=== PATIENT | female | born 1965 | race Caucasian/White ===

== ENCOUNTER 2016-08-31 20:26 | Emergency (ER) | payer OTHER ==
[2016-08-31] MEDS ORDERED: AMOXIL PO ONE (20:53)
[2016-08-31] MEDS ORDERED: ULTRAM PO ONE (20:54)
--- NOTE | 2016-08-31 20:59 | PROVIDER DOCUMENTATION ---
HPI-General Adult - General Stated Complaint: TOOTHACHE Time Seen by Provider: 08/31/16 20:38 Source: patient Allergies/Adverse Reactions: Patient Allergies Allergy/AdvReac Type Severity Reaction Status Date / Time azithromycin [From Zithromax] Allergy ANAPHYLAXIS Verified 09/21/15 19:49 acetaminophen [From Percocet] AdvReac Unknown Verified 09/21/15 19:49 nitrofurantoin AdvReac HEADACHE Verified 09/21/15 19:49 [From Macrobid] nitrofurantoin AdvReac HEADACHE Verified 09/21/15 19:49 macrocrystalline * [From Macrobid] oxycodone HCl * AdvReac Unknown Verified 09/21/15 19:49 [From Percocet] sumatriptan [From Imitrex] AdvReac Unknown Verified 09/21/15 19:49 sumatriptan succinate * AdvReac Unknown Verified 09/21/15 19:49 [From Imitrex] Home Medications: Home Medication List Medication Instructions Recorded Confirmed Last Taken Type Amitriptyline [Elavil] 1 tab PO QHS 09/21/15 09/21/15 Unknown History Cranberry Conc/Ascorbic Acid 1 tab PO DAILY 09/21/15 09/21/15 Unknown History [Cranberry Plus Vitamin C Sftgl] Cyclobenzaprine [Flexeril] 1 tab PO BID 09/21/15 09/21/15 Unknown History Ferrous Sulfate 1 tab PO DAILY 09/21/15 09/21/15 Unknown History Furosemide [Lasix] 1 tab PO DAILY PRN 09/21/15 09/21/15 Unknown History Insulin Glargine [Lantus] 35 units SQ BID 09/21/15 09/21/15 Unknown History Insulin Regular, Human [Novolin R] 5 units SQ AC 09/21/15 09/21/15 Unknown History Linagliptin [Tradjenta] 1 tab PO DAILY 09/21/15 09/21/15 Unknown History Metoprolol Succinate E.r. [Toprol 1 tab PO QHS 09/21/15 09/21/15 Unknown History Xl] Potassium Chloride E.r. [Klor-Con] 1 tab PO DAILY 09/21/15 09/21/15 Unknown History Pregabalin [Lyrica] 1 tab PO TID 09/21/15 09/21/15 Unknown History Sulfamethoxazole/Trimethoprim 1 each PO BID #10 tablet 09/21/15 Unknown Rx [Bactrim Ds Tablet] Topiramate [Topamax] 1 tab PO BID 09/21/15 09/21/15 Unknown History Amoxicillin 500 mg PO BID #14 tablet 08/31/16 Unknown Rx Tramadol [Ultram] 50 mg PO Q8HR #12 tablet 08/31/16 Unknown Rx - History of Present Illness -Gen Adult Nature of Presenting Problems: Pt. is 50 yof that presents with c/o toothache on her upper and lower incisors. Pt. reports symptoms for two weeks and states she is calling on Friday to get a dentist appointment. Pt. denies any other symptoms at time of exam. Location of Pain/Injury: reports: mouth. denies: head, face, neck, chest, upper extremity, hand(s), abdomen, back, pelvis, genitalia, lower extremity, feet, upper body, lower body, generalized Pain Radiation: reports: no radiation Quality of Pain: reports: aching. denies: burning, cramping, dull, fullness, indigestion, pressure, sharp, stabbing, tearing, throbbing, tightness Severity: reports: moderate. denies: mild, severe Onset/Duration: reports: gradual, other (Two weeks) Timing: reports: still present. denies: improving, gone now, resolved prior to arrival, intermittent, constant, changing over time, getting worse Context/Activities at Onset: reports: none. denies: recent emotional stress, recent physical stress, recent trauma history, possible bad food, cold exposure , out of country travel Modifying Factors: improves with: nothing Associated Symptoms: reports: EENT symptoms. denies: anxiety, arm pain, back/ neck pain, chest pain, constipation, cough, diaphoresis, diarrhea, dizziness, fatigue, fever/chills, genitourinary problems, headaches, heartburn, joint pain , loss of appetite, malaise, muscle aches, sinus congestion/drainage, nausea, rash, seizure, shortness of breath, sensory/motor loss, pain with inspiration, swelling/mass in abdomen, syncope, vomiting, weakness, trouble walking Similar Symptoms Previously?: Yes Recently seen or treated by another doctor?: No Review of Systems - Adult - REVIEW OF SYSTEMS - ADULT Constitutional: reports: see HPI. denies: chills, fever, fatique Eyes: reports: see HPI. denies: discharge, blurred vision, double vision Ears, Nose, Mouth & Throat: reports: see HPI, mouth/dental pain. denies: ear pain, hearing loss, sinus problem, nose pain, loose teeth, throat swelling Cardiovascular: reports: see HPI. denies: chest pain, irregular heart rate, orthopnea, palpitations, syncope Respiratory: reports: see HPI. denies: chronic cough, cough, dyspnea on exertion, pleurisy, shortness of breath, wheezing Gastrointestinal: reports: see HPI. denies: abdominal pain, hematemesis, difficulty swallowing, frequent heartburn, nausea, vomiting Genitourinary: reports: see HPI. denies: dysuria, discharge, flank pain, hematuria, hesitency, incontinence, urgency Musculoskeletal: reports: see HPI. denies: bone pain, back pain, joint pain, muscle aches, neck pain Integumentary: reports: see HPI. denies: hives, hair loss, itching, rash, skin thickening Neurological: reports: see HPI. denies: ataxia, dizziness/vertigo, headache/ migraines, numbness, paresthesia, seizure, tremors Psychiatric: reports: see HPI. denies: anxiety, depression, emotional problems , insomnia, panic attacks, suicidal thoughts Past History - Adult - PAST MEDICAL HISTORY-ADULT Review of Records: reports: Old Records Reviewed, Nursing Assessment Review, Medications Reviewed, Social history reviewed & non-contributory. Major Childhood Illnesses: reports: denies history Cardiovascular: reports: HTN, hyperlipidemia Musculoskeletal: reports: chronic pain Endocrine/Immune: reports: Diabetes - PRIOR SURGERIES/PROCEDURES Surgical/Procedure History: reports: BTL, orthopedic (extremity), back/neck - IMMUNIZATION STATUS Childhood Immunizations: See Nurse Assessment Flu Vaccine: See Nurse Assessment - FAMILY HISTORY Family History: reviewed, not pertinent - SOCIAL HISTORY Smoking: cigarettes, greater than 1 pack/day Provider spent 3-5 mins advising pt. on dangers of tobacco.: Discussed the need to stop smoking. Physical Exam-General - PHYSICAL EXAM-ADULT Initial Vital Signs Reviewed: Yes - CONSTITUTIONAL General Appearance: alert, mild distress, obese. negative: thin, anxious, lethargic, slow to respond, obtunded, combative - EYES Eyes: PERRL/EOMI, pink conjunctivae. negative: conjuctival exudate, scleral icterus, subconjunctival hemorrhage - HEAD, EARS, NOSE, MOUTH & THROAT HENMT: normocephalic/atraumatic, moist mucous membranes. negative: angioedema, frontal tenderness, maxillary tenderness - NECK Neck: non-tender, full range of motion, supple, normal inspection. negative: lymphadenopathy, trachial deviation, thyromegaly - RESPIRATORY Respiratory: lungs clear, normal breath sounds. negative: crackles, rales, rhonchi, stridor, wheezing - CARDIOVASCULAR Cardiovascular: normal peripheral pulses, regular rate, rhythm, no edema, no JVD , no murmur. negative: extra beats, friction rub, irregularly irregular - CHEST (BREASTS) Chest/Breast: deferred - GASTROINTESTINAL (ABDOMEN) Abdominal Exam: normal bowel sounds, non tender, soft. negative: distended, guarding, rigid, rebound, tenderness, hernia, mass - GENITOURINARY Female Genitalia/Pelvic Exam: deferred Rectal Exam: deferred Hemoccult Exam: deferred - LYMPHATIC Lymphatic: no adenopathy. negative: axilla node tender, cervical node tenderness - MUSCULOSKELETAL Back Exam: normal inspection, no CVA tenderness, no vertebral tenderness. negative: ecchymosis, swelling, vertebral tenderness Extremity: normal range of motion, non-tender, normal gait, normal inspection. negative: deformity, erythema, inflammation, swelling, tenderness Peripheral Pulses: radial (R): 2+, radial (L): 2+ - SKIN Integumentary: normal color, normal turgor, warm/dry. negative: cyanosis, diaphoresis, ecchymosis, erythema, jaundice, mottled, pallor, petechiae, purpura , rash, swelling, tenderness - NEUROLOGIC Neurologic: grossly normal, no motor/sensory deficits. negative: aphasia, facial droop, focal weakness, motor weakness, sensory deficit - PSYCHIATRIC Psych/Mental Status: normal mood/affect, normal thought content, normal thought process, oriented x 3. negative: anxious, paranoid, tearful Progress - PLAN OF CARE/RESULTS Progress/Plan/Lab Results: Discussed results and plan of care with patient. Patient agrees with plan and verbalizes understanding. Vital Signs Temp Pulse Resp BP Pulse Ox 08/31/16 20:53 98 F 105 H 18 177/99 99 azithromycin [From Zithromax] Allergy (Verified 09/21/15 19:49) ANAPHYLAXIS acetaminophen [From Percocet] Adverse Reaction (Verified 09/21/15 19:49) Unknown nitrofurantoin [From Macrobid] Adverse Reaction (Verified 09/21/15 19:49) HEADACHE nitrofurantoin macrocrystalline * [From Macrobid] Adverse Reaction (Verified 19:49) HEADACHE oxycodone HCl * [From Percocet] Adverse Reaction (Verified 09/21/15 19:49) Unknown sumatriptan [From Imitrex] Adverse Reaction (Verified 09/21/15 19:49) Unknown sumatriptan succinate * [From Imitrex] Adverse Reaction (Verified 09/21/15 19:49 ) Unknown Amitriptyline [Elavil] 1 tab PO QHS 09/21/15 Cranberry Conc/Ascorbic Acid [Cranberry Plus Vitamin C Sftgl] 1 tab PO DAILY Cyclobenzaprine [Flexeril] 1 tab PO BID 09/21/15 Ferrous Sulfate 1 tab PO DAILY 09/21/15 Furosemide [Lasix] 1 tab PO DAILY PRN 09/21/15 Insulin Glargine [Lantus] 35 units SQ BID 09/21/15 Insulin Regular, Human [Novolin R] 5 units SQ AC 09/21/15 Linagliptin [Tradjenta] 1 tab PO DAILY 09/21/15 Metoprolol Succinate E.r. [Toprol Xl] 1 tab PO QHS 09/21/15 Potassium Chloride E.r. [Klor-Con] 1 tab PO DAILY 09/21/15 Pregabalin [Lyrica] 1 tab PO TID 09/21/15 Sulfamethoxazole/Trimethoprim [Bactrim Ds Tablet] 1 each PO BID #10 tablet 09/20 Topiramate [Topamax] 1 tab PO BID 09/21/15 Orders Category Date Time Status Amoxicillin [Amoxil] Med 08/31/16 20:53 Discontinued 500 mg PO NOW ONE Tramadol [Ultram] Med 08/31/16 20:54 Discontinued 50 mg PO NOW ONE Departure - Departure Time of Disposition Order: 20:59 DIAGNOSIS: Dental caries Disposition: HOME 01 Certified Medical Emergency: Emergent Condition: Stable Additional Instructions: Follow up with primary care physician Take medications as directed Follow up with dentist Return to ED for any concerns or worsening of symptoms ED Follow Up Instructions: You have been treated by a care provider in the Emergency Department. These instructions are being provided to you so you can have an understanding of how to care for yourself upon discharge. Upon discharge from the Emergency Department, you are responsible for making arrangements for follow-up care by a physician of your choice. Take all prescribed medications as directed. Return to the Emergency Department immediately for any new or worsening symptoms. You may call the Physician Referral phone number at [phone] to obtain a list of Physicians who are taking new patients. Prescriptions: Amoxicillin 500 mg PO BID #14 tablet Tramadol [Ultram] 50 mg PO Q8HR #12 tablet Attestation - Physician/ TERRY Attestation Patient care was provided by Advanced Practice Provider:: Yes Advanced Practice Provider:: Kayleigh Lake Advanced Practice Provider documentation review:: The Mid-level provider documentation, treatment plan and medical decision making was reviewed by the physician who agrees with all treatment and medical decision making by the MLP.
[2016-08-31 21:02] VITALS: BP 177/99
== END 2016-08-31 21:08 | disposition home or self-care (01) ==
LOC: P.ED 20:26
DX: K02.9 Dental caries, unspecified (principal); K08.89 Other specified disorders of teeth and supporting structures; I10 Essential (primary) hypertension; E78.5 Hyperlipidemia, unspecified; E11.9 Type 2 diabetes mellitus without complications; G89.29 Other chronic pain; E66.9 Obesity, unspecified; F17.210 Nicotine dependence, cigarettes, uncomplicated; Z79.899 Other long term (current) drug therapy; Z71.6 Tobacco abuse counseling; Z79.4 Long term (current) use of insulin
CPT/HCPCS: 99282

== ENCOUNTER 2016-09-12 17:42 | Emergency (ER) | payer OTHER ==
--- NOTE | 2016-09-12 19:52 | PROVIDER DOCUMENTATION ---
HPI-Headache - General Chief Complaint: Headache Stated Complaint: HEADACHE Time Seen by Provider: 09/12/16 19:45 Source: patient Allergies/Adverse Reactions: Patient Allergies Allergy/AdvReac Type Severity Reaction Status Date / Time azithromycin [From Zithromax] Allergy ANAPHYLAXIS Verified 09/21/15 19:49 acetaminophen [From Percocet] AdvReac Unknown Verified 09/21/15 19:49 nitrofurantoin AdvReac HEADACHE Verified 09/21/15 19:49 [From Macrobid] nitrofurantoin AdvReac HEADACHE Verified 09/21/15 19:49 macrocrystalline * [From Macrobid] oxycodone HCl * AdvReac Unknown Verified 09/21/15 19:49 [From Percocet] sumatriptan [From Imitrex] AdvReac Unknown Verified 09/21/15 19:49 sumatriptan succinate * AdvReac Unknown Verified 09/21/15 19:49 [From Imitrex] Home Medications: Home Medication List Medication Instructions Recorded Confirmed Last Taken Type Amitriptyline [Elavil] 1 tab PO QHS 09/21/15 09/21/15 Unknown History Cranberry Conc/Ascorbic Acid 1 tab PO DAILY 09/21/15 09/21/15 Unknown History [Cranberry Plus Vitamin C Sftgl] Cyclobenzaprine [Flexeril] 1 tab PO BID 09/21/15 09/21/15 Unknown History Ferrous Sulfate 1 tab PO DAILY 09/21/15 09/21/15 Unknown History Furosemide [Lasix] 1 tab PO DAILY PRN 09/21/15 09/21/15 Unknown History Insulin Glargine [Lantus] 35 units SQ BID 09/21/15 09/21/15 Unknown History Insulin Regular, Human [Novolin R] 5 units SQ AC 09/21/15 09/21/15 Unknown History Linagliptin [Tradjenta] 1 tab PO DAILY 09/21/15 09/21/15 Unknown History Metoprolol Succinate E.r. [Toprol 1 tab PO QHS 09/21/15 09/21/15 Unknown History Xl] Potassium Chloride E.r. [Klor-Con] 1 tab PO DAILY 09/21/15 09/21/15 Unknown History Pregabalin [Lyrica] 1 tab PO TID 09/21/15 09/21/15 Unknown History Sulfamethoxazole/Trimethoprim 1 each PO BID #10 tablet 09/21/15 Unknown Rx [Bactrim Ds Tablet] Topiramate [Topamax] 1 tab PO BID 09/21/15 09/21/15 Unknown History Amoxicillin 500 mg PO BID #14 tablet 08/31/16 Unknown Rx Tramadol [Ultram] 50 mg PO Q8HR #12 tablet 08/31/16 Unknown Rx - History of Present Illness-Headache Nature of Presenting Problem: 50 y/o F with history of CKD (stage 3), chronic pancreatitis, DDD, sciatica, DM , neuropathy, HTN, HLD presents with migraine x 4 hours. Pain is located on the left side described as throbbing with associated light sensitivity, nausea, which are all typical of her usual migraines. She has not taken anything for this at home and states usually they go away with rest, but she typically comes to the hosptial for her migraines. Patient has a history of migraines since she was in her 20's. Prior workup includes CT and MRI which were normal. PCP is Dr. Wilson. Review of Systems - Adult - REVIEW OF SYSTEMS - ADULT Constitutional: reports: no symptoms reported. denies: chills, fever Eyes: reports: no symptoms reported. denies: decreased vision, blurred vision Ears, Nose, Mouth & Throat: reports: no symptoms reported. denies: ear discharge, ear pain Cardiovascular: reports: no symptoms reported. denies: chest pain Respiratory: reports: no symptoms reported. denies: cough, shortness of breath , wheezing Gastrointestinal: reports: nausea. denies: abdominal pain, vomiting Genitourinary: reports: no symptoms reported. denies: dysuria, hematuria Musculoskeletal: reports: back pain (chronc, unchanged) Integumentary: reports: no symptoms reported. denies: itching, rash Neurological: reports: headache/migraines. denies: dizziness/vertigo, numbness , paresthesia, seizure, slurred speech, syncope, tremors Psychiatric: reports: no symptoms reported Endocrine: reports: no symptoms reported Hematologic/Lymphatic: reports: no symptoms reported Allergic/Immunologic: reports: no symptoms reported All Other Systems: Reviewed and Negative Past History - Adult - PAST MEDICAL HISTORY-ADULT Review of Records: reports: Old Records Reviewed, Nursing Assessment Review, Medications Reviewed Major Childhood Illnesses: reports: denies history Cardiovascular: reports: HTN, hyperlipidemia Musculoskeletal: reports: chronic pain Endocrine/Immune: reports: Diabetes - PRIOR SURGERIES/PROCEDURES Surgical/Procedure History: reports: BTL, orthopedic (extremity), back/neck - IMMUNIZATION STATUS Childhood Immunizations: See Nurse Assessment Flu Vaccine: See Nurse Assessment - FAMILY HISTORY Family History: reviewed, not pertinent Physical Exam- Neurological - Physical Exam-Neuro Initial Vital Signs Reviewed: Yes General Appearance: alert, no apparent distress, other (patient wearing sunglasses and hooded sweatshirt over her head) Eye Exam: right eye: normal inspection, PERRL, EOMI HENMT: normocephalic/atraumatic, moist mucous membranes Head Injury: no evidence of injury Neck: non-tender, full range of motion, supple, normal inspection. negative: limited range of motion, lymphadenopathy, meningismus Respiratory: chest non-tender, lungs clear, normal breath sounds, no pleuratic chest pain, no respiratory distress, no accessory muscle use Cardiovascular: normal peripheral pulses, regular rate, rhythm, no edema, no gallop, no JVD, no murmur Lymphatic: no adenopathy Peripheral Pulses: radial (R): 2+, radial (L): 2+ Extremity: normal range of motion, non-tender, normal gait, normal inspection, no pedal edema pyrometallurgical engineer Exam: normal hearing, normal speech, PERRL. negative: abnormal speech, facial asymmetry, facial droop, facial paresthesias, facial weakness, gaze palsy , hearing deficit (R), hearing deficit (L), tongue deviation to R, tongue deviation to L Coordination/Gait: normal finger to nose, normal gait, negative Romberg's sign Motor/Sensory: no motor deficit, no sensory deficit Neurologic: pyrometallurgical engineer II-XII nml as tested, no motor/sensory deficits. negative: facial droop, focal weakness, motor weakness, sensory deficit Integumentary: normal color, normal turgor, warm/dry Psych/Mental Status: normal mood/affect, normal thought content, normal thought process, oriented x 3 - Glascow Coma Scale Best Eye Response: (4) open spontaneously Best Verbal Response: (5) oriented Best Motor Response: (6) obeys commands Total Glascow Score: 15 Progress - PLAN OF CARE/RESULTS Progress/Plan/Lab Results: 20:03- medical screening exam complete. Patient with temp of 100F and HR of 116 at time of arrival. No meningismus or neuro deficits. Will check CBC and BMP and recheck vitals once RN is available. Patient sent back to with her and instructed to notify recptionist if any change in condition. - REASSESSMENT Reassessment #1 Time Reassessed: 22:17 (Patient's VILLALBA improved. She is playing on her phone in no distress and is nontoxic appearing. Discussed findings of elevated WBC, low sodium with patient. She refuses any further workup at this time. She states her VILLALBA is better and requests to go home. Her temp and HR did improve on recheck of vitals. discussed with Dr. Aguilar. Patient wishes to sign out AMA.) Status: improving Departure - Departure Time of Disposition Order: 22:41 DIAGNOSIS: Migraine, Elevated WBC count, Hyponatremia Disposition: AGAINST MEDICAL ADVICE Certified Medical Emergency: Emergent Condition: Good Additional Instructions: ED Follow Up Instructions: You have been treated by a care provider in the Emergency Department. These instructions are being provided to you so you can have an understanding of how to care for yourself upon discharge. Upon discharge from the Emergency Department, you are responsible for making arrangements for follow-up care by a physician of your choice. Take all prescribed medications as directed. Return to the Emergency Department immediately for any new or worsening symptoms. You may call the Physician Referral phone number at [phone] to obtain a list of Physicians who are taking new patients. Attestation - Physician/ TERRY Attestation Patient care was provided by Advanced Practice Provider:: Yes Advanced Practice Provider:: Goldie Ceballos Advanced Practice Provider documentation review:: The Mid-level provider documentation, treatment plan and medical decision making was reviewed by the physician who agrees with all treatment and medical decision making by the MLP.
[2016-09-12] MEDS ORDERED: NUBAIN IM ONE (19:56)
[2016-09-12] MEDS ORDERED: PHENERGAN IM ONE (19:56)
[2016-09-12 21:17] LABS: MANUAL DIFF NEEDED? NO
[2016-09-12 21:19] LABS: BASO% 0.3 % (0.0-0.8); EOS# 0.06 X1000 (0.0-0.7); EOS% 0.4 % (0.0-10.0); HEMATOCRIT 34.3 % (37.0-47.0); HEMOGLOBIN 11.9 g/dL (12.0-16.0); IMM GRAN# 0.06 X1000 (0.0-0.04); IMM GRAN% 0.4 % (0.0-0.5); LYMPH# 1.44 X1000 (1.2-3.4); MCH 32.4 PG (27-31); MCHC 34.7 g/dL (33-37); MCV 93.5 FL (81-99); MONO# 0.94 X1000 (0.11-0.59); MONO% 6.5 % (1.7-9.3); MPV 11.1 FL (7.4-10.4); NEUT% 82.4 % (42.2-75.2); PLT 204 X1000 (130-400); RBC 3.67 XMIL (4.2-5.4)
[2016-09-12 21:36] LABS: CALCIUM 9.2 mg/dL (8.8-10.2); POTASSIUM 4.2 mmol/L (3.5-5.1)
[2016-09-12 22:24] VITALS: BP 146/84
--- NOTE | 2016-09-13 08:27 | Diag Imaging Result Document ---
PROCEDURE NAME: CHEST-2 VIEWS - 09/12/2016 TWO VIEWS OF THE CHEST: FINDINGS: There is no evidence of acute cardiac or pulmonary disease. No previous studies are available for comparison. IMPRESSION: No acute disease.
== END 2016-09-12 23:03 | disposition left against medical advice (07) ==
LOC: P.ED 17:42
DX: G43.909 Migraine, unspecified, not intractable, without status migrainosus (principal); D72.829 Elevated white blood cell count, unspecified; E87.1 Hypo-osmolality and hyponatremia; R51 Headache; R11.0 Nausea; E11.9 Type 2 diabetes mellitus without complications; I12.9 Hypertensive chronic kidney disease with stage 1 through stage 4 chronic kidney disease, or unspecified chronic kidney disease; N18.3 Chronic kidney disease, stage 3 (moderate); Z79.899 Other long term (current) drug therapy; G89.29 Other chronic pain; M54.9 Dorsalgia, unspecified; E78.5 Hyperlipidemia, unspecified; Z79.4 Long term (current) use of insulin
CPT/HCPCS: 71020; 80048; 85025; 87804; 96372; J2300; J2550

== ENCOUNTER 2017-02-14 00:48 | Inpatient (IN) ==
[2017-02-14] MEDS ORDERED: ZOFRAN IV ONE (00:58)
[2017-02-14] MEDS ORDERED: DILAUDID IV ONE (00:58)
--- NOTE | 2017-02-14 01:02 | PROVIDER DOCUMENTATION ---
This chart was entered by Yana Huang Scribe, acting as scribe for Kadeem Castaneda MD. HPI-Abdominal Pain/GI Problem - General Chief Complaint: UTI Symptoms Stated Complaint: LEFT LOWER BACK PAIN, THINKS SHE HAS A UTI Time Seen by Provider: 02/14/17 00:57 Source: patient Allergies/Adverse Reactions: Patient Allergies Allergy/AdvReac Type Severity Reaction Status Date / Time azithromycin [From Zithromax] Allergy ANAPHYLAXIS Verified 02/14/17 00:51 fenoprofen [From Nalfon] Allergy ANAPHYLAXIS Verified 02/14/17 00:51 rofecoxib [From Vioxx] Allergy Unknown Verified 02/14/17 00:51 acetaminophen [From Percocet] AdvReac Unknown Verified 02/14/17 00:51 nitrofurantoin AdvReac HEADACHE Verified 02/14/17 00:51 [From Macrobid] nitrofurantoin AdvReac HEADACHE Verified 02/14/17 00:51 macrocrystalline * [From Macrobid] oxycodone HCl * AdvReac Unknown Verified 02/14/17 00:51 [From Percocet] sumatriptan [From Imitrex] AdvReac Unknown Verified 02/14/17 00:51 sumatriptan succinate * AdvReac Unknown Verified 02/14/17 00:51 [From Imitrex] Home Medications: Home Medication List Medication Instructions Recorded Confirmed Last Taken Type Furosemide [Lasix] 20 mg PO BID 09/21/15 02/07/17 1 Day Ago History Insulin Glargine [Lantus] 35 units SQ BID 09/21/15 02/07/17 1 Day Ago History Insulin Regular, Human [Novolin R] 5 units SQ DIRECTED 09/21/15 02/07/17 1 Day Ago History Amitriptyline [Elavil] 20 mg PO HS 10/22/16 02/07/17 1 Day Ago History Citalopram Hydrobromide [Celexa] 10 mg PO DAILY 10/22/16 02/07/17 1 Day Ago History Cyclobenzaprine [Flexeril] 10 mg PO TID PRN PRN 10/22/16 02/07/17 1 Day Ago History Metoprolol [Lopressor] 50 mg PO DAILY 10/22/16 02/07/17 1 Day Ago History Clonazepam [Clonazepam] 0.5 mg PO BID PRN 01/15/17 02/07/17 1 Day Ago History Insulin Glargine [Lantus] 35 unit SQ BID 02/14/17 02/14/17 1 Day Ago History Pregabalin [Lyrica] 1 cap PO BID 02/14/17 02/14/17 1 Day Ago History - History of Present Illness-ABD Nature of Presenting Problems: 51 year old F presents to the ED via EMS with a cc of left flank pain radiating into LLQ with an onset of 2030. PT states that she also has some nausea. PT states that the pain is sharp and it came on suddenly. Abdominal Pain Onset Location: reports: flank (left) Pain Radiation: reports: LLQ Quality of Pain: reports: sharp Severity in ED: reports: mild Timing: reports: still present Modifying Factors: improves with: nothing Associated Symptoms: reports: nausea Bruising or Bleeding Gums?: No Similar Symptoms Previously?: No Recently seen or treated by another doctor?: No Review of Systems - Adult - REVIEW OF SYSTEMS - ADULT Constitutional: reports: chills. denies: fever Eyes: reports: no symptoms reported Ears, Nose, Mouth & Throat: reports: no symptoms reported Cardiovascular: denies: chest pain, palpitations Respiratory: denies: cough, shortness of breath Gastrointestinal: reports: abdominal pain, nausea. denies: vomiting Genitourinary: reports: flank pain. denies: dysuria, hematuria Musculoskeletal: denies: back pain, muscle aches, muscle weakness Integumentary: denies: skin sores/ulcer, skin thickening Neurological: reports: no symptoms reported Psychiatric: reports: no symptoms reported Endocrine: reports: no symptoms reported Hematologic/Lymphatic: reports: no symptoms reported Allergic/Immunologic: reports: no symptoms reported All Other Systems: Reviewed and Negative Past History - Adult - PAST MEDICAL HISTORY-ADULT Review of Records: reports: Nursing Assessment Review, Medications Reviewed Major Childhood Illnesses: reports: denies history Cardiovascular: reports: HTN, hyperlipidemia Genitourinary: reports: kidney disease (stage 3) Musculoskeletal: reports: chronic pain Endocrine/Immune: reports: Diabetes - PRIOR SURGERIES/PROCEDURES Surgical/Procedure History: reports: BTL, orthopedic (extremity), back/neck - IMMUNIZATION STATUS Childhood Immunizations: See Nurse Assessment Flu Vaccine: See Nurse Assessment - FAMILY HISTORY Family History: reviewed, not pertinent - SOCIAL HISTORY Smoking: cigarettes Provider spent 3-5 mins advising pt. on dangers of tobacco.: Discussed manners to quit use, and f/u contacts for add'l counseling. Substance Use: none/never Alcohol Use Frequency: never Physical Exam-General - PHYSICAL EXAM-ADULT Initial Vital Signs Reviewed: Yes - CONSTITUTIONAL General Appearance: alert, no apparent distress - RESPIRATORY Respiratory: chest non-tender, lungs clear, normal breath sounds - CARDIOVASCULAR Cardiovascular: normal peripheral pulses, regular rate, rhythm, no edema - GASTROINTESTINAL (ABDOMEN) Abdominal Exam: normal bowel sounds, soft, tenderness (left flank, LLQ) - MUSCULOSKELETAL Back Exam: CVA tenderness (left) - SKIN Integumentary: normal color, normal turgor, warm/dry - PSYCHIATRIC Psych/Mental Status: normal mood/affect, normal thought content, normal thought process, oriented x 3 Progress - PLAN OF CARE/RESULTS Progress/Plan/Lab Results: Vital Signs - 8 hr 02/14/17 00:49 Temperature 97.3 F L Pulse Rate 97 H Respiratory Rate 18 Blood Pressure 106/68 O2 Sat by Pulse Oximetry 95 Orders Category Date Time Status URINALYSIS PL W/POSS RFLX CULT [URINALYSIS] Stat Lab 02/14/17 00:50 Uncollected Result Diagrams: 02/14/17 01:05 02/14/17 01:05 Departure - Departure Date of Disposition Decision: 02/14/17 Time of Disposition Decision: 02:56 DIAGNOSIS: Acute pyelonephritis, Sepsis secondary to UTI Uncontrolled diabetes mellitus Qualifiers: Diabetes mellitus type: type 2 Diabetes mellitus complication status: with kidney complications Diabetes mellitus complication detail: with other kidney complication Diabetes mellitus retirement insulin use: unspecified 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 Qualified Code(s): E11.29 - Type 2 diabetes mellitus with other diabetic kidney complication; E11.65 - Type 2 diabetes mellitus with hyperglycemia Kidney failure Qualifiers: Renal failure chronicity: acute Acute renal failure type: unspecified Qualified Code(s): N17.9 - Acute kidney failure, unspecified Disposition: ADMITTED INPATIENT 09 Certified Medical Emergency: Emergent Condition: Stable Referrals and Follow-Ups: Boom Wilson [Primary Care Provider] - - Critical Care Note This patient required my direct & personal management of CC.: Yes Total Time (mins): 120 Critical Care Statement: This patient required my direct personal management to treat or rule out processes, the absence of which, could potentiallly result in sudden, clinically significant life or limb threatening deterioration. Attestation - Physician/ TERRY Attestation Patient care was provided by Advanced Practice Provider:: No The physician spent face to face time with patient:: Yes Advanced Practice Provider documentation review:: Supervising physician onsite and consulted in the evaluation and care of this patient. The physician did have a face to face encounter with the patient. This chart was documented by the indicated scribe, (Yana Huang Scribe) and accurately reflects the services I performed and decisions made by me, Kadeem Castaneda MD, as attested by the provider's signature.
[2017-02-14] MEDS ORDERED: DILAUDID IM ONE (01:37)
[2017-02-14] MEDS ORDERED: ZOFRAN IM ONE (01:37)
[2017-02-14 01:40] LABS: BASO% 0.2 % (0.0-0.8); EOS# 0.15 X1000 (0.0-0.7); EOS% 0.5 % (0.0-10.0); HEMATOCRIT 31.5 % (37.0-47.0); HEMOGLOBIN 10.9 g/dL (12.0-16.0); IMM GRAN# 0.17 X1000 (0.0-0.04); IMM GRAN% 0.6 % (0.0-0.5); LYMPH% 2.8 % (20.5-51.1); MANUAL DIFF NEEDED? NO; MCH 31.1 PG (27-31); MCHC 34.6 g/dL (33-37); MONO# 0.86 X1000 (0.11-0.59); MPV 10.1 FL (7.4-10.4); NEUT% 92.9 % (42.2-75.2); PLT 302 X1000 (130-400)
[2017-02-14 01:59] LABS: BILIRUBIN URINE NEGATIVE (NEGATIVE); BLOOD URINE 2+ (NEGATIVE); CLARITY SL. CLOUDY (CLEAR); COLOR YELLOW; LEUKOCYTES URINE 2+ (NEGATIVE); NITRITE URINE POSITIVE (NEGATIVE); PROTEIN URINE TRACE mg/dL (NEGATIVE); UROBILINOGEN URINE NORMAL
[2017-02-14 02:01] LABS: URINE CULTURE PL NEEDED? YES; URINE EPITHELIAL CELLS <10 /HPF (<10); URINE RBC <10 /HPF (<10)
[2017-02-14 02:02] LABS: URINE SOURCE CLEAN CATCH
[2017-02-14] MEDS ORDERED: ZOSYN 4.5 GM/NS 4.5 GM/100 ML IVPB IV ONE (02:08)
[2017-02-14] MEDS ORDERED: NS 1,000 ML IV ONE ×3 (02:08→17:03)
[2017-02-14] MEDS ORDERED: ZOFRAN IV PRN ×3 (02:40→16:36)
[2017-02-14] MEDS ORDERED: DILAUDID IV PRN ×3 (02:40→16:35)
[2017-02-14 02:42] LABS: ALBUMIN 3.6 g/dL (3.5-5.0); CALCIUM 9.2 mg/dL (8.8-10.2); POTASSIUM 5.1 mmol/L (3.5-5.1); TOTAL BILIRUBIN 0.3 mg/dL (0.20-1.00); TOTAL PROTEIN 7.3 g/dL (6.3-8.3)
[2017-02-14] MEDS ORDERED: HUMULIN R (PARKWAY) IV ONE (02:47)
[2017-02-14] MEDS ORDERED: NS 500 ML IV ONE (04:12)
[2017-02-14] MEDS ORDERED: PITRESSIN 40 UNIT in NS 100 ML IV SCH (04:12)
[2017-02-14 07:42] LABS: BILIRUBIN URINE NEGATIVE (NEGATIVE); BLOOD URINE 1+ (NEGATIVE); CLARITY CLEAR (CLEAR); COLOR YELLOW; LEUKOCYTES URINE 1+ (NEGATIVE); NITRITE URINE NEGATIVE (NEGATIVE); PROTEIN URINE TRACE mg/dL (NEGATIVE); SP GRAVITY URINE 1.015; UROBILINOGEN URINE NORMAL
[2017-02-14 07:46] LABS: URINE CAST NONE SEEN /LPF; URINE CRYSTAL NONE SEEN /HPF; URINE CULTURE PL NEEDED? YES; URINE EPITHELIAL CELLS <10 /HPF (<10); URINE RBC <10 /HPF (<10); URINE SOURCE CATH; URINE WBC <10 /HPF (<10)
--- NOTE | 2017-02-14 08:38 | Diag Imaging Result Doc PS360 ---
EXAM: ABDOMEN/PELVIS W/O CONTRAST HISTORY: left flank pain TECHNIQUE: Routine noncontrasted CT scan the abdomen and pelvis. COMPARISON: None. FINDINGS: Preliminary interpretation was given by [facility]. Evaluation of the solid visceral organs is limited by lack of IV contrast. No calcified gallstones are appreciated. There is a 2 cm left adrenal nodule which is low density and likely represents a benign adenoma. Confirmation could be obtained with MRI if desired clinically. There is moderate left hydroureteronephrosis. No radiopaque calculus is appreciated. There is gas within the urinary bladder, left ureter, and collecting system. This could be secondary to infection with gas-forming organisms or recent instrumentation. Correlate clinically. There is mild right perinephric stranding of uncertain etiology. There is a there is an 8 mm nonobstructing right calyceal stone. The appendix appears normal. There is moderate constipation. No evidence for free air or bowel distention. There is mild para-aortic lymphadenopathy. There are postsurgical changes lumbar spine with transpedicular screws. IMPRESSION: 1.Moderate left hydronephrosis with perinephric stranding. No obstructing calculus is identified. 2.Gas within the left collecting system, ureter, and bladder which may be secondary to instrumentation or infection with gas-forming organisms. Correlate clinically. 3.Right calyceal stone and mild right perinephric stranding of uncertain etiology. 4.2 cm low density left adrenal nodule which likely represents a benign adenoma. This can be confirmed with MRI as desired clinically. 5.Mild retroperitoneal lymphadenopathy. 6.Constipation. Electronically signed by Ileana Perla 02/14/2017 8:36 AM
[2017-02-14] MEDS ORDERED: FLEXERIL PO PRN (08:50)
[2017-02-14] MEDS ORDERED: KLONOPIN PO PRN ×2 (08:50→16:36)
[2017-02-14] MEDS ORDERED: TYLENOL PO PRN ×2 (08:51→16:35)
[2017-02-14] MEDS ORDERED: CELEXA PO SCH (09:00)
[2017-02-14] MEDS ORDERED: LYRICA PO SCH ×2 (09:00→21:00)
[2017-02-14] MEDS ORDERED: LANTUS INSULIN (PARKWAY) SUBQ SCH (09:00)
[2017-02-14] MEDS ORDERED: PITRESSIN 40 UNIT in NS 100 ML IV PRN ×2 (09:05→16:36)
[2017-02-14] MEDS: ZOSYN 3.375 GM/NS 3.375 GM/50 ML IVPB IV SCH ×2 (09:20→14:44)
[2017-02-14] MEDS ORDERED: LEVOPHED 8 MG in D5 1/2 NS 250 ML IV SCH ×2 (09:30→17:00)
[2017-02-14] MEDS ORDERED: HUMALOG DOSE (PARKWAY) SUBQ SCH (11:00)
[2017-02-14] MEDS ORDERED: NS 1,000 ML IV SCH (14:20)
[2017-02-14 14:54] LABS: HEMATOCRIT 29.9 % (37.0-47.0); HEMOGLOBIN 10.2 g/dL (12.0-16.0); MCH 31.3 PG (27-31); MCHC 34.1 g/dL (33-37); MCV 91.7 FL (81-99); RBC 3.26 XMIL (4.2-5.4)
[2017-02-14 15:19] LABS: CALCIUM 8.2 mg/dL (8.8-10.2); POTASSIUM 4.9 mmol/L (3.5-5.1)
--- NOTE | 2017-02-14 15:31 | HISTORY AND PHYSICAL ---
CHIEF COMPLAINT: Low back pain. HISTORY OF PRESENT ILLNESS: This is a 51-year-old female with a history of chronic kidney disease, diabetes mellitus, chronic back pain, who presents to the emergency room via EMS stating that she thinks she has another urinary tract infection. In the past, she did have left flank pain, left lower quadrant pain, and generalized aches and nausea with urinary tract infections. Although this time she stated that she had a sudden onset of sharp pain to her left lower quadrant that went straight through to her left lower back, she had no exacerbating or alleviating factors. She denied any vomiting, dysuria, frequency, urgency, hematuria. She does report a prior history of urinary tract infections. CT scan in the emergency room revealed left hydroureteronephrosis, with perinephric stranding, gas in the left collecting system, urinary bladder, and a right calyceal stone. Her urine was sent for culture. She was given IV hydration, as well as antibiotics in the emergency room, and admitted for further evaluation and treatment. PAST MEDICAL HISTORY: Frequent urinary tract infections, diabetes mellitus, hyperlipidemia, hypertension, chronic kidney disease stage 3, chronic pancreatitis, chronic back pain. PAST SURGICAL HISTORY: Tubal ligation, back surgery, carpal tunnel, D C. SOCIAL HISTORY: She smokes about a half a pack cigarettes daily. Denies alcohol or illicit drug use. ALLERGIES: Azithromycin, which causes anaphylaxis. Malathion, which causes anaphylaxis. Vioxx, Percocet, Macrobid, Imitrex. HOME MEDICATIONS: Flexeril 20 t.i.d., Klonopin 0.5 b.i.d., Celexa 10 daily, Elavil 20 at bedtime, Lyrica b.i.d., Lopressor 50 daily, Lantus 35 units b.i.d., Lasix 20 mg b.i.d., NovoLog insulin as directed. REVIEW OF SYSTEMS: A 14-point review of systems is discussed with the patient, with pertinent positives being left flank, left back pain, left lower quadrant pain, nausea. She denied chest pain, palpitations, dizziness, syncope, vomiting, diarrhea, constipation, black or bloody vomitus, black or bloody stools, hematuria, dysuria, frequency, urgency. PHYSICAL EXAMINATION: GENERAL: This is a 51-year-old female, who is lying in the bed, in no distress. VITAL SIGNS: Blood pressure 119/58, with a heart rate of 100, temperature is 101 degrees, with O2 saturations of 99-100% on 2 L nasal cannula. HEENT: Head is normocephalic, atraumatic. Pupils equal, round, react to light. EOMs are intact. Sclerae anicteric. Mucous membranes are dry. NECK: Supple. Trachea midline. CARDIOVASCULAR: Regular rate and rhythm. S1 and S2 appreciated. PULMONARY: Breath sounds are clear, with no increased work of breathing noted. GASTROINTESTINAL: Abdomen is soft, with tenderness to the left lower quad quadrant, with bowel sounds in all 4 quadrants. BACK: Positive left CVA tenderness. MUSCULOSKELETAL: Good range of motion of joints. SKIN: Warm and dry. EXTREMITIES: No clubbing, cyanosis, or edema. NEUROLOGIC: She is alert and oriented x3, with cranial nerves 2-12 grossly intact. DIAGNOSTICS: WBC 28.25, with hemoglobin of 10.9, hematocrit 31.5, and platelets of 302,000. Sodium is 124, potassium 5.1. BUN is 37, creatinine 26, with a glucose of 600. Lipase is 62. Urinalysis is positive for blood, nitrite positive, with less than 10 microscopic red blood cells, 10-20 microscopic white blood cells, and 4+ bacteria. Urine culture and blood cultures are pending. ASSESSMENT: 1. Sepsis, secondary to presumed urinary tract infection/pyelonephritis. 2. Acute pyelonephritis. 3. Diabetes type 2, with hyperglycemia. 4. Acute kidney injury in the setting of chronic kidney disease. 5. Hyponatremia. 6. Leukocytosis, secondary to #2. 7. Hypertension. 8. Others. PLAN: She has been admitted to ICU. We will continue with IV hydration and antibiotic coverage. We will repeat labs. We will renal dose medications. Pressures did drop to the 70s and 80s earlier in the morning. She is running in the 100s to 110s at present. If pressures do drop again, we will reinstitute Levophed. We will be transferring the patient to [facility] ICU, so that she can have Urology following. Further treatments pending hospital course. Dictated by CLEMENT Partida for Alex Dumont MD cc: CLEMENT Partida MD
[2017-02-14 17:19] LABS: ALLEN TEST YES; BE -6.4 mmoll (-3.0-3.0); BLOOD TYPE ARTERIAL; DRAW SITE R RADIAL; METHB 0.7 % (0.0-1.5); O2(CT) 13.6 mL/dL (15.0-23.0); PCO2(98.6) 37 mmHg (35-45); PO2(98.6) 203 mmHg (60-100); SAMPLE BLOOD; SAO2 98.7 % (95.0-100.0); THB 9.7 g/dL (11.5-17.4); pH(98.6) 7.32 (7.35-7.45)
[2017-02-14 17:20] LABS: MODALITY PRB
--- NOTE | 2017-02-14 17:43 | Diag Imaging Result Doc PS360 ---
EXAM: CHEST-PORTABLE HISTORY: hypoxia TECHNIQUE: AP portable at 1710 upright COMMENT: The inspiration is suboptimal. Compared to 11/22/2016 there is been no significant change in the appearance of the chest. IMPRESSION: Stable chest. Electronically signed by Fausto Chávez 02/14/2017 5:41 PM
[2017-02-14] MEDS ORDERED: NS NEB INH SCH (17:45)
[2017-02-14] MEDS: NS 1,000 ML IV SCH ×3 (17:54→23:20)
[2017-02-14] MEDS: LEVOPHED 8 MG in D5 1/2 NS 250 ML IV SCH (17:54)
[2017-02-14 18:35] LABS: BASO% 0.1 % (0.0-0.8); EOS# 0.02 X1000 (0.0-0.7); EOS% 0.1 % (0.0-10.0); HEMATOCRIT 26.8 % (37.0-47.0); LYMPH# 0.65 X1000 (1.2-3.4); LYMPH% 2.6 % (20.5-51.1); MANUAL DIFF NEEDED? YES; MCH 32.1 PG (27-31); MCHC 33.6 g/dL (33-37); MCV 95.7 FL (81-99); MONO# 0.18 X1000 (0.11-0.59); MONO% 0.7 % (1.7-9.3); MPV 10.5 FL (7.4-10.4); NEUT% 96.5 % (42.2-75.2); PLT 209 X1000 (130-400)
[2017-02-14] MEDS: MERREM 500 MG in NS 50 ML IV SCH (18:36)
[2017-02-14 18:46] LABS: ALBUMIN 2.7 g/dL (3.5-5.0); CALCIUM 7.5 mg/dL (8.8-10.2); POTASSIUM 4.9 mmol/L (3.5-5.1); TOTAL BILIRUBIN 0.28 mg/dL (0.20-1.00); TOTAL PROTEIN 5.5 g/dL (6.3-8.3)
[2017-02-14 18:54] LABS: EOS 1 % (1-10); LYMPHS 6 % (21-51); MONO 10 % (1-9)
[2017-02-14] MEDS: XOPENEX NEB INH SCH ×2 (19:11→23:14)
[2017-02-14 19:22] LABS: UR CREAT RANDOM 102.6 mg/dL (11-20); UR PROT RANDOM 60.8 mg/dL
--- NOTE | 2017-02-14 19:47 | CONSULTATION ---
DATE OF CONSULTATION: 02/14/2017 CONSULTING PHYSICIAN: Irma Horner MD, with Hospitalist Service. REASON FOR CONSULTATION: Left pyelonephritis, leukocytosis. HISTORY OF PRESENT ILLNESS: A 51-year-old female who presented to [facility] with low back pain. She has a history of uncontrolled diabetes mellitus. She also reportedly has a history of recurrent UTIs. She underwent imaging with CT abdomen and pelvis without contrast which revealed moderate left hydronephrosis with perinephric stranding and gas within the left collecting system, ureter and bladder. She reports left flank pain. She denies history of hospitalization in the past although I am not sure how reliable she is in her history. PAST MEDICAL HISTORY: Recurrent UTIs, diabetes mellitus, hypertension, hyperlipidemia, pancreatitis, back pain. PAST SURGICAL HISTORY: Carpal tunnel release, back surgery, tubal ligation. ALLERGIES: Azithromycin, Vioxx, Macrobid, Imitrex. HOME MEDICATIONS: NovoLog, Lantus, Lasix, Lopressor, Lyrica, Elavil, Celexa, Klonopin, Flexeril. SOCIAL HISTORY: She is a smoker for a number of years, denies alcohol or drug use. REVIEW OF SYSTEMS: Review of 12 systems was negative except as noted in HPI. PHYSICAL EXAMINATION: Vital Sign: T 115, respirations 28, BP 91/46. General: No acute distress although she appears ill overall. HEENT: Normocephalic, atraumatic. Cardiovascular: Regular rhythm. Pulmonary: Bilateral breath sounds. Abdomen: Nontender to palpation. Back: She has mild left CVA tenderness. Lymphatic: No groin lymphadenopathy. Genitourinary: Her bladder is nontender to palpation. Dermatologic: No obvious skin rashes. Neurologic: Alert and oriented x3. Psychiatric: Appropriate mood and affect. PERTINENT LABORATORY DATA: White cell count of 25,000, creatinine of 3.9. Urinalysis positive for bacteria, red blood cells, white blood cells. Of note, her sugar was 182 with last check at 18:00. PERTINENT IMAGING: CT of abdomen and pelvis for renal stone search obtained on 02/14/2017 which revealed findings per HPI. 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 I have explained to the patient the seriousness of that and the possibility of her becoming septic and needing a left nephrectomy. We also discussed that we would start off with cystoscopy and left ureteral stent placement. She is in agreement. We discussed the risks of the procedure, including but not limited to, bleeding, infection, injury to the bladder, injury to adjacent structures, and need for additional interventions such as left nephrectomy. She voiced understanding. PLAN: She will be taken to the Operating Room now for cystoscopy and left ureteral stent placement. I have discussed again with the patient and the Nursing staff regarding her condition, and my concern that she may have to have a larger surgery. Again she voiced understanding. cc: Freedom Barakat MD
[2017-02-14] MEDS ORDERED: QUELICIN (DOSE) ONE (20:39)
[2017-02-14] MEDS ORDERED: NEO-SYNEPHRINE ONE (20:40)
[2017-02-14] MEDS ORDERED: AMIDATE ONE (20:40)
--- NOTE | 2017-02-14 20:52 | OPERATIVE NOTE ---
PROCEDURE DATE: 02/14/2017 PREOPERATIVE DIAGNOSES: 1. Left emphysematous pyelonephritis. 2. Urosepsis. 3. Hypotension. PRIMARY PROCEDURES: Cystoscopy with placement of left ureteral stent. INDICATIONS: 51-year-old female with poorly controlled diabetes mellitus who presented with back pain. She was found have leukocytosis and urinary tract infection. She underwent imaging with CT scan which revealed air in the collecting system as well as the left ureter and the bladder. She upon my examination was found to be hypotensive and tachycardic. I have discussed the seriousness of the situation with the patient as well as her daughter over the phone. She was consented to cystoscopy with left ureteral stent placement. She was counselled on risks of the procedure including but not limited to bleeding, infection, injury to the bladder, injury to the kidney, inability to improve her clinical condition and need for additional intervention. I have explained to the patient that if she not improve post stent placement she may require emergent open left nephrectomy. The patient voiced understanding. FINDINGS: Copious amount of purulent fluid expressed via the stent after its placement. PROCEDURE IN DETAIL: After obtaining informed consent patient brought to the operating room. Perioperative antibiotics and monitored anesthesia care were administered. She was placed lithotomy position prepped, draped in sterile fashion. A 21-Finnish rigid cystoscope was used to gain access to the bladder which was then briefly examined systematic fashion. She had no evidence of mucosal lesions, excessive trabeculations, diverticula noted. Then turned attention left ureteral orifice which appeared to be peristalsing expressing a copious amount of purulent fluid already. PTFE wire was advanced to level of the left renal pelvis. In a standard fashion over the wire a 6-Finnish, 22 cm ureteral stent was placed with proximal coil position confirmed fluoroscopically and distal coil directly visualized. The string was detached from the stent. Once the stent was placed again copious amount of purulent material exited the ureteral orifice and the stent fenestrations. She was transferred to ICU care for hemodynamic monitoring after 16- Finnish Monge catheter was placed to gravity drainage. ESTIMATED BLOOD LOSS: None. COMPLICATIONS: None on my part. DISPOSITION: Back to ICU for close hemodynamic observation. Again I expressed to the patient that if she does not improve we may have to consider left nephrectomy. cc: Freedom Barakat MD
[2017-02-14] MEDS ORDERED: ZOSYN 3.375 GM/NS 3.375 GM/50 ML IVPB IV SCH (21:00)
[2017-02-14] MEDS ORDERED: ZOSYN 2.25 GM/NS 2.25 GM/50 ML IVPB IV SCH (21:00)
[2017-02-14] MEDS ORDERED: HUMALOG SUBQ SCH (21:00)
[2017-02-14] MEDS ORDERED: ELAVIL PO SCH ×2 (21:00)
[2017-02-14] MEDS ORDERED: LANTUS SUBQ SCH (21:00)
[2017-02-14] MEDS: ZOSYN 2.25 GM/NS 2.25 GM/50 ML IVPB IV SCH (21:06)
[2017-02-14] MEDS: HUMULIN R SUBQ SCH (21:09)
[2017-02-14] MEDS: MORPHINE IV PRN (23:18)
[2017-02-15] MEDS: LEVOPHED 8 MG in D5 1/2 NS 250 ML IV SCH ×3 (00:03→22:21)
[2017-02-15] MEDS: MORPHINE IV PRN ×2 (01:32→04:50)
[2017-02-15] MEDS: XOPENEX NEB INH SCH ×6 (03:31→23:14)
[2017-02-15 04:39] LABS: ALLEN TEST YES; BE -12.6 mmoll (-3.0-3.0); BLOOD TYPE ARTERIAL; DRAW SITE R RADIAL; O2(CT) 12.3 mL/dL (15.0-23.0); PCO2(98.6) 37 mmHg (35-45); PO2(98.6) 66 mmHg (60-100); SAMPLE BLOOD; SAO2 95.8 % (95.0-100.0); THB 9.4 g/dL (11.5-17.4)
[2017-02-15 04:40] LABS: MODALITY CANNULA
[2017-02-15] MEDS: MERREM 500 MG in NS 50 ML IV SCH ×2 (04:59→17:17)
[2017-02-15] MEDS: ZOSYN 2.25 GM/NS 2.25 GM/50 ML IVPB IV SCH ×3 (05:00→21:03)
[2017-02-15] MEDS: PROTONIX IV SCH ×2 (05:00→06:21)
[2017-02-15 05:55] LABS: BASO% 0.1 % (0.0-0.8); EOS# 0.02 X1000 (0.0-0.7); HEMATOCRIT 26.6 % (37.0-47.0); HEMOGLOBIN 8.9 g/dL (12.0-16.0); IMM GRAN# 0.85 X1000 (0.0-0.04); IMM GRAN% 1.7 % (0.0-0.5); LYMPH# 1.13 X1000 (1.2-3.4); LYMPH% 2.2 % (20.5-51.1); MANUAL DIFF NEEDED? YES; MCH 31.7 PG (27-31); MCHC 33.5 g/dL (33-37); MCV 94.7 FL (81-99); MONO# 1.62 X1000 (0.11-0.59); MONO% 3.2 % (1.7-9.3); MPV 11.5 FL (7.4-10.4); NEUT% 92.8 % (42.2-75.2); PLT 199 X1000 (130-400); RBC 2.81 XMIL (4.2-5.4)
[2017-02-15] MEDS ORDERED: VANCOMYCIN IV PER PHARMACY MISC SCH (06:00)
[2017-02-15 06:15] LABS: BANDS 28 % (0-1); LYMPHS 2 % (21-51); MONO 4 % (1-9)
[2017-02-15] MEDS: NS 1,000 ML IV SCH (06:20)
[2017-02-15] MEDS: HUMULIN R SUBQ SCH ×3 (06:26→12:15)
[2017-02-15 06:47] LABS: ALBUMIN 2.8 g/dL (3.5-5.0); CALCIUM 7.3 mg/dL (8.8-10.2)
[2017-02-15 06:48] LABS: POTASSIUM 5.7 mmol/L (3.5-5.1)
[2017-02-15] MEDS ORDERED: ALBUTEROL 0.5% INH CONC FOR HYPERKALEMIA INH ONE ×2 (06:52→14:46)
[2017-02-15] MEDS ORDERED: SODIUM BICARBONATE 8.4% IV PUSH ONE (06:52)
[2017-02-15] MEDS ORDERED: HUMULIN R IV ONE ×2 (06:53→22:32)
[2017-02-15] MEDS ORDERED: SODIUM BICARBONATE 8.4% 100 MEQ in D5W 1,000 ML IV SCH (07:00)
--- NOTE | 2017-02-15 07:09 | Diag Imaging Result Doc PS360 ---
EXAM: CHEST-PORTABLE HISTORY: dyspnea TECHNIQUE: AP portable 0500 COMMENT: There is increasing opacification throughout the left lung compared to 02/14/2017. The right lung is stable in appearance. IMPRESSION: Left-sided pneumonia. Electronically signed by Fausto Chávez 02/15/2017 7:06 AM
[2017-02-15] MEDS: DILAUDID IV PRN ×3 (07:32→23:56)
[2017-02-15] MEDS ORDERED: VANCOMYCIN 1,850 MG in NS 500 ML IV ONE (08:00)
[2017-02-15] MEDS: HEPARIN SUBQ SCH ×3 (08:55→20:31)
[2017-02-15] MEDS ORDERED: CELEXA PO SCH (09:00)
[2017-02-15] MEDS ORDERED: NEO-SYNEPHRINE 50 MG in NS 250 ML IV SCH (09:00)
[2017-02-15] MEDS ORDERED: AMIDATE ONE (09:15)
[2017-02-15] MEDS ORDERED: XYLOCAINE-MPF 2% ONE (09:15)
[2017-02-15] MEDS ORDERED: QUELICIN (DOSE) ONE (09:15)
[2017-02-15] MEDS ORDERED: VERSED ONE (09:52)
[2017-02-15] MEDS ORDERED: NORCURON ONE (09:54)
[2017-02-15] MEDS ORDERED: FENTANYL ONE (10:35)
[2017-02-15] MEDS ORDERED: SODIUM CHLORIDE 0.9% 10 ML ONE (11:43)
--- NOTE | 2017-02-15 12:17 | Diag Imaging Result Doc PS360 ---
EXAM: CHEST-PORTABLE HISTORY: ET tube and central line placement TECHNIQUE: AP portable at 1200 COMMENT: There is a right subclavian central venous catheter with its tip in the area of the superior vena cava. There is an endotracheal tube with its tip at thoracic inlet. The inspiration is suboptimal. There is perihilar opacity in the left lower lobe and lingula as there was on the previous study at 0500. IMPRESSION: Bronchopneumonia on the left. Electronically signed by Fausto Chávez 02/15/2017 12:15 PM
[2017-02-15] MEDS ORDERED: ATIVAN IV ONE (12:24)
[2017-02-15] MEDS ORDERED: MORPHINE PCA IV PRN (12:26)
[2017-02-15] MEDS ORDERED: LR 1,000 ML IV SCH (12:26)
[2017-02-15] MEDS ORDERED: NARCAN IV PRN (12:26)
--- NOTE | 2017-02-15 12:46 | PROGRESS NOTE ---
DATE: 02/15/2017 Ms. Calhoun has not improved overnight. She did undergo cystoscopy with left ureteral stent placement yesterday in order to decompress her kidney secondary to emphysematous pyelonephritis. Overnight her Levophed settings had to be increased. She remains uncomfortable, tachycardic and hypotensive. She reports mainly left-sided flank and abdominal pain. OBJECTIVE: Vital Signs: T 97.1 degrees, P 111, BP 95/58. General: Mild distress noted. HEENT: Normocephalic, atraumatic. Cardiovascular: Tachycardic, regular rhythm. Abdomen: Tender to palpation left side. No perineal signs noted. : Monge catheter in place. PERTINENT LABORATORY DATA: White cell count is 51,000 up from 25,000, her hematocrit was 26.6 which is stable, her platelet count is 199,000, her lactic acid is 3, potassium is 5.7 and creatinine is 4.1, which is up from 3.9. ASSESSMENT AND PLAN: 51-year-old female with emphysematous pyelonephritis and urosepsis who has worsened despite cystoscopy neural stent placement. I have discussed in detail with the patient and the family which included her son, daughter and son-in-law the seriousness of the situation and had that our 2 options would be to observe her with aggressive medical resuscitation versus proceed with emergent open left radical nephrectomy given that she is trending in the wrong direction. We have discussed the risks and benefits of each. I do believe that she is quite in dire situation and we discussed a significant chance of her mortality from either the surgery or observation. Family and the patient feel strongly about proceeding with surgery. We discussed risks in detail including , cardiovascular event, bleeding requiring transfusions, worsening infection, wound infection, injury to adjacent organs such as spleen, colon or major blood vessels, inability to complete surgery, delayed complications and need for additional interventions. Again I have reinforced to the family that she has a high chance of mortality. The family and the patient feel strongly about proceeding. PLAN: To OR now for open left radical nephrectomy. cc: Freedom Barakat MD
[2017-02-15] MEDS ORDERED: NS 1,000 ML IV SCH (13:00)
[2017-02-15 13:22] LABS: ALLEN TEST YES; BE -13.4 mmoll (-3.0-3.0); BLOOD TYPE ARTERIAL; DRAW SITE R RADIAL; METHB 1.1 % (0.0-1.5); O2(CT) 12.3 mL/dL (15.0-23.0); PCO2(98.6) 39 mmHg (35-45); PO2(98.6) 103 mmHg (60-100); SAMPLE BLOOD; SAO2 98.7 % (95.0-100.0); SRATE 12 BPM; TVOL 500 mL
[2017-02-15] MEDS: LEVOPHED 16 MG in D5 1/2 NS 250 ML IV SCH (13:23)
[2017-02-15 13:25] LABS: MODALITY VENTILATOR; pH(98.6) 7.17 (7.35-7.45)
--- NOTE | 2017-02-15 14:12 | CONSULTATION ---
DATE OF CONSULTATION: 02/15/2017 REASON FOR CONSULTATION: Assistance with management and acute kidney injury. HISTORY OF PRESENT ILLNESS: Ms. Calhoun is a 51-year-old white female with diabetes, hyperlipidemia, known chronic kidney disease. History is obtained entirely from the chart and the nursing staff. She had a recent urinary tract infection and was treated for that but she came into the emergency room because of sudden onset of left lower quadrant pain. CT scan demonstrated hydronephrosis and hydroureter on the left. She had clinical evidence of sepsis. She was admitted to the ICU and treated with volume resuscitation, as well as empiric broad-spectrum antibiotics. She was evaluated by Dr. Barakat and taken to the operating room where a left ureteral stent was placed. She had a copious amounts of purulent drainage from the ureter and then from the stent once it was placed. Despite this, overnight blood pressure remained somewhat low and her white count continued to rise from 25,000 yesterday to 51,000 today. On this basis, she was taken back to the operating room today for an emergency left nephrectomy. She remains intubated and sedated following that procedure. PAST MEDICAL HISTORY: As above. HOME MEDICATIONS: Include Flexeril, Klonopin, Celexa, Elavil, Lyrica, Lantus, Lopressor, Lasix, insulin. ALLERGIES: Multiple as listed. SOCIAL HISTORY: Ongoing smoker. FAMILY HISTORY/REVIEW OF SYSTEMS: Otherwise not obtainable. PHYSICAL EXAM: Blood pressure 125/65, heart rate 109, respirations 19, afebrile. She is on vasopressor support. Generally: She is an obese, white female in no acute distress, sedated. Skin: Warm and dry. HEENT: Conjunctivae are pink. Pupils are equal. Oropharynx is moist. Neck: Neck veins are not appreciated. Heart: Regular. No gallops or murmurs. Lungs: Have equal breath sounds. No crackles. Abdomen: Soft and quiet, nontender. Extremities: Have no edema, clubbing, or cyanosis. IMPRESSION: Acute kidney injury in the context of sepsis with pyelonephritis and a nephrectomy. Her urine output was 500 mL yesterday and 150 mL thus far today. She does not had any acute indications for dialysis though she does have a moderate metabolic acidosis and moderate hyperkalemia. We will continue fluid resuscitation with bicarbonate containing fluids. Recheck her labs later today. Though she does not require dialysis currently she may certainly develop an indication for that within the next 12-36 hours. cc: James Sue MD
[2017-02-15 14:16] LABS: BASO% 0.1 % (0.0-0.8); EOS# 0.03 X1000 (0.0-0.7); EOS% 0.1 % (0.0-10.0); HEMATOCRIT 25.4 % (37.0-47.0); HEMOGLOBIN 8.6 g/dL (12.0-16.0); IMM GRAN# 0.54 X1000 (0.0-0.04); IMM GRAN% 1.3 % (0.0-0.5); LYMPH# 0.96 X1000 (1.2-3.4); LYMPH% 2.4 % (20.5-51.1); MANUAL DIFF NEEDED? YES; MCH 31.9 PG (27-31); MCHC 33.9 g/dL (33-37); MCV 94.1 FL (81-99); MONO# 0.99 X1000 (0.11-0.59); MONO% 2.4 % (1.7-9.3); MPV 11.2 FL (7.4-10.4); NEUT% 93.7 % (42.2-75.2); PLT 166 X1000 (130-400)
[2017-02-15] MEDS: HUMULIN R 100 UNIT in NS 100 ML IV SCH ×2 (14:27→23:57)
[2017-02-15 14:34] LABS: BANDS 24 % (0-1); LYMPHS 2 % (21-51); MONO 6 % (1-9)
[2017-02-15 14:37] LABS: ALBUMIN 2.3 g/dL (3.5-5.0)
[2017-02-15 14:39] LABS: CALCIUM 6.1 mg/dL (8.8-10.2); POTASSIUM 6.6 mmol/L (3.5-5.1)
[2017-02-15] MEDS ORDERED: CALCIUM GLUCONATE 1 GM in NS 50 ML IV ONE ×2 (15:00→20:03)
[2017-02-15] MEDS: SODIUM ACETATE 150 MEQ in D5W 1,000 ML IV SCH (17:18)
--- NOTE | 2017-02-15 17:45 | PROGRESS NOTE ---
DATE: 02/15/2017 SUBJECTIVE: The patient was examined this morning and noted to have deteriorated in comparison to yesterday's evaluation. The patient was more acidotic and hypotensive and was subsequently taken to the OR for a radical left nephrectomy. The patient is now sedated on the ventilator and on a Levophed drip. OBJECTIVE: Vital Signs: Temperature 98 degrees, blood pressure 112/56, heart rate 105,respirations 20, O2 saturation is 100% on the mechanical ventilator. Intake 5.1 L, output 540 mL. General: This is a morbidly obese female, sedated on the ventilator. Head : Normocephalic, atraumatic. Heart: S1, S2. Normal. Regular rate and rhythm. Lungs: Coarse breath sounds bilaterally. No crackles. No rales. Abdomen: Positive bowel sounds. Soft, nontender, nondistended. Extremities: No edema. No cyanosis. No calf tenderness. Neurologic: The patient is currently sedated on the ventilator. LABS: White blood cell count 40.6, hemoglobin 8.6, hematocrit 25, platelets 166 ,000. ABG pH of 7.1, pCO2 of 39, PO2 103, bicarb 14. O2 saturations 98% on the ventilator. Her sodium 129, potassium 6.6, chloride 100, CO2 14. BUN 51, creatinine 4.1, glucose 393. Calcium 6.1, phosphorus 5.7, albumin 2.3. Lactate 2.8. Troponin less than 0.01. Chest x-ray, bronchopneumonia in the left lung. ASSESSMENT AND PLAN: 1. Acute respiratory failure. The farmer vegetable has been consulted for assistance with ventilator management. The patient also has pneumonia. Will continue on broad- spectrum antibiotic coverage plus bronchodilator therapy. 2. Septic shock. This is likely secondary to emphysematous pyelonephritis. The patient is now status post a radical left nephrectomy. We will continue with pressor support, IV fluid hydration and broad spectrum antibiotics. ID has also been consulted for further assistance. 3. Left lobe pneumonia. Continue on broad-spectrum antibiotic therapy. We will also order a sputum Gram stain and culture. 4. Acute kidney injury. The auto garage attendant has been consulted and is following. We will monitor the patient's urine output and electrolytes closely. Continue on IV fluid. 5. 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 The urine culture is growing gram negative rods. Will follow up on the final culture results. The urologist is following. 6. Metabolic acidosis. Continue on the bicarbonate drip. 7. Hyperkalemia. The patient is currently on a bicarbonate drip and an insulin drip. Will monitor the potassium closely. The auto garage attendant is following. 8. Uncontrolled diabetes mellitus type 2. Due to the patient's high blood sugars we have started an insulin drip. Will be checking the patient's blood sugars every hour and adjust the insulin drip accordingly. 9. Bacteremia. One bottle of the blood cultures are growing positive cocci. The patient is on vancomycin. We will follow up the results of the blood culture. 10. Leukocytosis. Continue on broad-spectrum antibiotic coverage. 11. Hypocalcemia. Will replace the patient's calcium. 12. Gastrointestinal prophylaxis. The patient is on IV Protonix. 13. Deep vein thrombosis prophylaxis. The patient is on heparin. 14. The patient is critically ill with a high risk of mortality. cc: Irma Horner MD MTDD
[2017-02-15 20:01] LABS: CALCIUM 5.9 mg/dL (8.8-10.2); POTASSIUM 4.8 mmol/L (3.5-5.1)
[2017-02-15] MEDS: ATIVAN IV PRN ×2 (20:32→23:55)
[2017-02-15] MEDS ORDERED: D50W SYRINGE IV PRN (22:32)
[2017-02-15] MEDS ORDERED: HUMULIN R 100 UNIT in NS 99 ML IV SCH (22:32)
[2017-02-15] MEDS: TYLENOL PR PRN (23:38)
[2017-02-16 00:19] LABS: ALLEN TEST YES; BE -7.7 mmoll (-3.0-3.0); BLOOD TYPE ARTERIAL; DRAW SITE R RADIAL; METHB 1.1 % (0.0-1.5); MODALITY VENTILATOR; O2(CT) 10.8 mL/dL (15.0-23.0); PCO2(98.6) 42 mmHg (35-45); PO2(98.6) 98 mmHg (60-100); SAMPLE BLOOD; SAO2 98.3 % (95.0-100.0); SRATE 12 BPM; THB 7.9 g/dL (11.5-17.4); TVOL 500 mL; pH(98.6) 7.26 (7.35-7.45)
[2017-02-16] MEDS: LEVOPHED 16 MG in D5 1/2 NS 250 ML IV SCH ×2 (00:35→14:03)
[2017-02-16 01:31] LABS: MAGNESIUM 1.2 mg/dL (1.5-2.7); POTASSIUM 4.3 mmol/L (3.5-5.1)
[2017-02-16 01:54] LABS: CALCIUM 6.4 mg/dL (8.8-10.2)
[2017-02-16] MEDS: DILAUDID IV PRN ×5 (03:01→23:21)
[2017-02-16] MEDS: ATIVAN IV PRN ×7 (03:02→23:20)
[2017-02-16] MEDS: XOPENEX NEB INH SCH ×6 (03:15→23:10)
[2017-02-16] MEDS ORDERED: CALCIUM GLUCONATE 1 GM in NS 50 ML IV ONE ×3 (03:33→17:37)
[2017-02-16] MEDS: SODIUM ACETATE 150 MEQ in D5W 1,000 ML IV SCH ×2 (03:51→14:42)
[2017-02-16 04:39] LABS: BASO% 0.2 % (0.0-0.8); EOS# 0.19 X1000 (0.0-0.7); EOS% 0.7 % (0.0-10.0); HEMATOCRIT 22.7 % (37.0-47.0); HEMOGLOBIN 7.6 g/dL (12.0-16.0); IMM GRAN# 0.19 X1000 (0.0-0.04); IMM GRAN% 0.7 % (0.0-0.5); LYMPH# 1.35 X1000 (1.2-3.4); LYMPH% 5.1 % (20.5-51.1); MANUAL DIFF NEEDED? YES; MCH 31.3 PG (27-31); MCHC 33.5 g/dL (33-37); MCV 93.4 FL (81-99); MONO# 0.81 X1000 (0.11-0.59); MONO% 3.1 % (1.7-9.3); MPV 10.5 FL (7.4-10.4); NEUT% 90.2 % (42.2-75.2); PLT 133 X1000 (130-400); RBC 2.43 XMIL (4.2-5.4)
[2017-02-16 04:49] LABS: ALLEN TEST YES; BE -5.9 mmoll (-3.0-3.0); BLOOD TYPE ARTERIAL; DRAW SITE R RADIAL; METHB 1.2 % (0.0-1.5); MODALITY VENTILATOR; O2(CT) 10.8 mL/dL (15.0-23.0); PCO2(98.6) 37 mmHg (35-45); PO2(98.6) 166 mmHg (60-100); SAMPLE BLOOD; SAO2 98.1 % (95.0-100.0); SRATE 12 BPM; THB 7.7 g/dL (11.5-17.4); TVOL 50 mL; pH(98.6) 7.33 (7.35-7.45)
[2017-02-16 04:53] LABS: ALBUMIN 2.1 g/dL (3.5-5.0); ALKALINE PHOSPHATASE 88 U/L (32-104); GOT 12 U/L (10-30); GPT 8 U/L (10-36); TOTAL BILIRUBIN 0.34 mg/dL (0.20-1.00); TOTAL PROTEIN 4.8 g/dL (6.3-8.3)
[2017-02-16 04:59] LABS: MAGNESIUM 1.1 mg/dL (1.5-2.7)
[2017-02-16 05:12] LABS: ACETONE SERUM NEGATIVE (NEGATIVE); CALCIUM 6.8 mg/dL (8.8-10.2)
[2017-02-16 05:14] LABS: BANDS 4 % (0-1); LYMPHS 6 % (21-51); MONO 2 % (1-9)
[2017-02-16] MEDS: HEPARIN SUBQ SCH ×2 (05:25→21:18)
[2017-02-16] MEDS: ZOSYN 2.25 GM/NS 2.25 GM/50 ML IVPB IV SCH ×2 (06:04→14:10)
[2017-02-16] MEDS: MERREM 500 MG in NS 50 ML IV SCH (06:04)
[2017-02-16] MEDS: PROTONIX IV SCH (06:04)
[2017-02-16] MEDS: SODIUM CHLORIDE 0.9% INJ SCH (06:05)
[2017-02-16] MEDS ORDERED: MAGNESIUM SULFATE 2 GM/S.W.I. 2 GM/50 ML IVPB IV ONE ×2 (07:01→14:47)
--- NOTE | 2017-02-16 07:13 | Diag Imaging Result Doc PS360 ---
EXAM: CHEST-1 VIEW HISTORY: SOB TECHNIQUE: AP portable at 0500 COMMENT: The endotracheal tube tip remains at the thoracic inlet. There are patchy alveolar opacities present bilaterally. This has worsened since the previous study of 02/15/2017, particularly with regard to the left apex. IMPRESSION: Worsened pulmonary edema. Electronically signed by Fausto Chávez 02/16/2017 7:11 AM
[2017-02-16] MEDS: HUMULIN R 100 UNIT in NS 100 ML IV SCH (07:18)
[2017-02-16] MEDS ORDERED: NS 250 ML ONE (07:49)
[2017-02-16 08:06] LABS: BE -3.7 mmoll (-3.0-3.0); BLOOD TYPE ARTERIAL; O2(CT) 11.2 mL/dL (15.0-23.0); PCO2(98.6) 43 mmHg (35-45); PO2(98.6) 75 mmHg (60-100); SAMPLE BLOOD; SAO2 97.6 % (95.0-100.0); THB 8.3 g/dL (11.5-17.4); pH(98.6) 7.32 (7.35-7.45)
[2017-02-16] MEDS: INVANZ 0.5 GM in NS 50 ML IV SCH (08:12)
[2017-02-16 08:44] LABS: MAGNESIUM 1.2 mg/dL (1.5-2.7); POTASSIUM 4.3 mmol/L (3.5-5.1)
[2017-02-16 09:00] LABS: CALCIUM 6.7 mg/dL (8.8-10.2)
[2017-02-16 09:49] LABS: MODALITY VENTILATOR
[2017-02-16 09:50] LABS: ALLEN TEST YES; DRAW SITE R RADIAL; SRATE 12 BPM; TVOL 500 mL
[2017-02-16] MEDS: TYLENOL PR PRN ×2 (10:02→18:15)
--- NOTE | 2017-02-16 11:15 | CONSULTATION ---
DATE OF CONSULTATION: 02/16/2017 FAMILY PHYSICIAN: Boom Wilson MD. CHIEF COMPLAINT: Low-back pain. HISTORY OF PRESENT ILLNESS: This is a 51-year-old female who has a history of chronic kidney disease, uncontrolled diabetes mellitus, hyperlipidemia, hypertension, chronic pancreatitis. ALLERGIES: Zithromax, fenoprofen, Vioxx, Percocet, Macrobid, Imitrex. HOME MEDICATION: Insulin NovoLog before meals and at bedtime, Flexeril 20 mg t.i.d. p.r.n., clonazepam 0.5 mg b.i.d. and p.r.n., Celexa 10 mg p.o. daily, Elavil 20 mg p.o. at bedtime, Lyrica 1 capsule p.o. b.i.d., Lopressor 50 mg p.o. daily, Lantus 35 units subcutaneously b.i.d., Lasix 20 mg p.o. b.i.d. REVIEW OF SYSTEMS: Unable to obtain due to patient's condition. PAST MEDICAL HISTORY: As detailed in the HPI. SOCIAL HISTORY: Non-obtainable due to patient's condition. Family History: reviewed from EMR. LABORATORY DATA: White blood cells 26.44, red blood cells 2.43, hemoglobin 7.6 , hematocrit 22.7, segmented neutrophils 88, bands 4, lymphocytes 6, monocytes 10. ABG revealed pH 7.32, pCO2 of 43, pO2 75, HCO3 22.0, base excess -3.7, oxyhemoglobin 95.0. Ventilator settings: Spontaneous rate 12, FiO2 percent 40.0, tidal volume 500, PEEP 5.0. Calcium 6.7. Glucose 284. ProBNP 14,557. Total protein 4.8, albumin 2.0. DIAGNOSTIC IMAGING: Chest x-ray dated 02/16/2017- IMPRESSION: Worsening pulmonary edema. PHYSICAL EXAMINATION: Vital Signs: Temperature 99 degrees, pulse rate 117, respiratory rate 26, blood pressure 108/59. O2 saturating 98% per mechanical ventilation. General : A 51-year-old female currently on mechanical ventilation.. HEENT: Head is normocephalic, atraumatic. Pupils are round and reactive to light. Neck: Trachea midline. Neck supple. Cardiovascular: Regular rate and rhythm. S1 and S2 auscultated. Respiratory: Breath sounds clear. Abdomen: Soft. Tender. Bowel sounds present. Skin: Warm, dry, and intact. Extremities: No clubbing, cyanosis, or edema. ASSESSMENT AND PLAN: 1. Alveolar opacities and worsening pulmonary edema. Continue Xopenex neb treatments and antibiotics as prescribed 2. Urinary tract infection. I agree with current treatment with antibiotics. Emphysematous pyelonephritis post nephrectomy. 3. Diabetes mellitus. I agree with the current treatment plan. 4. Low back pain. I agree with the current treatment plan. 5. Continue deep vein thrombosis prophylaxis and gastrointestinal prophylaxis. Thank you for the courtesy of this consult. Dictated by CLEMENT Wilkins for Carlos Chowdhury MD cc: CLEMENT Wilkins MD [facility]
[2017-02-16 12:16] LABS: ALLEN TEST YES; BE -3.2 mmoll (-3.0-3.0); BLOOD TYPE ARTERIAL; DRAW SITE R RADIAL; PCO2(98.6) 43 mmHg (35-45); PO2(98.6) 73 mmHg (60-100); SAMPLE BLOOD; SRATE 12 BPM; TVOL 500 mL; pH(98.6) 7.33 (7.35-7.45)
[2017-02-16 12:17] LABS: MODALITY VENTILATOR
[2017-02-16 13:27] LABS: MAGNESIUM 1.4 mg/dL (1.5-2.7); POTASSIUM 4.9 mmol/L (3.5-5.1)
[2017-02-16 14:26] LABS: CALCIUM 8.9 mg/dL (8.8-10.2)
[2017-02-16 15:52] LABS: ALLEN TEST YES; BLOOD TYPE ARTERIAL; DRAW SITE R RADIAL; METHB 1.9 % (0.0-1.5); O2(CT) 11.2 mL/dL (15.0-23.0); PCO2(98.6) 46 mmHg (35-45); PO2(98.6) 66 mmHg (60-100); SAMPLE BLOOD; SRATE 12 BPM; THB 8.6 g/dL (11.5-17.4); TVOL 500 mL; pH(98.6) 7.31 (7.35-7.45)
[2017-02-16 15:53] LABS: MODALITY VENTILATOR
--- NOTE | 2017-02-16 16:22 | PROGRESS NOTE ---
DATE: 02/16/2017 SUBJECTIVE: The patient has been febrile all night. She remains sedated on the ventilator. The patient is currently on Levophed and Juve-Synephrine. OBJECTIVE: Vital Signs: T-max 101.5, blood pressure 100/56, heart rate 115, respirations 19, O2 saturations 97% on the mechanical ventilator. I: 3.5, O:1.9 liters General:This is a morbidly obese female lying in bed, sedated on the ventilator. Head: Normocephalic, atraumatic. Heart: S1, S2. Normal. Tachycardic. Lungs: Coarse breath sounds bilaterally. No wheezing. No rales. No crackles. Abdomen: Positive bowel sounds. Soft, nontender, nondistended. Extremities: The patient does have edema involving the upper extremities. Trace edema involving the lower extremities. Neurologic: The patient is currently sedated on the ventilator. LABS: CBC: White blood cell count 26.4, hemoglobin 7.6, hematocrit 22.7, platelets 133,000. ABG: PH 7.33, pCO2 43, PO2 73, bicarb 22, O2 saturation 97%. Chem: Sodium 137, potassium 4.9, chloride 101, CO2 21, BUN 50, creatinine 4.3, glucose 153, magnesium 1.4, AST 12 , ALT 8, alkaline phosphatase 88, proBNP 14,557. Albumin is 2. IMAGING STUDIES: Chest x-ray: Reveals worsening pulmonary edema. ASSESSMENT AND PLAN: 1. Acute hypoxemic respiratory failure. Multifactorial. The patient continued to require ventilatory support. We will continue with broad-spectrum antibiotic coverage and bronchodilator therapy. The skilled nursing case manager is following. 2. Septic shock. The patient is still requiring pressor support and the patient remains febrile. The urine culture grew out ESBL positive E. coli and 1 bottle of the original blood cultures are growing coagulase-negative staph. Repeat blood cultures were obtained this morning. We will continue with broad-spectrum antibiotic coverage and await further recommendations from ID. 3. Pneumonia. Continue on IV antibiotic therapy plus bronchodilator therapy. 4. Pulmonary edema. Will continue to monitor closely. Will defer to the account manager trainee regarding management. 5. 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 The urine culture grew out ESBL positive E. coli. The patient has been switched to Invanz. Further recommendations to follow from ID. The urologist is also following. 6. Acute kidney injury. The patient's urine output remains adequate and the creatinine remains elevated. Further recommendations as per the account manager trainee. 7. Metabolic acidosis. Improved. The patient remains on a bicarbonate drip. 8. Uncontrolled insulin-dependent diabetes mellitus type 2. The patient is currently on an insulin drip. We will continue to monitor the Accu-Cheks every hour and adjust the insulin drip accordingly. 9. Anemia. The patient will receive 1 unit of packed red blood cells today. 10. Leukocytosis. Slowly improving. Continue on broad-spectrum antibiotic coverage. 11. Morbid obesity. Aware. 12. Severe protein calorie malnutrition. Will place an NGT and start tube feedings. 13. Hypomagnesemia. Will replace the magnesium 14. Gastrointestinal prophylaxis. Continue on IV Protonix. 15. Deep vein thrombosis prophylaxis. Heparin on hold as per the urologist. Continue with SCDs. The patient remains critically ill with a high risk of mortality. The plan of care was discussed with the patient's family at the bedside. cc: Irma Horner MD MTDD
--- NOTE | 2017-02-16 16:33 | PROGRESS NOTE ---
DATE: 02/16/2017 SUBJECTIVE: Ms Calhoun remains in a guarded condition, but has been stable overnight per Nursing staff. She is currently on Levophed at 20 mcg/minute. She is not responsive and remained intubated. OBJECTIVE: Vital Signs: T 99 degrees, P 117, BP 108/59. General: She does not appear to be in distress, although, again, she is intubated. Cardiovascular: Tachycardic, regular rhythm. Pulmonary: Decreased bilateral breath sounds. Abdomen: Nondistended. Dressing in place. Output: CHON drain has serosanguineous fluid. Her urinary output was recorded in the amount of 700 mL, with CHON output of 90 mL. Genitourinary: Monge catheter is in place, draining straw-colored fluid. PERTINENT LABORATORIES: Her hematocrit was 22.7, white blood cell count 26,000. Creatinine is 4.3. Of note, her urine culture came back as ESBL-positive E. coli. Her blood cultures, so far, are growing coag-negative staph. PERTINENT IMAGES: None. ASSESSMENT: A 51-year-old female, with urosepsis and left emphysematous pyelonephritis, who underwent left open nephrectomy 1 day ago. She is stable from a genitourinary standpoint. She did receive 1 unit of packed red blood cells, secondary to acute blood loss anemia. She is making urine. PLAN: 1. We will transfuse as needed. Hold heparin for now. Okay to restart tomorrow if hemoglobin stable. 2. Keep Monge catheter to gravity drainage. 3. Appreciate multidisciplinary approach to this difficult patient. cc: Freedom Barakat MD
--- NOTE | 2017-02-16 17:09 | Diag Imaging Result Doc PS360 ---
EXAM: CHEST-PORTABLE HISTORY: NG tube placement TECHNIQUE: AP portable chest and abdomen at 1700 four NG tube placement COMMENT: The NG tube tip is in the distal stomach or duodenum. There is a questionable right renal stone. The lungs may be slightly clearer than on 02/16/2017 at 0500. IMPRESSION: NG tube is in the distal stomach. Electronically signed by Fausto Chávez 02/16/2017 5:06 PM
--- NOTE | 2017-02-16 17:15 | OPERATIVE NOTE ---
PROCEDURE DATE : 02/15/2017 SURGEON: Dr. Freedom Barakat. COLOR CORRECTOR: Dr. Shelton Winchester. Please note that Dr. Winchester was present for the entire procedure. PREOPERATIVE DIAGNOSIS: Urosepsis, emphysematous pyelonephritis, failure of conservative management with ureteral stent, morbid obesity, with BMI of 40.5. POSTOPERATIVE DIAGNOSIS: Urosepsis, emphysematous pyelonephritis, failure of conservative management with ureteral stent, morbid obesity, with BMI of 40.5. PROCEDURES: Open left nephrectomy. INDICATIONS: A 51-year-old female with poorly controlled diabetes who presented with emphysematous pyelonephritis and urosepsis. She underwent ureteral stent placement the day prior but continued to deteriorate clinically. She was counseled on observation versus nephrectomy and chose to proceed so with surgery. She was counselled on multiple risks including , injury to adjacent organs, bleeding worsen infection, the possibility of being dependent on dialysis. FINDINGS: Extremely difficult exposure and access given morbid obesity, large amount of intra- abdominal fat. Adequate hemostasis at the conclusion of the case. Severe perinephric inflammatory reaction. PROCEDURE IN DETAIL: After obtaining an informed consent, the patient was brought to the operating room. Perioperative antibiotics and general endotracheal anesthesia were administered. She had a central venous line inserted by anesthesiologist. She was placed in supine position with her upper and lower extremities appropriately padded. She was prepped and draped sterile fashion. A midline incision was made with Bovie electrocautery from her xiphoid process down to approximately 10 cm below the umbilicus, circumventing in the umbilicus. An incision extended through subcutaneous fat to the level of fascia the and subsequently through the fascia into the level of the peritoneum. Peritoneum was then sharply incised along the incision. We used a Bookwalter retractor for exposure. We carefully packed away the small bowel with small laps as well as spleen with laps. This gave us exposure to her colon. We incised the white line of Toldt with Bovie electrocautery and medialized the colon. We were able to identify Gerota's fascia. I then dissected laterally allowing us to free up that surface of the kidney. We then dissected toward the lower pole of the kidney and eventually identifying the ureter which had the stent in place. The ureter was sharply incised, and the stent was retrieved and discarded. I then put 2 metal clips in the ureter and cut it. We dissected along the course of the ureter to over the hilum. She had extremely weak stream, perinephric inflammatory reaction and nearly total loss of planes. Hence, I stayed on the side of the kidney in order to avoid injury to the great vessels. I was able to feel aortic pulsations and again stayed laterally. We then came to what would appear to be renal hilum, although it was very difficult to identify and isolate the vein and the artery given inflammatory reaction. I was able to palpate both and used my finger to isolate the renal hilum. I isolated 2 packets. Again, it would closely impossible to or separate artery and the vein. Each packet was then controlled with a 45 mm Endo-ERNESTO vascular stapler. After that, we examined for hemostasis, and there was no evidence of active bleeding. I then continued dissecting posteriorly and superiorly until the kidney was free. It was sent off for pathologic determination. We then irrigated copiously the wound, and there appeared to be no discrete significant bleeding. There was very small oozing in the bed of the nephrectomy toward the upper pole although there was not an identifiable bleeder. Hence, we irrigated the wound again and ended up placing a piece of Surgicel hemostatic agent. Upon reexamination, hemostasis was excellent. We then closed the fascia in a running fashion with a #1 looped PDS suture. A CHON drain was placed lateral to the incision and connected to bulb suction. It was secured to skin with a 2-0 silk. After the fascia was closed, the wound was irrigated again and a stapler was used to approximate the skin incisions. Prior to the stapler, I used 0 Vicryl suture to bury the PDS knot in a [id number] and pursestring fashion. Medipore tape was then applied. The patient was transferred to ICU from the operating room. ESTIMATED BLOOD LOSS: 500 mL. COMPLICATIONS: None. DISPOSITION: To ICU with guarded condition. I have discussed that with the family. cc: Freedom Barakat MD
[2017-02-16 17:35] LABS: MAGNESIUM 2.1 mg/dL (1.5-2.7); POTASSIUM 5.3 mmol/L (3.5-5.1)
[2017-02-16 17:36] LABS: CALCIUM 6.7 mg/dL (8.8-10.2)
--- NOTE | 2017-02-16 19:56 | CONSULTATION ---
DATE OF CONSULTATION: 02/16/2017 CONCLUSION: Patient has an extended spectrum beta lactamase producing E coli, emphysematous pyelonephritis and cystitis. Her chest x-ray I think is more in keeping with pulmonary edema than pneumonia. The patient had 1 of 2 blood cultures positive for coagulase-negative staphylococcus. I think this is a contaminant. RECOMMENDATIONS: I agree treating with ertapenem. The dose is reduced because of the patient's renal failure. At this time I would like to discontinue vancomycin and Zosyn. The positive blood culture for coagulase-negative staph does not require treatment with antibiotics. This is because the positive blood culture is a contaminant. DISCUSSION: The patient is intubated and sedated. No family member is present. Therefore I was unable to obtain a history and physical from her. According to the information in the computer, the patient was admitted to the hospital with low back pain. She also had left flank pain and left lower quadrant abdominal pain. She on CT scan was found to have left hydronephrosis with the presence of gas in the kidney collecting system on the left side and gas in the bladder. Chest x- ray showed findings compatible with pulmonary edema. The patient's white count has been very high. Today it was down to 26,440, hemoglobin 7.6 and platelet count 133,000. Blood gases show a pH of 7.31, a PO2 of 66, a pCO2 of 46. Creatinine is 4.6. GFR is 10. Liver function studies are normal. One of 2 blood cultures is growing coagulase-negative staph. The urine is growing an extended spectrum beta lactamase producing E coli. PAST MEDICAL HISTORY: Positive for frequent urinary tract infections, diabetes mellitus, hyperlipidemia, hypertension, chronic kidney disease stage 3, chronic pancreatitis, chronic back pain. PAST SURGICAL HISTORY: Positive for tubal ligation, back surgery, carpal tunnel surgery and a D and C. SOCIAL HISTORY: The patient smokes cigarettes. She does not drink alcoholic beverages or use illicit drugs. ALLERGIES: She has allergies to azithromycin, malathion, Vioxx, Percocet, Macrobid, Imitrex. HOME MEDICATIONS: Include Flexeril, Klonopin, Celexa, Elavil, Lyrica, Lopressor, Lantus, Lasix and NovoLog. REVIEW OF SYSTEMS: Was unable to be obtained. PHYSICAL EXAMINATION: Vital Signs: Temperature is 99.7 degrees, pulse 105, respirations 16, blood pressure 124/62. Generally: This is an ill-appearing middle-aged female. She is intubated and sedated. Head, eyes, ears, nose, and throat: NG and orotracheal tubes are in place. No drainage is noted from the nose or ears. Neck: No meningismus. Thorax: Patient appeared to have an increased AP diameter of the chest. Lungs: Clear to auscultation. Cardiovascular: Regular heart rate. Abdomen: Soft, patient has an incision, is a dressing over the incision, the dressing is intact. There also is present a CHON drain with sanguinous drainage in it. Neurologic: Patient is sedated. She did not respond to verbal stimuli. There was no tremor. Integument: No rash noted. Thank you for the consult. cc: Pipo Douglas MD
[2017-02-16 20:23] LABS: ALLEN TEST YES; BE 0.3 mmoll (-3.0-3.0); BLOOD TYPE ARTERIAL; DRAW SITE R RADIAL; METHB 1.2 % (0.0-1.5); O2(CT) 11.7 mL/dL (15.0-23.0); PCO2(98.6) 46 mmHg (35-45); PO2(98.6) 75 mmHg (60-100); SAMPLE BLOOD; SAO2 97.6 % (95.0-100.0); SRATE 12 BPM; THB 8.7 g/dL (11.5-17.4); TVOL 500 mL; pH(98.6) 7.36 (7.35-7.45)
[2017-02-16 20:25] LABS: MODALITY VENTILATOR
[2017-02-16 21:08] LABS: MAGNESIUM 2.2 mg/dL (1.5-2.7); POTASSIUM 4.9 mmol/L (3.5-5.1)
[2017-02-17 00:27] LABS: ALLEN TEST YES; BE -0.5 mmoll (-3.0-3.0); BLOOD TYPE ARTERIAL; DRAW SITE R RADIAL; O2(CT) 13.2 mL/dL (15.0-23.0); PO2(98.6) 84 mmHg (60-100); SAMPLE BLOOD; SAO2 97.5 % (95.0-100.0); SRATE 12 BPM; THB 9.8 g/dL (11.5-17.4); TVOL 500 mL; pH(98.6) 7.31 (7.35-7.45)
[2017-02-17 00:29] LABS: MODALITY VENTILATOR; PCO2(98.6) 52 mmHg (35-45)
[2017-02-17] MEDS: SODIUM ACETATE 150 MEQ in D5W 1,000 ML IV SCH ×2 (00:37→01:59)
[2017-02-17 00:49] LABS: CALCIUM 7.2 mg/dL (8.8-10.2); MAGNESIUM 2.3 mg/dL (1.5-2.7)
[2017-02-17] MEDS: XOPENEX NEB INH SCH ×6 (03:16→19:25)
[2017-02-17 04:38] LABS: ALLEN TEST YES; BE 1.8 mmoll (-3.0-3.0); BLOOD TYPE ARTERIAL; DRAW SITE R RADIAL; METHB 0.8 % (0.0-1.5); O2(CT) 14.7 mL/dL (15.0-23.0); PO2(98.6) 87 mmHg (60-100); SAMPLE BLOOD; SAO2 98.1 % (95.0-100.0); SRATE 12 BPM; THB 10.9 g/dL (11.5-17.4); TVOL 500 mL; pH(98.6) 7.33 (7.35-7.45)
[2017-02-17 04:39] LABS: MODALITY VENTILATOR; PCO2(98.6) 54 mmHg (35-45)
[2017-02-17] MEDS: ATIVAN IV PRN ×7 (05:11→23:18)
[2017-02-17] MEDS: HEPARIN SUBQ SCH (05:11)
[2017-02-17] MEDS: DILAUDID IV PRN ×7 (05:11→23:18)
[2017-02-17] MEDS: PROTONIX IV SCH (05:11)
[2017-02-17 06:04] LABS: ALBUMIN 1.7 g/dL (3.5-5.0); CALCIUM 7.2 mg/dL (8.8-10.2); DIRECT BILIRUBIN 0.4 mg/dL (0.00-0.20); MAGNESIUM 2.2 mg/dL (1.5-2.7); POTASSIUM 4.7 mmol/L (3.5-5.1); TOTAL BILIRUBIN 0.47 mg/dL (0.20-1.00)
--- NOTE | 2017-02-17 06:11 | EKG Report ---
Test Performed on : 02/14/2017 6:00:25 PM Test Reason : EKG Blood Pressure : / mmHG Vent. Rate : 095 BPM Atrial Rate : 095 BPM P-R Int : 140 ms QRS Dur : 078 ms QT Int : 366 ms P-R-T Axes : 062 006 037 degrees QTc Int : 459 ms Normal sinus rhythm. Normal ECG When compared with ECG of 22-NOV-2016 23:59, Leftward axis inferiorly Nonspecific T wave abnormality aVL Confirmed by Sonido Wylie DO ([id number]) on 02/18/2017 7:10:39 AM
[2017-02-17 06:23] LABS: BASO% 0.2 % (0.0-0.8); EOS# 0.42 X1000 (0.0-0.7); EOS% 2.1 % (0.0-10.0); HEMATOCRIT 23.7 % (37.0-47.0); HEMOGLOBIN 7.9 g/dL (12.0-16.0); IMM GRAN# 0.07 X1000 (0.0-0.04); IMM GRAN% 0.4 % (0.0-0.5); LYMPH# 1.15 X1000 (1.2-3.4); LYMPH% 5.8 % (20.5-51.1); MANUAL DIFF NEEDED? YES; MCH 31.2 PG (27-31); MCHC 33.3 g/dL (33-37); MCV 93.7 FL (81-99); MONO# 0.59 X1000 (0.11-0.59); MPV 11.2 FL (7.4-10.4); NEUT% 88.5 % (42.2-75.2); PLT 118 X1000 (130-400); RBC 2.53 XMIL (4.2-5.4)
--- NOTE | 2017-02-17 07:13 | Diag Imaging Result Doc PS360 ---
EXAM: CHEST-1 VIEW HISTORY: SOB TECHNIQUE: Portable COMPARISON: 02/16/2017 FINDINGS: No change in the endotracheal tube or right subclavian line. Interval placement of a nasogastric tube which overlies the esophagus and stomach. There are diffuse bilateral infiltrates which remain. No definite improvement. No cardiomegaly. No pleural effusions identified. IMPRESSION: No interval improvement. Electronically signed by Romario Edwards 02/17/2017 7:10 AM
--- NOTE | 2017-02-17 07:19 | Diag Imaging Result Doc PS360 ---
FLUOROSCOPY CYSTO - 02/14/2017 INDICATION: LT STENT INSERTION TECHNIQUE: Fluoroscopy and multiple views of the abdomen. The exam was performed by the patient's urologist. Nine images were submitted. COMPARISON: CT abdomen pelvis 02/14/2017 FINDINGS: There is placement of a wire and nephroureteral stent on the left side. The stent is in good position. IMPRESSION: No complication. Electronically signed by Charli Duke 02/17/2017 7:17 AM
--- NOTE | 2017-02-17 07:35 | EKG Report ---
Test Performed on : 02/15/2017 12:01:41 PM Test Reason : No Order in [employer] Blood Pressure : / mmHG Vent. Rate : 106 BPM Atrial Rate : 106 BPM P-R Int : 140 ms QRS Dur : 094 ms QT Int : 360 ms P-R-T Axes : 059 -20 055 degrees QTc Int : 478 ms Sinus tachycardia. Leftward axis inferiorly Low voltage QRS Borderline ECG Compared to 02/14/2017 at 18:00 pm No significant change was found Confirmed by Sonido Wylie DO ([id number]) on 02/18/2017 7:24:22 AM
[2017-02-17 08:10] LABS: BANDS 6 % (0-1); EOS 2 % (1-10); LYMPHS 2 % (21-51); MONO 6 % (1-9)
[2017-02-17 08:26] LABS: BE 3.3 mmoll (-3.0-3.0); BLOOD TYPE ARTERIAL; METHB 0.8 % (0.0-1.5); O2(CT) 11.9 mL/dL (15.0-23.0); PO2(98.6) 78 mmHg (60-100); SAMPLE BLOOD; SAO2 97.3 % (95.0-100.0); SRATE 12 BPM; THB 8.8 g/dL (11.5-17.4); TVOL 500 mL; pH(98.6) 7.36 (7.35-7.45)
[2017-02-17 08:28] LABS: ALLEN TEST YES; DRAW SITE R RADIAL; MODALITY VENTILATOR; PCO2(98.6) 52 mmHg (35-45)
[2017-02-17] MEDS: INVANZ 0.5 GM in NS 50 ML IV SCH (08:50)
[2017-02-17 09:38] LABS: MAGNESIUM 2.1 mg/dL (1.5-2.7); POTASSIUM 4.9 mmol/L (3.5-5.1)
[2017-02-17] MEDS: SOLU-CORTEF IV SCH ×3 (10:13→21:07)
[2017-02-17] MEDS ORDERED: HALDOL IV PRN (11:05)
[2017-02-17] MEDS ORDERED: CALCIUM GLUCONATE 4.65 MEQ in NS 50 ML IV ONE (11:20)
[2017-02-17] MEDS ORDERED: LANTUS SUBQ SCH (11:30)
[2017-02-17] MEDS ORDERED: TYLENOL LIQUID NG PRN (11:35)
[2017-02-17] MEDS ORDERED: LANTUS SUBQ ONE (11:50)
[2017-02-17 11:54] LABS: ALLEN TEST YES; BE 2.4 mmoll (-3.0-3.0); BLOOD TYPE ARTERIAL; DRAW SITE R BRACHIAL; O2(CT) 18.3 mL/dL (15.0-23.0); PO2(98.6) 106 mmHg (60-100); SAMPLE BLOOD; SAO2 98.2 % (95.0-100.0); SRATE 12 BPM; THB 13.5 g/dL (11.5-17.4); TVOL 500 mL; pH(98.6) 7.36 (7.35-7.45)
[2017-02-17 11:56] LABS: PCO2(98.6) 51 mmHg (35-45)
[2017-02-17 11:57] LABS: MODALITY VENTILATOR
[2017-02-17] MEDS ORDERED: NS 250 ML IV SCH (12:00)
--- NOTE | 2017-02-17 12:00 | PROGRESS NOTE ---
DATE: 02/17/2017 SUBJECTIVE: Patient intubated and sedated. OBJECTIVE: Vital Signs: Blood pressure 107/60, heart rate of 102, respiratory rate of 20, temperature 99.1 degrees, 99% on room air. Cardiovascular: Regular rate and rhythm. Pulmonary: Bilateral breath sounds clear to auscultation. GI: Soft, nontender, nondistended. Bowel sounds were diminished. Laboratory Data: White count 19, hemoglobin and hematocrit 7.9 and 23.7, platelets 118,000. PH 7.36, pCO2 52, PaO2 78. That is on 40%. BUN and creatinine of 46 and 4.2, calcium is 7, albumin of 1.8, total protein of 4. Chest x-ray shows no interval improvement, diffuse bilateral infiltrates. PROBLEM LIST: 1. Acute hypoxic respiratory failure, likely acute respiratory distress syndrome. Pulmonary is following. 2. Septic shock. She is on pressors and is stabilizing. It is likely related to her pyelonephritis. 3. Emphysematous pyelonephritis, status post radical left nephrectomy. She is getting extended- spectrum B-lactamase positive Escherichia coli. She is on intravenous antibiotics for that. I believe she is currently getting ertapenem and we will follow. It is sensitive to imipenem. That is the best JANETH it has. Really, the only other option is aminoglycosides which with her kidney dysfunction is not ideal. 4. Diabetic ketoacidosis. She was placed on an insulin drip. Her acidosis has improved so I am going to take her off the insulin drip and just put her on regular Lantus, follow her blood sugars. 5. Anemia. She is still on the low side, still hypotensive, in shock. I am going to go ahead and give her 1 more unit just to get her above 8 and 25 with the multiple issues going on. 6. Severe protein-calorie malnutrition. There is discussion about starting tube feeds. I do not think that has happened. Unsure if that has happened yet. We will defer to surgery when we can do that, or urology, but we will need to initiate that soon. Hydrocortisone has been tapered down. She is on heparin. I will change to Arixtra because of her thrombocytopenia and we will follow closely. 7. Disposition. Still very critically ill. Continue to monitor. 8. Acute kidney injury. Dr. Sue is following. We will continue volume management and monitor, likely related to her septic shock issues. cc: Eber Rutledge MD
[2017-02-17] MEDS ORDERED: INSULIN PEN NEEDLES ONE (12:14)
[2017-02-17] MEDS: HUMALOG SUBQ SCH ×3 (12:19→20:57)
--- NOTE | 2017-02-17 13:25 | EKG Report ---
Test Performed on : 02/15/2017 12:01:41 PM Test Reason : Out Patient EKG Blood Pressure : / mmHG Vent. Rate : 106 BPM Atrial Rate : 106 BPM P-R Int : 140 ms QRS Dur : 094 ms QT Int : 360 ms P-R-T Axes : 059 -20 055 degrees QTc Int : 478 ms Sinus tachycardia. Leftward axis inferior Low voltage QRS Borderline ECG Compared to 02/15/2017 at 12;01 No significant change was found Confirmed by Sonido Wylie DO ([id number]) on 02/18/2017 7:24:59 AM
[2017-02-17] MEDS: LEVOPHED 16 MG in D5 1/2 NS 250 ML IV SCH (13:28)
--- NOTE | 2017-02-17 14:46 | PROGRESS NOTE ---
DATE: 02/17/2017 SUBJECTIVE: The patient remains sedated. Mechanically ventilated. OBJECTIVE: Vital signs: Temperature 99.1 degrees, pulse 99, respiratory rate 14, blood pressure 107/60. She remains on pressor support. Intake 3.4 L, output 1.9 L. General Appearance: This is a middle aged female, currently sedated, intubated, and mechanically ventilated. HEENT: Normocephalic, atraumatic. She is orally intubated. Pupils equal, round, and reactive to light. Pupils reactive sluggish. Neck: Supple. Unable to discern jugular venous distention. Cardiovascular: Regular rate and rhythm. No murmur or gallop is appreciated. Pulmonary: She has equal excursion. She is mechanically ventilated. Decreased breath sounds to the bases. Abdomen: Soft, quiet. Positive bowel sounds. She has a nasogastric tube to intermittent suction noted. Genitourinary: She has a Monge catheter with yellow urine. Extremities: She has 2+ pretibial edema. No clubbing or cyanosis. Integumentary: Skin is warm and dry. Pale. LAB DATA: WBC of 19.8, hemoglobin 7.9, sodium 137, potassium 4.7. CO2 26, BUN 47 creatinine 4.4 (4.1, 4.4, 4.6, 4.3, 4.1, 3.9). ASSESSMENT AND PLAN: 1. Acute kidney injury in the context of sepsis and pyelonephritis with a nephrectomy. Her urine output has been picking up over the last 24-48 hours. She had almost 2 L out yesterday. She still has a significant amount of IV fluids infusing. She has remained in positive balance and now is about 8 L positive. We will slow the rate down on her sodium acetate. She has no indication for intervention at this time. We will continue to monitor. She appears to be ventilating adequately. 2. Electrolytes acid-base balance. CO2 is 26 today. We will slow that sodium acetate down. 3. Anemia stable, status post nephrectomy. 4. Hypotension. She remains on pressor support. May be contributing to her decreased kidney function. Dictated by CLEMENT Henley for James Sue MD Patient seen, data reviewed, discussed with Emely Gibbs on 02/17/17. I agree with the above assessment and plan of care. cc: James Sue MD [facility]
--- NOTE | 2017-02-17 16:48 | PROGRESS NOTE ---
DATE: 02/17/2017 PRESENTING ILLNESS: The patient has an extended spectrum beta lactamase producing E. coli, and associated emphysematous pyelonephritis and cystitis. She is had stents placed and a nephrectomy. MEDICATIONS: The patient is on ertapenem, the dose has been modified because of the patient's renal failure. PHYSICAL EXAMINATION: Vital Signs: Temperature is 99.1 degrees, pulse 99, respirations 13, blood pressure 94/48. General: This is an ill-appearing, elderly female. She is intubated and sedated. Lungs: Clear to auscultation. Cardiovascular: Regular heart rate. Abdomen: The patient's dressing is intact. The drain is intact also. Neurologic: Patient is sedated. She did not respond to verbal stimuli. LABORATORY AND X-RAY: Chest x-ray shows bilateral infiltrates. CBC shows the white count is down to 19,860, hemoglobin 7.9, and platelet count 118,000. Blood gases show a pH of 7.36, a PO2 of 106, pCO2 of 51. Creatinine is 4.2. GFR is 11. ASSESSMENT AND PLAN: The plan is to continue treating with ertapenem for the patient's emphysematous renal infection and bladder infection. COMORBIDITIES: Include: 1. History of recurrent urinary tract infections. 2. Diabetes mellitus. 3. Chronic kidney disease. 4. Pancreatitis. cc: Pipo Douglas MD
--- NOTE | 2017-02-17 19:09 | PROGRESS NOTE ---
DATE: 02/17/2017 SUBJECTIVE: Ms. Calhoun had slowly improved in terms of her ventilator settings as well as insulin drip. She remains intubated at this point. She is still on Levophed. At the time of rounds, she did appear to be somewhat awake and tried to pull on her endotracheal tube. OBJECTIVE: Vital signs: T 99.1 degrees, P 103, BP 94/48. In general intubated. Cardiovascular: Regular rhythm. Abdomen nondistended, incision is clean and dry with tami intact, and CHON drain in place draining serosanguineous fluid. Monge catheter in place draining straw-colored urine. PERTINENT LABORATORY DATA: White cell count of 20,000, hematocrit stable at 23.7, and creatinine is 4.2. ASSESSMENT AND PLAN: A 51-year-old female, status post open left nephrectomy secondary to emphysematous pyelonephritis and urosepsis. From the urologic standpoint she is stable at this point. 1. She is fine from my standpoint to be on heparin for deep venous thrombosis prophylaxis. 2. From my standpoint, she is clear to be started on tube feeds if okay with Dr. Rutledge, see indicated in his note. 3. Keep Monge catheter to gravity drainage for now. 4. We will remove CHON drain tomorrow. 5. I appreciate multidisciplinary approach to this difficult patient. cc: Freedom Barakat MD
[2017-02-17] MEDS ORDERED: VANCOMYCIN 1,400 MG in NS 250 ML IV SCH (20:00)
[2017-02-17] MEDS: LANTUS SUBQ SCH (20:57)
[2017-02-18] MEDS: HUMALOG SUBQ SCH ×7 (01:18→23:32)
[2017-02-18] MEDS: ATIVAN IV PRN ×2 (01:22→05:47)
[2017-02-18] MEDS: DILAUDID IV PRN ×6 (01:23→23:27)
[2017-02-18] MEDS: XOPENEX NEB INH SCH ×6 (03:05→22:54)
[2017-02-18] MEDS: SOLU-CORTEF IV SCH ×4 (04:00→21:53)
[2017-02-18 04:40] LABS: ALLEN TEST YES; BE 2.2 mmoll (-3.0-3.0); BLOOD TYPE ARTERIAL; DRAW SITE R RADIAL; METHB 0.9 % (0.0-1.5); O2(CT) 12.7 mL/dL (15.0-23.0); PCO2(98.6) 44 mmHg (35-45); PO2(98.6) 139 mmHg (60-100); SAMPLE BLOOD; SAO2 99.1 % (95.0-100.0); SRATE 12 BPM; THB 9.2 g/dL (11.5-17.4); TVOL 500 mL
[2017-02-18 04:41] LABS: MODALITY VENTILATOR
[2017-02-18 04:56] LABS: BASO% 0.1 % (0.0-0.8); EOS# 0.01 X1000 (0.0-0.7); EOS% 0.1 % (0.0-10.0); HEMATOCRIT 26.6 % (37.0-47.0); HEMOGLOBIN 8.6 g/dL (12.0-16.0); IMM GRAN# 0.04 X1000 (0.0-0.04); IMM GRAN% 0.3 % (0.0-0.5); LYMPH# 0.59 X1000 (1.2-3.4); LYMPH% 4.4 % (20.5-51.1); MANUAL DIFF NEEDED? YES; MCHC 32.3 g/dL (33-37); MONO# 0.47 X1000 (0.11-0.59); MONO% 3.5 % (1.7-9.3); MPV 10.6 FL (7.4-10.4); NEUT% 91.6 % (42.2-75.2); PLT 110 X1000 (130-400); RBC 2.77 XMIL (4.2-5.4)
[2017-02-18 05:02] LABS: ALBUMIN 2.4 g/dL (3.5-5.0); CALCIUM 7.8 mg/dL (8.8-10.2); POTASSIUM 5.2 mmol/L (3.5-5.1)
[2017-02-18 05:05] LABS: LYMPHS 4 % (21-51)
[2017-02-18] MEDS: PROTONIX IV SCH (05:47)
--- NOTE | 2017-02-18 07:31 | Diag Imaging Result Doc PS360 ---
CHEST-1 VIEW - 02/18/2017 INDICATION: SOB TECHNIQUE: COMPARISON: 02/17/2017 FINDINGS: Stable support lines and tubes in good position. Stable extensive bilateral coarse predominantly interstitial infiltrates. Stable cardiomegaly and pulmonary vascular congestion. No pneumothorax or large effusion. IMPRESSION: No change from prior. Electronically signed by Charli Duke 02/18/2017 7:28 AM
[2017-02-18] MEDS: LANTUS SUBQ SCH ×2 (08:27→21:47)
[2017-02-18] MEDS: INVANZ 0.5 GM in NS 50 ML IV SCH (08:27)
[2017-02-18] MEDS: ARIXTRA SUBQ SCH (08:28)
--- NOTE | 2017-02-18 08:41 | PROGRESS NOTE ---
DATE: 02/18/2017 SUBJECTIVE: This is a 51-year-old with a history of chronic kidney disease, diabetes mellitus type 2, chronic back pain, presented to the emergency room with EMS stating that she thinks she has another urinary tract infection in the past. She did have left flank pain, left lower quadrant pain, generalized aches, nausea, urinary tract infections. At this time, she stated she had sudden onset of sharp pain of the left lower quadrant. It went straight through her left low back. No exacerbating or alleviating factors. Denied any vomiting, dysuria, frequency, urgency, hematuria. Reported prior urinary tract infections. CT in the emergency room revealed left hydro ureter nephrosis and perinephric stranding of the left collecting system. PAST MEDICAL HISTORY: Chronic pancreatitis, chronic back pain, chronic kidney disease stage III, hypertension, hyperlipidemia, frequent urinary tract infections was admitted with sepsis secondary to presumed urinary tract infection, pyelonephritis, diabetes mellitus type 2, leukocytosis. Urology was consulted. She went to the operating room for a cystoscopy and left ureteral stent placement. Appears to have emphysematous pyelonephritis, and she needed left nephrectomy. Discussed it, started off with cystoscopy, left ureteral stent placement. Patient underwent cystoscopy and placement of left ureteral stent on the , Dr. Sue following. Urosepsis, erythematous pyelonephritis. So, the patient underwent open left nephrectomy on 02/14. The patient is intubated on the ventilator at the present time. Chest x-ray today shows no change, stable support lines, tubes in good position, stable extensive bilateral coarse abdominal interstitial infiltrates. No pneumothorax or large effusion. EXAM: Vital Signs: Today temp 97.2 degrees, pulse 92, respirations 16, blood pressure 127/68. Lungs: Clear in all lung fuentes. Cardiovascular exam: Regular rhythm and rate without murmur or S3. Abdomen: Soft. Skin: Warm and dry. Weight: 230 pounds. LABORATORY DATA: White count 13,280 which has come down. Hematocrit 26, platelet count 110,000. Sodium 139, potassium 5.2, chloride 98, bicarbonate 28, BUN 46 and creatinine 4.2. Blood sugar 266, 147, 148. Calcium was 6.6. Albumin 2.4. ASSESSMENT AND PLAN: 1. Emphysematous pyelonephritis. The patient on antibiotic covering extended spectrum beta lactamase producing Escherichia coli. Status post nephrectomy and head stents placed. White count is coming down. Patient on ertapenem which has been modified for renal failure. 2. Diabetes mellitus type 2. Continue to follow sugars. 3. Chronic kidney disease stage III. 4. History of chronic pancreatitis, aware. Continue present regimen. Keep Monge catheter to gravity drainage for now. Remove James-Sosa drain probably today. Dr. Barakat considers starting tube feedings. cc: Jaya Giles MD
[2017-02-18 11:31] LABS: ALLEN TEST YES; BE 2.4 mmoll (-3.0-3.0); BLOOD TYPE ARTERIAL; DRAW SITE R RADIAL; METHB 0.4 % (0.0-1.5); O2(CT) 12.1 mL/dL (15.0-23.0); PO2(98.6) 66 mmHg (60-100); SAMPLE BLOOD; SAO2 95.9 % (95.0-100.0); THB 9.1 g/dL (11.5-17.4); pH(98.6) 7.33 (7.35-7.45)
[2017-02-18 11:35] LABS: MODALITY VENTILATOR; PCO2(98.6) 55 mmHg (35-45)
[2017-02-18] MEDS ORDERED: ROMAZICON IV ONE ×2 (12:05→13:08)
--- NOTE | 2017-02-18 13:48 | PROGRESS NOTE ---
DATE: 02/18/2017 SUBJECTIVE: She remains sedated on the ventilator but she will arouse at verbal stimuli. OBJECTIVE: Vital signs: 125/69, heart rate 96, respirations 13, afebrile. Intake 1.2 L. Output 1.4 L. General: No acute distress. Skin: Warm and dry. HEENT: Conjunctivae are pink. Neck veins are not distended. Oropharynx is dry. Heart: Regular. Lungs: Have equal breath sounds. No crackles. Abdomen: Soft, nontender. Minimally tender, minimal bowel sounds. Extremities: Have 2+ edema. No clubbing or cyanosis. IMPRESSION: Acute kidney injury. Labs are stable. Good urine output. No indications for hemodialysis. We will continue to follow expectantly. No changes. cc: James Sue MD
[2017-02-18] MEDS: HALDOL IV PRN (13:50)
--- NOTE | 2017-02-18 18:59 | PROGRESS NOTE ---
DATE: 02/18/2017 PRESENT ILLNESS: The patient is status post nephrectomy for an extended spectrum beta lactamase producing E. coli, emphysematous pyelonephritis and cystitis. Stents also have been placed. MEDICATION: The patient is on ertapenem. The dose has been modified because of the patient's renal failure. PHYSICAL EXAMINATION: Vital Signs: Temperature is 97 degrees, pulse 95, respirations 26, blood pressure 82/69. General: This is an ill-appearing, middle-aged female. She is delirious. Lungs: Clear to auscultation. Cardiovascular: Regular heart rate. Abdomen: Soft. It is not tender to light palpation. The patient's incision is intact. There also is a drain in place. LABORATORY AND X-RAY: There is no new x-ray. CBC today shows a white count that is down to 13,280, hemoglobin 8.6, and platelet count 110,000. Blood gases show a pH of 7.33, a PO2 of 66, a pCO2 of 55. The patient's creatinine is 4.2. The GFR is 11. ASSESSMENT AND PLAN: The patient is status post nephrectomy for emphysematous pyelonephritis and cystitis. The plan is to continue ertapenem. Patient's comorbidities include recurrent urinary tract infection, diabetes mellitus, chronic kidney disease, and pancreatitis. cc: Pipo Douglas MD
--- NOTE | 2017-02-18 20:27 | PROGRESS NOTE ---
DATE: 02/18/2017 SUBJECTIVE: Ms Calhoun is currently extubated and is off of pressors. She is not answering questions well but does appear to be alert. OBJECTIVE: Vital Signs: T 97.8 degrees, P 98, BP 109/71. General: No acute distress. Cardiovascular: Regular rhythm. Abdomen: Appropriately tender, nondistended, incisions clean, dry with tami intact. CHON drain draining serosanguineous fluid. PERTINENT LABS: White blood cell count is down to 13,000, hematocrit 26.6, creatinine is 4.2. ASSESSMENT/PLAN: 1. 51-year-old female, status post left open nephrectomy who is doing well. She is increasing in terms of her urinary output. She is off pressors and extubated. Creatinine continues to be elevated. PLAN: 1. Keep Monge catheter gravity drainage for now. 2. Will remove CHON drain tomorrow. 3. Again okay to advance her diet per hospitalist service. 4. Appreciated multidisciplinary approach. cc: Freedom Barakat MD
[2017-02-19] MEDS: HALDOL IV PRN ×3 (00:35→22:42)
[2017-02-19] MEDS: DILAUDID IV PRN ×6 (01:48→20:20)
[2017-02-19] MEDS: XOPENEX NEB INH SCH ×6 (03:20→23:08)
[2017-02-19] MEDS: HUMALOG SUBQ SCH ×5 (03:51→19:36)
[2017-02-19] MEDS: SOLU-CORTEF IV SCH ×4 (03:53→21:31)
[2017-02-19] MEDS ORDERED: D50W SYRINGE ONE (03:57)
[2017-02-19 04:42] LABS: ALLEN TEST YES; BE 4.5 mmoll (-3.0-3.0); BLOOD TYPE ARTERIAL; DRAW SITE R RADIAL; O2(CT) 9.4 mL/dL (15.0-23.0); PO2(98.6) 85 mmHg (60-100); SAMPLE BLOOD; SAO2 96.9 % (95.0-100.0); THB 6.9 g/dL (11.5-17.4); pH(98.6) 7.34 (7.35-7.45)
[2017-02-19 04:43] LABS: MODALITY COOL AEROSOL; PCO2(98.6) 57 mmHg (35-45)
[2017-02-19 05:37] LABS: BASO% 0.1 % (0.0-0.8); HEMATOCRIT 24.3 % (37.0-47.0); HEMOGLOBIN 7.8 g/dL (12.0-16.0); IMM GRAN# 0.04 X1000 (0.0-0.04); IMM GRAN% 0.5 % (0.0-0.5); LYMPH# 0.55 X1000 (1.2-3.4); LYMPH% 6.9 % (20.5-51.1); MANUAL DIFF NEEDED? NO; MCH 31.2 PG (27-31); MCHC 32.1 g/dL (33-37); MCV 97.2 FL (81-99); MONO# 0.44 X1000 (0.11-0.59); MONO% 5.5 % (1.7-9.3); MPV 11.5 FL (7.4-10.4); PLT 96 X1000 (130-400)
[2017-02-19] MEDS: SODIUM CHLORIDE 0.9% INJ SCH (05:42)
[2017-02-19] MEDS: PROTONIX IV SCH (05:42)
[2017-02-19 06:11] LABS: CALCIUM 8.5 mg/dL (8.8-10.2); POTASSIUM 4.4 mmol/L (3.5-5.1)
--- NOTE | 2017-02-19 07:43 | Diag Imaging Result Doc PS360 ---
EXAM: CHEST-1 VIEW INDICATION: SOB TECHNIQUE: One view COMPARISON: 02/18/2017 FINDINGS: There has been interval extubation and removal of the NG tube. The right central line is in stable position. Pulmonary venous congestion and mild edema are essentially stable. No new consolidation is appreciated. Cardiac silhouette is stable. IMPRESSION: Interval extubation and removal of the NG tube. Essentially stable, otherwise. Electronically signed by Berlin Huynh 02/19/2017 7:41 AM
[2017-02-19] MEDS: ARIXTRA SUBQ SCH (08:30)
[2017-02-19] MEDS: D5 NS 1,000 ML IV SCH ×2 (09:02→19:29)
[2017-02-19] MEDS: INVANZ 0.5 GM in NS 50 ML IV SCH (09:02)
[2017-02-19] MEDS: LANTUS SUBQ SCH ×2 (09:03→21:00)
--- NOTE | 2017-02-19 09:11 | PROGRESS NOTE ---
DATE: 02/19/2017 SUBJECTIVE: She was extubated yesterday and had fentanyl confusion and agitation which has calmed down. Her blood sugars though have been running real low. She is in restraints and lethargic this morning. OBJECTIVE: Vital Signs: Temperature 97.1, pulse 98, respirations 20, and blood pressure 137/89. Lungs: Clear in all lung fuentes. Cardiovascular: Regular rhythm and rate without murmur or S3. Abdomen: Soft. Skin: Warm and dry. Urine output: 2300. LABORATORY DATA: White count is 7,950, hematocrit 24, and platelet count 96,000. Sodium is 142, potassium 4.4, chloride 102, BUN 49, and creatinine 3.6. Blood sugars: 152, 91, and 111. The last one I think was in the 60s. She did have a chest x-ray this morning. Interval extubation and removal of nasogastric tube. Essentially stable otherwise. ASSESSMENT AND PLAN: 1. Monge catheter in still. She is status post left open nephrectomy for perinephric infection and sepsis. Of note, CHON drain is still in prior to being removed today. 2. Respiratory failure. She has been extubated and is improving. 3. Some confusion and delirium. She is on an antibiotic for Extended Spectrum Beta Lactamase producing E. coli with emphysematous pyelonephritis and cystitis. Dr. Sue is following. Dr. Douglas is following and Dr. Barakat. Renal function continues to improve. Creatinine is 3.6. Of note, we have given her some blood and will probably give her another unit. Hemoglobin is 7.8. Give another unit today. REVIEW OF ORDERS: I do not see anything to change at this time. cc: Jaya Giles MD
[2017-02-19] MEDS ORDERED: NS 500 ML ONE (09:49)
--- NOTE | 2017-02-19 10:30 | PROGRESS NOTE ---
DATE: 02/19/2017 SUBJECTIVE: Ms. Calhoun has extubated. She denies pain. She has had some confusion reportedly. OBJECTIVE: Vital Signs: T 97.1 degrees, P 104, BP 137/89. General: No acute distress. Abdomen: Appropriately tender, nondistended. Incisions clean, dry, and intact. CHON has serosanguineous fluid in the bulb. Monge catheter has straw-colored urine. Pertinent Laboratory Data: Her white cell count is 8000, hematocrit 24. Creatinine is 3.6. PLAN: 1. Remove James-Sosa today. 2. Keep Monge catheter to gravity drainage until ambulatory. 3. From my standpoint, her diet can be advanced as she is more alert. 4. Appreciate multidisciplinary input from Dr. Sue, Dr. Douglas, and Dr. Giles. cc: Freedom Barakat MD
[2017-02-19] MEDS ORDERED: BENADRYL IV ONE (11:33)
--- NOTE | 2017-02-19 15:40 | PROGRESS NOTE ---
DATE: 02/19/2017 SUBJECTIVE: The patient currently resting in bed. She has been extubated. She will rouse up, but is a little bit agitated this morning. OBJECTIVE: Vital Signs: Temperature 97.4 degrees, pulse 104, respiratory rate 12, blood pressure 137/89. Intake 5.5 L, output 1.4 L. General: This is a middle-aged female, resting in bed. She is in no acute distress. HEENT: Normocephalic, atraumatic. Oral mucosa moist. Neck: Supple. Trachea midline. Unable to discern JVD. Cardiovascular: Regular rate and rhythm. Pulmonary: Equal excursion. She has decreased breath sounds to the bases. Abdomen: Obese , soft. Positive bowel sounds. Genitourinary: Monge catheter. Extremities: There is 2+ pretibial edema. Dependent edema to the hips and thighs. Integument: Skin is warm and dry. LABORATORY DATA: WBC of 7.9, hemoglobin 7.8, platelets 96,000. Sodium 142, potassium 4.4, chloride 102, CO2 is 27, BUN 49, creatinine 3.6. ASSESSMENT AND PLAN: 1. Acute kidney injury, with continued renal improvement and adequate urine output. Make no changes to her current regimen. Continue to monitor laboratories. 2. Electrolytes, acid-base balance. These are acceptable. 3. Hypertension, controlled. Dictated by CLEMENT Henley for James Sue MD Patient seen, data reviewed, discussed with Emely Gibbs on 02/19/17. I agree with the above assessment and plan of care. cc: James Sue MD [facility]
--- NOTE | 2017-02-19 18:43 | PROGRESS NOTE ---
DATE: 02/19/2017 PRESENT ILLNESS: The patient is post nephrectomy for an extended spectrum beta lactamase producing Escherichia coli emphysematous, pyelonephritis and cystitis. Stents also have been placed. MEDICATIONS: The patient is on ertapenem the dose has been decreased because of the patient's renal failure. This is the 3rd day of treatment with the current ertapenem dose. PHYSICAL EXAMINATION: Vital Signs: The temperature is 97.1 degrees, pulse 101, respirations 16, blood pressure 141/82. General: This is an obese, middle-aged female. She is in no acute distress. She was sleeping, but she was easily arousable also. Lungs: Clear to auscultation. Cardiovascular: Regular heart rate. Abdomen/Flanks: Soft and nontender. The midline incision is intact. The drain has been removed. The drain site is not erythematous or purulent. LABORATORY AND X-RAY: The patient's blood gases showed a pH of 7.34, PO2 of 85, pCO2 of 57. Creatinine is 3.6, GFR is 13. Chest x-ray showed clear lung fuentes. CBC for today showed a white count of 7950, hemoglobin 7.8 and platelet count 96,000. ASSESSMENT AND PLAN: The patient is status post nephrectomy for emphysematous pyelonephritis and cystitis. My plan is to continue ertapenem at this time. This is day 3 of treatment with ertapenem in its current dose. COMORBIDITIES: Include recent urinary tract infection, diabetes mellitus, chronic kidney disease and pancreatitis. cc: Pipo Douglas MD
[2017-02-20] MEDS: DILAUDID IV PRN ×5 (00:07→21:30)
[2017-02-20] MEDS: HUMALOG SUBQ SCH ×7 (00:14→23:43)
[2017-02-20] MEDS: XOPENEX NEB INH SCH ×5 (03:11→19:03)
[2017-02-20] MEDS: SOLU-CORTEF IV SCH ×4 (03:46→21:28)
[2017-02-20 04:48] LABS: ALLEN TEST YES; BE 3.1 mmoll (-3.0-3.0); BLOOD TYPE ARTERIAL; DRAW SITE R RADIAL; O2(CT) 11.1 mL/dL (15.0-23.0); PO2(98.6) 105 mmHg (60-100); SAMPLE BLOOD; SAO2 98.2 % (95.0-100.0); THB 8.1 g/dL (11.5-17.4); pH(98.6) 7.35 (7.35-7.45)
[2017-02-20 04:49] LABS: MODALITY CANNULA; PCO2(98.6) 53 mmHg (35-45)
[2017-02-20 04:58] LABS: MANUAL DIFF NEEDED? NO
[2017-02-20] MEDS: ZOFRAN IV PRN (05:00)
[2017-02-20 05:02] LABS: BASO% 0.2 % (0.0-0.8); HEMATOCRIT 28.4 % (37.0-47.0); HEMOGLOBIN 9.2 g/dL (12.0-16.0); IMM GRAN# 0.03 X1000 (0.0-0.04); IMM GRAN% 0.5 % (0.0-0.5); LYMPH# 0.47 X1000 (1.2-3.4); LYMPH% 8.2 % (20.5-51.1); MCH 31.3 PG (27-31); MCHC 32.4 g/dL (33-37); MCV 96.6 FL (81-99); MONO# 0.51 X1000 (0.11-0.59); MONO% 8.9 % (1.7-9.3); MPV 10.8 FL (7.4-10.4); NEUT% 82.2 % (42.2-75.2); PLT 118 X1000 (130-400); RBC 2.94 XMIL (4.2-5.4)
[2017-02-20 05:16] LABS: CALCIUM 8.4 mg/dL (8.8-10.2); POTASSIUM 4.5 mmol/L (3.5-5.1)
[2017-02-20] MEDS: SODIUM CHLORIDE 0.9% INJ SCH (05:39)
[2017-02-20] MEDS: PROTONIX IV SCH (05:39)
--- NOTE | 2017-02-20 07:22 | Diag Imaging Result Doc PS360 ---
EXAM: CHEST-1 VIEW HISTORY: SOB TECHNIQUE: Portable COMPARISON: 02/19/2017 FINDINGS: No change in the right subclavian line. The heart is borderline mildly prominent. Pulmonary edema remains. No pleural effusions identified. No consolidation. The overall appearance of the chest is similar to that of the prior exam considering the differences in technique. IMPRESSION: Stable chest. Electronically signed by Romario Edwards 02/20/2017 7:20 AM
[2017-02-20] MEDS: D5 NS 1,000 ML IV SCH ×2 (07:59→19:26)
[2017-02-20] MEDS: LANTUS SUBQ SCH ×2 (08:01→21:28)
[2017-02-20] MEDS: INVANZ 0.5 GM in NS 50 ML IV SCH (08:03)
[2017-02-20] MEDS: ARIXTRA SUBQ SCH (08:03)
--- NOTE | 2017-02-20 09:51 | PROGRESS NOTE ---
DATE: 02/20/2017 SUBJECTIVE: She is awake. She is in restraint but she is oriented x3. Pleasant. No complaints of pain or distress. She is breathing comfortably. PHYSICAL EXAMINATION: Vital Signs: Temperature 97.7 degrees, pulse 100, respirations 13, blood pressure 151/88. Lungs: Clear in all lung fuentes. Cardiovascular Examination: Regular rhythm and rate without murmur or S3. Abdomen: Soft. Skin: Is warm and dry. Is and Os: Urine output over 3-1/2 L. LABORATORY DATA: White count 5750, hematocrit 28, platelet count 118,000. Sodium 146, potassium 4.5, chloride 106, BUN 47, creatinine 3.2, blood sugar is 103, 109, and 119. Chest x-ray from this morning, stable chest. No change in right subclavian line. Lung fuentes clear. No pleural effusion. ASSESSMENT AND PLAN: 1. The patient is status post nephrectomy for extended spectrum beta lactamase producing E. coli, emphysematous pyelonephritis, and cystitis. Recovering well. She is on ertapenem with adjusted dose for renal failure. 2. Acute kidney injury. This is improving with improvement in urine output. Serum creatinine down to 3.2. Continue present. I did adjust her fluids down and gave her some Lasix yesterday but her creatinine is down from 4.2 to 3.6. We will check it again in the morning. I think I will check 1 today. Check it again in the morning as well. Her electrolytes otherwise were good. 3. Hypertension. Blood pressure controlled. 4. Confusion, delirium which is improved. 5. Respiratory function has improved. She is off the ventilator so making good progress. 6. We will check electrolytes again. Maybe get to go the floor today. cc: Jaya Giles MD
[2017-02-20 10:46] LABS: CALCIUM 8.3 mg/dL (8.8-10.2); POTASSIUM 4.1 mmol/L (3.5-5.1)
[2017-02-20] MEDS: HALDOL IV PRN (12:04)
--- NOTE | 2017-02-20 14:30 | PROGRESS NOTE ---
DATE: 02/20/2017 SUBJECTIVE: She is more alert today. She is able to interact. Does not remember what happened to her however. OBJECTIVE: Vital Signs: Blood pressure 144/88, heart rate 102, respiration 13, afebrile. Intake 2.9 L. Output 2 L. PHYSICAL EXAMINATION: General: No acute distress. Skin: Warm and dry. HEENT: Conjunctivae are pink. Pupils are equal. Oropharynx is clear. Neck: Supple. Neck veins are not distended. Heart: Regular without gallops or murmurs. Lungs: Have equal breath sounds. No crackles or wheezes. Abdomen: Soft, nontender. Bowel sounds present. Extremities: Have 1+ edema especially in the arms. No clubbing or cyanosis. LABORATORY DATA: Sodium 148, potassium 4.1, chloride 107, bicarbonate 29, BUN 46, creatinine 2.9, hemoglobin 9.2. IMPRESSION: Acute kidney injury. Progressive improvement in her laboratory parameters and good urine output. Electrolytes and acid-base in target. No changes. cc: James Sue MD
[2017-02-20] MEDS ORDERED: GEODON IM PRN (16:10)
[2017-02-20] MEDS ORDERED: STERILE WATER INJ. INJ PRN (16:10)
[2017-02-21] MEDS: XOPENEX NEB INH SCH ×7 (03:05→23:10)
[2017-02-21] MEDS: DILAUDID IV PRN ×2 (03:36→21:55)
[2017-02-21] MEDS: SOLU-CORTEF IV SCH ×4 (03:38→19:59)
[2017-02-21] MEDS: HUMALOG SUBQ SCH ×5 (03:46→20:00)
[2017-02-21 04:25] LABS: ALLEN TEST YES; BE 3.8 mmoll (-3.0-3.0); BLOOD TYPE ARTERIAL; DRAW SITE R RADIAL; METHB 0.3 % (0.0-1.5); O2(CT) 15.9 mL/dL (15.0-23.0); PO2(98.6) 102 mmHg (60-100); SAMPLE BLOOD; SAO2 98.9 % (95.0-100.0); THB 11.6 g/dL (11.5-17.4); pH(98.6) 7.34 (7.35-7.45)
[2017-02-21 04:26] LABS: MODALITY CANNULA; PCO2(98.6) 57 mmHg (35-45)
[2017-02-21] MEDS: PROTONIX IV SCH (05:53)
[2017-02-21] MEDS: SODIUM CHLORIDE 0.9% INJ SCH (05:54)
--- NOTE | 2017-02-21 06:18 | Diag Imaging Result Doc PS360 ---
EXAM: CHEST-PORTABLE HISTORY: Dr. woodson TECHNIQUE: Portable AP COMPARISON: 02/20/2017 FINDINGS: No change in the right subclavian line. No pneumothorax. There are increased interstitial markings believed to be pulmonary edema. Heart is mildly enlarged. No pleural effusions identified. The overall appearance is similar to that of the prior exam. IMPRESSION: No interval improvement. Electronically signed by Romario Edwards 02/21/2017 6:16 AM
[2017-02-21 07:44] LABS: MANUAL DIFF NEEDED? NO
[2017-02-21] MEDS: D5 NS 1,000 ML IV SCH (07:54)
[2017-02-21 07:57] LABS: HEMOGLOBIN 9.1 g/dL (12.0-16.0); IMM GRAN# 0.04 X1000 (0.0-0.04); IMM GRAN% 0.7 % (0.0-0.5); LYMPH# 0.42 X1000 (1.2-3.4); LYMPH% 7.5 % (20.5-51.1); MCH 30.6 PG (27-31); MCHC 31.4 g/dL (33-37); MCV 97.6 FL (81-99); MONO# 0.51 X1000 (0.11-0.59); MONO% 9.1 % (1.7-9.3); MPV 10.5 FL (7.4-10.4); NEUT% 82.7 % (42.2-75.2); PLT 157 X1000 (130-400); RBC 2.97 XMIL (4.2-5.4)
[2017-02-21 08:32] LABS: POTASSIUM 4.3 mmol/L (3.5-5.1)
[2017-02-21] MEDS: INVANZ 0.5 GM in NS 50 ML IV SCH (08:40)
[2017-02-21] MEDS: ARIXTRA SUBQ SCH (08:40)
[2017-02-21] MEDS: CELEXA PO SCH (08:40)
--- NOTE | 2017-02-21 08:59 | PROGRESS NOTE ---
DATE: 02/21/2017 SUBJECTIVE: She is awake and alert. She is somewhat morose and emotional this morning. OBJECTIVE: Vital Signs: Blood pressure 149/92, heart rate 111, respirations 21, afebrile. General: She is in no acute distress. Skin: Warm and dry. Eyes: Conjunctivae are pink. Heart: Regular and somewhat tachycardic. Lungs: Have equal breath sounds. No crackles or wheezes. Abdomen: Soft, nontender. Bowel sounds are present. Extremities: Have 2+ edema. No clubbing or cyanosis. LABORATORY DATA: Sodium 145, potassium 4.3, chloride 106, bicarbonate 29, BUN 40, creatinine 2.3. IMPRESSION: Acute kidney injury. Progressive improvement. She did achieve negative fluid balance. Would recommend minimizing her intake if possible. I will stop her intravenous fluids that are going at 85 an hour. Otherwise, no recommendations. Electrolytes, acid base are acceptable. cc: James Sue MD
[2017-02-21] MEDS: LANTUS SUBQ SCH ×2 (09:19→21:00)
[2017-02-21] MEDS: ATIVAN IV PRN ×2 (12:10→23:57)
[2017-02-21] MEDS: KLONOPIN PO PRN (15:01)
--- NOTE | 2017-02-21 15:50 | PROGRESS NOTE ---
DATE: 02/21/2017 SUBJECTIVE: Ms. Calhoun had a pretty good night. She did have more agitation yesterday afternoon. Was sleeping soundly, comfortable this morning. OBJECTIVE: Vital signs: Temperature 97.2 degrees, pulse 111, respirations 20, blood pressure 172/98. Lungs: Clear in all lung fuentes. Cardiovascular: Regular rhythm and rate without murmur or S3. Abdomen: Soft. Skin: Warm and dry. LABORATORY STUDIES: Urine output was 2200 mL. Labs looked good. White count 5630, hematocrit 29, platelet count 157,000. Sodium 145, potassium 4.3, chloride 106, BUN 40, creatinine 2.3. Creatinine has continued to improve. It was as high as 4.4. ASSESSMENT AND PLAN: 1. Acute kidney injury, showing steady improvement. Good urine output. 2. Emphysematous pyelonephritis, required a nephrectomy. 3. Has extended spectrum beta lactamase producing Escherichia coli. Continue present antibiotics with ertapenem. 4. Hypertension. Blood pressure controlled. 5. Confusion. Note is she was on benzodiazepines before so will attempt to put her back on her home medicines. She is on amitriptyline. She is on Celexa 10 mg a day and clonazepam 0.5 mg b.i.d., so we will see if we can get her back on that. She is also taking Lyrica 1 twice a day. We have had to give her some Haldol. We tried Ativan. She is on Solu-Cortef right now 50 mg IV q.6 h. Will see if we can cut that back down to a lower dose that may help. Put her back on the Celexa. Put her back on her Klonopin. cc: Jaya Giles MD
--- NOTE | 2017-02-21 16:57 | PROGRESS NOTE ---
DATE: 02/21/2017 Ms. Calhoun currently reports generalized fatigue and pain but nonspecific to her abdominal incision. OBJECTIVE: Vital Signs: T 97.8 degrees, P 110, BP 161/82. She has reported urinary output of 3 L. Her drain was removed yesterday. General: No acute distress. Abdomen: Nontender nondistended. Incision is clean, dry, and intact. The Monge catheter has straw-colored urine. PERTINENT LABORATORY DATA: White cell count is 5.6 1000, hematocrit stable at 29, creatinine is down to 2.3 from 2.9. PLAN: 1. She needs to get stronger and will likely benefit from physical therapy. 2. When she is somewhat ambulatory we can remove Monge catheter from standpoint. 3. We will follow. 4. Her pathology revealed chronic pyelonephritis without any evidence of malignancy. cc: Freedom Barakat MD
--- NOTE | 2017-02-21 19:50 | PROGRESS NOTE ---
DATE: 02/21/2017 PRESENT ILLNESS: The patient is status post nephrectomy for an extended spectrum beta lactamase producing E coli emphysematous pyelonephritis and cystitis. MEDICATIONS: This is the 4th day of treatment with ertapenem. PHYSICAL EXAMINATION: Vital Signs: Temperature is 97.8 degrees, pulse 110, respirations 28, blood pressure 161/82. General: This is a somewhat ill-appearing, middle-aged female. She is in no acute distress. Lungs: Clear to auscultation. Cardiovascular: Regular heart rate. Abdomen and flank: Soft and nontender. Neurologic: Patient is slightly delirious. She is able to converse. She did move her extremities to request. LAB AND X-RAY: Chest x-ray is compatible with pulmonary edema. CBC shows a white count of 5630, hemoglobin 9.1, platelet count 157,000. Blood gases show a pH of 7.34, PO2 of 102, pCO2 of 57. Creatinine is 2.3. GFR is 22. ASSESSMENT AND PLAN: The patient has had nephrectomy for the emphysematous pyelonephritis and cystitis. This is day 4 of treatment with ertapenem in its current dose. COMORBIDITIES: Include recent urinary tract infection, diabetes mellitus, chronic kidney disease and pancreatitis. cc: Pipo Douglas MD
[2017-02-21] MEDS: ELAVIL PO SCH (20:00)
[2017-02-21] MEDS: ZOFRAN IV PRN (21:17)
[2017-02-22] MEDS: HUMALOG SUBQ SCH ×7 (00:08→23:55)
[2017-02-22] MEDS: SOLU-CORTEF IV SCH ×4 (02:53→20:24)
[2017-02-22] MEDS: DILAUDID IV PRN (02:54)
[2017-02-22] MEDS: XOPENEX NEB INH SCH ×6 (03:10→23:05)
[2017-02-22 05:07] LABS: MANUAL DIFF NEEDED? NO
[2017-02-22 05:09] LABS: HEMATOCRIT 29.8 % (37.0-47.0); HEMOGLOBIN 9.4 g/dL (12.0-16.0); IMM GRAN# 0.04 X1000 (0.0-0.04); IMM GRAN% 0.5 % (0.0-0.5); LYMPH# 0.69 X1000 (1.2-3.4); LYMPH% 9.3 % (20.5-51.1); MCH 30.5 PG (27-31); MCHC 31.5 g/dL (33-37); MCV 96.8 FL (81-99); MONO# 0.62 X1000 (0.11-0.59); MONO% 8.3 % (1.7-9.3); MPV 10.3 FL (7.4-10.4); NEUT% 81.9 % (42.2-75.2); PLT 202 X1000 (130-400); RBC 3.08 XMIL (4.2-5.4)
[2017-02-22] MEDS: PROTONIX IV SCH (05:39)
[2017-02-22 05:50] LABS: ALBUMIN 2.8 g/dL (3.5-5.0); CALCIUM 8.4 mg/dL (8.8-10.2); MAGNESIUM 1.7 mg/dL (1.5-2.7); POTASSIUM 3.6 mmol/L (3.5-5.1); TOTAL BILIRUBIN 0.47 mg/dL (0.20-1.00); TOTAL PROTEIN 5.9 g/dL (6.3-8.3)
[2017-02-22] MEDS ORDERED: INSULIN PEN NEEDLES ONE (07:56)
[2017-02-22] MEDS: INVANZ 0.5 GM in NS 50 ML IV SCH (08:19)
[2017-02-22] MEDS: ARIXTRA SUBQ SCH (08:20)
[2017-02-22] MEDS: CELEXA PO SCH (08:31)
[2017-02-22] MEDS: LANTUS SUBQ SCH ×2 (08:34→20:27)
--- NOTE | 2017-02-22 08:36 | Diag Imaging Result Doc PS360 ---
EXAM: CHEST-1 VIEW INDICATION: post extubation TECHNIQUE: One view COMPARISON: 02/21/2017 FINDINGS: Right central line is in stable position. The patient is slightly rotated toward the right. Mild increased interstitial markings and central vasculature are essentially stable given differences in positioning. No new consolidation is identified. Cardiac silhouette is stable. IMPRESSION: Stable chest. Electronically signed by Berlin Huynh 02/22/2017 8:33 AM
--- NOTE | 2017-02-22 09:47 | PROGRESS NOTE ---
DATE: 02/22/2017 OBJECTIVE: General: Ms. Calhoun is awake and appears calm and breathing comfortably. Vital Signs: Temp 97.3 degrees, pulse 100, respirations 15, blood pressure 157/85. Lungs: Clear in all lung fuentes. Cardiovascular exam: Regular rhythm and rate without murmur or S3. Abdomen: Soft. Skin: Warm and dry. : Urine output over 5.5 L. LABS AND X-RAYS: Blood sugar 141, 175, 175. Chest x-ray from this morning: Stable chest, right central line, stable position. Patient slightly rotated towards the right. Increased interstitial markings. Central vasculature essentially stable. No new consolidation. ASSESSMENT AND PLAN: 1. Status post nephrectomy for emphysematous pyelonephritis and cystitis, doing better from the standpoint of infection. We will continue ertapenem. She has extended spectrum beta lactamase producing Escherichia coli. 2. Confusion with some agitation; I think this is related to being off of her home medications, in particular Klonopin so we started that back. Still has a Monge catheter in. Still required restraints at times. Hopefully this will continue to improve. 3. Hypertension. 4. Acute kidney injury which is improving. Creatinine is 2.3. Continues trying to increase her activity and see if we can get her out of bed. Encourage oral intake. She is on a diabetic diet. Hopefully can move her to the floor soon. 5. Diabetes mellitus type 2. Note she has a history of frequent urinary tract infections, underlying diabetes, chronic kidney disease stage III, chronic pancreatitis and chronic back pain. cc: Jaya Giles MD
[2017-02-22] MEDS: ATIVAN IV PRN (11:36)
[2017-02-22] MEDS: KLONOPIN PO PRN (17:54)
[2017-02-22] MEDS: ELAVIL PO SCH (20:26)
[2017-02-23] MEDS: XOPENEX NEB INH SCH ×6 (03:20→23:15)
[2017-02-23] MEDS: SOLU-CORTEF IV SCH ×4 (03:21→20:13)
[2017-02-23] MEDS: HUMALOG SUBQ SCH ×6 (03:22→23:24)
[2017-02-23] MEDS: PROTONIX IV SCH (05:23)
[2017-02-23 06:24] LABS: EOS# 0.03 X1000 (0.0-0.7); EOS% 0.3 % (0.0-10.0); HEMATOCRIT 30.9 % (37.0-47.0); HEMOGLOBIN 9.7 g/dL (12.0-16.0); IMM GRAN# 0.03 X1000 (0.0-0.04); IMM GRAN% 0.3 % (0.0-0.5); LYMPH# 0.76 X1000 (1.2-3.4); LYMPH% 7.7 % (20.5-51.1); MANUAL DIFF NEEDED? YES; MCH 30.1 PG (27-31); MCHC 31.4 g/dL (33-37); MPV 10.6 FL (7.4-10.4); NEUT% 86.7 % (42.2-75.2); PLT 262 X1000 (130-400); RBC 3.22 XMIL (4.2-5.4)
[2017-02-23 06:37] LABS: CALCIUM 8.5 mg/dL (8.8-10.2); POTASSIUM 3.2 mmol/L (3.5-5.1)
[2017-02-23 08:16] LABS: BANDS 2 % (0-1); LYMPHS 2 % (21-51); MONO 6 % (1-9)
--- NOTE | 2017-02-23 08:38 | PROGRESS NOTE ---
DATE: 02/23/2017 SUBJECTIVE: Ms. Calhoun is awake and alert. She is breathing comfortably. Appears to be feeling better. PHYSICAL EXAMINATION: Vital Signs: Temperature is 97.8 degrees, pulse 89, respirations 24, and blood pressure 174/97. Lungs: Are clear in all lung fuentes. Cardiovascular Examination: Regular rhythm and rate without murmur or S3. Abdomen: Soft. Skin: Is warm and dry. Genitourinary: Monge catheter in place. Is and Os: Urine output 5300 mL. LAB: White count 9910, hematocrit 30, platelet count 262,000. Sodium 143, potassium 3.2, chloride 101, bicarb 32, BUN 35, creatinine 2.2. Blood sugars 90, 106, 96. Chest x-ray from yesterday, stable chest, right central line in place. ASSESSMENT AND PLAN: 1. Status post nephrectomy for emphysematous pyelonephritis and cystitis. Doing better clinically. She is on ertapenem which is for extended spectrum beta lactamase producing Escherichia coli. 2. Confusion, agitation, much improved. She is back on her home medications with Klonopin. 3. Hypertension. 4. Acute kidney injury. Creatinine is coming down nicely. 5. Diabetes mellitus type 2. Sugars under good control. We will continue present regimen. 6. I do not see anything to change. We will leave it up to urology for when the Monge catheter needs to come out. Continue to work on her strength and conditioning, and encourage oral intake. cc: Jaya Giles MD
[2017-02-23] MEDS: LANTUS SUBQ SCH ×2 (09:29→20:16)
[2017-02-23] MEDS: CELEXA PO SCH (09:30)
[2017-02-23] MEDS: ARIXTRA SUBQ SCH (09:30)
[2017-02-23] MEDS: INVANZ 0.5 GM in NS 50 ML IV SCH (09:30)
[2017-02-23] MEDS: DILAUDID IV PRN (20:13)
[2017-02-23] MEDS: ELAVIL PO SCH (20:16)
[2017-02-24] MEDS: XOPENEX NEB INH SCH ×6 (03:35→23:20)
[2017-02-24] MEDS: SOLU-CORTEF IV SCH ×4 (03:41→20:26)
[2017-02-24] MEDS: HUMALOG SUBQ SCH ×5 (03:43→20:50)
[2017-02-24] MEDS: PROTONIX IV SCH (05:16)
[2017-02-24] MEDS: SODIUM CHLORIDE 0.9% INJ SCH (05:16)
[2017-02-24 06:36] LABS: CALCIUM 8.6 mg/dL (8.8-10.2); POTASSIUM 3.3 mmol/L (3.5-5.1)
[2017-02-24 07:16] LABS: EOS# 0.03 X1000 (0.0-0.7); EOS% 0.3 % (0.0-10.0); HEMATOCRIT 30.4 % (37.0-47.0); HEMOGLOBIN 9.8 g/dL (12.0-16.0); IMM GRAN# 0.03 X1000 (0.0-0.04); IMM GRAN% 0.3 % (0.0-0.5); LYMPH# 0.81 X1000 (1.2-3.4); LYMPH% 7.4 % (20.5-51.1); MANUAL DIFF NEEDED? YES; MCH 30.6 PG (27-31); MCHC 32.2 g/dL (33-37); MONO# 0.53 X1000 (0.11-0.59); MONO% 4.8 % (1.7-9.3); MPV 10.8 FL (7.4-10.4); NEUT% 87.2 % (42.2-75.2); PLT 299 X1000 (130-400)
[2017-02-24 07:46] LABS: BANDS 2 % (0-1); LYMPHS 8 % (21-51); MONO 6 % (1-9)
[2017-02-24] MEDS: INVANZ 0.5 GM in NS 50 ML IV SCH (09:09)
[2017-02-24] MEDS: LANTUS SUBQ SCH ×2 (09:10→20:26)
[2017-02-24] MEDS: CELEXA PO SCH (09:10)
[2017-02-24] MEDS: ARIXTRA SUBQ SCH (09:19)
--- NOTE | 2017-02-24 10:07 | PROGRESS NOTE ---
DATE: 02/24/2017 SUBJECTIVE: She is awake, alert, and doing better. She feels better. She is asking when she can go home. Apparently eating pretty well. EXAM: She is in ICU 12. Temp 97.7 degrees, pulse 84, respirations 18, blood pressure 173/90. Her blood pressure range still running above 160 systolic.Lungs: Clear in all lung fuentes anterior and lateral. Cardiovascular: Regular rhythm and rate without murmur or S3. Abdomen: Soft. Skin: Warm and dry. Monge catheter still in place. Urine output over 3.5 L. LABORATORIES: From today, white count 70958, hematocrit 30. Platelet count 299,000. Sodium 140, potassium 3.3, chloride 95, BUN 39, creatinine 2.1. Blood sugars 159, 118, 121 but the creatinine is improving. On presentation her creatinine was 4.2. 4.6 was the peak. ASSESSMENT AND PLAN: 1. Status post nephrectomy for emphysematous pyelonephritis and cystitis, doing much better. Still has the Monge catheter in. She is on an antibiotic for extended spectrum beta lactamase producing E. coli. She is on ertapenem and doing well. 2. Confusion/agitation improved. We got her back on her home medications. She was on benzodiazepines. 3. Hypertension blood pressure is still running a little high systolic. We will make some adjustments. 4. Acute kidney injury. His serum creatinine is coming down. 5. Diabetes mellitus type 2. Continue to follow sugars. Sugars are acceptable at the present time. I am going to see if we can move her to the floor and see if we can take the Monge catheter out. I am going to see if I can put her on some blood pressure medication. I may try Norvasc 5 mg twice a day to see if it will help at all. cc: Jaya Giles MD
--- NOTE | 2017-02-24 11:37 | PROGRESS NOTE ---
DATE: 02/24/2017 SUBJECTIVE: Ms. Calhoun is resting quietly in bed. She continues to ask when she can be discharged and go home. She states that she is feeling much better. She does deny chest pain or increased work of breathing. OBJECTIVE: Her most recent vital signs, temperature 97.8 degrees blood pressure 137/82, heart rate 94. Respirations are 24. She is on O2 at 2 L nasal cannula. Last recorded saturation 98%. She has had 1760 in. She has had 2360 out per Monge catheter. LABS: Sodium 140, potassium 3.3, chloride 95, CO2 30, BUN 39, creatinine 2.1, glucose 121. Anion gap is 15. Calcium 8.6. White count 11, hemoglobin 9.8, hematocrit 30.4 with a platelet count of 299,000. PHYSICAL EXAMINATION: General: This is a 51-year-old white female. She is resting quietly in bed. She is in no acute distress. Skin: Warm and dry. HEENT: Normocephalic , atraumatic. Conjunctivae pale. She has FARA. Mucous membranes are moist. Neck: Supple. Trachea midline. No JVD. Cardiovascular: She is regular rate and rhythm. She is without murmur or gallop. Lungs: Clear to auscultation anterior. Equal excursion. Abdomen: Soft, nontender. Positive bowel sounds. Genitourinary: Monge catheter remains in place. Adequate urine out. She has had greater than 2.3 L in the last 24 hours. Integumentary: No rashes or lesions noted. Neurological: She is alert and oriented x2 to person and place. ASSESSMENT AND PLAN: 1. Acute kidney injury on chronic kidney disease stage 3. Patient has had a baseline creatinine of 1.4 to 2.1 previously. She is actually close to her baseline of 2.1 with a solitary right kidney. BUN is coming down nicely. She has adequate urine out. No indications for intervention. We will sign off but are glad to see her again if the need arises. We will see her as an outpatient. rg 2. Status post nephrectomy. Patient continues on renal dosed antibiotics for urinary tract infection. Patient remains on Invanz renally dosed. 3. Electrolytes. Patient has mild hypokalemia. We will replace this if not already done. 4. Acid-base balance. This remains stable. The patient is slightly acidotic. No indications for intervention. 5. Anemia. This remains low but stable. 6. Hypertension. This has been running slightly elevated though it is within are baseline of less than 140/85 at this time. I would to thank you for allowing us to follow with this patient. Dictated by CLEMENT Zepeda for James Sue MD Patient seen, data reviewed, discussed with Sugey Castorena on 02/24/17. I agree with the above assessment and plan of care. cc: CLEMENT Zepeda MD [facility]
[2017-02-24] MEDS: KLOR-CON PO SCH ×2 (11:38→20:28)
[2017-02-24] MEDS: NORVASC PO SCH ×2 (11:38→20:27)
--- NOTE | 2017-02-24 17:53 | PROGRESS NOTE ---
DATE: 02/24/2017 SUBJECTIVE: Ms. Calhoun is alert, oriented and coherent today. She has set up in a chair. She reports she feels a lot better she did couple days ago. OBJECTIVE: Vital Signs: Vital signs: T 97.6 degrees, P 97, BP 151/77. General: No acute distress. Abdomen: Appropriately tender, nondistended. Incision tami in place. Incisions clean and dry. : Monge catheter draining straw-colored urine. PERTINENT LABORATORY DATA: White cell count of 11,000, hematocrit 30, creatinine 2.1. ASSESSMENT: Plan 51-year-old female status post emergent open left nephrectomy secondary to emphysematous pyelonephritis who has improved significantly. I have discussed with the patient removing Monge catheter. She feels she will be ambulatory enough to void on her own. We discussed removing tami in a couple of days given her history of diabetes and my concern for superficial wound dehiscence with the tami being removed. PLAN: 1. Remove Monge catheter. 2. Will follow. Will remove tami in next couple days. cc: Freedom Barakat MD
--- NOTE | 2017-02-24 18:30 | PROGRESS NOTE ---
DATE: 02/24/2017 SUBJECTIVE: She is feeling better, awake and alert. We took her Monge catheter out. She remains afebrile. PHYSICAL EXAMINATION: Vital Signs: Temperature 97.6 degrees, pulse 82, respirations 23, blood pressure 126/57. Lungs: Clear in all lung fuentes. Cardiovascular: Regular rate without murmur or S3. Urine output 1200 mL. LAB: White count 44159, hematocrit 30, platelet count 299,000. Sodium 140, potassium 3.3, chloride 95, bicarb 30, glucose 121, 135, 121. ASSESSMENT AND PLAN: 1. A 51-year-old, status post emergent open left nephrectomy secondary to emphysematous pyelonephritis, which is improved significantly. Patient doing better. They removed the Monge catheter. 2. Confusion and delirium, which is improved. 3. General weakness and deconditioning, which is improving as well. 4. Blood pressure well controlled. Hope to move her to the floor. Continue to work on her strength, but she is making good improvement. Hopefully home soon. She is on ertapenem. She had extended spectrum beta lactamase Escherichia coli. cc: Jaya Giles MD
--- NOTE | 2017-02-24 19:43 | PROGRESS NOTE ---
DATE: 02/24/2017 PRESENT ILLNESS: The patient is status post nephrectomy for an extended spectrum beta lactamase producing E. coli emphysematous pyelonephritis and cystitis. MEDICATIONS: The patient has been on ertapenem now in a reduced dose for 7 days. PHYSICAL EXAMINATION: Vital Signs: Temperature is 97.6 degrees, pulse 82, respirations 23, blood pressure 126/57. General: This is an obese, middle-aged female. She is much improved. She is alert, talking, and can move all of her extremities. Lungs: Clear to auscultation. Cardiovascular: Regular heart rate. Abdomen and flank: Soft and nontender. The patient's midline incision is intact. Skin: The patient's IV site is not erythematous or swollen. LAB AND X-RAY: CBC today showed a white count of 11,000, hemoglobin 9.8, and platelet count of 299,000. Creatinine is 2.1. GFR is 25. Chest x-ray shows no consolidation. ASSESSMENT AND PLAN: Patient is status post nephrectomy for emphysematous pyelonephritis. The patient also has cystitis. The patient is on the 7th day of treatment with ertapenem. I plan to continue her antibiotic for another week. COMORBIDITIES: In the patient include recent urinary tract infection, diabetes mellitus, chronic kidney disease, and pancreatitis. cc: Pipo Douglas MD
[2017-02-24] MEDS: KLONOPIN PO PRN (20:28)
[2017-02-24] MEDS: ELAVIL PO SCH (20:28)
[2017-02-24] MEDS: DILAUDID IV PRN (23:06)
[2017-02-25] MEDS: HUMALOG SUBQ SCH ×6 (01:55→23:22)
[2017-02-25] MEDS: DILAUDID IV PRN ×6 (01:57→23:13)
[2017-02-25] MEDS: XOPENEX NEB INH SCH ×6 (03:54→22:59)
[2017-02-25] MEDS: SOLU-CORTEF IV SCH ×4 (04:17→21:49)
[2017-02-25] MEDS: SODIUM CHLORIDE 0.9% INJ SCH (06:12)
[2017-02-25] MEDS: PROTONIX IV SCH (06:12)
[2017-02-25 06:58] LABS: EOS# 0.05 X1000 (0.0-0.7); EOS% 0.4 % (0.0-10.0); HEMATOCRIT 28.2 % (37.0-47.0); HEMOGLOBIN 8.9 g/dL (12.0-16.0); IMM GRAN# 0.03 X1000 (0.0-0.04); IMM GRAN% 0.3 % (0.0-0.5); LYMPH# 0.77 X1000 (1.2-3.4); LYMPH% 6.9 % (20.5-51.1); MANUAL DIFF NEEDED? YES; MCH 30.1 PG (27-31); MCHC 31.6 g/dL (33-37); MCV 95.3 FL (81-99); MONO# 0.65 X1000 (0.11-0.59); MONO% 5.8 % (1.7-9.3); MPV 10.8 FL (7.4-10.4); NEUT% 86.6 % (42.2-75.2); PLT 301 X1000 (130-400); RBC 2.96 XMIL (4.2-5.4)
[2017-02-25 07:17] LABS: LYMPHS 10 % (21-51)
[2017-02-25 07:23] LABS: CALCIUM 8.2 mg/dL (8.8-10.2)
[2017-02-25] MEDS: INVANZ 0.5 GM in NS 50 ML IV SCH (09:34)
[2017-02-25] MEDS: ARIXTRA SUBQ SCH (09:35)
[2017-02-25] MEDS: CELEXA PO SCH (09:35)
[2017-02-25] MEDS: NORVASC PO SCH ×2 (09:38→21:49)
[2017-02-25] MEDS: LANTUS SUBQ SCH ×2 (09:38→21:49)
--- NOTE | 2017-02-25 09:57 | Diag Imaging Result Doc PS360 ---
EXAM: CHEST-1 VIEW HISTORY: SOB TECHNIQUE: Portable upright AP COMPARISON: 02/22/2017 FINDINGS: No change in the right subclavian portacatheter. No pneumothorax. Cardiomegaly remains. Mild vascular distention persists. Infiltrates in the left lung are less pronounced. Questionable small left pleural effusion. IMPRESSION: Overall interval improvement. Electronically signed by Romario Edwards 02/25/2017 9:55 AM
[2017-02-25 10:03] LABS: ALLEN TEST YES; BE 7.2 mmoll (-3.0-3.0); BLOOD TYPE ARTERIAL; DRAW SITE L RADIAL; METHB 1.2 % (0.0-1.5); O2(CT) 13.1 mL/dL (15.0-23.0); PCO2(98.6) 49 mmHg (35-45); PO2(98.6) 79 mmHg (60-100); SAMPLE BLOOD; THB 9.7 g/dL (11.5-17.4); pH(98.6) 7.43 (7.35-7.45)
[2017-02-25 10:04] LABS: MODALITY CANNULA
--- NOTE | 2017-02-25 14:54 | PROGRESS NOTE ---
DATE: 02/25/2017 SUBJECTIVE: Today Ms. Calhoun referred to be doing a whole lot better. Denies any complaint. OBJECTIVE: Vital signs: Blood pressure is 121/64, pulse of 79, respiration is 12, temperature 97.3 degrees. Patient is saturating 97%. General: Ms. Calhoun is a 51-year-old female. She is in bed, does not seem to be in any distress. HEENT: Mucosa is pink and moist. Anicteric. Acyanotic. Neck: Supple. Chest: Clear. Cardiovascular: Regular rate and rhythm. There are no murmurs, no rubs, no gallops. Chest: Good air entry bilaterally. No crepitations. Cardiovascular: Regular rate and rhythm. Abdomen: Soft, nontender. Extremities: No pedal edema. CLINICAL CARE LEADER: Patient is awake and alert and oriented x4. There is no focal neurological deficit. LABORATORY DATA: WBC is 11.23, hemoglobin is 8.9, platelet count of 301,000. Chemistry is reviewed, unremarkable except for creatinine which is 2.3. The patient is making adequate urine output. Review of blood cultures: Patient had a urine culture which was ESBL positive. ASSESSMENT: 1. Left emphysematous pyelonephritis status post left nephrectomy. 2. Escherichia coli, extended spectrum beta lactamase pyelonephritis. 3. Altered mental status secondary to delirium. Improved. 4. Generalized weakness. Patient is doing well with physical therapy. 5. Hypertension. Better controlled. PLAN: Patient is getting set up for outpatient antibiotic therapy. From ID notes from yesterday, it appears the plan is to continue antibiotic for another week for a total of 2 weeks of therapy. Once this is arranged patient will be discharged hopefully first thing in the morning. cc: Eugenio Field MD
--- NOTE | 2017-02-25 16:23 | PROGRESS NOTE ---
DATE: 02/25/2017 PRESENT ILLNESS: The patient is status post nephrectomy for an extended spectrum beta lactamase producing Escherichia coli, emphysematous pyelonephritis and cystitis. MEDICATIONS: By mistake yesterday, I said the patient had been on ertapenem for 7 days. It turns out that she has been on ertapenem for 10 days following the patient's nephrectomy. PHYSICAL EXAMINATION: Vital Signs: Temperature is 97.3 degrees, pulse 79, respirations 12, blood pressure 121/64. General: This is an obese, somewhat ill middle-aged female. She has improved quite a bit. She is in no acute distress. She talks and can move her extremities. She has been up in a chair. Said that she was able to take a few steps. Lungs: Clear to auscultation. Thorax: Patient has a right subclavian catheter in place. The site is not erythematous or swollen. Cardiovascular: Regular heart rate. Abdomen and flank: Soft and nontender. The patient's midline incision is intact. It is not bleeding, and it is not erythematous. LABORATORY AND X-RAY: The patient's CBC shows a white count of 11,230, hemoglobin 8.9, and platelet count 301,000. Blood gases show a pH of 7.43, a PO2 of 79, a pCO2 of 49. The creatinine is 2.2. The GFR is 23. ASSESSMENT AND PLAN: 1. For now, I am going to keep the patient on ertapenem, but when she goes home, I do not think she will need any further antibiotics, especially because the patient has had a nephrectomy. The plan is to, as I mentioned above continue her ertapenem and until discharge. 2. Comorbidities in this patient include recent urinary tract infection, diabetes mellitus, chronic kidney disease and pancreatitis. cc: Pipo Douglas MD
[2017-02-25] MEDS: ELAVIL PO SCH (21:49)
[2017-02-26] MEDS: HUMALOG SUBQ SCH ×5 (00:48→16:12)
[2017-02-26] MEDS: DILAUDID IV PRN ×3 (02:38→14:16)
[2017-02-26] MEDS: SOLU-CORTEF IV SCH ×3 (02:38→16:12)
[2017-02-26] MEDS: XOPENEX NEB INH SCH ×4 (03:18→15:24)
[2017-02-26] MEDS: SODIUM CHLORIDE 0.9% INJ SCH (06:40)
[2017-02-26] MEDS: PROTONIX IV SCH (06:40)
[2017-02-26 07:39] LABS: EOS# 0.02 X1000 (0.0-0.7); EOS% 0.1 % (0.0-10.0); HEMATOCRIT 30.5 % (37.0-47.0); HEMOGLOBIN 9.7 g/dL (12.0-16.0); IMM GRAN# 0.03 X1000 (0.0-0.04); IMM GRAN% 0.2 % (0.0-0.5); LYMPH# 0.58 X1000 (1.2-3.4); MANUAL DIFF NEEDED? YES; MCH 30.5 PG (27-31); MCHC 31.8 g/dL (33-37); MCV 95.9 FL (81-99); MONO# 0.42 X1000 (0.11-0.59); MONO% 2.9 % (1.7-9.3); MPV 11.1 FL (7.4-10.4); NEUT% 92.8 % (42.2-75.2); PLT 316 X1000 (130-400); RBC 3.18 XMIL (4.2-5.4)
[2017-02-26 07:56] LABS: CALCIUM 8.1 mg/dL (8.8-10.2); POTASSIUM 4.3 mmol/L (3.5-5.1)
[2017-02-26 08:05] LABS: LYMPHS 7 % (21-51)
[2017-02-26] MEDS: INVANZ 0.5 GM in NS 50 ML IV SCH (08:42)
[2017-02-26] MEDS: CELEXA PO SCH (08:42)
[2017-02-26] MEDS: ARIXTRA SUBQ SCH (08:42)
[2017-02-26] MEDS: NORVASC PO SCH (08:43)
[2017-02-26] MEDS: LANTUS SUBQ SCH (08:43)
--- NOTE | 2017-02-26 14:12 | PROGRESS NOTE ---
DATE: 02/26/2017 PRESENT ILLNESS: The patient is status post nephrectomy for an extended spectrum beta lactamase producing E coli, emphysematous pyelonephritis and cystitis. MEDICATIONS: This is day 11 of treatment following surgery with ertapenem. PHYSICAL EXAMINATION: Vital Signs: Temperature is 97.5 degrees, pulse 78, respirations 16, blood pressure 133/62. Generally: The patient feels fine. She wants to go home. She has been moving well and eating well. Lungs: Clear to auscultation. Cardiovascular: Regular heart rate. Abdomen and flanks: Soft and nontender. The midline incision on the abdomen is completely closed. It is not erythematous and it is not draining. Neurologic: Patient is alert. She can move her extremities. LAB AND X-RAY: Today the patient's CBC showed a white count of 14,600, hemoglobin 9.7, and platelet count is 316,000. Creatinine is 2.6. GFR is 19. ASSESSMENT AND PLAN: The plan is to discharge the patient today on home IV ertapenem for another 4 days to complete the 16 day antibiotic course following nephrectomy. COMORBIDITIES: Include urinary tract infection, diabetes mellitus, chronic kidney disease, and pancreatitis. cc: Pipo Douglas MD
[2017-02-26 14:50] VITALS: BP 132/64
--- NOTE | 2017-02-26 16:06 | DISCHARGE SUMMARY ---
ADMISSION DATE: 02/14/2017 DISCHARGE DATE: 02/26/2017 CONSULTATIONS: 1. Dr. Freedom Barakat with Urology. 2. Dr. James Sue with Nephrology. 3. Dr. Chowdhury with Pulmonology. 4. Dr. Pipo Douglas with Infectious Disease. PERTINENT PROCEDURES: 1. Abdomen and pelvis CT showed moderate left hydronephrosis with perinephric stranding. No obstruction calculus identified. Gas within the left collecting system, ureter and bladder, which may be secondary to instrumentation or infection with gas-forming organisms. Right caliceal stone in mid-right perinephric stranding of uncertain etiology. A 4.2 cm low-density left adrenal nodule, which likely represents a benign adenoma. Mild retroperitoneal lymphadenopathy. Constipation. 2. Cystoscopy, with placement of a left urethral stent. They found copious amount amounts of pleural fluid, expressed via the stent after its placement. 3. Open left nephrectomy, performed by Dr. Barakat, assisted by Dr. Winchester. DISCHARGE DIAGNOSES: 1. Left emphysematous pyelonephritis, status post left nephrectomy. The patient will continue on IV antibiotics, per Dr. Pipo Douglas. 2. Escherichia coli extended-spectrum beta-lactamase pyelonephritis. Continue with IV antibiotics, per Dr. Pipo Douglas. 3. Altered mental status, secondary to delirium, improved. 4. Generalized weakness. The patient has been doing well with physical therapy. 5. Hypertension, controlled. 6. Sepsis, secondary to presumed urinary tract infection and pyelonephritis, resolved. 7. Acute kidney injury, in the setting of chronic kidney disease. HOSPITAL COURSE: Ms. Calhoun is a 51-year-old female with a history of chronic kidney disease, diabetes mellitus, chronic back pain. Presented to the ED via EMS, stating she thought she had another urinary tract infection. In the past, she did have left flank pain, left lower quadrant pain, generalized aches and nausea with urinary tract infections, although this time she stated that she had a sudden onset of sharp pain in her left lower quadrant that went straight through to her left lower back, with no exacerbating or alleviating factors. CT in the ED revealed a left hydronephrosis with perinephric stranding. Gas in the left collecting system and urinary bladder, and a right caliceal stone. Her urine was sent for culture. She was given IV hydration, as well as antibiotics. Her white count was noted to be 28, sodium of 1.4, potassium 5.4, BUN of 37, creatinine of 2.6 with a blood glucose of 600. Urine was positive for blood and nitrites. She was transferred to [facility] ICU with a urology consult. Started on IV antibiotics and IV hydration. Home medications were renally dosed. She underwent a cystoscopy with placement of a left urethral stent with Dr. Barakat. They found copious amounts of pleural fluid, expressed via the stent after its placement. She was moved to the ICU for close hemodynamic observation. He expressed to the patient that if she did not improve, they may have to consider a left nephrectomy. The patient, unfortunately, did not improve. She did have an emphysematous pyelonephritis. She had failure of conservative management with a urethral stent. She did undergo an open left nephrectomy with Dr. Barakat, as well as Dr. Winchester. She was also followed closely by Dr. Sue throughout her hospital stay. She did have acute respiratory failure, and had to be placed on a ventilator. She did have a pneumonia. She was started on broad-spectrum antibiotic, plus bronchodilator therapy, as well as septic shock and placed on pressor support. ID was consulted for further assistance with antibiotics. I believe on February 18 the patient was able to get out her breathing tube. She was able to move to the floor. They were able to get her Monge out. She was tolerating a diet. She was working with Physical Therapy. The patient is being set up for outpatient antibiotics from Dr. Douglas with Infectious Disease. She was discharged home today, with home IV ertapenem for another 4 days, to complete a 16-day antibiotic course following her nephrectomy. VITAL SIGNS AT TIME OF DISCHARGE: Temperature is 97.9 degrees, heart rate 81, respirations 18, blood pressure 132/64, O2 is 96% on room air. DISCHARGE DIET: Diabetic. DISCHARGE MEDICATIONS: As per Dr. Field: 1. Norvasc 5 mg p.o. b.i.d. 2. Celexa 10 mg p.o. daily. 1. Clonazepam 0.5 mg p.o. b.i.d. 2. Lasix 20 mg p.o. b.i.d. 3. NovoLog, per her protocol, subcutaneously before meals plus at bedtime. 4. Lantus 35 units subcutaneously b.i.d. 5. Lantus 30 units subcutaneously b.i.d. 6. Lopressor 50 mg p.o. daily. 7. Lyrica 100 mg p.o. b.i.d. 8. Ertapenem for 4 more days, to complete a 16-day course. FOLLOWUP: Ms. Calhoun is being discharged home with [facility]. Dr. Douglas has set up for IV antibiotics. She is to continue diabetic diet. Follow up with Dr. Barakat and Dr. Douglas as indicated, as well as her primary care physician, Dr. Boom Wilson, and Dr. Sue in 2 weeks with lab work. She can return to the ED for any worsening of symptoms. Dictated by CLEMENT Bruner for Eugenio Field MD cc: MD Boom Alberts MD I have seen and examined this patient today. Patient is clinically stable for discharge. Please follow instructions outlined above. MTDD
--- NOTE | 2017-02-26 16:28 | PROGRESS NOTE ---
DATE: 02/26/2017 ADDENDUM: Due to financial concerns the patient will not be able to do IV antibiotics at home. Her organism in vitro does test susceptible to nitrofurantoin. Therefore, electronically I have sent a prescription for Macrobid 100 mg every 12 hours for a total of 5 days. The prescription was electronically sent to [facility] in [place] that the patient designated as being the pharmacy she uses. I will be available to see the patient on a p.r.n. basis. For now I am signing off of her case. cc: Pipo Douglas MD
== END 2017-02-26 17:31 | disposition home health service (06) ==
LOC: P.ED 00:48 → P.ICU 02:54 → SUATTDRO 02:54 → ICU 16:32 → 3N 02-24 23:46
PROVIDERS: ATTEND Internal Medicine
PROC: [UNRECOGNIZED PROCEDURE] (2017-02-15 09:30)

== ENCOUNTER 2017-03-02 17:04 | Inpatient (IN) ==
[2017-03-02] MEDS ORDERED: D50W SYRINGE IV ONE ×2 (17:48→20:37)
[2017-03-02] MEDS ORDERED: NS 1,000 ML IV ONE (17:48)
[2017-03-02] MEDS ORDERED: NARCAN IV ONE ×2 (17:48→18:48)
--- NOTE | 2017-03-02 17:48 | PROVIDER DOCUMENTATION ---
This chart was entered by Gisell Huynh Scribe, acting as scribe for Emery Quigley MD. HPI-Neurological Disorder <Leo Odonnell. - Last Filed: 03/02/17 19:06> - General Source: EMS - History of Present Illness-Neuro Headache Location: denies: frontal, temporal, occipital, parietal, global Severity: reports: moderate Onset/Duration: reports: just prior to arrival Timing: reports: still present Context: reports: found unresponsive by family, low blood sugar Character of Altered Mental Status: reports: unresponsive Any recent trauma/injury?: reports: none New weakness or altered sensation location:: reports: none Cognitive Baseline: alert, oriented x3 Gait Baseline: walks without assistance Associated Symptoms: reports: other (AMS). denies: short of breath, headache, decreased ability to walk or stand, fainting, dizziness, confusion, chest pain, neck/back pain, fatigue, fever/chills, insomnia, loss of consciousness, muscle spasms, nausea, numbness in legs/feet, paresthesia, diaphoretic, seizures, sleepy, slurred speech, tingling in legs/feet, trouble walking, vomiting, vision changes, weakness Similar Symptoms Previously?: No Recently seen or treated by another doctor?: Yes (seen in ED this am ) <Emery Quigley - Last Filed: 03/11/17 14:58> - General Stated Complaint: Unresponsive Time Seen by Provider: 03/02/17 17:20 Allergies/Adverse Reactions: Patient Allergies Allergy/AdvReac Type Severity Reaction Status Date / Time azithromycin [From Zithromax] Allergy ANAPHYLAXIS Verified 03/02/17 07:30 fenoprofen [From Nalfon] Allergy ANAPHYLAXIS Verified 03/02/17 07:30 rofecoxib [From Vioxx] Allergy Unknown Verified 03/02/17 07:30 acetaminophen [From Percocet] AdvReac Unknown Verified 03/02/17 07:30 nitrofurantoin AdvReac HEADACHE Verified 03/02/17 07:30 [From Macrobid] nitrofurantoin AdvReac HEADACHE Verified 03/02/17 07:30 macrocrystalline * [From Macrobid] oxycodone HCl * AdvReac Unknown Verified 03/02/17 07:30 [From Percocet] sumatriptan [From Imitrex] AdvReac Unknown Verified 03/02/17 07:30 sumatriptan succinate * AdvReac Unknown Verified 03/02/17 07:30 [From Imitrex] Home Medications: Home Medication List Medication Instructions Recorded Confirmed Last Taken Type Metoprolol [Lopressor] 50 mg PO DAILY 10/22/16 03/02/17 03/01/17 History Insulin Aspart [Novolog] See Protocol SQ AC + HS 02/14/17 03/02/17 02/26/17 History Insulin Glargine [Lantus] 30 unit SUBQ BID 02/27/17 03/02/17 02/26/17 History Albuterol 2.5MG/Ipratrop 0.5MG 3 ml INH Q4-6H PRN PRN #0 neb 03/07/17 Unknown Rx [Duoneb (A & A)] Fondaparinux [Arixtra] 2.5 mg SUBQ DAILY syr 03/07/17 Unknown Rx Hydrocodone/APAP 5 mg/325 mg 1 each PO Q6H PRN PRN #40 tablet 03/07/17 Unknown Rx [Preston-5] - History of Present Illness-Neuro Nature of Presenting Problem: Pt is a 51 y/o F presents to the ED via EMS for AMS. EMS states Pt's boyfriend called EMS due to Pt being unresponsive. Pt was seen in ED this am for fibia fracture. Pt was given one norco in ED prior to discharge. EMS states Pt's FSBS was 59 in route. Pt received D 50 at 1707 and Pt's FSBS recheck was 374. Pt was given 2 mg of Narcan at 1708. Pt states Clexa, Lyrica and Flexeril. (Gisell Huynh ) Pt is a 51 y/o F presents to the ED via EMS for AMS. EMS states Pt's boyfriend called EMS due to Pt being unresponsive. Pt was seen in ED this am for fibia fracture. Pt was given one norco in ED prior to discharge. EMS states Pt's FSBS was 59 in route. Pt received D 50 at 1707 and Pt's FSBS recheck was 374. Pt was given 2 mg of Narcan at 1708. Pt states Clexa, Lyrica and Flexeril. (Quigley, Emery B.) Review of Systems - Adult - REVIEW OF SYSTEMS - ADULT Constitutional: denies: fever <Leo Odonnell - Last Filed: 03/02/17 19:06> - REVIEW OF SYSTEMS - ADULT ROS:: unobtainable per condition Constitutional: reports: no symptoms reported Eyes: reports: no symptoms reported Ears, Nose, Mouth & Throat: reports: no symptoms reported Cardiovascular: reports: no symptoms reported Respiratory: reports: no symptoms reported Gastrointestinal: reports: no symptoms reported Genitourinary: reports: no symptoms reported Musculoskeletal: reports: no symptoms reported Integumentary: reports: no symptoms reported Neurological: reports: no symptoms reported Psychiatric: reports: no symptoms reported Endocrine: reports: no symptoms reported Hematologic/Lymphatic: reports: no symptoms reported Allergic/Immunologic: reports: no symptoms reported All Other Systems: Reviewed and Negative <Emery Quigley - Last Filed: 03/11/17 14:58> Past History - Adult - PAST MEDICAL HISTORY-ADULT Review of Records: reports: Old Records Reviewed, Nursing Assessment Review, Medications Reviewed, Social history reviewed & non-contributory. <Leo Odonnell - Last Filed: 03/02/17 19:06> - PAST MEDICAL HISTORY-ADULT Review of Records: reports: Nursing Assessment Review, Medications Reviewed, Social history reviewed & non-contributory. Major Childhood Illnesses: reports: denies history Cardiovascular: reports: CHF, HTN, hyperlipidemia Respiratory: reports: denies history Gastrointestinal: reports: denies history Obstetrical/Gynecological: reports: denies history Genitourinary: reports: kidney disease (stage 3) Musculoskeletal: reports: chronic pain Neurological: reports: denies history Psychiatric: reports: anxiety Endocrine/Immune: reports: Diabetes Other Conditions: reports: denies history - PRIOR SURGERIES/PROCEDURES Surgical/Procedure History: reports: BTL, orthopedic (extremity), back/neck - IMMUNIZATION STATUS Childhood Immunizations: See Nurse Assessment Flu Vaccine: See Nurse Assessment - FAMILY HISTORY Family History: reviewed, not pertinent - SOCIAL HISTORY Smoking: cigarettes, greater than 1 pack/day Provider spent 3-5 mins advising pt. on dangers of tobacco.: Discussed manners to quit use, and f/u contacts for add'l counseling. Substance Use: denies Living Situation: family <Emery Quigley - Last Filed: 03/11/17 14:58> Physical Exam- Neurological - Physical Exam-Neuro Initial Vital Signs Reviewed: Yes General Appearance: lethargic <Leo Odonnell - Last Filed: 03/02/17 19:06> - Physical Exam-Neuro Initial Vital Signs Reviewed: Yes General Appearance: no apparent distress, obese, lethargic, other (unresponsive) . negative: alert Eye Exam: bilateral eye: normal inspection, PERRL, EOMI HENMT: normal ENT inspection. negative: angioedema, hearing deficit Head Injury: no evidence of injury. negative: ecchymosis, lacerations, tenderness Neck: normal inspection. negative: lymphadenopathy, tender lateral Respiratory: chest non-tender, lungs clear, normal breath sounds. negative: crackles, rhonchi, wheezing Cardiovascular: normal peripheral pulses, regular rate, rhythm. negative: tachycardia, systolic murmur Abdominal Exam: normal bowel sounds, non tender, soft. negative: guarding, rebound Lymphatic: no adenopathy. negative: enlargement, streaking Extremity: normal range of motion, other (splint on right lower leg). negative : erythema, swelling banana room cutter Exam: other (unable to assess per condition) Coordination/Gait: other (unable to assess per condition) Motor/Sensory: other (unable to assess per condition) Neurologic: other (unable to assess per condition). negative: aphasia, facial droop Integumentary: normal color, normal turgor, warm/dry. negative: ecchymosis, erythema, pallor Psych/Mental Status: other (unresponsive). negative: normal mood/affect, oriented x 3 <Emery Quigley - Last Filed: 03/11/17 14:58> Progress - PLAN OF CARE/RESULTS Result Diagrams: 03/02/17 17:10 03/02/17 17:10 - REASSESSMENT Reassessment #1 Time Reassessed: 19:06 (pt is very somnolent will fall asleep midsentence despite repeat narcan , and a fingerstick glucose of 101) Status: unchanged <Leo Odonnell - Last Filed: 03/02/17 19:06> - PLAN OF CARE/RESULTS Result Diagrams: 03/06/17 05:50 03/06/17 05:50 - EKG 1 Time of EKG reading by physician:: 16:59 EKG Read and Signed by:: Emery Quigley EKG Interpretation (*Must complete 3 of following elements*): Abnormal Rate: 55 Rhythm: sinus bradycardia with premature atrial complexes Comments: prolonged QT - CHANGE OF SHIFT REPORT (ED Provider) Report Given and Care Transferred to:: Dr. Odonnell Time of Transfer: 17:52 Items Pending: Labs, XRAY Results, CT/MRI Results <Emery Quigley - Last Filed: 03/11/17 14:58> - PLAN OF CARE/RESULTS Progress/Plan/Lab Results: Orders Category Date Time Status Admit - [facility] - [facility] Routine AdmDCTranf 03/02/17 20:41 Ordered Activity - Bedrest with BSC ORDERED Care 03/02/17 20:41 Active Aspiration Precautions DIRECTED Care 03/02/17 20:46 Active Elevate Head of Bed DIRECTED Care 03/02/17 20:46 Active FSBS/Accucheck Result Q2HR Care 03/02/17 20:41 Completed Monge Cath Insertion ORDERED Care 03/02/17 17:40 Completed Intake and Output-Strict ORDERED Care 03/02/17 20:41 Active Neurological Check q2h Care 03/02/17 21:40 Active Nursing- Assist w/ IS as order ORDERED Care 03/02/17 20:45 Active Vital Signs Order Q 4-HR ASSESS Care 03/02/17 20:42 Active Z-Document. for Tele Applied ORDERED Care 03/02/17 20:41 Completed CHEST-PORTABLE [RAD] Stat Exams 03/02/17 17:[address] HEAD W/O CONTRAST [CT] Stat Exams 03/02/17 17:42 Completed ABG [RESP] Routine Lab 03/02/17 20:37 Completed ACETAMINOPHEN [TDM] Stat Lab 03/02/17 17:10 Completed CBC WITH DIFF [HEME] Routine Lab 03/03/17 05:50 Completed CBC WITH ELECTRONIC DIFF [HEME] Stat Lab 03/02/17 17:10 Completed COMPREHENSIVE METABOLIC PANEL [CHEM] Routine Lab 03/03/17 05:50 Completed COMPREHENSIVE METABOLIC PANEL [CHEM] Stat Lab 03/02/17 17:10 Completed PT [PROTIME WITH INR] [COAG] Stat Lab 03/02/17 08:12 Completed PTT [COAG] Stat Lab 03/02/17 08:12 Completed SALICYLATES [TDM] Stat Lab 03/02/17 17:10 Completed TROPONIN T Q8H Lab 03/03/17 01:40 Completed TROPONIN T Q8H Lab 03/03/17 08:40 Completed TROPONIN T Stat Lab 03/02/17 17:10 Completed URINALYSIS W/POSS RFLX CULT-1 [URINALYSIS] Stat Lab 03/02/17 17:17 Completed URINE CULTURE [RM] Routine Lab 03/02/17 18:57 Completed URINE DRUG SCREEN MEDTOX Stat Lab 03/02/17 17:17 Completed 0.9% Sodium Chloride Inj [Ns] 1,000 ml Med 03/02/17 20:41 Discontinued IV 100 mls/hr 0.9% Sodium Chloride Inj [Ns] 1,000 ml Med 03/02/17 17:48 Discontinued IV 999 mls/hr Dextrose 50% Syringe [D50w Syringe] Med 03/02/17 20:37 Discontinued 25 ml IV NOW ONE Dextrose 50% Syringe [D50w Syringe] Med 03/02/17 17:48 Discontinued 50 ml IV NOW ONE Ertapenem [Invanz] 0.5 gm Med 03/02/17 21:45 Discontinued 0.9% Sodium Chloride Inj [Ns] 50 ml IV Q24H Naloxone [Narcan] Med 03/02/17 17:48 Discontinued 2 mg IV NOW ONE Naloxone [Narcan] Med 03/02/17 18:48 Discontinued 2 mg IV NOW ONE Ondansetron [Zofran] Med 03/02/17 20:41 Discontinued 4 mg IV Q4H PRN PRN Incentive Spirometer Routine Oth 03/02/17 20:41 Completed Oxygen Device Routine Oth 03/02/17 20:41 Completed Pulse Oximetry Routine Oth 03/02/17 20:41 Completed Telemetry [OM.EQ] Routine Oth 03/02/17 20:41 Active EKG [EKG] Stat Ther 03/02/17 17:36 Draft Transfer/Admit Order [TRANSFER] Routine Transfer 03/02/17 20:58 Completed Departure - Departure Date of Disposition Decision: 03/02/17 Time of Disposition Decision: 19:07 Certified Medical Emergency: Emergent - Critical Care Note This patient required my direct & personal management of CC.: No <Leo Odonnell - Last Filed: 03/02/17 19:06> - Departure Date of Disposition Decision: 03/02/17 Time of Disposition Decision: 19:07 Certified Medical Emergency: Emergent - Critical Care Note This patient required my direct & personal management of CC.: No <Emery Quigley - Last Filed: 03/11/17 14:58> - Departure DIAGNOSIS: Altered mental status Qualifiers: Altered mental status type: somnolence Qualified Code(s): R40.0 - Somnolence Disposition: ADMITTED INPATIENT 09 Condition: Fair Attestation - Physician/ TERRY Attestation Patient care was provided by Advanced Practice Provider:: No The physician spent face to face time with patient:: Yes Advanced Practice Provider documentation review:: Supervising physician onsite and consulted in the evaluation and care of this patient. The physician did have a face to face encounter with the patient. <Leo Odonnell - Last Filed: 03/02/17 19:06> - Physician/ TERRY Attestation Patient care was provided by Advanced Practice Provider:: No The physician spent face to face time with patient:: Yes Advanced Practice Provider documentation review:: Supervising physician onsite and consulted in the evaluation and care of this patient. The physician did have a face to face encounter with the patient. <Emery Quigley - Last Filed: 03/11/17 14:58> This chart was documented by the indicated scribe, (Gisell Huynh Scribe) and accurately reflects the services I performed and decisions made by me, Emery Quigley MD, as attested by the provider's signature.
[2017-03-02 17:56] LABS: BASO% 0.1 % (0.0-0.8); EOS# 0.06 X1000 (0.0-0.7); EOS% 0.4 % (0.0-10.0); HEMATOCRIT 30.2 % (37.0-47.0); HEMOGLOBIN 10.1 g/dL (12.0-16.0); IMM GRAN# 0.15 X1000 (0.0-0.04); LYMPH# 0.97 X1000 (1.2-3.4); LYMPH% 6.6 % (20.5-51.1); MANUAL DIFF NEEDED? NO; MCH 30.9 PG (27-31); MCHC 33.4 g/dL (33-37); MCV 92.4 FL (81-99); MONO# 0.96 X1000 (0.11-0.59); MONO% 6.5 % (1.7-9.3); MPV 11.7 FL (7.4-10.4); NEUT% 85.4 % (42.2-75.2); PLT 319 X1000 (130-400); RBC 3.27 XMIL (4.2-5.4)
[2017-03-02 17:58] LABS: URINE MICRO REVIEW NEEDED? NO; URINE SOURCE CLEAN CATCH
[2017-03-02 18:03] LABS: BILIRUBIN URINE NEGATIVE (NEGATIVE); BLOOD URINE NEGATIVE (NEGATIVE); COLOR YELLOW; GLUCOSE URINE NEGATIVE (NEGATIVE); LEUKOCYTES URINE SMALL (NEGATIVE); NITRITE URINE NEGATIVE (NEGATIVE); PH URINE 5.5; PROTEIN URINE TRACE mg/dL (NEGATIVE); SP GRAVITY URINE 1.005; TURBIDITY URINE CLEAR (CLEAR); UROBILINOGEN URINE NORMAL (NORMAL)
[2017-03-02 18:04] LABS: UR EPITHELIAL CELLS <10 /HPF (<10); URINE BACTERIA NEGATIVE /HPF; URINE CULTURE NEEDED? YES; URINE RBC <10 /HPF (<10)
[2017-03-02 18:10] LABS: ALBUMIN 2.8 g/dL (3.5-5.0); CALCIUM 8.3 mg/dL (8.8-10.2); POTASSIUM 3.6 mmol/L (3.5-5.1); TOTAL BILIRUBIN 0.72 mg/dL (0.20-1.00)
--- NOTE | 2017-03-02 18:10 | Diag Imaging Result Doc PS360 ---
CHEST-PORTABLE - 03/02/2017 INDICATION: altered mental mental status TECHNIQUE: COMPARISON: 02/25/2017 FINDINGS: The right central line has been removed. Lung volumes are slightly improved. There is improvement in aeration of the lungs. Otherwise there is stable cardiomegaly and pulmonary vascular congestion. There is stable alveolar infiltrate in the left lung base suggesting pneumonia. IMPRESSION: Little change from prior. Electronically signed by Charli Duke 03/02/2017 6:07 PM
[2017-03-02 18:16] LABS: UR AMPHETAMINES MT NONE DETECTED (NONE DETECT); UR BARBITUATES MT NONE DETECTED (NONE DETECT); UR BENZODIAZ MT NONE DETECTED (NONE DETECT); UR CANNABIS MEDTOX NONE DETECTED (NONE DETECT); UR COCAINE MT NONE DETECTED (NONE DETECT); UR METHADONE MEDTOX NONE DETECTED (NONE DETECT); UR OPIATES MT PRESUMPTIVE POS (NONE DETECT); UR OXYCODONE MEDTOX NONE DETECTED (NONE DETECT); UR PCP MEDTOX NONE DETECTED (NONE DETECT)
--- NOTE | 2017-03-02 18:21 | Diag Imaging Result Doc PS360 ---
CT HEAD W/O CONTRAST - 03/02/2017 INDICATION: altered mental status TECHNIQUE: A CT dose reduction protocol was used. COMPARISON: 09/21/2015 FINDINGS: There is stable mild periventricular white matter chronic microvascular disease. The ventricles and sulci are normal in size and contour. No intracranial mass or hemorrhage. The skull is intact. The sinuses are clear. IMPRESSION: No acute disease or change from prior. Electronically signed by Charli Duke 03/02/2017 6:19 PM
[2017-03-02] MEDS ORDERED: NS 1,000 ML IV SCH (20:41)
[2017-03-02] MEDS ORDERED: ZOFRAN IV PRN (20:41)
[2017-03-02 20:52] LABS: ALLEN TEST YES; BE 1.6 mmoll (-3.0-3.0); BLOOD TYPE ARTERIAL; DRAW SITE R RADIAL; PCO2(98.6) 38 mmHg (35-45); PO2(98.6) 147 mmHg (60-100); SAMPLE BLOOD; SAO2 98.9 % (95.0-100.0); THB 10.5 g/dL (11.5-17.4); pH(98.6) 7.44 (7.35-7.45)
[2017-03-02 20:53] LABS: MODALITY ROOM AIR
[2017-03-02 22:09] LABS: INR 0.96; PROTIME 10.1 Seconds (9.2-11.7)
[2017-03-03] MEDS: NS 1,000 ML IV SCH ×2 (00:06→10:31)
[2017-03-03] MEDS: INVANZ 0.5 GM in NS 50 ML IV SCH ×2 (00:07→22:13)
--- NOTE | 2017-03-03 03:41 | HISTORY AND PHYSICAL ---
TIME: 2029. PRIMARY CARE PROVIDER: Dr. Boom Wilson. CHIEF COMPLAINT: Altered mental status. HISTORY OF PRESENT ILLNESS: Ms. Calhoun is a 51-year-old, female who was just recently discharged from the hospital on February 26. During her most recent admission, she did have complications secondary to pyelonephritis and did undergo an initial cystoscopy with urethral stent placement and ultimately had an open left nephrectomy performed. She was discharged home with initial orders for IV Invanz daily, though due to some financial complications, this was subsequently switched to Macrobid by Dr. Douglas. Since being discharged, she has been seen in the ER 2 previous times prior to this visit today. She was seen 1 day after discharge from the hospital for abdominal pain. From the ER physician's note, it looked as though she was discharged with Tylenol for pain control, though due to increased pain, she presented to the ER with abdominal pain secondary to her incision site and was discharged home with a prescription for Olga. Patient's boyfriend who was at bedside did state that since being discharged from the hospital, she has been weak, though the last day or two this has worsened. She does occasionally use a walker at home to ambulate. He states that this morning, she was walking to the bathroom and slipped and fell. The patient reported that she heard her right ankle pop during this time. She denied any loss of consciousness or hitting her head. She was found to have an acute distal fibula shaft fracture. She was splinted in the ER and discharged home with a prescription for pain medicine as well as a referral to follow up with Dr. Acharya. The patient's boyfriend states that after being discharged the 1st time this morning that she did fall a 2nd time after they arrived back home. Her boyfriend reported that she fell outside on the grass. He denied her having any injuries but did state that she hit the back of her head though never lost consciousness. He states that after the fall that they both laid down to take a nap and when he woke up, he tried to awaken her and was unable to get her to arouse even with a sternal rub. At this time, he did call EMS who brought her in to the ER for further evaluation. Upon evaluation in the ER, she was found to be unresponsive. She was also noted to be hypoglycemic with a fingerstick blood sugar of 30. She was given an ampule of D50 as well as 2 mg of Narcan, though ultimately did not show much improvement. She was monitored in the ER and was also given an additional 2 mg of Narcan later on, though still remains drowsy at this time. The patient is arousable to verbal and light tactile stimulation, and is alert and oriented to person and place, though not time. At this time, she will be admitted to the hospital for further treatment and evaluation. REVIEW OF SYSTEMS: At this time, a review of systems was unable to be performed with the patient due to her current mentation, though her boyfriend did report that she has had some increased weakness as well as some increased shortness of breath, though denied any other known symptoms that the patient had reported. PAST MEDICAL HISTORY: 1. History of frequent urinary tract infections. 2. Status post open left nephrectomy secondary to complications from pyelonephritis. 3. Insulin-dependent diabetes mellitus. 4. Hyperlipidemia. 5. Hypertension. 6. Chronic kidney disease, previously stage III. 7. Chronic pancreatitis. 8. Chronic back pain. PAST SURGICAL HISTORY: 1. Status post open left nephrectomy. 2. Cystoscopy with urethral stent placed prior to the patient's open left nephrectomy. 3. Tubal ligation. 4. Back surgery. 5. Carpal tunnel surgery. SOCIAL HISTORY: The patient does still smoke at this time and her boyfriend reports that she still smokes a half a pack of cigarettes per day. There is no known history of alcohol or illicit drug use. FAMILY HISTORY: Family history is unable to be obtained at this time due to the patient's current mentation. There is no previous mention of any known family medical problems in previous medical documentation. ALLERGIES: Patient has allergies to Zithromax, Nalfon, Vioxx, Percocet, Imitrex , as well as an adverse reaction to Macrobid which causes her to have a headache. HOME MEDICATIONS: 1. Amitriptyline 20 mg p.o. at bedtime. 2. Norvasc 5 mg p.o. b.i.d. 3. Celexa 10 mg p.o. daily. 4. Flexeril 10 mg p.o. t.i.d. p.r.n. 5. Lasix 20 mg p.o. b.i.d. 6. Olga 7.5 mg 1 p.o. q.4-6 hours p.r.n. 7. NovoLog subcutaneous a.c. and at bedtime per sliding scale. 8. Lantus 30 units subcutaneous b.i.d. 9. Metoprolol 50 mg p.o. daily. 10. Lyrica 100 mg p.o. b.i.d. 11. Aspirin 325 mg 1 p.o. daily. 12. There is also a question whether or not the patient still takes atorvastatin or fenofibrate. This medication list was obtained from patient's medication bottles that were at bedside. DIAGNOSTIC DATA/LABORATORY RESULTS: White blood cell count 14.7, hemoglobin 10.1, hematocrit 30.2, platelet count is 319,000. PT 10.1, INR 0.96, PTT is 30. Sodium 131, potassium 3.6, chloride 91, bicarb 28, BUN is 38, creatinine is 3.2, GFR is 15, initial serum glucose was 30, though this has since been treated and has improved. Calcium is 8.3. Liver function tests were within normal limits except for alkaline phosphatase is elevated at 129. Troponin is 0.014. Salicylate level is less than 3. Acetaminophen level is less than 1.2. Urinalysis was obtained via a clean catch, was positive for trace protein, small leukocytes, and 10-20 white blood cells. It was negative for ketones, blood, nitrites, or bacteria. Urine drug screen was positive for opiates. Arterial blood gases were obtained on room air with a pH of 7.44, pCO2 of 38, PO2 of 147, HC03 was 26.1, with a carboxyhemoglobin of 5, and an O2 saturation of 98.9. Head CT noncontrast showed some stable mild periventricular white matter chronic microvascular disease though no acute disease or change from prior. Chest x-ray showed lung volumes that were slightly improved. There is also a stable alveolar infiltrate in the left lung base suggesting pneumonia. There was little change from prior noted. This was per radiology. Ankle complete right showed acute distal fibular fracture. This is per radiology. PHYSICAL EXAMINATION: VITAL SIGNS: Temperature 98.2 degrees, heart rate 60, respirations 16, blood pressure 117/61, oxygen saturation is 96% on nasal cannula at 2 L. GENERAL: Mr. Calhoun is a 51-year-old, female who is resting on the ER stretcher. She is very drowsy, though does respond to verbal and light tactile stimulation, though once awake, does drift quickly back off to sleep. She was in no acute distress. HEENT: Head is atraumatic, normocephalic. Pupils are equal, round, reactive to light. They were 3 mm bilaterally and sluggish. Subconjunctivae were slightly pale. Oral mucosa is slightly dry. Oropharynx is clear. NECK: Supple. Trachea midline. No carotid bruits noted upon auscultation bilaterally. CARDIOVASCULAR: Patient has normal S1, S2. No murmurs, gallops, or rubs appreciated with a regular rate and rhythm. PULMONARY: Patient has symmetrical chest expansion bilaterally. Lung sounds in bilateral fuentes did have some rhonchi noted. ABDOMEN: Soft, nontender, and nondistended, though the patient does have a protuberant abdomen noted. She does have a large linear abdominal incision noted with tami. This does appear to be healing well at this time. The patient reports no tenderness upon palpation. Bowel sounds were present in all 4 quadrants. EXTREMITIES: No cyanosis, clubbing, or edema noted. Pulse, motor, and sensory were intact in all extremities. Pedal pulses were 3+ bilaterally. Capillary refill is less than 3. INTEGUMENTARY: The patient's skin is pink, warm, dry, and intact except for previous linear abdominal incision previously mentioned. NEUROLOGICAL: The patient is alert and oriented to person and place only, not time. The patient was able to follow simple commands. She does have good equal hand grasps an equal muscle strength bilaterally, though at this time, the patient's neurological exam was limited. ASSESSMENT AND PLAN: 1. Encephalopathy. This is of uncertain etiology, though we do have a high suspicion that this is likely secondary to medications. The patient did receive a Olga 7.5 in the emergency room this morning and her stated that when she arrived home that she took another 1. This could be related to an accidental issue with overmedicating. Her CT head was negative for any acute intracranial abnormality. At this time, we will hold any sedative medications. She will be placed on neurological checks every 2 hours and we will continue to monitor her neurological status closely. 2. Urinary tract infection. The patient was previously taking Macrobid after discharge from the hospital, though given her current GFR, we will stop this at this time and place her on Invanz 500 mg intravenous every 24 hours. A urine culture has been obtained. We have placed an infectious disease consult with Dr. Douglas, who was previously treating the patient during her last admission. 3. Leukocytosis. This is likely secondary to the patient's urinary tract infection. We will continue the treatment as mentioned above. There was some mention of a stable pneumonia on her chest x-ray, though this does not appear to be any worse. She does not have any fever at this time, though her did report that she has some increased shortness of breath. We will continue to monitor this as well. 4. Acute on chronic kidney disease. The patient has had a slight increase in her creatinine since being discharged from the hospital on the . We will continue to monitor this closely. We will provide intravenous fluids, avoid nephrotoxic medications, and renally dose medications as necessary. 5. Hypoglycemia. Patient's initial glucose upon arrival was 30. This has been treated with D50 and has improved at this time, though we will continue with every 2 hour her fingerstick blood sugars and monitor closely. 6. History of insulin dependent diabetes mellitus. As mentioned above, the patient is currently experiencing hypoglycemia. We will hold her insulin at this time and continue to follow. 7. History of hypertension. The patient does take Norvasc, though her blood pressures at this time are within normal limits and actually running slightly on the low side so we will hold her antihypertensive medications and continue to follow. 8. Fracture of distal fibula shaft secondary to a fall. The patient's fracture has previously been splinted in the emergency room. She does have good capillary refill distal to the splint application. We have placed a consult with Dr. Acharya. We will await his evaluation and further recommendations. Continue to follow. 9. Normocytic anemia. This appears to be stable at this time. It could be likely related to her chronic kidney disease. We will continue to follow. 10. Deep venous thrombosis prophylaxis will be provided with Arixtra 2.5 mg subcutaneous daily. The patient did have what appeared to be some thrombocytopenia during her previous admission possibly secondary to administration of heparin. 11. Nicotine dependence. We will continue to urge the patient to quit smoking during her admission and upon discharge. The patient will be placed on the medical floor with telemetry. She will have vital signs every 4 hours. We have implemented aspiration precautions. She will be nothing per oral at this time. Further orders and recommendations pending hospital course, diagnostic studies, and physician evaluation. Dictated by CLEMENT Roca for Eber Rutledge MD cc: Eber Rutledge MD pt examined, seen face to face, her neurologic exam is nonfocal, lethargic and easily arousable, presumably this is due to drug reaction otherwise agree with above APENOT MTDD
--- NOTE | 2017-03-03 05:57 | EKG Report ---
Test Performed on : 03/02/2017 4:59:57 PM Test Reason : altered mental status Blood Pressure : / mmHG Vent. Rate : 055 BPM Atrial Rate : 055 BPM P-R Int : 148 ms QRS Dur : 102 ms QT Int : 510 ms P-R-T Axes : 046 023 045 degrees QTc Int : 487 ms Sinus bradycardia. with premature atrial complexes. Prolonged QT Abnormal ECG When compared with ECG of 15-FEB-2017 12:01, premature atrial complexes. are now present Vent. rate has decreased BY 51 BPM Unconfirmed Result
[2017-03-03] MEDS ORDERED: D50W SYRINGE ONE (06:04)
[2017-03-03 06:23] LABS: MANUAL DIFF NEEDED? NO
[2017-03-03 06:30] LABS: BASO% 0.2 % (0.0-0.8); EOS% 0.8 % (0.0-10.0); HEMATOCRIT 28.2 % (37.0-47.0); HEMOGLOBIN 9.3 g/dL (12.0-16.0); IMM GRAN# 0.08 X1000 (0.0-0.04); IMM GRAN% 0.6 % (0.0-0.5); LYMPH# 1.33 X1000 (1.2-3.4); LYMPH% 10.4 % (20.5-51.1); MCH 30.6 PG (27-31); MCV 92.8 FL (81-99); MONO# 0.92 X1000 (0.11-0.59); MONO% 7.2 % (1.7-9.3); MPV 11.6 FL (7.4-10.4); NEUT% 80.8 % (42.2-75.2); PLT 340 X1000 (130-400); RBC 3.04 XMIL (4.2-5.4)
[2017-03-03 06:51] LABS: ALBUMIN 2.3 g/dL (3.5-5.0); POTASSIUM 4.2 mmol/L (3.5-5.1); TOTAL BILIRUBIN 0.41 mg/dL (0.20-1.00); TOTAL PROTEIN 5.3 g/dL (6.3-8.3)
[2017-03-03] MEDS: DUONEB (A & A) INH PRN ×4 (07:34→22:46)
[2017-03-03] MEDS: ARIXTRA SUBQ SCH (08:21)
--- NOTE | 2017-03-03 13:00 | PROGRESS NOTE ---
DATE: 03/03/2017 SUBJECTIVE: 1. This is a 51-year-old who presented with altered mental status on the , yesterday. Recent discharge from the hospital on 26 February, most recent admission. 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 She was subsequently after IV antibiotics, IV Invanz, was switched to Macrobid and discharged. Seen in the ER previously 2 times before this visit. She was discharged on Tylenol for pain control and she had increased pain, abdominal pain secondary to the incision site and discharged with prescription Drayton. Patient's boyfriend who is at the bedside stated that she has been discharged from the hospital she has been weak through the 1st day and then got worse. So she is admitted with metabolic encephalopathy of uncertain etiology. She was getting Drayton 7.5. 2. Urinary tract infection, recent emphysematous pyelonephritis treatment. No sign of recurrent infection. 3. Leukocytosis. Aware. 4. Acute on chronic kidney disease. Creatinine has been improving. Continue IV fluids. 5. Hypoglycemia. On arrival her sugar was 30. She was treated with D50. 6. Insulin-dependent diabetes mellitus. We need to cut down on her insulin and watch her sugars. 7. Hypertension. Takes Norvasc. 8. Fracture of distal fibula secondary to fall. Had splinting in the emergency room. She has good capillary refill distal to the splint. 9. Normocytic anemia. 10. Nicotine dependence. On nicotine patch at this time. REVIEW OF HER ORDERS: She is off of pain medications at this time. cc: Jaya Giles MD
[2017-03-03] MEDS: NORCO-5 PO PRN (18:16)
--- NOTE | 2017-03-03 20:32 | CONSULTATION ---
DATE OF CONSULTATION: 03/03/2017 CHIEF COMPLAINT: Right ankle pain status post falling. HISTORY OF PRESENT ILLNESS: Ms Calhoun is a 51-year-old female who is experiencing right ankle pain after falling 2 days ago and she reports that she felt a pop in her ankle and she has had pain with weightbearing ever since. She was brought to the emergency department where radiographic findings revealed a minimally displaced distal fibula shaft fracture and we are asked for further evaluation. Past medical history, past surgical history, medicines and allergies see the admission history and physical. REVIEW OF SYSTEMS: A 10 point review of systems was reviewed with the patient and was negative other than what was stated in HPI above. PHYSICAL EXAMINATION: General: The patient is resting comfortably at bedside and she is able to articulate and answer all questions fully. HEENT: Head is normocephalic, atraumatic. Neck: Supple. Heart: Regular rate and rhythm. Lungs: Clear to auscultation bilaterally. Abdomen: Round, nontender. Bowel sounds are present. Neurological: She discerned soft touch to all 5 toes. She has good capillary refill of her toes on the right side. Musculoskeletal: Right ankle is currently in a splint and the splint is intact. She is neurovascularly intact and discerned soft touch to all toes. She has full range of motion of her right knee. IMPRESSION: Minimally displaced right fibula shaft fracture. PLAN: We are going to place her in a short leg cast and we will also write for her a front wheel walker to assist in her ambulation. We will have her follow up in the clinic in 1 week for follow up x-rays and examination. Dictated by MAXINE Lakhani for [place] Acharya MD cc: MAXINE Lakhani MD
[2017-03-04] MEDS: NORCO-5 PO PRN ×2 (04:38→12:43)
[2017-03-04] MEDS: DUONEB (A & A) INH PRN (07:39)
[2017-03-04] MEDS: ARIXTRA SUBQ SCH (09:28)
--- NOTE | 2017-03-04 09:39 | PROGRESS NOTE ---
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 She had undergone a nephrectomy. She then was admitted with an altered mental status. Today when I came, she is fully alert and oriented. On CAT scan, it was noted that the patient has a persistent left lower lobe infiltrate compatible with pneumonia. MEDICATIONS: The patient was restarted on ertapenem in a dose of 500 mg IV daily because of the patient's renal failure. PHYSICAL EXAMINATION: Vital Signs: Temperature is 97.9 degrees, pulse 83, respirations 14, blood pressure 113/54. General: This is an obese, middle-aged female. She is alert and talking. She can move her extremities. Lungs: Clear to auscultation. Cardiovascular: Regular heart rate. Abdomen: Soft and nontender. The patient's incision is intact. LAB AND X-RAY: The CT scan of the head showed no acute disease. Chest x-ray showed a stable left lower lobe infiltrate. CBC shows a white count of 12,730, hemoglobin 9.3, and platelet count 340,000. Creatinine is 2.8. GFR is 18. Urine culture shows a mixed growth. ASSESSMENT AND PLAN: I agree with continuing ertapenem for the time being. COMORBIDITIES: The patient's comorbidities include the following: Urinary tract infection, diabetes mellitus, chronic kidney disease and pancreatitis. cc: Pipo Douglas MD
--- NOTE | 2017-03-04 14:10 | PROGRESS NOTE ---
DATE: 03/04/2017 Ms. Calhoun seen today for her ankle followup. Currently, applying a short leg cast today. She will need to be evaluated in the office in roughly 1-2 weeks for repeat x-rays. She can be discharged with crutches or walker as necessary, partial weightbearing on the involved extremity. cc: [place] Acharya MD
--- NOTE | 2017-03-04 17:14 | PROGRESS NOTE ---
DATE: 03/04/2017 Ms. Calhoun is feeling better. Her main complaint is that her foot hurts. She is awake and oriented x3. Blood sugars seem to be well controlled. EXAM: Today temp 97.7 degrees, pulse 80, respirations 19, blood pressure 119/57.HEENT: Pupils are equal, round. Lungs: Are clear in all lung fuentes. Cardiovascular: Regular rhythm and rate without murmur or S3. Urine output is 3400 mL. Blood sugars 73, 112, 223. White count 50435, hematocrit 28, platelet count 340,000. Blood sugar 173, 202, 223. ASSESSMENT AND PLAN: 1. She has been on her ertapenem and was changed to Macrobid because of a suspected spectrum beta lactamase producing E. coli, emphysematous pyelonephritis and cystitis. She has undergone emergency nephrectomy and at this time was admitted back with altered mental status. At this time she is fully oriented. CAT scan noted that she had persistent left lower lobe infiltrate compatible with pneumonia. So she was restarted on ertapenem, dose of 500 mg IV because of the patient's renal insufficiency. 2. Acute kidney injury. Continue fluids. 3. Recent emphysematous pyelonephritis, status post urgent nephrectomy. 4. I think they were discussing maybe giving her a full cast and may be able to discharge soon. She has a right fibular shaft fracture. I think they placed her in a short leg cast and then will use a front wheel walker to assist with ambulation, wants to follow up in the clinic in a week so she may get to go home today or tomorrow. cc: Jaya Giles MD
[2017-03-05] MEDS: HUMULIN R SUBQ SCH ×5 (00:04→21:56)
[2017-03-05] MEDS: INVANZ 0.5 GM in NS 50 ML IV SCH ×2 (00:04→21:56)
[2017-03-05] MEDS: NORCO-5 PO PRN ×3 (00:20→18:19)
[2017-03-05] MEDS: ARIXTRA SUBQ SCH (09:53)
--- NOTE | 2017-03-05 10:11 | PROGRESS NOTE ---
DATE: 03/05/2017 SUBJECTIVE: Ms. Calhoun is feeling better. She is walking some now with a short cast on. We talked about going home. She is not sure if she is ready. I do not want her to fall again. We may pursue rehab. She lives around [place]. OBJECTIVE: Vital signs: Temp 97.8 degrees, pulse 96, respirations 18, blood pressure 147/65. HEENT: Pupils are equal and round. Neck: CVP less than 6 cm. Lungs: Clear in all lung fuentes. Cardiovascular: Regular rhythm and rate without murmur or S3. Intake and output: Urine output over 8 L. LABORATORY DATA: No new lab this morning. Blood sugars have been 150-240. ASSESSMENT AND PLAN: 1. She is on ertapenem for suspected extended spectrum beta lactamase producing Escherichia coli. She has pneumonia but she was treated before for pyelonephritis and cystitis. Had emphysematous pyelonephritis and underwent emergency nephrectomy last hospitalization. She is improving. 2. Acute kidney injury. 3. Fracture of her right ankle. She has a temporary cast but should be able to do some weightbearing with a walker and with crutches; see what physical therapy says. See if we can explore rehab options. I think she is ready go to rehab if we can find a bed. She is from [place]. We will see if we can find a rehab close to her. I have discussed with social work administrator. cc: Jaya Giles MD
--- NOTE | 2017-03-05 17:56 | PROGRESS NOTE ---
DATE: 03/05/2017 HISTORY OF PRESENT ILLNESS: The patient has an extended spectrum beta lactamase producing E. coli emphysematous pyelonephritis and cystitis. She has undergone a nephrectomy. She was admitted with an altered mental status, but in the past 2-3 days her mental status has become normal and she is fully alert. She also on CAT scan, had a left lower lobe infiltrate. MEDICATIONS: The patient is on ertapenem in a dose of 500 mg IV daily because of her renal failure, which is improving. PHYSICAL EXAMINATION: Vital Signs: Temperature is 98.1 degrees, pulse 92, respirations 19, blood pressure 139/66. General: This is a somewhat ill-appearing, middle-aged female. She is more alert and looks better today. Lungs: Clear to auscultation. Cardiovascular: Regular heart rate. Abdomen: Soft and nontender. The patient's incision is intact. Integument: No rash. LAB AND X-RAY: The patient does not have any new laboratory studies or x-ray for today. ASSESSMENT AND PLAN: Patient has an Escherichia coli urinary tract infection. My plan is to treat her for 2 more days after today with ertapenem. For tomorrow I have ordered a CBC, BMP and a chest x-ray. The patient also has a pulmonary infiltrate which could be pneumonia. The patient's comorbidities include the following: She has had urinary tract infections in the past. She is diabetic. She has chronic kidney disease and has pancreatitis. cc: Pipo Douglas MD
[2017-03-06] MEDS: NORCO-5 PO PRN ×2 (04:35→20:23)
[2017-03-06] MEDS: HUMULIN R SUBQ SCH ×4 (06:11→22:16)
[2017-03-06 06:48] LABS: MANUAL DIFF NEEDED? NO
[2017-03-06 07:02] LABS: CALCIUM 8.3 mg/dL (8.8-10.2); POTASSIUM 4.2 mmol/L (3.5-5.1)
[2017-03-06 07:03] LABS: BASO% 0.3 % (0.0-0.8); EOS# 0.22 X1000 (0.0-0.7); EOS% 2.3 % (0.0-10.0); HEMATOCRIT 27.1 % (37.0-47.0); HEMOGLOBIN 8.7 g/dL (12.0-16.0); IMM GRAN# 0.12 X1000 (0.0-0.04); IMM GRAN% 1.3 % (0.0-0.5); LYMPH# 1.49 X1000 (1.2-3.4); LYMPH% 15.6 % (20.5-51.1); MCH 30.3 PG (27-31); MCHC 32.1 g/dL (33-37); MCV 94.4 FL (81-99); MONO# 0.78 X1000 (0.11-0.59); MONO% 8.1 % (1.7-9.3); MPV 10.4 FL (7.4-10.4); NEUT% 72.4 % (42.2-75.2); PLT 344 X1000 (130-400); RBC 2.87 XMIL (4.2-5.4)
[2017-03-06] MEDS: ARIXTRA SUBQ SCH (08:22)
--- NOTE | 2017-03-06 09:00 | Diag Imaging Result Doc PS360 ---
EXAM: CHEST-2 VIEWS - 03/06/2017 HISTORY: pneumonia TECHNIQUE: Chest two views COMPARISON: Portable exam of 03/02/2017 FINDINGS: Heart size appears within normal limits. There is been interval decrease in with near resolution of infiltrate at the left base. Remainder lungs appear clear. There are possible tiny pleural effusions at the posterior costophrenic sulci. There is no pneumothorax. IMPRESSION: Near resolution of left lower lobe infiltrate. Electronically signed by Derrell Jordan 03/06/2017 8:58 AM
--- NOTE | 2017-03-06 11:50 | PROGRESS NOTE ---
DATE: 03/06/2017 SUBJECTIVE: She is doing better, able to walk some with a cast. We are going to take her tami out. Midline incision. Take out her Monge catheter. Hope to get her to rehab soon. OBJECTIVE: Vital signs: Temperature 97.7 degrees, pulse 94, respirations 20, blood pressure 151/77. Eyes: Pupils are equal,. Neck: No distended neck veins. Carotid, radial and femoral pulses 2+ and symmetrical. Abdomen: Soft, nontender, nondistended. Midline incision looks good with multiple tami. No drainage. The wound is dry. Extremities: Cast on right lower extremity, lower cast. Skin: Looks warm and dry. Good capillary refill in her toes. : Urine output 2400 mL. LAB: White count 9580, hematocrit 27, platelet count 344,000. Sodium 138, potassium 4.2, chloride 98, BUN 18, creatinine 2.0, blood sugar 135, 152 and 154. X-RAY: Chest x-ray: New resolution of left lower lobe infiltrate. ASSESSMENT AND PLAN: 1. Patient with extended spectrum Bactrim lactamase producing Escherichia coli, emphysematous pyelonephritis and cystitis on last admission. She underwent emergent nephrectomy, is doing well, healing. Will take the tami out today. In the past 2 or 3 days, her mental status has improved dramatically. She was admitted here with altered mental status. Radiographically, left lower infiltrate is improving. She is getting a dose of ertapenem 500 mg intravenous daily because renal failure suggested. 2. Right lower extremity ankle fracture. She has a cast on and is able to weight bear with a walker or crutches and trying to go to rehabilitation. She cannot go home at this point. 3. Acute kidney injury which is resolved. We are going to take her Monge catheter out. Continue physical therapy. Take out her tami. Hopefully she can go home or go to rehabilitation tomorrow. Review of her lab unremarkable and review of her orders I do not see any changes. 4. Diabetes mellitus. Following her sugars at 162, 135, 152 and 154 and they are doing well. cc: Jaya Giles MD
--- NOTE | 2017-03-06 12:59 | PROGRESS NOTE ---
DATE: 03/06/2017 SUBJECTIVE: Ms. Calhoun reports she is doing well. Our office tried to contact her in order to have her tami removed but she did not answer. I was not aware that she was in the hospital. Once we found out she was in the hospital I came to bedside to remove her tami. At that time I found out the nursing staff had done so per Dr. Giles's instructions. I appreciated it. OBJECTIVE: Vital signs: She is afebrile. Her vital signs were stable. General: No acute distress. Abdomen: Protuberant. Nontender to palpation. Incision is clean, dry, with tami removed. PERTINENT LABS: White cell count of 10,000. Creatinine is 2. 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 I have discussed with the patient that she should abstain from getting in the bathtub for a week. Given the fact that she has a boot on her right ankle, she states she would not be submerging herself in water for at least 4 weeks. I have also discussed with the patient the importance of following up with her solitary kidney. I recommended dietary modifications as well as surveillance with renal ultrasound once a year. She states she prefers to have this done with Dr. Wilson as he is close to where she lives. PLAN: Please call with any questions. cc: Freedom Barakat MD
--- NOTE | 2017-03-06 16:25 | PROGRESS NOTE ---
DATE: 03/06/2017 PRESENT ILLNESS: The patient has an extended spectrum beta lactamase producing E coli, emphysematous pyelonephritis and cystitis. She has undergone a nephrectomy. She was sent home and readmitted with an altered mental status, the etiology of which is uncertain to me, but at this time she is fully alert and coherent. The patient also had a left lower lobe infiltrate, which on x-ray today has almost completely cleared. MEDICATIONS: The patient is on ertapenem in a reduced dose of 500 mg IV daily because of the patient's end-stage renal disease. PHYSICAL EXAMINATION: Vital Signs: Temperature is 97.9 degrees, pulse 96, respirations 19, blood pressure 141/71. General: In general, the patient is somewhat ill-appearing, but is again as I mentioned yesterday getting better. She is more talkative, eating better and smiling more. Lungs: Clear to auscultation. Cardiovascular: Heart rate is regular. Abdomen: Abdomen and flank soft and nontender. The tami were taken out of the patient's incision today and the incision is intact. Integument: No rash. LAB AND X-RAY: Chest x-ray shows near resolution of the left lower lobe infiltrate. The creatinine is 2, GFR is 26. CBC shows a white count of 9580, hemoglobin 8.7, and platelet count 344,000. ASSESSMENT AND PLAN: My plan is to continue ertapenem 1 more day and then stop it. The patient has as mentioned above, urinary tract infection, nephrectomy and probable pneumonia. COMORBIDITIES: Her comorbidities include a history of urinary tract infections, diabetes mellitus, end-stage renal disease and pancreatitis. cc: Pipo Douglas MD
[2017-03-06] MEDS: INVANZ 0.5 GM in NS 50 ML IV SCH (22:56)
[2017-03-07] MEDS: NORCO-5 PO PRN (02:29)
[2017-03-07] MEDS: HUMULIN R SUBQ SCH ×2 (06:35→10:35)
[2017-03-07] MEDS: ARIXTRA SUBQ SCH (08:43)
--- NOTE | 2017-03-07 14:47 | DISCHARGE SUMMARY ---
ADMISSION DATE: 03/02/2017 DISCHARGE DATE: 03/07/2017 HOSPITAL COURSE: She is patient of Dr. Boom Wilson. She presented with altered mental status back on 03/02/2017. 51-year-old who recently discharged from hospital February 26, she had her recent admission she did have complication secondary to pyelonephritis, underwent emergency nephrectomy for emphysematous pyelonephritis and she was put on IV Invanz and she did have an extended beta-lactam resistant organism and she returned to the emergency room. Boyfriend was at the bedside said that since she been discharged hospice she had been very weak and seemed to be getting worse, is hard for her to ambulate. She slipped and fell and the right ankle to heard pop indeed she suffered a fracture distal fibula. She is admitted to hospital. Dr. Acharya put a short cast on that, we adjusted her medicine, she remained awake and alert and began physical therapy but very weak and not able to walk so and bear weight, she would need a walker or crutches so plan to send her to rehab. PAST MEDICAL HISTORY: 1. History of frequent urinary tract infections, recent severe emphysematous pyelonephritis requiring emergency nephrectomy. 2. Status post open left nephrectomy from pyelonephritis last time. 3. Insulin-dependent diabetes mellitus. 4. Hyperlipidemia. 5. Hypertension. 6. Chronic kidney disease previous stage 3. 7. History of chronic pancreatitis. 8. Chronic back pain. SURGICAL HISTORY: 1. Status post open left nephrectomy. 2. Cystoscopy with urethral stent placed during the patient's left nephrectomy. 3. Tubal ligation. 4. Back surgery. 5. Carpal tunnel surgery. She showed steady improvement. We had put her back on some antibiotics. Dr. Douglas is following her as well and chest x-ray showed near resolution of left lower lobe infiltrate so treated for left lower lobe pneumonia, felt she could go to rehab on 03/07/2017. Plan to continue ertapenem which she finished out her full track and we stopped her antibiotics. DISCHARGE MEDICATIONS: She is on DuoNeb p.r.n., Arixtra 2.5 mg daily, hydrocodone 5 mg q.6 hours p.r.n. cc: Jaya Giles MD
[2017-03-07 14:51] VITALS: BP 138/58
== END 2017-03-07 16:47 ==
LOC: ED 17:04 → 3N 21:35 → SUATTDRO 21:35 → 3N 21:46
PROVIDERS: ATTEND Emergency Medicine

== ENCOUNTER 2017-03-13 21:03 | Inpatient (IN) ==
[2017-03-13 21:30] LABS: MANUAL DIFF NEEDED? NO
[2017-03-13 21:40] LABS: BASO% 0.3 % (0.0-0.8); EOS# 0.28 X1000 (0.0-0.7); EOS% 2.4 % (0.0-10.0); HEMATOCRIT 29.7 % (37.0-47.0); IMM GRAN# 0.05 X1000 (0.0-0.04); IMM GRAN% 0.4 % (0.0-0.5); LYMPH# 1.64 X1000 (1.2-3.4); LYMPH% 13.9 % (20.5-51.1); MCH 31.3 PG (27-31); MCHC 33.7 g/dL (33-37); MCV 92.8 FL (81-99); MONO% 3.4 % (1.7-9.3); MPV 10.7 FL (7.4-10.4); NEUT% 79.6 % (42.2-75.2); PLT 200 X1000 (130-400)
[2017-03-13 22:08] LABS: URINE CULTURE NEEDED? NO; URINE MICRO REVIEW NEEDED? NO; URINE SOURCE CLEAN CATCH
[2017-03-13 22:12] LABS: BILIRUBIN URINE NEGATIVE (NEGATIVE); BLOOD URINE TRACE (NEGATIVE); COLOR YELLOW; GLUCOSE URINE >1000 mg/dL (NEGATIVE); LEUKOCYTES URINE LARGE (NEGATIVE); NITRITE URINE NEGATIVE (NEGATIVE); PH URINE 6.5; PROTEIN URINE 30 mg/dL (NEGATIVE); TURBIDITY URINE HAZY (CLEAR); UR EPITHELIAL CELLS >10 /HPF (<10); URINE BACTERIA 2+ /HPF; URINE RBC 20-40 /HPF (<10); URINE WBC TNTC /HPF (<10); UROBILINOGEN URINE NORMAL (NORMAL)
[2017-03-13 22:17] LABS: ALBUMIN 3.1 g/dL (3.5-5.0); CALCIUM 8.7 mg/dL (8.8-10.2); POTASSIUM 5.1 mmol/L (3.5-5.1); TOTAL BILIRUBIN 0.47 mg/dL (0.20-1.00); TOTAL PROTEIN 6.5 g/dL (6.3-8.3)
[2017-03-13] MEDS ORDERED: XYLOCAINE-MPF 1% INJ ONE (22:31)
[2017-03-13] MEDS ORDERED: ROCEPHIN IM ONE (22:31)
[2017-03-13] MEDS ORDERED: HUMULIN R SUBQ ONE (22:31)
[2017-03-13] MEDS ORDERED: NS 500 ML IV ONE (23:05)
[2017-03-13] MEDS ORDERED: MORPHINE IV ONE (23:19)
[2017-03-13] MEDS ORDERED: DUONEB (A & A) INH PRN (23:46)
[2017-03-13] MEDS ORDERED: TYLENOL PO PRN (23:46)
[2017-03-13] MEDS ORDERED: NORCO-5 PO PRN (23:46)
[2017-03-13] MEDS ORDERED: ZOFRAN IV PRN (23:46)
[2017-03-14] MEDS: NS 1,000 ML IV SCH ×2 (00:04→14:05)
[2017-03-14] MEDS: MIRALAX PO SCH ×3 (00:05→21:34)
[2017-03-14] MEDS: MORPHINE IV PRN ×3 (02:59→10:45)
[2017-03-14] MEDS: MAXIPIME 1 GM in NS 50 ML IV SCH ×2 (03:04→10:50)
[2017-03-14] MEDS: ELAVIL PO SCH ×2 (03:18→21:33)
[2017-03-14 06:29] LABS: MANUAL DIFF NEEDED? NO
[2017-03-14 06:40] LABS: BASO% 0.3 % (0.0-0.8); EOS# 0.32 X1000 (0.0-0.7); EOS% 2.6 % (0.0-10.0); HEMATOCRIT 27.3 % (37.0-47.0); HEMOGLOBIN 9.1 g/dL (12.0-16.0); IMM GRAN# 0.07 X1000 (0.0-0.04); IMM GRAN% 0.6 % (0.0-0.5); LYMPH# 2.56 X1000 (1.2-3.4); LYMPH% 20.6 % (20.5-51.1); MCH 30.7 PG (27-31); MCHC 33.3 g/dL (33-37); MCV 92.2 FL (81-99); MONO# 0.61 X1000 (0.11-0.59); MONO% 4.9 % (1.7-9.3); MPV 10.2 FL (7.4-10.4); PLT 189 X1000 (130-400); RBC 2.96 XMIL (4.2-5.4)
[2017-03-14 06:52] LABS: CALCIUM 8.5 mg/dL (8.8-10.2); POTASSIUM 5.7 mmol/L (3.5-5.1)
[2017-03-14] MEDS: HUMALOG SUBQ SCH ×3 (06:56→16:27)
[2017-03-14] MEDS: LOPRESSOR PO SCH (08:20)
[2017-03-14] MEDS ORDERED: INSULIN PEN NEEDLES ONE (09:47)
[2017-03-14] MEDS: LANTUS SUBQ SCH (10:56)
[2017-03-14] MEDS ORDERED: RELISTOR SUBQ ONE (12:10)
[2017-03-14] MEDS ORDERED: DULCOLAX PR PRN (12:17)
[2017-03-14] MEDS ORDERED: OFIRMEV 1000 MG/ISOTONIC SOLN 1,000 MG/100 ML BOTTLE IV PRN (12:30)
[2017-03-14] MEDS: MERREM 500 MG in NS 50 ML IV SCH (14:05)
[2017-03-15] MEDS: HUMALOG SUBQ SCH ×3 (00:41→12:09)
[2017-03-15] MEDS: LANTUS SUBQ SCH ×2 (00:43→10:44)
[2017-03-15] MEDS: MERREM 500 MG in NS 50 ML IV SCH (01:14)
[2017-03-15 06:37] LABS: MANUAL DIFF NEEDED? NO
[2017-03-15 07:04] LABS: CALCIUM 8.4 mg/dL (8.8-10.2); POTASSIUM 5.7 mmol/L (3.5-5.1)
[2017-03-15 07:05] LABS: BASO% 0.2 % (0.0-0.8); EOS% 3.5 % (0.0-10.0); HEMOGLOBIN 8.5 g/dL (12.0-16.0); IMM GRAN# 0.05 X1000 (0.0-0.04); IMM GRAN% 0.4 % (0.0-0.5); LYMPH# 1.94 X1000 (1.2-3.4); MCH 30.6 PG (27-31); MCHC 32.7 g/dL (33-37); MCV 93.5 FL (81-99); MONO# 0.52 X1000 (0.11-0.59); MONO% 4.6 % (1.7-9.3); MPV 10.7 FL (7.4-10.4); NEUT% 74.3 % (42.2-75.2); PLT 183 X1000 (130-400); RBC 2.78 XMIL (4.2-5.4)
[2017-03-15] MEDS: LOPRESSOR PO SCH (10:45)
[2017-03-15] MEDS: MIRALAX PO SCH (10:45)
[2017-03-15] MEDS ORDERED: KAYEXALATE PO ONE (10:55)
[2017-03-15 12:46] LABS: URINE MICRO REVIEW NEEDED? NO; URINE SOURCE CLEAN CATCH
[2017-03-15 12:49] LABS: BILIRUBIN URINE NEGATIVE (NEGATIVE); BLOOD URINE NEGATIVE (NEGATIVE); COLOR STRAW; GLUCOSE URINE 300 mg/dL (NEGATIVE); LEUKOCYTES URINE SMALL (NEGATIVE); NITRITE URINE NEGATIVE (NEGATIVE); PH URINE 6.5; PROTEIN URINE TRACE mg/dL (NEGATIVE); SP GRAVITY URINE 1.004; TURBIDITY URINE CLEAR (CLEAR); UROBILINOGEN URINE NORMAL (NORMAL)
[2017-03-15 12:51] LABS: UR EPITHELIAL CELLS <10 /HPF (<10); URINE BACTERIA NEGATIVE /HPF; URINE RBC <10 /HPF (<10)
[2017-03-15] MEDS ORDERED: LANTUS SUBQ SCH (13:11)
[2017-03-15 14:00] VITALS: BP 158/69
[2017-03-15] MEDS ORDERED: BENTYL PO SCH (17:00)
[2017-03-15] MEDS ORDERED: COLACE PO SCH (21:00)
[2017-03-16] MEDS ORDERED: RAPAFLO PO SCH (09:00)
== END 2017-03-15 14:45 | disposition home or self-care (01) ==
LOC: ED 21:03 → SUATTDRO 23:20 → 3N 23:20
PROVIDERS: ATTEND Internal Medicine

== ENCOUNTER 2017-03-27 18:49 | Inpatient (IN) ==
[2017-03-27 23:24] LABS: URINE SOURCE CLEAN CATCH
[2017-03-27 23:30] LABS: BILIRUBIN URINE NEGATIVE (NEGATIVE); BLOOD URINE SMALL (NEGATIVE); COLOR ORANGE; GLUCOSE URINE 200 mg/dL (NEGATIVE); LEUKOCYTES URINE LARGE (NEGATIVE); NITRITE URINE NEGATIVE (NEGATIVE); PROTEIN URINE 100 mg/dL (NEGATIVE); SP GRAVITY URINE 1.016; TURBIDITY URINE TURBID (CLEAR); UROBILINOGEN URINE NORMAL (NORMAL)
[2017-03-27 23:32] LABS: URINE MICRO REVIEW NEEDED? YES
[2017-03-27 23:49] LABS: UR EPITHELIAL CELLS >10 /HPF (<10); URINE BACTERIA 2+ /HPF; URINE CULTURE NEEDED? YES; URINE WBC TNTC /HPF (<10)
[2017-03-28 00:24] LABS: MANUAL DIFF NEEDED? NO
[2017-03-28] MEDS ORDERED: ANTIVERT PO ONE (00:25)
[2017-03-28] MEDS ORDERED: NS 1,000 ML IV ONE ×3 (00:26→05:28)
[2017-03-28 00:28] LABS: BASO% 0.6 % (0.0-0.8); EOS# 0.32 X1000 (0.0-0.7); EOS% 2.5 % (0.0-10.0); HEMATOCRIT 33.4 % (37.0-47.0); HEMOGLOBIN 11.2 g/dL (12.0-16.0); IMM GRAN# 0.15 X1000 (0.0-0.04); IMM GRAN% 1.2 % (0.0-0.5); LYMPH# 2.13 X1000 (1.2-3.4); LYMPH% 16.8 % (20.5-51.1); MCH 32.5 PG (27-31); MCHC 33.5 g/dL (33-37); MCV 96.8 FL (81-99); MONO# 0.63 X1000 (0.11-0.59); MPV 10.6 FL (7.4-10.4); NEUT% 73.9 % (42.2-75.2); PLT 329 X1000 (130-400); RBC 3.45 XMIL (4.2-5.4)
[2017-03-28 00:49] LABS: CALCIUM 9.7 mg/dL (8.8-10.2); TOTAL BILIRUBIN 0.26 mg/dL (0.20-1.00); TOTAL PROTEIN 7.9 g/dL (6.3-8.3)
--- NOTE | 2017-03-28 01:25 | PROVIDER DOCUMENTATION ---
This chart was entered by Yana Huang Scribe, acting as scribe for Baldo Amezquita DO. HPI-Syncope/Dizziness - General Chief Complaint: Dizziness Stated Complaint: BQACK PAIN/DIZZY Time Seen by Provider: 03/27/17 23:31 Source: patient Allergies/Adverse Reactions: Patient Allergies Allergy/AdvReac Type Severity Reaction Status Date / Time azithromycin [From Zithromax] Allergy ANAPHYLAXIS Verified 03/17/17 21:39 fenoprofen [From Nalfon] Allergy ANAPHYLAXIS Verified 03/17/17 21:39 rofecoxib [From Vioxx] Allergy Unknown Verified 03/17/17 21:39 acetaminophen [From Percocet] AdvReac Unknown Verified 03/17/17 21:39 nitrofurantoin AdvReac HEADACHE Verified 03/17/17 21:39 [From Macrobid] nitrofurantoin AdvReac HEADACHE Verified 03/17/17 21:39 macrocrystalline * [From Macrobid] oxycodone HCl * AdvReac Unknown Verified 03/17/17 21:39 [From Percocet] sumatriptan [From Imitrex] AdvReac Unknown Verified 03/17/17 21:39 sumatriptan succinate * AdvReac Unknown Verified 03/17/17 21:39 [From Imitrex] Home Medications: Home Medication List Medication Instructions Recorded Confirmed Last Taken Type Metoprolol [Lopressor] 50 mg PO DAILY 10/22/16 03/17/17 03/17/17 History Insulin Aspart [Novolog] See Protocol SQ AC + HS 02/14/17 03/17/17 03/17/17 History Fondaparinux [Arixtra] 2.5 mg SUBQ DAILY syr 03/07/17 03/17/17 03/17/17 Rx Amitriptyline HCl 20 mg PO QHS 03/13/17 03/17/17 03/17/17 History Citalopram Hydrobromide [Celexa] 10 mg PO DAILY 03/13/17 03/17/17 03/17/17 History Pregabalin [Lyrica] 100 mg PO BID 03/13/17 03/17/17 03/17/17 History Acetaminophen [Tylenol] 650 mg PO Q6H PRN PRN #0 tablet 03/15/17 03/17/17 Rx Dicyclomine [Bentyl] 10 mg PO 4XDAY #30 capsule 03/15/17 03/17/17 03/17/17 Rx Docusate Sodium [Colace] 100 mg PO BID #60 capsule 03/15/17 03/17/17 03/17/17 Rx Insulin Glargine [Lantus] 35 unit SUBQ BID #1 insuln.pen 03/15/17 03/17/1703/17 Rx Polyethylene Glycol 3350 [Miralax] 17 gm PO BID powder, packet 03/15/1703/17/17 Rx Silodosin [Rapaflo] 8 mg PO DAILY #30 capsule 03/15/17 03/17/17 03/17/17 Rx - History of Present Illness-Syncope/Dizzy Nature of Presenting Problem: 51 year old F presents to the ED with a cc of dizziness with an onset of 4 days. Pt denies nausea, vomiting, chest pain, and shortness of breath. Onset/Duration: reports: 4 days ago Timing: reports: still present Recently Seen Here or By Another Healthcare Provider: No - Dizziness Dizziness Related Current/Associated Symptoms: reports: dizzy Any recent trauma/injury?: reports: none Modifying Factors: improves with: changing position, movement of head, standing position Patient usually:: reports: walks without assistance Review of Systems - Adult - REVIEW OF SYSTEMS - ADULT Constitutional: denies: chills, fever Eyes: reports: no symptoms reported Ears, Nose, Mouth & Throat: reports: no symptoms reported Cardiovascular: denies: chest pain, palpitations Respiratory: denies: cough, shortness of breath Gastrointestinal: denies: abdominal pain, nausea, vomiting Genitourinary: reports: no symptoms reported Musculoskeletal: reports: no symptoms reported Integumentary: reports: no symptoms reported Neurological: reports: dizziness/vertigo. denies: headache/migraines Psychiatric: reports: no symptoms reported Endocrine: reports: no symptoms reported Hematologic/Lymphatic: reports: no symptoms reported Allergic/Immunologic: reports: no symptoms reported All Other Systems: Reviewed and Negative Past History - Adult - PAST MEDICAL HISTORY-ADULT Review of Records: reports: Nursing Assessment Review, Medications Reviewed Major Childhood Illnesses: reports: denies history Cardiovascular: reports: CHF, HTN, hyperlipidemia Respiratory: reports: denies history Gastrointestinal: reports: denies history Obstetrical/Gynecological: reports: denies history Genitourinary: reports: kidney disease (stage 3) Musculoskeletal: reports: chronic pain Neurological: reports: TIA Psychiatric: reports: anxiety Endocrine/Immune: reports: Diabetes Other Conditions: reports: denies history - PRIOR SURGERIES/PROCEDURES Surgical/Procedure History: reports: BTL, orthopedic (extremity), back/neck, other (D&C) - IMMUNIZATION STATUS Childhood Immunizations: See Nurse Assessment Flu Vaccine: See Nurse Assessment - FAMILY HISTORY Family History: reviewed, not pertinent - SOCIAL HISTORY Smoking: cigarettes Provider spent 3-5 mins advising pt. on dangers of tobacco.: Discussed manners to quit use, and f/u contacts for add'l counseling. Substance Use: none/never Living Situation: alone Physical Exam-General - PHYSICAL EXAM-ADULT Initial Vital Signs Reviewed: Yes - CONSTITUTIONAL General Appearance: appears well, alert, no apparent distress - RESPIRATORY Respiratory: chest non-tender, lungs clear, normal breath sounds - CARDIOVASCULAR Cardiovascular: normal peripheral pulses, regular rate, rhythm, no edema - GASTROINTESTINAL (ABDOMEN) Abdominal Exam: normal bowel sounds, non tender, soft - MUSCULOSKELETAL Extremity: other (cast in place to right lower leg) - SKIN Integumentary: normal color, normal turgor, warm/dry - PSYCHIATRIC Psych/Mental Status: normal mood/affect, normal thought content, normal thought process, oriented x 3 Progress - PLAN OF CARE/RESULTS Progress/Plan/Lab Results: Vital Signs - 8 hr 03/27/17 19:16 03/27/17 22:09 03/27/17 22:57 Temperature 98.1 F Pulse Rate 110 H Pulse Rate [Sitting] 107 H Pulse Rate [Standing] 112 H Pulse Rate [Supine] 104 H Respiratory Rate 18 Blood Pressure 105/69 124/86 Blood Pressure [Sitting] 111/75 Blood Pressure [Standing] 86/62 Blood Pressure [Supine] 127/82 O2 Sat by Pulse Oximetry 100 03/27/17 23:04 03/27/17 23:49 03/28/17 00:09 Temperature Pulse Rate 100 H 102 H Pulse Rate [Sitting] Pulse Rate [Standing] Pulse Rate [Supine] Respiratory Rate 20 Blood Pressure 127/82 123/85 123/85 Blood Pressure [Sitting] Blood Pressure [Standing] Blood Pressure [Supine] O2 Sat by Pulse Oximetry 100 99 99 Laboratory Results - last 24 hr 03/27/17 03/27/17 03/27/17 00:03 00:03 00:03 WBC 12.69 H RBC 3.45 L Hgb 11.2 L Hct 33.4 L MCV 96.8 MCH 32.5 H MCHC 33.5 RDW Std Deviation 18.2 H Plt Count 329 MPV 10.6 H Immature Gran % (Auto) 1.2 H Neut % (Auto) 73.9 Lymph % (Auto) 16.8 L [place] % (Auto) 5.0 Eos % (Auto) 2.5 Baso % (Auto) 0.6 Immature Gran # (Auto) 0.15 H Neut # (Auto) 9.39 H Lymph # (Auto) 2.13 [place] # (Auto) 0.63 H Eos # (Auto) 0.32 Baso # (Auto) 0.07 Sodium 130 L Potassium 6.0 H* Chloride 96 L Carbon Dioxide 17 L Anion Gap 17 BUN 43 H Creatinine 3.5 H Estimated GFR/1.73 m2 14 BUN/Creatinine Ratio 12 Glucose 320 H POC Glucose Calculated Osmolality 284 Calcium 9.7 Total Bilirubin 0.26 AST 21 ALT 16 Alkaline Phosphatase 152 H Troponin T Total Protein 7.9 Albumin 4.0 Globulin 3.9 Albumin/Globulin Ratio 1.0 Urine Source Urine Color Urine Turbidity Urine pH Ur Specific [place] Urine Protein Ur Glucose (Stick) Ur Ketones (Stick) Urine Blood Urine Nitrite Urine Bilirubin Urobilinogen Dipstick Urine Leukocytes Urine WBC (Auto) Urine RBC (Auto) U Epithel Cells (Auto) Urine Bacteria (Auto) Urine Crystals Small Round Cells Urine Casts Urine Yeast-like Cells Acetone Level NEGATIVE 03/27/17 03/27/17 03/28/17 20:09 23:10 00:03 WBC RBC Hgb Hct MCV MCH MCHC RDW Std Deviation Plt Count MPV Immature Gran % (Auto) Neut % (Auto) Lymph % (Auto) [place] % (Auto) Eos % (Auto) Baso % (Auto) Immature Gran # (Auto) Neut # (Auto) Lymph # (Auto) [place] # (Auto) Eos # (Auto) Baso # (Auto) Sodium Potassium Chloride Carbon Dioxide Anion Gap BUN Creatinine Estimated GFR/1.73 m2 BUN/Creatinine Ratio Glucose POC Glucose 395 H Calculated Osmolality Calcium Total Bilirubin AST ALT Alkaline Phosphatase Troponin T < 0.010 Total Protein Albumin Globulin Albumin/Globulin Ratio Urine Source CLEAN CATCH Urine Color ORANGE Urine Turbidity TURBID Urine pH 6.0 Ur Specific [place] 1.016 Urine Protein 100 A Ur Glucose (Stick) 200 A Ur Ketones (Stick) NEGATIVE Urine Blood SMALL A Urine Nitrite NEGATIVE Urine Bilirubin NEGATIVE Urobilinogen Dipstick NORMAL Urine Leukocytes LARGE A Urine WBC (Auto) TNTC A Urine RBC (Auto) 10-20 A U Epithel Cells (Auto) >10 A Urine Bacteria (Auto) 2+ Urine Crystals Not Reportable Small Round Cells Not Reportable Urine Casts Not Reportable Urine Yeast-like Cells PRESENT Acetone Level Orders Category Date Time Status ED: Orthostatic Vital Signs (E as directed Care 03/27/17 22:57 Active ACETONE SERUM [CHEM] Stat Lab 03/27/17 00:03 Completed CBC WITH ELECTRONIC DIFF [HEME] Stat Lab 03/27/17 00:03 Completed CMP [COMPREHENSIVE METABOLIC PANEL] [CHEM] Stat Lab 03/27/17 00:03 Completed LACTATE, PLASMA [CHEM] Stat Lab 03/28/17 01:16 Ordered TROPONIN T Stat Lab 03/28/17 00:03 Completed URINALYSIS W/POSS RFLX CULT [URINALYSIS] Routine Lab 03/27/17 23:10 Completed URINE CULTURE [RM] Routine Lab 03/27/17 23:49 Received URINE MANUAL MICROSCOPIC [URINALYSIS] Routine Lab 03/27/17 23:10 Completed 0.9% Sodium Chloride Inj [Ns] 1,000 ml Med 03/28/17 00:26 Active IV 999 mls/hr 0.9% Sodium Chloride Inj [Ns] 1,000 ml Med 03/28/17 01:15 Discontinued IV 999 mls/hr Meclizine [Antivert] Med 03/28/17 00:25 Discontinued 25 mg PO NOW ONE EKG [EKG] Stat Ther 03/27/17 22:57 Ordered Spoke with hospitalist and he accepted admission Result Diagrams: 03/27/17 00:03 03/27/17 00:03 - EKG 1 Time of EKG reading by physician:: 19:45 EKG Read and Signed by:: Ramses Soto EKG Interpretation (*Must complete 3 of following elements*): Normal Rate: 104 Rhythm: sinus tachycardia [place]: normal Departure - Departure Date of Disposition Decision: 03/28/17 Time of Disposition Decision: 01:23 DIAGNOSIS: UTI (urinary tract infection) Disposition: ADMITTED INPATIENT 09 Certified Medical Emergency: Emergent Condition: Good Referrals and Follow-Ups: Boom Wilson [Primary Care Provider] - - Critical Care Note This patient required my direct & personal management of CC.: No Attestation - Physician/ TERRY Attestation Patient care was provided by Advanced Practice Provider:: No The physician spent face to face time with patient:: Yes Advanced Practice Provider documentation review:: Supervising physician onsite and consulted in the evaluation and care of this patient. The physician did have a face to face encounter with the patient. This chart was documented by the indicated scribe, (Yana Huang Scribe) and accurately reflects the services I performed and decisions made by me, Baldo Amezquita DO, as attested by the provider's signature.
[2017-03-28] MEDS ORDERED: HUMULIN R IV ONE (04:07)
[2017-03-28 04:22] LABS: URINE SOURCE CATH
[2017-03-28 04:25] LABS: BILIRUBIN URINE NEGATIVE (NEGATIVE); BLOOD URINE TRACE (NEGATIVE); COLOR ORANGE; GLUCOSE URINE 200 mg/dL (NEGATIVE); LEUKOCYTES URINE LARGE (NEGATIVE); NITRITE URINE NEGATIVE (NEGATIVE); PH URINE 5.5; PROTEIN URINE 50 mg/dL (NEGATIVE); SP GRAVITY URINE 1.006; TURBIDITY URINE HAZY (CLEAR); UROBILINOGEN URINE NORMAL (NORMAL)
[2017-03-28 04:27] LABS: URINE MICRO REVIEW NEEDED? YES
[2017-03-28 04:42] LABS: UR EPITHELIAL CELLS <10 /HPF (<10); URINE BACTERIA NEGATIVE /HPF; URINE CULTURE NEEDED? YES; URINE RBC <10 /HPF (<10); URINE WBC TNTC /HPF (<10)
--- NOTE | 2017-03-28 05:13 | EKG Report ---
Test Performed on : 03/27/2017 7:45:52 PM Test Reason : DIZZINESS Blood Pressure : / mmHG Vent. Rate : 104 BPM Atrial Rate : 104 BPM P-R Int : 134 ms QRS Dur : 086 ms QT Int : 352 ms P-R-T Axes : 049 -20 057 degrees QTc Int : 462 ms Sinus tachycardia. Otherwise normal ECG When compared with ECG of 02-MAR-2017 16:59, premature atrial complexes. are no longer present Vent. rate has increased BY 49 BPM QRS duration has decreased Unconfirmed Result
[2017-03-28] MEDS ORDERED: ZOFRAN IV PRN (05:28)
[2017-03-28] MEDS ORDERED: KAYEXALATE PO ONE (06:30)
[2017-03-28 07:52] LABS: MANUAL DIFF NEEDED? NO
[2017-03-28] MEDS ORDERED: INSULIN PEN NEEDLES ONE (07:53)
[2017-03-28 07:57] LABS: BASO% 0.4 % (0.0-0.8); EOS# 0.38 X1000 (0.0-0.7); EOS% 3.6 % (0.0-10.0); HEMATOCRIT 31.5 % (37.0-47.0); HEMOGLOBIN 10.6 g/dL (12.0-16.0); IMM GRAN# 0.16 X1000 (0.0-0.04); IMM GRAN% 1.5 % (0.0-0.5); LYMPH# 2.43 X1000 (1.2-3.4); LYMPH% 22.7 % (20.5-51.1); MCHC 33.7 g/dL (33-37); MCV 95.2 FL (81-99); MONO# 0.61 X1000 (0.11-0.59); MONO% 5.7 % (1.7-9.3); MPV 10.7 FL (7.4-10.4); NEUT% 66.1 % (42.2-75.2); PLT 283 X1000 (130-400); RBC 3.31 XMIL (4.2-5.4)
[2017-03-28] MEDS ORDERED: ROCEPHIN 1 GM in NS 50 ML IV SCH (08:00)
[2017-03-28 08:15] LABS: ALBUMIN 3.3 g/dL (3.5-5.0); CALCIUM 9.2 mg/dL (8.8-10.2); POTASSIUM 5.1 mmol/L (3.5-5.1)
[2017-03-28] MEDS: DIFLUCAN PO SCH (08:25)
[2017-03-28] MEDS: LANTUS SUBQ SCH ×2 (08:26→21:51)
[2017-03-28] MEDS: LYRICA PO SCH ×2 (08:26→21:50)
[2017-03-28] MEDS: CELEXA PO SCH (08:26)
[2017-03-28] MEDS: HUMALOG SUBQ SCH ×4 (08:27→21:51)
[2017-03-28] MEDS: TYLENOL PO PRN (11:06)
--- NOTE | 2017-03-28 11:21 | EKG Report ---
Test Performed on : 03/28/2017 07:51:23 AM Test Reason : Dizziness Blood Pressure : / mmHG Vent. Rate : 099 BPM Atrial Rate : 099 BPM P-R Int : 146 ms QRS Dur : 082 ms QT Int : 370 ms P-R-T Axes : 044 005 036 degrees QTc Int : 474 ms Normal sinus rhythm. Normal ECG When compared with ECG of 27-MAR-2017 19:45, No significant change was found Confirmed by Italo Mcgrath MD ([id number]) on 03/30/2017 1:22:02 PM
--- NOTE | 2017-03-28 14:54 | HISTORY AND PHYSICAL ---
PRIMARY CARE PROVIDER: Dr. Boom Wilson CHIEF COMPLAINT: Dizziness. HISTORY OF PRESENT ILLNESS: Ms. Calhoun is a 51-year-old female who was just recently discharged on March 15, 2017 for a seroma versus hematoma in the left nephrectomy bed as well as asymptomatic bacteruria. The patient states that for the past few days now she has had dizziness. She states that this is at its worst when she goes from a sitting to a standing position. The patient did report that for the past day or 2 that she has not had her normal appetite due to she was having an upset stomach though this has subsided at this time. She denies any other symptoms at this time. She denies any headache, visual disturbance, chest pain, shortness of breath, abdominal pain, nausea, vomiting, or diarrhea. She denies any dysuria or urinary frequency. Upon evaluation in the ER the patient was found to be borderline hypotensive with a blood pressure of 105/69 and a heart rate of 110. She was afebrile with a temperature of 98.1. Orthostatic vital signs were obtained and the patient did tilt upon standing with blood pressure dropping down to 86/62 with a heart rate of 112. She was given 2 liters normal saline bolus in the ER as well. Last blood pressure read at this time has improved to a reading of 112/56. She was also noted to have hyperkalemia with a potassium of 6. She has also had a decrease in her usual baseline renal function. Her creatinine at this time is elevated from her baseline of 3.5 and her GFR is currently 14. She was also found to be hyperglycemic with a fingerstick blood sugar of 395. Also, her urinalysis did show large leukocytes, too numerous to count white blood cells, and 2+ bacteria, though did have greater than 10 epithelial cells, there is also yeast present as well. This was obtained via clean catch, for possible contamination rule out we did repeat cath urinalysis though this urinalysis also showed findings of large leukocytes too numerous to count, white blood cells, and yeast as well. At this time, she will be admitted for further treatment and evaluation of urinary tract infection, dizziness, acute on chronic kidney disease, and hyperkalemia. PAST MEDICAL HISTORY: 1. History of frequent urinary tract infections. 2. Status post open left nephrectomy secondary to complications from pyelonephritis. 3. Insulin-dependent diabetes mellitus. 4. Hyperlipidemia. 5. Hypertension. 6. Chronic kidney disease, previously stage 4. 7. Chronic pancreatitis. 8. Chronic back pain. PAST SURGICAL HISTORY: 1. Status post open left nephrectomy. 2. Cystoscopy with urethral stent placed prior to the patient's open nephrectomy. 3. Tubal ligation. 4. Back surgery. 5. Carpal tunnel surgery. SOCIAL HISTORY: The patient does still currently smoke a half a pack of cigarettes per day. There is no known alcohol or illicit drug use. FAMILY HISTORY: There is a positive family history for diabetes. ALLERGIES: Zithromax, Nalfon, Vioxx, Percocet, Macrobid, and Imitrex. HOME MEDICATIONS: 1. Amitriptyline 20 mg p.o. q.h.s. 2. Celexa 10 mg p.o. daily. 3. Flexeril 20 mg p.o. b.i.d. 4. Furosemide 20 mg p.o. b.i.d. 5. NovoLog subcu a.c. and h.s. per sliding scale. 6. Lantus 35 units subcu b.i.d. 7. Metoprolol 50 mg p.o. daily. 8. Lyrica 100 mg p.o. b.i.d. 9. Rapaflo 8 mg p.o. daily, the Rapaflo is unconfirmed at this time. DIAGNOSTIC DATA/LABORATORY RESULTS: White blood cell count 12.69, hemoglobin 11.2, hematocrit 33.4, platelet count 329. Sodium 130, potassium 6, chloride 96, bicarb 17, anion gap 17, BUN 43, creatinine 3.5 with a GFR of 14, glucose 320, calcium 9.7. Liver function tests within normal limits except for alkaline phosphatase is slightly elevated at 152, troponin is less than 0.01, plasma lactate 3.2, serum acetone is negative. Urinalysis was obtained via cath , was positive for protein, glucose, trace blood, large leukocytes, too numerous to count white blood cells, and yeast. EKG showed sinus tachycardia at a rate of 104 with a QTC of 462. PHYSICAL EXAMINATION: VITAL SIGNS: Temperature 97.8. Heart rate 104. Respirations 18. Blood pressure 112/56. Oxygen saturation 96% on room air. GENERAL: Ms. Calhoun is a pleasant, 51-year-old female, who is resting comfortably on the ER stretcher. She was in no acute distress. She was awake, alert and able to answer all questions appropriately. HEENT: Head is atraumatic, normocephalic. Pupils are equal, round, reactive to light. Oral mucosa is moist. Oropharynx is clear. NECK: Supple. Trachea midline. CARDIOVASCULAR: Patient has normal S1, S2. No murmurs, gallops, rubs appreciated with a regular rate and rhythm. PULMONARY: Patient has symmetrical chest expansion bilaterally. Lung sounds are clear to auscultation in bilateral full fuentes. ABDOMEN: Soft, nontender, nondistended. The patient does have protuberant abdomen noted. Bowel sounds were present in all 4 quadrants. The patient's abdominal surgical incision appears to be healing well with no signs of infection noted at this time. EXTREMITIES: No cyanosis, clubbing, or edema noted. Pulse, motor, and sensory were intact in all extremities. Patient does have a right lower extremity cast noted from just below the knee down, though she does have less than 3 capillary refill noted in her right toes as well as good sensation. INTEGUMENTARY: The patient's skin is pink, warm, dry, and intact. No lesions or sores noted. NEUROLOGICAL: Patient is alert and oriented x3. Cranial nerves 2 through 12 do appear to be grossly intact. ASSESSMENT AND PLAN: 1. Urinary tract infection. The patient does have mild leukocytosis with a large leukocytes and too numerous to count white blood cells as well as yeast present in her urine. Though she is not reporting any dysuria or urinary frequency and is not afebrile, she is reporting some dizziness. We will go ahead and treat her at this time, we are awaiting a urine culture results and will continue to follow. 2. Dizziness. This could be related to her urinary tract infection though also could be related to orthostatic hypotension. The patient has been given fluid boluses in the ER, we will continue with gentle fluid resuscitation and continue to follow closely. 3. Orthostatic hypotension. We will continue with previously mentioned fluid bolus and fluid resuscitation and will continue to follow. As well, we will hold any antihypertensive medication at this time. This could possibly be secondary to fluid volume depletion as well. 4. Acute on chronic kidney disease, previously stage 4. The patient has had an increase in her creatinine from her baseline, it is at 3.5 now and GFR is 14. We will continue with fluid resuscitation. We will avoid nephrotoxic medications and renally dose medications as necessary. 5. Hyperkalemia. This is likely secondary to her acute on chronic kidney disease. We did go ahead and treat her with 5 units of insulin in the ER and have ordered for 15 grams of Kayexalate to be given and will repeat a potassium this morning and continue to monitor closely. She is not having any cardiac symptoms at this time. She will remain on telemetry for close monitoring. 6. Fluid volume depletion. We will continue with the above mentioned fluid resuscitation. 7. Uncontrolled diabetes mellitus. We will continue with her Lantus as well as sliding scale lispro insulin. 8. Deep venous thrombosis prophylaxis. At this time, we have placed SCDs on the patient's left lower extremity. She previously received Arixtra for deep venous thrombosis prophylaxis secondary to a history of heparin induced thrombocytopenia, though at this time the patient's creatinine clearance is only 14 and Arixtra is contraindicated for a GFR of less than 30. 9. Nicotine dependence. We will continue to student success counselor the patient on the importance of smoking cessation during her admission and upon discharge. The patient will be placed on the medical floor with telemetry. She will have vital signs q. 4 hours. We will do strict intake and output. To rule out any further cardiac involvement related to her dizziness we will repeat an EKG as well as some cardiac enzymes and we will await her repeat potassium and continue to monitor closely. Further orders and recommendations pending hospital course, diagnostic studies, and physician evaluation. Dictated by CLEMENT Roca for Eugenio Field MD cc: Eugenio Field MD I have seen and examined patient. I have provided face to face evaluation. I have also reviewed his Labs and imagine studies. Patient presents with dizziness and looks clinically volume depleted. Will continue with IV hydration and the plan above. MAEGAN WELDON
--- NOTE | 2017-03-28 16:39 | Diag Imaging Result Doc PS360 ---
EXAM: MRI CERVICAL SPINE W/O CONTRAS HISTORY: cervial myelopathy TECHNIQUE: Axial and sagittal images obtained in multiple sequences COMPARISON: None. FINDINGS: There is mild reversal of the normal curvature. There is also mild scoliosis. No precervical soft tissue swelling. No subluxation. C2-3: Normal disc. No spinal stenosis or cord compression. Neither neural foramen is narrowed. C3-4: Normal disc. No spinal stenosis or cord compression. Neither neural foramen is narrowed. C4-5: Normal disc. No spinal stenosis or cord compression. Neither neural foramen is narrowed. C5-6: Minimal disc bulge. No spinal stenosis or cord compression. Neither neural foramen is narrowed. C6-7: Minimal disc bulge. Mild spinal stenosis. No cord compression. Neither neural foramen is narrowed. C7-T1: Normal disc. No spinal stenosis or cord compression. Neither neural foramen is narrowed. The upper thoracic discs are normal. No disc herniation or disc fragment. No focal abnormality to the cervical cord or the upper thoracic cord. IMPRESSION: Tiny bulging discs in the mid cervical spine, but no disc herniation, disc fragment or cord compression. Electronically signed by Romario Edwards 03/28/2017 4:36 PM
--- NOTE | 2017-03-28 17:08 | Diag Imaging Result Doc PS360 ---
EXAM: MRI BRAIN W/O CONTRAST HISTORY: acute vertigo r/o posterior fossa PATHOLOGY TECHNIQUE: Axial, sagittal, and coronal images obtained in multiple sequences COMPARISON: CT from 03/02/2017 FINDINGS: There is a 5 mm recent lacunar infarct in the left occipital lobe. There are prominent microvascular ischemic changes bilaterally which are chronic. No hydrocephalus. No mass or midline shift. No epidural or subdural fluid collection. No sinus opacification. IMPRESSION: 5 mm recent left occipital infarct in addition to chronic microvascular ischemic changes. A preliminary report was called and given to the patient's nurse. Electronically signed by Romario Edwards 03/28/2017 5:05 PM
[2017-03-28] MEDS: LIPITOR PO SCH (17:49)
[2017-03-28] MEDS: ASPIRIN PO SCH (17:49)
--- NOTE | 2017-03-28 20:01 | PROGRESS NOTE ---
DATE: 03/28/2017 SUBJECTIVE: Ms. Calhoun continues to be feeling very unsteady especially when she gets up to walk around. OBJECTIVE: Vital signs: Blood pressure is 133/74, pulse is 100, respirations 20, temperature 97.4 degrees. General Examination: Ms. Calhoun is a 51-year-old, female. She is in bed. She does not seem to be in unremarkable distress. HEENT: Mucosa is dry, anicteric and acyanotic. The patient has very poor dentition. Neck: Supple. Abdomen: Soft, nontender, slightly distended but no hepatosplenomegaly. Extremities: No pedal edema. The left leg is in a cast. Central Nervous System: Patient is awake, alert, oriented. There is no focal neurological deficit. I did not explore her gait. Chest: Clear. Vital Signs done yesterday at 22:57: Supine: Blood pressure 127/82 with a pulse of 104. Standing: Blood pressure of 86/62 with a pulse of 112 which is consistent with a drop in systolic blood pressure of more than 20 consistent with orthostatic hypotension. ASSESSMENT: 1. Dizziness secondary to orthostatic hypotension. 2. Severe volume depletion. 3. Hypovolemia, hyponatremia. 4. Acute on chronic kidney failure. 5. History of left nephrectomy due to chronic pyelonephritis. PLAN: 1. We are going to continue with current IV fluids. We will withhold all vasodepressor medications including her neuropathic medications. We will also withhold the Lasix for now and review the patient's electrolytes in the morning. Patient presented also with critical hyperkalemia which has been improved with adequate treatment. 2. Patient's urine culture has been negative. I will therefore go ahead and discontinue the antibiotics. cc: Eugenio Field MD
[2017-03-28] MEDS: ELAVIL PO SCH (21:50)
[2017-03-29 06:18] LABS: MANUAL DIFF NEEDED? NO
[2017-03-29 06:30] LABS: BASO% 0.3 % (0.0-0.8); EOS# 0.32 X1000 (0.0-0.7); EOS% 3.7 % (0.0-10.0); HEMATOCRIT 28.3 % (37.0-47.0); HEMOGLOBIN 9.5 g/dL (12.0-16.0); IMM GRAN# 0.13 X1000 (0.0-0.04); IMM GRAN% 1.5 % (0.0-0.5); LYMPH# 2.16 X1000 (1.2-3.4); LYMPH% 24.7 % (20.5-51.1); MCH 32.2 PG (27-31); MCHC 33.6 g/dL (33-37); MCV 95.9 FL (81-99); MONO% 5.7 % (1.7-9.3); MPV 10.8 FL (7.4-10.4); NEUT% 64.1 % (42.2-75.2); PLT 278 X1000 (130-400); RBC 2.95 XMIL (4.2-5.4)
[2017-03-29] MEDS: HUMALOG SUBQ SCH ×4 (06:42→21:37)
[2017-03-29 07:09] LABS: ALBUMIN 3.2 g/dL (3.5-5.0); CALCIUM 8.6 mg/dL (8.8-10.2); POTASSIUM 5.3 mmol/L (3.5-5.1); TOTAL PROTEIN 5.8 g/dL (6.3-8.3)
[2017-03-29 07:23] LABS: TOTAL BILIRUBIN 0.14 mg/dL (0.20-1.00)
[2017-03-29] MEDS: ASPIRIN PO SCH (09:16)
[2017-03-29] MEDS: DIFLUCAN PO SCH (09:16)
[2017-03-29] MEDS: CELEXA PO SCH (09:16)
[2017-03-29] MEDS: LIPITOR PO SCH (09:16)
[2017-03-29] MEDS: LYRICA PO SCH ×2 (09:16→21:23)
[2017-03-29] MEDS: LANTUS SUBQ SCH ×2 (09:16→21:38)
[2017-03-29] MEDS: NS 1,000 ML IV SCH (13:18)
[2017-03-29] MEDS: SODIUM BICARBONATE PO SCH ×2 (13:18→21:23)
--- NOTE | 2017-03-29 18:52 | PROGRESS NOTE ---
DATE: 03/29/2017 SUBJECTIVE: Today, Ms. Calhoun refers to be doing a little better, but still continues to be dizzy. According to her, it feels like occasionally the placed spins, especially when she stands up. OBJECTIVE: Vital signs: Blood pressure is 147/90,pulse of 107, respirations 18 , temperature 97.7 degrees. General: Ms. Calhoun is a 51-year-old female. She is in bed , not in any remarkable distress. HEENT: Mucosa is pink and dry. Anicteric. Acyanotic. Neck: Supple. Chest: Good air entry bilateral. No crepitations. No rhonchi. Cardiovascular : Regular rate and rhythm. There is no murmurs, no rubs. No gallops. Abdomen: Soft, nontender. Bowel sounds are present. Extremities: No pedal edema. Central nervous system: The patient is awake and alert, oriented. She does not seem to have any focal deficit; however, whenever she was walking she had this unsteady gait. She does not seem to have any tendency to lateralize to any side. She was able to stand up without swaying to any side, even with the eyes closed. Upon exploration of sensation, pinprick sensation was completely normal; however, vibration sensation in the left leg distal toes seems to be impaired. The patient has a cast over the right lower extremity. LABORATORY DATA: WBC is 8.76, hemoglobin is 9.5, platelet count of 275,000. Chemistry is reviewed. Sodium is 135, potassium is 5.3, chloride is 103, bicarb is 19, creatinine is 3.2, which has been relatively stable. Glucose is 300, has been uncontrolled. Microbiology: Urine shows no growth, and blood cultures preliminarily are unremarkable. Potassium is now is slightly elevated at 5.3. CURRENT MEDICATIONS INCLUDE:: 1. Amitriptyline 20 mg at bedtime. 2. Aspirin 325 p.o. daily. 3. Atorvastatin 40 mg daily. 4. Celexa 10 mg daily. 5. Glargine has been increased to 40 b.i.d. 6. Pregabalin 100 mg b.i.d. IMAGIN. An MRI of the brain yesterday shows 5 mm recent left occipital infarct, in addition to chronic microvascular ischemic changes. 2. An MRI of the cervical spine did not show any concerning findings. ASSESSMENT: 1. Dizziness with some vertigo. Presenting orthostatic vitals was consistent with orthostatic hypotension; however, the patient also had a stroke in the posterior fossa, which could potentially also give her some dizziness. We are going to continue with hydration. Blood pressure is a lot better now, and will all control risk factor for the stroke. 2. Volume depletion. Will continue with the IV fluids. 3. Hypovolemia hyponatremia. This is improving. Sodium today is 135. That has improved from 130 yesterday. Critical hypokalemia on presentation improving. 4. Diabetes mellitus, uncontrolled. We have increased the glargine to 40 b.i.d. 5. Recent left occipital infarct. We are going to do an MRA of the brain and of the neck for risk factor control. 6. [id number] kidney failure, stable. 7. History of left nephrectomy noted. 8. History of fibromyalgia, and also peripheral neuropathy. The patient is on neuropathic medications. We are going to continue with this, and pay very close attention to her neurological state. 9. Metabolic acidosis, secondary to chronic kidney disease. We will start the patient on oral sodium bicarb. cc: Eugenio Field MD MTDD
[2017-03-29] MEDS: ELAVIL PO SCH (21:23)
[2017-03-30] MEDS: NS 1,000 ML IV SCH ×3 (04:27→17:13)
[2017-03-30 06:46] LABS: MANUAL DIFF NEEDED? NO
[2017-03-30] MEDS: HUMALOG SUBQ SCH ×4 (06:58→21:53)
[2017-03-30 07:01] LABS: BASO% 0.6 % (0.0-0.8); EOS# 0.32 X1000 (0.0-0.7); EOS% 3.5 % (0.0-10.0); HEMATOCRIT 28.8 % (37.0-47.0); HEMOGLOBIN 9.7 g/dL (12.0-16.0); IMM GRAN# 0.13 X1000 (0.0-0.04); IMM GRAN% 1.4 % (0.0-0.5); LYMPH# 2.22 X1000 (1.2-3.4); LYMPH% 24.6 % (20.5-51.1); MCH 32.2 PG (27-31); MCHC 33.7 g/dL (33-37); MCV 95.7 FL (81-99); MONO# 0.68 X1000 (0.11-0.59); MONO% 7.5 % (1.7-9.3); MPV 10.6 FL (7.4-10.4); NEUT% 62.4 % (42.2-75.2); PLT 261 X1000 (130-400); RBC 3.01 XMIL (4.2-5.4)
[2017-03-30 07:07] LABS: CALCIUM 8.5 mg/dL (8.8-10.2); POTASSIUM 5.4 mmol/L (3.5-5.1)
[2017-03-30 07:22] LABS: HEMOGLOBIN A1C 7.1 % (4.8-6.0)
[2017-03-30] MEDS ORDERED: KAYEXALATE PO ONE (08:33)
[2017-03-30] MEDS: CELEXA PO SCH (09:49)
[2017-03-30] MEDS: LIPITOR PO SCH (09:49)
[2017-03-30] MEDS: ASPIRIN PO SCH (09:49)
[2017-03-30] MEDS: SODIUM BICARBONATE PO SCH ×2 (09:49→21:50)
[2017-03-30] MEDS: LANTUS SUBQ SCH ×2 (09:49→21:54)
[2017-03-30] MEDS: DIFLUCAN PO SCH (09:49)
[2017-03-30] MEDS: LYRICA PO SCH ×2 (09:51→21:50)
[2017-03-30] MEDS: TYLENOL PO PRN (14:47)
[2017-03-30] MEDS ORDERED: INSULIN PEN NEEDLES ONE (15:06)
--- NOTE | 2017-03-30 16:14 | ECHO REPORT ---
ORDER DATE: 03/29/2017 ECHOCARDIOGRAPHIC MEASUREMENTS: 1. Interventricular septum 1.1, left ventricular posterior wall 1.1. 2. Diastolic diameter 4.7. Left atrium 3.4. Aorta 3.3. 3. Definity was used to rule out left ventricular clot. 4. Normal left ventricular cavity size. Estimated ejection fraction of 60%. There is no obvious intracardiac mass or thrombus seen. 5. Aortic valve leaflets are trileaflet. 6. Mitral valve was normal. 7. Tricuspid valve was normal. 8. There is trace to mild mitral regurgitation. Mild tricuspid regurgitation. Peak velocity across the tricuspid valve was 2.5 m/sec. 9. There is no aortic stenosis or regurgitation. 10. There is no pericardial effusion or obvious intracardiac mass or thrombus seen. cc: MD Eugenio Lincoln MD
--- NOTE | 2017-03-30 20:03 | PROGRESS NOTE ---
DATE: 03/30/2017 SUBJECTIVE: Today Ms. Calhoun referred to be doing a little better. Continues to have instances where she feels dizzy. OBJECTIVE: Vital signs: Blood pressure is 151/83, pulse of 102, respirations 20, temperature 98.0 degrees. General: Ms Calhoun is a 51-year-old female. She is in bed. She is not in any remarkable distress. HEENT: Mucosa is slightly dry but anicteric and acyanotic. Neck: Supple. Chest: Clear. Cardiovascular: Regular rate and rhythm. There is no murmur. No rubs. No gallops. Abdomen: Soft. Slightly distended. Bowel sounds are present. No hepatosplenomegaly. BACK OFFICE MEDICAL ASSISTANT: Patient is awake and alert. Does not have any focal neurological deficit. Her gait continues to be a little bit unsteady but there is no motor or sensation deficit. LABORATORY DATA: WBC is 9.04, hemoglobin is 9.7, platelet count of 261,000. Chemistry is reviewed. Sodium is 136, potassium is 5.4, chloride is 104, bicarb is 18, creatinine is down to 3.0, glucose is 206. ASSESSMENT: 1. Dizziness, vertigo. MRI shows posterior fossa infarct. We are pending an MRA of the brain and the neck. 2. Volume depletion on presentation with positive orthostatic vitals. Will continue with the IV fluids. I think patient is doing a lot better. 3. Hypovolemic, hyponatremia, improved. 4. Hyperkalemia. I think this is secondary to the CKD. We will give the patient a dose of Kayexalate. 5. Acute on chronic kidney failure stage 4. We will also do the PTH, the phosphorus, vitamin D to make sure there is no associated bone mineral disease. 6. Diabetes mellitus. We will continue with sliding scale. 7. History of left nephrectomy, noted. 8. Candiduria. The patient has been started on fluconazole and we plan to treat this for 7 days. 9. Non-gap metabolic acidosis, likely secondary to the kidney failure. Will start the patient on sodium bicarb. PLAN: So, tomorrow we will be pending the MRA of the neck and of the brain and go from there. The patient also has an orthopedic cast on the right lower extremity which according to her is supposed to be removed by orthopedics. So, we have consulted Dr. Patrizia to assess this tomorrow, if he thinks it can be removed. cc: Eugenio Field MD
[2017-03-30] MEDS: ELAVIL PO SCH (21:50)
[2017-03-31] MEDS: NS 1,000 ML IV SCH ×2 (05:14→17:22)
[2017-03-31] MEDS: HUMALOG SUBQ SCH ×3 (06:09→17:20)
[2017-03-31 07:10] LABS: CALCIUM 8.5 mg/dL (8.8-10.2); POTASSIUM 5.3 mmol/L (3.5-5.1)
[2017-03-31 07:11] LABS: CALCIUM 8.6 mg/dL (8.8-10.2)
[2017-03-31] MEDS ORDERED: KAYEXALATE PO ONE (08:45)
[2017-03-31] MEDS: SODIUM BICARBONATE PO SCH (09:25)
[2017-03-31] MEDS: CELEXA PO SCH (09:25)
[2017-03-31] MEDS: DIFLUCAN PO SCH (09:25)
[2017-03-31] MEDS: ASPIRIN PO SCH (09:25)
[2017-03-31] MEDS: LIPITOR PO SCH (09:26)
[2017-03-31] MEDS: LYRICA PO SCH (09:26)
[2017-03-31] MEDS: LANTUS SUBQ SCH (09:27)
--- NOTE | 2017-03-31 12:18 | Diag Imaging Result Doc PS360 ---
ANKLE COMPLETE RIGHT - 03/31/2017 INDICATION: right ankle fracture TECHNIQUE: Three views COMPARISON: 03/02/2017 FINDINGS: The ankle is imaged in a cast. There is no significant change in the minimally displaced spiral distal fibular fracture. No significant widening of the ankle mortise. No new fractures. IMPRESSION: No complication or change from prior. Electronically signed by Charli Duke 03/31/2017 12:16 PM
--- NOTE | 2017-03-31 12:19 | Diag Imaging Result Doc PS360 ---
EXAM: MRA BRAIN W/O CONTRAST HISTORY: posterior cir stroke TECHNIQUE: MRA of the brain 3-D [id number] COMMENT: The study is suboptimal which is probably due to patient motion. The anterior and middle cerebral arteries are patent proximally. Both internal carotid arteries are apparently patent. Both posterior cerebral arteries appear to be patent. No definite aneurysms are demonstrated. The possibility of stenoses or arteritis in the more distal portion of the cerebral vessels particularly the middle cerebral arteries cannot be excluded. The superior cerebellar artery is visible on the left it is not visible on the right. IMPRESSION: Limited study. No evidence of major branch occlusion. Electronically signed by Fausto Cháevz 03/31/2017 12:16 PM
--- NOTE | 2017-03-31 12:20 | Diag Imaging Result Doc PS360 ---
EXAM: MRA C-SPINE W/O CONTRAST HISTORY: posterior cir stroke TECHNIQUE: MRA of the cervical spine 2-D [id number] COMMENT: The study is markedly suboptimal due to patient motion. Both vertebral arteries and both internal carotid and common carotid arteries are apparently at least partially patent. The basilar artery is demonstrated. IMPRESSION: Technically suboptimal study. No evidence of major vessel occlusion. Electronically signed by Fausto Chávez 03/31/2017 12:18 PM
[2017-03-31 17:17] VITALS: BP 152/89
--- NOTE | 2017-03-31 17:28 | CONSULTATION ---
DATE OF CONSULTATION: 03/31/2017 CHIEF COMPLAINT: Right ankle fracture. HISTORY OF PRESENT ILLNESS: Ms. Calhoun is a 51-year-old, female, who was recently discharged on March 15 for a seroma versus hematoma in the left nephrectomy bed as well as asymptomatic bacteriuria. She states for the past few days she has had increasing dizziness. She was readmitted to the hospital on 03/28/2017 to the hospitalist services. It looks like since then, they have been working her up for vertigo versus a possible stroke. Orthopedics has been consulted for review this right ankle fracture. The patient was unable to tell me exactly when she was casted, but it looks like on 03/02/2017 she was placed in a cast for a Jackman C ankle fracture on the right side. We have been consulted for management of this. PAST MEDICAL HISTORY: 1. History of frequent urinary tract infection. 2. Status post open left nephrectomy secondary to complications from pyelonephritis. 3. Insulin-dependent diabetes mellitus. Uncontrolled. 4. Hyperlipidemia. 5. Primary essential hypertension. 6. Chronic kidney disease, previously stage IV. 7. Chronic pancreatitis. 8. Chronic back pain. 9. Right distal fibular fracture. PAST SURGICAL HISTORY: 1. Status post open left nephrectomy. 2. Cystoscopy with urethral stent placed prior to patient's open nephrectomy. 3. Tubal ligation. 4. Back surgery. 5. Carpal tunnel surgery. SOCIAL HISTORY: The patient is a smoker and smokes about a half a pack of cigarettes a day. There is alcohol or illicit drug use. FAMILY HISTORY: Noncontributory. ALLERGIES: Zithromax, Nalfon. Vioxx, Percocet, Macrobid, Imitrex. HOME MEDICATIONS: 1. Amitriptyline 20 mg p.o. at bedtime. 2. Celexa 10 mg p.o. daily. 3. Flexeril 20 mg p.o. b.i.d. 4. Furosemide 20 mg p.o. b.i.d. 5. NovoLog subcutaneous a.c. and at bedtime per sliding scale. 6. Lantus 35 units subcutaneous b.i.d. 7. Metoprolol 50 mg p.o. daily. 8. Lyrica 100 mg p.o. b.i.d. 9. Rapaflo 8 mg p.o. daily. PHYSICAL EXAMINATION: Vital Signs: Temperature is 97.7 degrees, pulse is 95, blood pressure is 166/88, O2 saturation is 96% on room air. General: Ms. Calhoun is a pleasant 81 -year-old, female, who is currently resting comfortably in the bed. She is in no acute distress. She is awake and alert and answers questions appropriately. HEENT: Head is atraumatic, normocephalic. Pupils are equal, round, reactive to light. Neck: Supple. Trachea is midline. Cardiovascular: Regular rate and rhythm. Pulmonary: Breathing is even, nonlabored. Abdomen: Soft, nondistended. Extremities: Right lower extremity: She does have a cast on this right lower extremity. She can wiggle the toes. She has good sensation. No numbness or tingling. She has a 2+ pedal pulse. The cast is a little loose. The cast is also very worn and damaged. She has good capillary refill. She is not complaining of any pain. ASSESSMENT: Acute distal fibular fracture, Jackman C. PLAN: It looks like Ms. Calhoun has been in this cast for about a month. She does not have a recent x-ray, so I am going to get a film of that now, 3 views standing of the right ankle in the cast. If all that looks good, we get her out of the cast and into a boot and she will need to follow up with Dr. Acharya in the clinic at discharge. Dictated by CLEMENT Jay for Johann Jo MD cc: CLEMENT Jay MD [facility]
--- NOTE | 2017-04-01 10:43 | DISCHARGE SUMMARY ---
ADMISSION DATE: 03/28/2017 DISCHARGE DATE: 03/31/2017 CONSULTATIONS: None. PERTINENT PROCEDURES: 1. Brain MRI showed a 5 mm recent left occipital infarct in addition to chronic microvascular ischemic changes. 2. Cervical spine MRI showed tiny bulging disks in the mid cervical spine but no disk herniation, disk fragment, or cord compression. 3. Echocardiogram showed an EF of 60%. 4. Brain MRA, limited study. No evidence of major branch occlusion. 5. Cervical spine MRI with MRA, technically suboptimal study. No evidence of major vessel occlusion. 6. Right ankle x-ray showed ankle is imaged in a cast. No significant change in minimally displaced spiral distal fibular fracture. No significant widening of the ankle mortise fractures. DISCHARGE DIAGNOSES: 1. Dizziness, vertigo. MRI showed posterior fossa infarct. Brain MRA, limited study but no evidence of major branch occlusion. Cervical spine MRI, MRA showed no major vessel occlusion. 2. Volume depletion on presentation with positive orthostatics, resolved with intravenous fluids. 3. Hypovolemic, hyponatremic, improved. 4. Hyperkalemic secondary to chronic kidney disease. The patient was given Kayexalate, improved. 5. Acute on chronic kidney disease stage IV. 6. Diabetes. Continue with home medications. 7. Left nephrectomy history noted. 8. Candiduria. Patient is started on Diflucan for a 7 day treatment. 9. Non-gap metabolic acidosis secondary to kidney disease. The patient was on sodium bicarbonate, improved. HOSPITAL COURSE: Ms. Calhoun is a 51-year-old, female recently discharged on 03/15/2017 for seroma versus hematoma in the left nephrectomy bed as well as a symptomatic bacteruria with a past medical history of frequent UTIs, status post open left nephrectomy secondary to complications from pyelonephritis, insulin-dependent diabetes mellitus, hyperlipidemia, hypertension, chronic kidney disease stage IV, chronic pancreatitis, chronic back pain. The patient stated that for the last few days, she has had dizziness, worse when she goes from sitting to standing. She reports that the last 2 days, she had not had her normal appetite, did have an upset stomach. Upon evaluation in the ED, she was found to be borderline hypotensive with blood pressure 105/69, heart rate of 110, afebrile. Orthostatic vital signs were obtained and the patient did tilt upon standing with blood pressures dropping down to 86/62 with a heart rate of 112. She was given 2 L of normal saline bolus. Her blood pressures improved to 112/56. She was noted to be hyperkalemic with a potassium of 6. She had a decrease in her usual baseline renal function. Her creatinine was elevated from her baseline of 3.5. GFR was currently 14. She was noted to be hyperglycemic at 395. Her urinalysis did show large leukocytes, too numerous to count WBCs, and 2+ bacteria. She also had 10 epithelial cells and there was also yeast present. She was started on treatment for her UTI. Continue with gentle fluid resuscitation. Continue with orthostatic vital signs and held any antihypertensive medications. She was treated for her hyperkalemia with 5 units of insulin and Kayexalate. Ms. Calhoun continued to feel very unsteady, especially when she gets up to walk. They did a brain MRI that showed a 5 mm recent left occipital infarct in addition to chronic microvascular ischemic changes that could be attributing to her dizziness with some vertigo. They followed up with a brain MRI. It was limited but showed no major branch occlusion. Also followed up with a cervical spine MRI and MRA. This also was a suboptimal study that showed no evidence of major vessel occlusion. As a note, the patient does have an orthopedic cast on her right lower extremity. According to her, it is supposed to be removed by orthopedics today. We consulted Dr. Acharya. They did an ankle x-ray today that showed no significant change in the minimally displaced spiral distal fibular fracture. No significant widening of the ankle mortise fractures. Their plan was to get the x-ray, take the cast off, and place her in a boot. She is stable for discharge home today. VITAL SIGNS AT TIME OF DISCHARGE: Temperature was 98.1 degrees, heart rate 103 , respirations 20, blood pressure 157/59, O2 was 98% on room air. DISCHARGE DIET: Diabetic. DISCHARGE MEDICATIONS: As per Dr. Field: 1. Amitriptyline 20 mg p.o. at bedtime. 2. Aspirin 325 mg p.o. daily. 3. Lipitor 40 mg p.o. daily. 4. Citalopram 10 mg p.o. daily. 5. Arixtra 2.5 mg subcutaneous daily. 6. NovoLog subcutaneously a.c. and at bedtime per protocol. 7. Lantus 40 units subcutaneously b.i.d. 8. Lopressor 50 mg p.o. daily. 9. Lyrica 100 mg p.o. b.i.d. 10. Rapaflo 8 mg p.o. daily. 11. Sodium bicarbonate 650 mg p.o. b.i.d. FOLLOWUP: Ms. Calhoun is being discharged home with [facility]. She is to follow up with an ENT as well as her primary care physician, Dr. Boom Wilson. She can return to the ED for any worsening of symptoms. DISCHARGE TIME: 30 minutes. Dictated by CLEMENT Bruner for Eugenio Field MD cc: MD Boom Alberts MD MTDD
== END 2017-03-31 19:09 | disposition home health service (06) ==
LOC: ED 18:49 → 3N 03-28 05:56 → UNDODISIN 03-30 13:45
PROVIDERS: ATTEND Internal Medicine

== ENCOUNTER 2018-07-11 19:56 | Inpatient (IN) ==
--- NOTE | 2018-07-11 21:19 | Diag Imaging Result Doc PS360 ---
EXAM: CHEST-PORTABLE 07/11/2018 HISTORY: chest pain TECHNIQUE: AP portable at 2055 COMMENT: The inspiration is slightly less optimal than on 07/06/2018. There are no focal pulmonary opacities. Otherwise there has been no significant change since the previous study. IMPRESSION: No evidence of acute disease. Electronically signed by Fausto Chávez 07/11/2018 9:17 PM
[2018-07-11] MEDS ORDERED: G.I. COCKTAIL PO ONE (21:30)
[2018-07-11 21:40] LABS: URINE SOURCE CLEAN CATCH
[2018-07-11 21:43] LABS: BASO# 0.05 X1000 (0.0-0.2); BASO% 0.3 % (0.0-0.8); EOS# 0.46 X1000 (0.0-0.7); EOS% 2.6 % (0.0-10.0); HEMATOCRIT 34.4 % (37.0-47.0); IMM GRAN% 0.6 % (0.0-0.5); LYMPH# 1.96 X1000 (1.2-3.4); LYMPH% 11.2 % (20.5-51.1); MCH 29.9 PG (27-31); MCV 93.5 FL (81-99); MONO# 1.17 X1000 (0.11-0.59); MONO% 6.7 % (1.7-9.3); MPV 11.6 FL (7.4-10.4); NEUT% 78.6 % (42.2-75.2); PLT 256 X1000 (130-400); RBC 3.68 XMIL (4.2-5.4); RDW 14.6 % (11.5-14.5); WBC 17.44 X1000 (4.8-10.8)
[2018-07-11 21:49] LABS: BILIRUBIN URINE NEGATIVE (NEGATIVE); BLOOD URINE TRACE (NEGATIVE); COLOR STRAW; GLUCOSE URINE TRACE mg/dL (NEGATIVE); KETONE URINE NEGATIVE (NEGATIVE); LEUKOCYTES URINE LARGE (NEGATIVE); NITRITE URINE POSITIVE (NEGATIVE); PROTEIN URINE 100 mg/dL (NEGATIVE); TURBIDITY URINE HAZY (CLEAR); UROBILINOGEN URINE NORMAL (NORMAL)
[2018-07-11 21:50] LABS: UR EPITHELIAL CELLS <10 /HPF (<10); URINE BACTERIA 4+ /HPF; URINE RBC <10 /HPF (<10); URINE WBC TNTC /HPF (<10)
[2018-07-11 21:59] LABS: ALB/GLOB RATIO 1.2; ALBUMIN 3.8 g/dL (3.5-5.0); CALCIUM 10.1 mg/dL (8.8-10.2); CREATININE 2.5 mg/dL (0.5-0.9); TOTAL BILIRUBIN 0.16 mg/dL (0.20-1.00); TOTAL PROTEIN 6.9 g/dL (6.3-8.3)
[2018-07-11] MEDS ORDERED: MORPHINE IV ONE (23:14)
[2018-07-11] MEDS ORDERED: ZOFRAN IV PRN (23:46)
[2018-07-11] MEDS ORDERED: TYLENOL PO PRN (23:46)
[2018-07-11] MEDS ORDERED: LABETALOL IV ONE (23:50)
[2018-07-11] MEDS ORDERED: LACTULOSE PO PRN (23:52)
[2018-07-11] MEDS ORDERED: MIRALAX PO PRN (23:52)
[2018-07-11] MEDS ORDERED: COLACE PO PRN (23:52)
--- NOTE | 2018-07-12 00:34 | HISTORY AND PHYSICAL ---
PATIENT CHIEF COMPLAINT: Chest pain. HISTORY OF PRESENT ILLNESS: The patient was sitting at the kitchen table smoking a cigarette tonight when she had chest pain. She came back to the hospital and had an evaluation by the ER physician there, found to have an elevated troponin and elevated proBNP. She is admitted for further workup and monitoring. Since January of this last year she has been admitted total of 4 times for chest pain. Last January she had a myocardial perfusion scan which showed a tiny spot of reversibility and given her comorbidities, it was recommended that she have followup with Cardiology and seek medical treatment. She stated that she never followed up with Cardiology because "nobody set me up any appointments." Patient also has stage IV kidney and is supposed to be following up regularly with Dr. Sue but she has missed I believe she said her last [address] Sue. She states that she has 2 children who would like to be tested as kidney donors for her. The patient was actually discharged from this hospital on July 06 after presenting with chest pain. She had enzymes negative x3. No other workup was undertaken but followup with Cardiology was supposed to have been arranged at that time as well. PAST MEDICAL HISTORY: 1. Type 2 diabetes mellitus requiring insulin. 2. Chronic kidney disease stage 4. She is status post nephrectomy. 3. The patient has chronic pain but denies taking chronic pain medications. 4. Fibromyalgia. 5. Obesity. 6. Hypertension out of control. 7. Noncompliance. 8. COPD. PAST SURGICAL HISTORY: 1. Left nephrectomy. 2. Ill-defined back surgery unknown date. 3. Carpal tunnel release. 4. Breast lumpectomy. 5. Abdominal hernia repair. SOCIAL HISTORY: The patient has a boyfriend. She smokes about a pack a day. She denies illicit drug use and she denies alcohol use. ALLERGIES: Azithromycin, Vioxx, Macrobid, Percocet, Imitrex and tramadol. REVIEW OF SYSTEMS: The patient denies any coughing or wheezing. She does have some chronic mild shortness of breath which she states is due to "COPD." She denies any fever or chills. She has not had any significant weight loss or weight gain. She describes her chest pain as substernal and sharp. She has not described significant shortness of breath or diaphoresis with onset of symptoms. In the ER she did initially get some relief with a GI cocktail. There is no dysuria or change in color of the urine.Abdomen: Protuberant. Extremities: The patient has no real peripheral edema in recumbent position. Pulses are easily palpable. Neurologic: The patient has cranial nerves intact. Her speech is intact. I did not see her walking. LABORATORY: White cell count 17.44, hemoglobin 11, hematocrit 34, potassium is 5.0, carbon dioxide 24, BUN 36, creatinine 2.5 (baseline), glucose 253, troponin 0.174, proBNP 16,726. Urinalysis with large leukocytes and too numerous to count white blood cells, 4 + bacteria. ASSESSMENT AND PLAN: 1. The patient be admitted for chest pain rule out myocardial infarction. I think her options for further workup are somewhat limited. She had a rather complete workup in January and given her stage IV kidney I do not think is real candidate for a heart catheterization at the present time. We will get serial cardiac enzymes and EKGs as appropriate. We will monitor her status and she will be on telemetry with oxygen. 2. The patient's diabetes will be monitored with fingerstick blood sugars and sliding scale insulin. 3. Hypertension. The patient will have her usual medications in place as well as p.r.n.s. 4. Chronic pain aware. 5. The patient has a urinary tract infection which will be sent for culture and will start her on empiric antibiotics and make adjustments based on culture and sensitivity results. 6. The patient has chronic obstructive pulmonary disease and is a tobacco user. We may need to apply an nicotine patch to her at some point. cc: Chong Garsia MD MTDD
[2018-07-12] MEDS: HEPARIN SUBQ SCH ×3 (00:36→16:19)
[2018-07-12] MEDS: NITROGLYCERIN TOP SCH ×4 (00:38→21:40)
--- NOTE | 2018-07-12 01:39 | PROVIDER DOCUMENTATION ---
This chart was entered by Omaira Vazquez Scribe, acting as scribe for Chase Victoria MD. HPI-Chest Pain - General Chief Complaint: Chest Pain Stated Complaint: cp Time Seen by Provider: 07/11/18 20:40 Source: patient Allergies/Adverse Reactions: Patient Allergies Allergy/AdvReac Type Severity Reaction Status Date / Time azithromycin [From Zithromax] Allergy ANAPHYLAXIS Verified 05/21/18 01:50 fenoprofen [From Nalfon] Allergy ANAPHYLAXIS Verified 05/21/18 01:50 rofecoxib [From Vioxx] Allergy Unknown Verified 05/21/18 01:50 nitrofurantoin AdvReac HEADACHE Verified 05/21/18 01:50 [From Macrobid] nitrofurantoin AdvReac HEADACHE Verified 05/21/18 01:50 macrocrystalline * [From Macrobid] oxycodone HCl * AdvReac Unknown Verified 05/21/18 01:50 [From Percocet] sumatriptan [From Imitrex] AdvReac Unknown Verified 05/21/18 01:50 sumatriptan succinate * AdvReac Unknown Verified 05/21/18 01:50 [From Imitrex] tramadol AdvReac Unknown Verified 05/21/18 01:50 Home Medications: Home Medication List Medication Instructions Recorded Confirmed Last Taken Type Insulin Aspart [Novolog] See Protocol SQ AC + HS 02/14/17 07/06/18 07/16/17 07: 00 History 2 units Pregabalin [Lyrica] 100 mg PO BID 03/13/17 07/06/18 07/04/18 History Docusate Sodium [Stool Softener] 1 cap PO PRN PRN 01/07/18 05/21/18 Unknown History Ergocalciferol (Vitamin D2) 1 cap PO Q7D 01/07/18 05/21/18 07/04/18 History [Vitamin D2] Ferrous Sulfate 325 mg PO DAILY 01/07/18 05/21/18 07/04/18 History Folic Acid 1 mg PO DAILY 01/07/18 07/06/18 07/04/18 History Furosemide 20 mg PO BID 01/07/18 07/06/18 07/04/18 History Topiramate [Topamax] 25 mg PO BID 07/10/2207/06/18 07/04/18 History Trazodone [Desyrel] 50 mg PO QHS 01/07/18 07/06/18 07/03/18 History Hydrocodone/Acetaminophen [[place] 1 each PO Q4H PRN PRN #20 tablet 02/18/1805/21 Unknown Rx 10-325 Tablet] Lactulose 30 ml PO BID PRN #1 udc 02/18/18 05/21/18 Unknown Rx ATORVAstatin [Lipitor] 40 mg PO HS 05/21/18 07/06/18 07/04/18 History Amlodipine Besylate 2.5 mg PO DAILY 05/21/18 07/06/18 07/04/18 History Isosorbide Mononitrate [Isosorbide 60 mg PO DAILY 05/21/18 07/06/18 07/04/18 History Mononitrate ER] Pen Needle,Dual Safety,Diabetc 1 dose SQ DAILY 05/21/18 05/21/18 Unknown History [Autoshield Duo Pen Needle] Insulin Glargine [Lantus] 35 unit SUBQ BID 07/05/18 07/05/18 07/04/18 History Polyethylene Glycol 3350 [Miralax] 17 gm PO DAILY PRN 07/05/18 07/05/18 Unknown History Aspirin EC 81 mg PO DAILY 07/06/18 07/06/18 Unknown History Budesonide/Formoterol Fumarate 2 puff IH BID 07/06/18 07/06/18 Unknown History [Symbicort 160-4.5 Mcg Inhaler] Cyclobenzaprine [Flexeril] 10 mg PO TID PRN 07/06/18 07/06/18 07/04/18 History Metoclopramide HCl [Reglan] 5 mg PO TID #90 tab 07/06/18 Unknown Rx Metoprolol Tartrate 100 mg PO BID 07/06/18 07/06/18 Unknown History Nitroglycerin Sl [Nitroglycerin] 1 tab SL DIRECTED PRN 07/06/18 07/06/18 Unknown History Omeprazole [Prilosec] 40 mg PO .DAILY 0600 07/06/18 07/06/18 Unknown History Tiotropium [place] Inhaler 1 puff INH RTDAILY 07/06/18 07/06/18 Unknown History [Spiriva] - History of Present Illness-CP Nature of Presenting Problem: pt is a 52 yr old female presenting with complaint of chest pain radiating to left arm, 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 denies nausea, vomiting or dizziness Location: reports: substernal Chest Pain Radiation: reports: arms (left) Quality of Pain: reports: aching Severity in ED: moderate Onset/Duration: 1-3 hours ago Timing: improving Context/Activities at Onset: reports: light activity Modifying Factors: improves with: other medication (nitro- minimal improvemnet) Associated Symptoms: denies: back pain, dizziness, fever/chills, nausea, shortness of breath, vomiting Nitro Today/Relief: 0.4 mg x 1, provided by EMS, mild relief Aspirin Treatment Today: 81 mg x 3, provided by EMS Similar Symptoms Previously?: No Recently Seen Here or By Another Healthcare Provider: No Review of Systems - Adult - REVIEW OF SYSTEMS - ADULT Constitutional: reports: no symptoms reported Eyes: denies: blurred vision, double vision Ears, Nose, Mouth & Throat: reports: no symptoms reported Cardiovascular: reports: chest pain. denies: palpitations, syncope Respiratory: denies: cough, shortness of breath Gastrointestinal: denies: abdominal pain, diarrhea, nausea, vomiting Musculoskeletal: reports: no symptoms reported Integumentary: reports: no symptoms reported Neurological: denies: dizziness/vertigo, headache/migraines Psychiatric: reports: no symptoms reported Endocrine: reports: no symptoms reported Hematologic/Lymphatic: reports: no symptoms reported Allergic/Immunologic: reports: no symptoms reported All Other Systems: Reviewed and Negative Past History - Adult - PAST MEDICAL HISTORY-ADULT Review of Records: reports: Old Records Reviewed, Nursing Assessment Review, Medications Reviewed, Social history reviewed & non-contributory. Major Childhood Illnesses: reports: denies history Cardiovascular: reports: CHF, HTN, hyperlipidemia Respiratory: reports: denies history Gastrointestinal: reports: denies history Obstetrical/Gynecological: reports: denies history Genitourinary: reports: kidney disease (stage 4 kidney failure R kidney; L nephrectomy) Musculoskeletal: reports: chronic pain Neurological: reports: CVA, headaches/migraines, TIA, other (sciatica) Psychiatric: reports: anxiety, depression Endocrine/Immune: reports: Diabetes Other Conditions: reports: denies history - PRIOR SURGERIES/PROCEDURES Surgical/Procedure History: reports: BTL, orthopedic (extremity) (carpal tunnel) , breast (cyst removal), back/neck (back x2), other (D&C; L nephrectomy) - IMMUNIZATION STATUS Childhood Immunizations: See Nurse Assessment Flu Vaccine: See Nurse Assessment - FAMILY HISTORY Family History: aortic disease, CVA/TIA, HTN - SOCIAL HISTORY Smoking: cigarettes Provider spent 3-5 mins advising pt. on dangers of tobacco.: Discussed manners to quit use, and f/u contacts for add'l counseling. Substance Use: denies Living Situation: family Physical Exam-General - PHYSICAL EXAM-ADULT Initial Vital Signs Reviewed: Yes - CONSTITUTIONAL General Appearance: alert, mild distress - EYES Eyes: PERRL/EOMI - HEAD, EARS, NOSE, MOUTH & THROAT HENMT: normocephalic/atraumatic, moist mucous membranes, normal ENT inspection - NECK Neck: non-tender, full range of motion, supple, normal inspection - RESPIRATORY Respiratory: chest non-tender, lungs clear, decreased breath sounds - CARDIOVASCULAR Cardiovascular: normal peripheral pulses, regular rate, rhythm, no edema - GASTROINTESTINAL (ABDOMEN) Abdominal Exam: normal bowel sounds, non tender, soft - LYMPHATIC Lymphatic: no adenopathy - MUSCULOSKELETAL Back Exam: normal inspection, no CVA tenderness, no vertebral tenderness Extremity: normal range of motion, non-tender, normal gait, normal inspection - SKIN Integumentary: normal color, normal turgor, warm/dry - NEUROLOGIC Neurologic: grossly normal, no motor/sensory deficits - PSYCHIATRIC Psych/Mental Status: normal mood/affect, normal thought content, normal thought process, oriented x 3 Progress - PLAN OF CARE/RESULTS Progress/Plan/Lab Results: Vital Signs - 8 hr 07/11/18 20:46 07/11/18 21:03 07/11/18 21:31 Temperature 97.7 F Pulse Rate 103 H 103 H 103 H Respiratory Rate 23 21 18 Blood Pressure 171/107 161/85 182/99 O2 Sat by Pulse Oximetry 98 97 98 07/11/18 22:02 Temperature Pulse Rate 101 H Respiratory Rate 20 Blood Pressure 180/107 O2 Sat by Pulse Oximetry 96 Laboratory Results - last 24 hr 07/11/18 07/11/18 07/11/18 21:04 21:04 21:04 WBC 17.44 H RBC 3.68 L Hgb 11.0 L Hct 34.4 L MCV 93.5 MCH 29.9 MCHC 32.0 L RDW Std Deviation 14.6 H Plt Count 256 MPV 11.6 H Immature Gran % (Auto) 0.6 H Neut % (Auto) 78.6 H Lymph % (Auto) 11.2 L [place] % (Auto) 6.7 Eos % (Auto) 2.6 Baso % (Auto) 0.3 Immature Gran # (Auto) 0.10 H Neut # (Auto) 13.70 H Lymph # (Auto) 1.96 [place] # (Auto) 1.17 H Eos # (Auto) 0.46 Baso # (Auto) 0.05 Sodium 137 Potassium 5.0 Chloride 99 Carbon Dioxide 24 L Anion Gap 14 BUN 36 H Creatinine 2.5 H Estimated GFR/1.73 m2 20 BUN/Creatinine Ratio 14 Glucose 253 H Calculated Osmolality 291 Calcium 10.1 Total Bilirubin 0.16 L AST 11 ALT 9 L Alkaline Phosphatase 169 H Creatine Kinase 123 Troponin T 0.174 H Beo-H-Ownkrwhyrww Pept Total Protein 6.9 Albumin 3.8 Globulin 3.1 Albumin/Globulin Ratio 1.2 Plasma Lactate Urine Source Urine Color Urine Turbidity Urine pH Ur Specific [place] Urine Protein Ur Glucose (Stick) Ur Ketones (Stick) Urine Blood Urine Nitrite Urine Bilirubin Urobilinogen Dipstick Urine Leukocytes Urine WBC (Auto) Urine RBC (Auto) U Epithel Cells (Auto) Urine Bacteria (Auto) 07/11/18 07/11/18 07/11/18 21:04 21:04 22:33 WBC RBC Hgb Hct MCV MCH MCHC RDW Std Deviation Plt Count MPV Immature Gran % (Auto) Neut % (Auto) Lymph % (Auto) [place] % (Auto) Eos % (Auto) Baso % (Auto) Immature Gran # (Auto) Neut # (Auto) Lymph # (Auto) [place] # (Auto) Eos # (Auto) Baso # (Auto) Sodium Potassium Chloride Carbon Dioxide Anion Gap BUN Creatinine Estimated GFR/1.73 m2 BUN/Creatinine Ratio Glucose Calculated Osmolality Calcium Total Bilirubin AST ALT Alkaline Phosphatase Creatine Kinase Troponin T [id number]-[id number] Pept 64153 H Total Protein Albumin Globulin Albumin/Globulin Ratio Plasma Lactate 1.7 Urine Source CLEAN CATCH Urine Color STRAW Urine Turbidity HAZY Urine pH 6.0 Ur Specific [place] 1.000 Urine Protein 100 A Ur Glucose (Stick) TRACE Ur Ketones (Stick) NEGATIVE Urine Blood TRACE A Urine Nitrite POSITIVE A Urine Bilirubin NEGATIVE Urobilinogen Dipstick NORMAL Urine Leukocytes LARGE A Urine WBC (Auto) TNTC A Urine RBC (Auto) <10 U Epithel Cells (Auto) <10 Urine Bacteria (Auto) 4+ Orders Category Date Time Status CHEST-PORTABLE [RAD] Stat Exams 07/11/18 20:41 Completed CBC WITH ELECTRONIC DIFF [HEME] Stat Lab 07/11/18 21:04 Completed CK PROFILE [SP CHEM] Stat Lab 07/11/18 21:04 Completed COMPREHENSIVE METABOLIC PANEL [CHEM] Stat Lab 07/11/18 21:04 Completed LACTATE, PLASMA [CHEM] Stat Lab 07/11/18 22:33 Completed PRO B-NATRIURETIC PEPTIDE Stat Lab 07/11/18 21:04 Completed TROPONIN T Stat Lab 07/11/18 21:04 Completed URINALYSIS W/POSS RFLX CULT [URINALYSIS] Stat Lab 07/11/18 21:04 Completed URINE CULTURE [RM] Routine Lab 07/11/18 21:55 Received Lido/Vance Alk/Al&mg Hydrox [G.i. Cocktail] Med 07/11/18 21:30 Discontinued 30 ml PO NOW ONE Morphine Med 07/11/18 23:14 Discontinued 4 mg IV NOW ONE EKG [EKG] Stat Ther 07/11/18 20:08 Ordered Result Diagrams: 07/11/18 21:04 07/11/18 21:04 - REASSESSMENT Reassessment #1 Time Reassessed: 22:49 Status: improving (chest pain resolving) Reassessment #2 Time Reassessed: 23:18 Status: worsening (patient c/o chest pain again after initial improvement) - EKG 1 Time of EKG reading by physician:: 20:11 EKG Read and Signed by:: Chase Victoria EKG Interpretation (*Must complete 3 of following elements*): Normal Rate: 101 Rhythm: sinus tachycardia [place]: normal QRS: normal [place] Interval: normal ST Wave: non-specific ST changes - XRAY 1 XRAY Study: Chest Impression: Abnormal (Signed EXAM: CHEST-PORTABLE 07/11/2018 HISTORY: chest pain TECHNIQUE: AP portable at 6 COMMENT: The inspiration is slightly less optimal than on 07/06/2018. There are no focal pulmonary opacities. Otherwise there has been no significant change since the previous study. IMPRESSION: No evidence of acute disease. Electronically signed by Fausto Chávez 07/11/2018 9:17 PM 07/11/182116 Interpreting Physician: Fausto Chávez MD Dictated Date/Time: 07/11/182115 cc: Chase Victoria MD; Killian Robb) Comparison with other Films: changes noted (07/06/18) - CONSULTS/PCP/HOSPITALIST Notification #1 *Consult/PCP/Hospitalist*: Dr. Garsia Time Discussed: 23:22 Consult Disposition: Admit Departure - Departure Date of Disposition Decision: 07/11/18 Time of Disposition Decision: 23:24 DIAGNOSIS: Elevated troponin Chest pain Qualifiers: Chest pain type: unspecified Qualified Code(s): R07.9 - Chest pain, unspecified UTI (urinary tract infection) Qualifiers: Urinary tract infection type: site unspecified Hematuria presence: without hematuria Qualified Code(s): N39.0 - Urinary tract infection, site not specified Kidney failure Qualifiers: Renal failure chronicity: chronic Chronic kidney disease stage: stage 4 (severe ) Qualified Code(s): N18.4 - Chronic kidney disease, stage 4 (severe) Leukocytosis Qualifiers: Leukocytosis type: unspecified Qualified Code(s): D72.829 - Elevated white blood cell count, unspecified Uncontrolled diabetes mellitus Qualifiers: Diabetes mellitus type: type 2 Glycemic state: with hyperglycemia Qualified Code(s): E11.65 - Type 2 diabetes mellitus with hyperglycemia Disposition: ADMITTED INPATIENT 09 Certified Medical Emergency: Emergent Condition: Serious Referrals and Follow-Ups: Killian Robb CRNP [NURSE PRACTITIONER] - - Critical Care Note This patient required my direct & personal management of CC.: No Attestation - Physician/ TERRY Attestation The physician spent face to face time with patient:: Yes Advanced Practice Provider documentation review:: Supervising physician onsite and consulted in the evaluation and care of this patient. The physician did have a face to face encounter with the patient. This chart was documented by the indicated scribe, (Omaira Vazquez Scribe) and accurately reflects the services I performed and decisions made by me, Chase Victoria MD, as attested by the provider's signature.
[2018-07-12] MEDS: ROCEPHIN 1 GM in NS 50 ML IV SCH (03:11)
[2018-07-12] MEDS ORDERED: PRILOSEC PO SCH (07:00)
[2018-07-12] MEDS: PRILOSEC PO SCH (08:17)
[2018-07-12] MEDS: ASPIRIN PO SCH (08:18)
[2018-07-12] MEDS: HUMALOG SUBQ SCH ×4 (08:18→21:00)
[2018-07-12] MEDS: NORVASC PO SCH (08:19)
[2018-07-12] MEDS: LASIX PO SCH ×2 (08:19→21:30)
[2018-07-12] MEDS: LOPRESSOR PO SCH ×2 (08:19→21:30)
[2018-07-12] MEDS: NORCO-10 PO PRN ×2 (08:19→20:24)
[2018-07-12 08:36] LABS: ESTIMATED GFR 20
[2018-07-12 08:42] LABS: AGAP 14; BUN 37 mg/dL (8-22); CALCIUM 8.9 mg/dL (8.8-10.2); CHLORIDE 104 mmol/L (98-107); CHOLESTEROL 192 mg/dL (0-200); CK PROFILE 107 U/L (24-173); COSMO 287; CREATININE 2.5 mg/dL (0.5-0.9); GLUCOSE 220 mg/dL (70-104); HDL 34 mg/dL (45-65); POTASSIUM 4.7 mmol/L (3.5-5.1); SODIUM 136 mmol/L (136-145); TCO2 18 mmol/L (25-35); TRIGLYCERIDES 601 mg/dL (35-135)
[2018-07-12] MEDS: SPIRIVA INH SCH (09:05)
[2018-07-12] MEDS: SYMBICORT 160/4.5 MICROGM INHALER INH SCH ×2 (09:05→19:30)
[2018-07-12 09:17] LABS: BASO# 0.04 X1000 (0.0-0.2); BASO% 0.4 % (0.0-0.8); EOS# 0.36 X1000 (0.0-0.7); EOS% 3.3 % (0.0-10.0); HEMOGLOBIN 10.8 g/dL (12.0-16.0); IMM GRAN# 0.06 X1000 (0.0-0.04); IMM GRAN% 0.6 % (0.0-0.5); LYMPH# 2.28 X1000 (1.2-3.4); LYMPH% 21.1 % (20.5-51.1); MCH 30.4 PG (27-31); MCHC 31.8 g/dL (33-37); MCV 95.8 FL (81-99); MONO% 7.4 % (1.7-9.3); MPV 11.1 FL (7.4-10.4); NEUT# 7.26 X1000 (1.4-6.5); NEUT% 67.2 % (42.2-75.2); PLT 160 X1000 (130-400); RBC 3.55 XMIL (4.2-5.4); RDW 14.7 % (11.5-14.5)
[2018-07-12] MEDS: TOPAMAX PO SCH ×2 (10:50→21:30)
[2018-07-12] MEDS: FOLIC ACID PO SCH (10:50)
[2018-07-12] MEDS: IMDUR PO SCH (10:50)
[2018-07-12] MEDS: FERROUS SULFATE PO SCH (10:50)
[2018-07-12] MEDS: LIPITOR PO SCH (21:30)
[2018-07-12] MEDS: DESYREL PO SCH (21:30)
[2018-07-13] MEDS: HEPARIN SUBQ SCH ×3 (00:15→18:13)
[2018-07-13] MEDS: ROCEPHIN 1 GM in NS 50 ML IV SCH ×2 (00:15→23:44)
[2018-07-13] MEDS: NORCO-10 PO PRN ×6 (01:00→23:43)
[2018-07-13] MEDS: NITROGLYCERIN TOP SCH ×5 (02:47→21:14)
--- NOTE | 2018-07-13 03:00 | CONSULTATION ---
DATE OF CONSULTATION: 07/12/2018 IMPRESSION: 1. Recurrent angina with limited threshold for onset of symptoms. 2. Atherosclerotic coronary disease. Highly likely in light of her multiple coronary risk factors. Previous stress myocardial perfusion study last year indicated small area of inducible ischemia and preserved left ventricular systolic function. 3. Chronic kidney disease stage 4. Patient has history of previous nephrectomy. 4. Diabetes mellitus type 2 requiring insulin for management. 5. Chronic cigarette use. 6. Chronic obstructive pulmonary disease. RECOMMENDATIONS: 1. Maximize medical management of angina. 2. Nephrology consultation. 3. Echocardiography. 4. Given patient's clinical presentation with low threshold angina in setting of multiple coronary risk factors, it is highly likely that she has significant coronary atherosclerosis possibly multivessel coronary atherosclerosis given that her pharmacologic myocardial perfusion studies failed to demonstrate much in the way of ischemic defect. For this reason, at this time coronary angiography is being considered for definitive evaluation particular light of her multiple re-presentations for angina over the last year. I discussed with her that in all likelihood, dialysis was ultimately going to be needed for her down the road and that delaying definitive evaluation of her likely coronary disease was of very limited value. Contrast-induced nephropathy more often is reversible than permanent. However should she need coronary bypass surgery this may more likely result in the need for dialysis sooner. She is agreeable to considering cardiac catheterization/coronary angiography and accepting of the potential risk of going on dialysis acknowledging that she is likely high risk for significant coronary disease requiring more than medical management. HISTORY: This 52-year-old white female with past history of suspected coronary atherosclerosis, type 2 diabetes mellitus requiring insulin for control, chronic kidney disease stage 4, previous nephrectomy, COPD and chronic ongoing cigarette use, was admitted to the emergency room after episode of chest pain. She relates that she was seated and smoking a cigarette when she developed substernal chest pressure/pain with radiation to her left arm. There was associated shortness of breath. She does not have nitroglycerin although this has been prescribed for her in the past. She notified her boyfriend and EMS was summoned. She relates that she was given nitroglycerin after they arrived and her chest discomfort resolved after a total duration of approximately 25 minutes. She has not had recurrence. She has similar chest discomfort on a fairly regular basis and describes chest discomfort being provoked by walking to the mailbox or eating a meal and lying down. Antacids inconsistently relieve her chest discomfort and actually often fail to relieve her chest discomfort. She has had several presentations for chest discomfort over the past year. On one of those occasions she had a pharmacologic myocardial perfusion study which indicated a small area of inducible ischemia and normal left ventricular ejection fraction. This was taken as indicator of limited risk/favorable prognosis and she has been treated medically. Nevertheless, she continues to re-present with recurrent chest pain of anginal nature. PAST MEDICAL HISTORY: 1. Suspected coronary atherosclerosis. 2. Type 2 diabetes mellitus requiring insulin. 3. Chronic kidney disease stage 4. She is status post previous nephrectomy. 4. Chronic cigarette use. 5. Chronic obstructive pulmonary disease. 6. Hypertension. 7. Hyperlipidemia. 8. Previous transient ischemic attack. 9. Chronic obstructive pulmonary disease. PAST SURGICAL HISTORY: Previous left nephrectomy, lumbar back surgery, carpal tunnel release, breast lumpectomy and abdominal hernia repair. ALLERGIES: She is allergic or intolerant to multiple medications as listed. SOCIAL HISTORY: She lives in [place] with her boyfriend. She smokes less than a half pack of cigarettes a day. She does not use alcohol or illicit drugs. FAMILY HISTORY: Positive for early coronary artery disease. REVIEW OF SYSTEMS: Pulmonary: Noteworthy for exertional shortness of breath related to COPD. Gastrointestinal: Noteworthy for gastroparesis. She takes Reglan for this. Constitutional: Noncontributory. Neurologic: Noteworthy for previous transient ischemic attack as well as diabetic peripheral neuropathy. Remainder of review of systems negative/noncontributory with 14 total systems reviewed. PHYSICAL EXAMINATION: General: This is an obese middle-aged female in no distress. Vital signs: Blood pressure 110/64, heart rate 69, oxygen saturation 98%. HEENT: Extraocular movements intact. Mucous membranes are moist. Neck: Supple without jugular venous distention. Chest: Clear to auscultation bilaterally. Cardiac: Exam reveals a regular rate and rhythm without appreciable murmur or gallop. Abdomen: Soft, nontender. Bowel sounds normal. Extremities: Demonstrate trace ankle edema. Neurologic: Exam reveals her to be alert and fully oriented. Speech is fluent. Moves all 4 extremities equally well. Skin: Warm and dry. Psychiatric: Exam reveals her mood to be appropriate. EK lead EKG demonstrates sinus rhythm and ST abnormality, consider anterolateral ischemia. LABORATORY DATA: White blood cell count 10.8, hematocrit 34.0, hemoglobin 10.8, platelet count 160,000. Sodium 136, potassium 4.7, chloride 104, carbon dioxide 18, BUN 37, creatinine 2.5, glucose 220. Initial CPK 113, followup CPK 74. Initial troponin 0.2, followup troponin 0.284. Total cholesterol 192, triglyceride 601, HDL cholesterol 34, non-HDL cholesterol 158. cc: Shelton Ballesteros MD
[2018-07-13 05:31] LABS: BASO# 0.04 X1000 (0.0-0.2); BASO% 0.3 % (0.0-0.8); EOS# 0.44 X1000 (0.0-0.7); EOS% 3.7 % (0.0-10.0); HEMATOCRIT 32.5 % (37.0-47.0); HEMOGLOBIN 10.4 g/dL (12.0-16.0); IMM GRAN# 0.11 X1000 (0.0-0.04); IMM GRAN% 0.9 % (0.0-0.5); LYMPH% 21.1 % (20.5-51.1); MCH 30.4 PG (27-31); MONO# 0.86 X1000 (0.11-0.59); MONO% 7.3 % (1.7-9.3); NEUT# 7.89 X1000 (1.4-6.5); NEUT% 66.7 % (42.2-75.2); PLT 227 X1000 (130-400); RBC 3.42 XMIL (4.2-5.4); RDW 14.6 % (11.5-14.5); WBC 11.84 X1000 (4.8-10.8)
[2018-07-13 05:50] LABS: ALBUMIN 3.3 g/dL (3.5-5.0); CREATININE 2.6 mg/dL (0.5-0.9); POTASSIUM 5.3 mmol/L (3.5-5.1); TOTAL BILIRUBIN 0.19 mg/dL (0.20-1.00); TOTAL PROTEIN 6.5 g/dL (6.3-8.3)
[2018-07-13] MEDS: PRILOSEC PO SCH (06:06)
[2018-07-13] MEDS: HUMALOG SUBQ SCH ×4 (06:07→21:13)
--- NOTE | 2018-07-13 07:28 | EKG Report ---
Test Performed on : 07/11/2018 8:11:11 PM Test Reason : cp Blood Pressure : / mmHG Vent. Rate : 101 BPM Atrial Rate : 101 BPM P-R Int : 130 ms QRS Dur : 088 ms QT Int : 350 ms P-R-T Axes : 048 006 126 degrees QTc Int : 453 ms Sinus tachycardia. Nonspecific ST and T wave abnormality Abnormal ECG When compared with ECG of 04-JUL-2018 21:17, (Unconfirmed) No significant change was found Unconfirmed Result
--- NOTE | 2018-07-13 07:56 | EKG Report ---
Test Performed on : 07/12/2018 06:27:51 AM Test Reason : CP Blood Pressure : / mmHG Vent. Rate : 096 BPM Atrial Rate : 096 BPM P-R Int : 142 ms QRS Dur : 088 ms QT Int : 376 ms P-R-T Axes : 045 045 -12 degrees QTc Int : 475 ms Normal sinus rhythm. ST depression, consider subendocardial injury Nonspecific T wave abnormality Prolonged QT Abnormal ECG When compared with ECG of 11-JUL-2018 20:11, (Unconfirmed) Nonspecific T wave abnormality now evident in Inferior leads T wave inversion less evident in Lateral leads Confirmed by Vik THOMPSON, Salty Nicholas ([id number]) on 07/13/2018 9:44:42 PM
[2018-07-13] MEDS: ASPIRIN PO SCH (08:54)
[2018-07-13] MEDS: FERROUS SULFATE PO SCH (08:54)
[2018-07-13] MEDS: IMDUR PO SCH (08:54)
[2018-07-13] MEDS: LASIX PO SCH (08:54)
[2018-07-13] MEDS: NORVASC PO SCH (08:55)
[2018-07-13] MEDS: TOPAMAX PO SCH ×3 (08:55→21:14)
[2018-07-13] MEDS: LOPRESSOR PO SCH ×3 (08:55→21:13)
[2018-07-13] MEDS: FOLIC ACID PO SCH (08:55)
[2018-07-13] MEDS: SPIRIVA INH SCH (09:02)
[2018-07-13] MEDS: SYMBICORT 160/4.5 MICROGM INHALER INH SCH ×2 (09:02→19:30)
--- NOTE | 2018-07-13 13:49 | NEPHROLOGY CONSULTATION ---
DATE: 07/13/2018 REASON FOR CONSULT: Assistance with medical management on chronic kidney disease stage 3B/4. CONSULTING PHYSICIAN: Dr. Ballesteros. HISTORY OF PRESENT ILLNESS: Ms. Calhoun is a 52-year-old white female who is known to our outpatient services for chronic kidney disease stage 3B/4. Her baseline creatinine in December 2017 was 2.48. Her GFR, at that time, was 21%. The patient has had frequent admissions for chest pain in the last several months, followed by Cardiology. At this time, it is felt that she requires a left heart catheterization during this hospital stay with further evaluation and workup. She is currently at her baseline creatinine of 2.6 to 2.5. She does deny any chest pain at this time. No increased work of breathing. She states that she does have chronic back pain. No hematuria. No hematochezia. She denies any dysuria. No nausea, vomiting, or diarrhea. No fever or chills. It is noted that her previous evaluation in the emergency room had elevated troponins and proBNP. Since this period of time, she has been evaluated for further workup. Note, the patient has missed her last 2 appointments in our office since her December appointment. PAST MEDICAL HISTORY: Chronic kidney disease stage 3B/4, baseline creatinine is 2.48 to 2.6, type 2 diabetes mellitus, insulin dependence, chronic back pain, fibromyalgia, obesity, uncontrolled hypertension, noncompliance, COPD. PAST SURGICAL HISTORY: Left nephrectomy, previous back surgery, carpal tunnel release, breast lumpectomy, abdominal hernia repair. SOCIAL HISTORY: She lives independently. She has a boyfriend who is attentive to her care. She smokes approximately a pack per day. Denies any illicit drug use or alcohol. ALLERGIES: Listed as azithromycin, Vioxx, Macrobid, Percocet, Imitrex, and tramadol. HOME MEDICATIONS: NovoLog, Lyrica, stool softener, vitamin D2, ferrous sulfate , furosemide, Topamax, Desyrel, folic acid, lactulose, [place], amlodipine, Lipitor, isosorbide mononitrate, Lantus, MiraLAX, Symbicort, metoprolol tartrate, Prilosec, Reglan, low-dosed, aspirin, Spiriva, and Flexeril. REVIEW OF SYSTEMS: Times 10 with pertinent positives listed above in the HPI. HER VITAL SIGNS: Temperature 97.6 degrees, blood pressure 134/64, heart rate 63 , respirations are 18. She is on 2 L nasal cannula. Last recorded saturation 97%. She has had 1000 in. She has had 0 recorded out, though, patient states that she has been voiding. LABS: Sodium 136, potassium 5.3, chloride 103, CO2 21, BUN 34, creatinine 2.6, glucose 177, her anion gap is 12, calcium of 9, albumin 3.3. White count 11.84, hemoglobin 10.4 , hematocrit 32.5, with a platelet count of 227,000. PHYSICAL EXAMINATION: General: This is a 52-year-old white female resting quietly in bed. She appears chronically ill in no acute distress. Skin: Warm and dry. HEENT: Normocephalic, atraumatic. Conjunctiva is pink. She has FARA. Mucous membranes are dry. Poor dentition is noted. Neck: Supple. Trachea midline. She has no presence of JVD. Cardiovascular: Regular rate and rhythm. She has a systolic murmur. Lungs: Clear to auscultation bilaterally, equal excursion on O2. Abdomen: Soft, nontender, positive bowel sounds. Genitourinary: Not inspected. Patient has been voiding. Extremities: Have no edema, or clubbing , or cyanosis. Integumentary: Patient has scratching with different stages of healing of ecchymosis and excoriations to her upper and lower extremities. Neurological: She is alert and oriented x3. ASSESSMENT AND PLAN: 1. Chronic kidney disease stage 4. Patient remains at a historical baseline. 2. Electrolytes and acid-base balance and anemia. These are all acceptable. 3. Chest pain. The patient is needing left heart catheterization during this hospitalization. We discussed risk mitigation strategies. I would like to thank you for allowing us to follow with this patient. Dictated by CLEMENT Zepeda for James Sue MD Face to face encounter, data reviewed, discussed with Sugey Castorena on 07/13/18. I agree with the above assessment and plan of care. cc: CLEMENT Zepeda MD [facility]
--- NOTE | 2018-07-13 14:03 | ECHO REPORT ---
ORDER DATE: 07/12/2018 INDICATIONS: Coronary disease, angina, COPD, and diabetes. FINDINGS: 1. The right atrium appears normal in size at 3.2 cm. 2. Trace tricuspid regurgitation. RV systolic pressure of 46. 3. Normal RV size and systolic function. 4. Trace pulmonic insufficiency. 5. Normal left atrial size with a volume index of 27. 6. No mitral prolapse and trace mitral regurgitation. 7. Normal LV size, end-diastolic dimension of 5.4. Normal wall thicknesses with a posterior and interventricular septal wall thickness at 1.1 cm each. Normal LV systolic function. Estimated EF of 60% with normal wall motion. 8. Aortic valve opens well. No evidence of stenosis or insufficiency. 9. Aorta appears normal in visualized segments. 10. No pericardial effusion seen. cc: MD Shelton Murillo MD
--- NOTE | 2018-07-13 15:43 | PROGRESS NOTE ---
DATE: 07/13/2018 SUBJECTIVE: This patient is feeling better. No acute events overnight, mild chest pain with physical activity, the plan is to go ahead and do a cardiac catheterization tomorrow. Vital signs: Temperature 97.5 degrees, pulse 61, respiratory rate 16, blood pressure 127/70, oxygen saturation 100% on 2 L of nasal cannula. HEENT: Head normocephalic. No trauma. PERRLA. Neck: Supple. No JVD. No masses. Central trachea. Chest: Clear to auscultation. No wheezing. No rales. Abdomen: Soft, nontender, nondistended. No hepatosplenomegaly. Extremities: No edema. No clubbing. No cyanosis. Neurological: The patient is alert and oriented x3. No focal deficits. LABORATORY: WBC 11.8, hemoglobin 10.4, hematocrit 32.5, platelets 227,000, sodium 136, potassium 5.3, chloride 103, bicarbonate 21, BUN 34, creatinine 2.6, glucose 162, calcium 9, AST 11, ALT 9, alkaline phosphatase 120, albumin 3.3. ASSESSMENT AND PLAN: 1. Chest pain likely related to recurrent angina, this patient will have a cardiac catheterization tomorrow morning. Cardiology Department following this patient closely. She had an episode of mild chest pain today during mild physical activity. 2. Chronic kidney disease stage 4. BUN, creatinine at baseline stable, nephrology department has been consulted to monitor this patient. 3. Type 2 diabetes stable. Continue with the same management. Pattern of blood sugar and sliding scale insulin. 4. Hypertension stable. Continue with p.r.n. medication. 5. Chronic pain aware. 6. Tobacco use. This patient has been highly advised against tobacco use. I will continue with daily cessation education. 7. Possible chronic obstructive pulmonary disease, not in exacerbation. 8. Hyperlipidemia. Continue with Lipitor. 9. We have a positive culture that showed gram-negative wendy, this patient has been placed on ceftriaxone already. cc: Phil Chung MD
--- NOTE | 2018-07-13 16:32 | PROGRESS NOTE ---
DATE: 07/13/2018 CARDIOLOGY FOLLOWUP NOTE: SUBJECTIVE: Patient relates that if she gets up and walks about the room she may have a "twinge" of chest discomfort. She is otherwise without chest discomfort or shortness of breath. OBJECTIVE: Blood pressure 127/70, heart rate 61 and regular, oxygen saturation 100% on nasal cannula oxygen. There is no significant jugular venous distention.Chest: Clear to auscultation bilaterally. Cardiac: Reveals a regular rate and rhythm without appreciable murmur or gallop. Extremities: Without edema. LABORATORY DATA: Includes a white blood cell count 11.4, hematocrit 32.5, hemoglobin 10.4, platelet count 227,000. Sodium 136, potassium 5.3, chloride 103, carbon dioxide 21, BUN 34, creatinine 2.6, glucose 162. Initial troponin 0.200, followup troponin 0.284. Initial CPK 113, followup CPK 74. Echocardiography reports left ventricular ejection fraction 60% with normal wall motion. IMPRESSION: 1. Acute coronary syndrome. 2. Atherosclerotic coronary disease. 3. Chronic kidney disease stage IV. 4. Diabetes mellitus type 2 requiring insulin for management. 5. Chronic cigarette use. 6. Chronic obstructive pulmonary disease. RECOMMENDATIONS: 1. Initiate intravenous hydration anticipating coronary angiography. 2. Favor further evaluation with cardiac catheterization. Coronary angiography, but no left ventriculogram given patient's likely significant coronary disease which very well may be multi-vessel. The rationale for this approach has been thoroughly discussed with the patient including potential hazards with specific emphasis on the potential for deterioration in renal function and either transient or permanent hemodialysis. She acknowledges before going and very much wishes to proceed. cc: Shelton Ballesteros MD
[2018-07-13] MEDS: NS 1,000 ML IV SCH (16:39)
[2018-07-13] MEDS: LIPITOR PO SCH ×2 (19:36→21:13)
[2018-07-13] MEDS: DESYREL PO SCH ×2 (19:37→21:12)
[2018-07-14] MEDS: NS 1,000 ML IV SCH (04:42)
[2018-07-14] MEDS: NITROGLYCERIN TOP SCH ×4 (04:42→20:52)
[2018-07-14] MEDS: NORCO-10 PO PRN ×2 (04:43→20:52)
[2018-07-14 05:28] LABS: BASO# 0.04 X1000 (0.0-0.2); BASO% 0.3 % (0.0-0.8); EOS# 0.43 X1000 (0.0-0.7); EOS% 3.4 % (0.0-10.0); HEMATOCRIT 30.4 % (37.0-47.0); HEMOGLOBIN 9.6 g/dL (12.0-16.0); IMM GRAN# 0.07 X1000 (0.0-0.04); IMM GRAN% 0.6 % (0.0-0.5); LYMPH% 18.3 % (20.5-51.1); MCH 30.1 PG (27-31); MCHC 31.6 g/dL (33-37); MCV 95.3 FL (81-99); MONO# 0.75 X1000 (0.11-0.59); MPV 10.9 FL (7.4-10.4); NEUT# 9.01 X1000 (1.4-6.5); NEUT% 71.4 % (42.2-75.2); PLT 217 X1000 (130-400); RBC 3.19 XMIL (4.2-5.4); RDW 14.6 % (11.5-14.5)
[2018-07-14] MEDS: HUMALOG SUBQ SCH ×4 (06:05→21:22)
[2018-07-14 06:07] LABS: ALBUMIN 3.2 g/dL (3.5-5.0); CALCIUM 8.7 mg/dL (8.8-10.2); CREATININE 2.4 mg/dL (0.5-0.9); POTASSIUM 5.9 mmol/L (3.5-5.1)
[2018-07-14] MEDS: SYMBICORT 160/4.5 MICROGM INHALER INH SCH ×2 (08:06→19:28)
[2018-07-14] MEDS: SPIRIVA INH SCH (08:06)
--- NOTE | 2018-07-14 08:11 | EKG Report ---
Test Performed on : 07/14/2018 07:58:46 AM Test Reason : pre heart cath Blood Pressure : / mmHG Vent. Rate : 071 BPM Atrial Rate : 071 BPM P-R Int : 144 ms QRS Dur : 086 ms QT Int : 412 ms P-R-T Axes : 054 007 -76 degrees QTc Int : 447 ms Normal sinus rhythm. ST & T wave abnormality, consider inferior ischemia Abnormal ECG When compared with ECG of 12-JUL-2018 06:27, No significant change was found Confirmed by Vik THOMPSON, Salty Nicholas ([id number]) on 07/14/2018 6:15:59 PM
[2018-07-14 08:21] LABS: INR 0.86; PROTIME 12.4 Seconds (11.0-16.0); PTT 24.1 Seconds (22.3-41.8)
[2018-07-14] MEDS: FERROUS SULFATE PO SCH (08:43)
[2018-07-14] MEDS: PRILOSEC PO SCH (08:43)
[2018-07-14] MEDS: ASPIRIN EC PO SCH (08:43)
[2018-07-14] MEDS: TOPAMAX PO SCH ×2 (08:43→20:52)
[2018-07-14] MEDS: FOLIC ACID PO SCH (08:43)
[2018-07-14] MEDS: NORVASC PO SCH (08:43)
[2018-07-14] MEDS: LOPRESSOR PO SCH ×2 (08:43→20:52)
[2018-07-14] MEDS: IMDUR PO SCH (08:44)
[2018-07-14] MEDS ORDERED: KAYEXALATE PR ONE (08:59)
[2018-07-14] MEDS ORDERED: ALBUTEROL 0.5% INH CONC FOR HYPERKALEMIA INH ONE (08:59)
[2018-07-14] MEDS ORDERED: HUMULIN R IV ONE (09:00)
[2018-07-14] MEDS ORDERED: D50W SYRINGE IV ONE (09:01)
[2018-07-14] MEDS ORDERED: CALCIUM GLUCONATE 4.65 MEQ in NS 50 ML IV ONE (09:30)
[2018-07-14] MEDS ORDERED: HEPARIN 1000 UNITS/NS 1,000 UNIT/500 ML IV.SOLN ONE (09:32)
--- NOTE | 2018-07-14 09:34 | EKG Report ---
Test Performed on : 07/14/2018 09:29:14 AM Test Reason : cheest pain Blood Pressure : / mmHG Vent. Rate : 069 BPM Atrial Rate : 069 BPM P-R Int : 116 ms QRS Dur : 092 ms QT Int : 420 ms P-R-T Axes : 046 012 -88 degrees QTc Int : 450 ms Normal sinus rhythm. ST & T wave abnormality, consider inferior ischemia (diffuse inferior flattening) Abnormal ECG When compared with ECG of 14-JUL-2018 07:58, (Unconfirmed) No significant change was found Confirmed by Vik THOMPSON, Salty Nicholas ([id number]) on 07/14/2018 6:21:52 PM
[2018-07-14] MEDS ORDERED: LASIX IV ONE ×2 (09:35→10:58)
[2018-07-14] MEDS: NITROGLYCERIN SL PRN ×3 (09:36→10:19)
--- NOTE | 2018-07-14 09:36 | PROGRESS NOTE ---
DATE: 07/14/2018 SUBJECTIVE: No acute events overnight. Today, in the morning, she had nausea and vomiting, and she has been having some chest discomfort, and she believes this is likely related to anxiety due to the procedure that she will have today. OBJECTIVE: Vital signs: Temperature 97.7, pulse 70, respiratory rate 16, blood pressure 117/60, oxygen saturation 100% on 3 L of nasal cannula. HEENT: Head normocephalic, no trauma, PERRLA. Neck: Supple. No JVD. No masses. Central trachea. Chest: Clear to auscultation. No wheezing or rales. Abdomen: Soft, nontender, nondistended, no hepatosplenomegaly. Extremities: No edema, no clubbing, no cyanosis. Neurological: The patient is alert and oriented x3. No focal deficits. LABORATORY: WBC 12.6, hemoglobin 9.6, hematocrit 30.4, platelets 217. Sodium 131, potassium 5.9, chloride 101, bicarbonate 18, BUN 28, creatinine 2.4, glucose 177, calcium 8.7. Albumin 3.2. ASSESSMENT AND PLAN: 1. Chest pain related to recurrent angina. This patient hopefully will have a cardiac cath today. Cardiology is currently following this patient closely. She has been placed on fluids already. 2. Chronic kidney disease stage 4 with hyperkalemia. I will treat the potassium. I will use Kayexalate rectally to avoid p.o. treatment. I will notify the cardiology department about this result. 3. Type 2 diabetes, stable. Continue with the management, patterned blood sugar with sliding scale insulin. 4. Hypertension, stable. Continue with p.r.n. medication. 5. Chronic pain, aware. 6. Tobacco use. This patient has been highly advised against tobacco use. I will continue with cessation education. 7. Chronic possible chronic obstructive pulmonary disease, noted exacerbation. 8. Hyperlipidemia. Continue with Lipitor. 9. Urinary tract infection. She has been placed on ceftriaxone, but I will put this patient on carbapenem since this is an ESBL E. coli urinary tract infection. cc: Phil Chung MD
[2018-07-14] MEDS: LASIX PO SCH (09:37)
[2018-07-14] MEDS ORDERED: NITROGLYCERIN ONE (09:39)
[2018-07-14] MEDS: INVANZ 0.5 GM in NS 50 ML IV SCH (10:32)
--- NOTE | 2018-07-14 10:53 | NEPHROLOGY PROGRESS NOTE ---
DATE: 07/14/2018 TIME SEEN: 0820. SUBJECTIVE: Ms. Calhoun is resting quietly in bed. Her head of the bed is elevated. She is n.p.o. She is waiting to go for her left heart catheterization this a.m. per Dr. Ballesteros. OBJECTIVE: Vitals: Her most recent vital signs, temperature 97.7 degrees, blood pressure 116/53, heart rate 68, respirations 18. She is on 2 L nasal cannula. Last recorded saturation 99%. General: This is a 52-year-old white female resting quietly in bed. She appears chronically ill, though in no acute distress. Skin: Warm and dry. HEENT: Normocephalic, atraumatic. Conjunctiva is pale pink. She has FARA. Mucous membranes are dry. Neck: Supple. Trachea midline. No JVD. Cardiovascular: She is regular rate and rhythm. She has a systolic murmur. Lungs: Clear to auscultation bilaterally, equal excursion on O2. Abdomen: Soft, nontender. Positive bowel sounds. Genitourinary: Not inspected. She has adequate urine out. Extremities: No edema. No clubbing. No cyanosis. Integumentary: Again different stages of healing excoriations and ecchymosis to the upper extremities, greater than lower extremities. Neurological: She is alert and oriented x3. INPUT AND OUTPUT: She has had 1312 in, she has had 600 out to void. LABORATORY: Sodium 131, potassium 5.9, chloride 101, CO2 18, BUN 28, creatinine 2.4, glucose 177, her anion gap is 12, calcium 8.7, phosphorus 4, albumin 3.2. White count 12.6, hemoglobin 9.6, hematocrit 30.4 with a platelet count of 217,000. ASSESSMENT AND PLAN: 1. Chronic kidney disease stage 4. The patient is at her historical baseline. She has had IV fluid resuscitation overnight prior to her left heart catheterization. 2. Electrolytes, acid-base balance, and anemia. These are acceptable. 3. Chest pain, left heart catheterization planned this a.m. Patient is nothing per oral. We have spoken with Dr. Ballesteros in regards with IV fluid hydration, which was started yesterday and minimal dye to be used. The patient states understanding. We will continue to follow and monitor daily laboratories. I would like to thank you for allowing us to follow with this patient. Dictated by CLEMENT Zepeda for James Sue MD Face to face encounter, data reviewed, discussed with Sugey Castorena on 07/14/18. I agree with the above assessment and plan of care. cc: CLEMENT Zepeda MD [facility]
[2018-07-14] MEDS ORDERED: MORPHINE IV ONE (10:59)
--- NOTE | 2018-07-14 12:33 | PROGRESS NOTE ---
DATE: 07/14/2018 SUBJECTIVE: The patient reported recurrent chest discomfort with anginal features this morning that seemed to be worse when she would be lying down. There is some associated shortness of breath. She was given sublingual nitroglycerin and symptoms have improved, but not completely resolved. ECG showed no acute change. She still has some mild residual chest discomfort. OBJECTIVE: Vital Signs: Blood pressure 128/65, heart rate 66, oxygen saturation 100% on nasal cannula oxygen at 2 L/minutes. Neck: There is no significant jugular venous distention. Chest: Clear to auscultation. Cardiac Exam: Reveals a regular rate and rhythm without appreciable murmur or gallop. Extremities: There is no evidence of peripheral edema. LABORATORY DATA: Remarkable for initial troponin 0.2, followup troponin 0.284, and third troponin 0.264. IMPRESSION: 1. Acute coronary syndrome. The patient has had some further recurrence of chest discomfort and seems to be somewhat tenuous. 2. Atherosclerotic coronary disease. 3. Chronic kidney disease stage 4. 4. Diabetes mellitus type 2, requiring insulin for management. 5. Chronic cigarette use. 6. Chronic obstructive pulmonary disease. RECOMMENDATIONS: 1. Given the patient's clinical course with acute coronary syndrome and recurrent chest symptoms, it would be preferable for her to have cardiac catheterization in [place]. This was discussed with her and she is willing to be transferred. 2. Will give additional Lasix to try and diurese, to alleviate some of her chest symptoms which are already improving. It may be that intravenous hydration has brought this out a little further. cc: Shelton Ballesteros MD
--- NOTE | 2018-07-14 13:16 | INFECTIOUS DISEASE CONSULT REP ---
DATE: 07/14/2018 CONCLUSION: The patient has an extended spectrum beta lactamase producing E coli urinary tract infection. The patient also has a leukocytosis which I think is caused by the urinary tract infection and furthermore the patient on urinalysis has white cells and bacteria indicating that there is an infection present in the urinary tract. RECOMMENDATIONS: Even though the patient is asymptomatic, I think her urinary tract infection should be treated for a few reasons. The patient has a leukocytosis and I think that it is being caused by the patient's urinary tract infection and very frequently that will mean that the kidneys are involved also. In addition, as mentioned above, the patient's urinalysis shows white cells and bacteria indicating that the body is responding to a infection in this situation in the urinary tract. I agree with decreasing the dose of ertapenem because of the patient's end-stage renal disease. I also think it would be reasonable to treat the patient's urinary tract infection in case she need some urgent surgery. Dr. Hurtado is apparently planning to do a cardiac catheterization either here or have it done at [facility]. I think it would be better to treat an infection before the patient has a procedure done. PRESENT ILLNESS: The patient has no symptoms of a urinary tract infection. She denies having dysuria, flank pain, urinary frequency and low back pain. As mentioned above, her CBC shows that she has a white blood cell count of 12,600, hemoglobin is 9.6, and platelet count is 217,000. Urinalysis showed white cells and bacteria. Chest x-ray showed no acute disease. Creatinine is 2.4. GFR is 21. PAST MEDICAL HISTORY/REVIEW OF SYSTEMS: Eyes and ears: The patient has decreased hearing and vision. Bones, joints, muscles: She has fibromyalgia and she states that she has pains in the legs primarily. Respiratory: The patient is not having dyspnea or cough. Cardiac: The patient does have chest pain. She said it is not related to activity or position or eating. GI: The patient says she frequently does not pass stool frequently because she is on many medications that may be causing the condition. Endocrine: Patient has diabetes mellitus but not thyroid disease. Neurologic: No seizures, patient has no loss of unilateral motor function. Integument: No rashes. SALESPERSON ART OBJECTS HISTORY: She is a 3, para 2, AB1. She has had a tubal ligation. PREVIOUS HOSPITALIZATIONS AND OPERATIONS: Patient has had 2 later labor and deliveries, a miscarriage and tubal ligation. She has had 2 laminectomies and bilateral carpal tunnel surgeries. She has had breast biopsies and a hernia repair. Patient has been admitted to the hospital with symptoms of transient ischemic attacks. MEDICAL DISEASES: Positive for fibromyalgia, diabetes mellitus, hypertension and transient ischemic attacks. INFECTIOUS DISEASE HISTORY: Positive for pneumonia and UTI. FAMILY HISTORY: Positive for hypertension, myocardial infarction, stroke and cancer. SOCIAL HISTORY: [place], she is , she lives alone. She has cat as a pet. ALLERGIES: She says she is allergic to azithromycin, Nalfon, Vioxx, Macrobid, oxycodone, Imitrex and tramadol. PHYSICAL EXAMINATION: Vital Signs: Temperature is 97.5 degrees, pulse 66, respirations 16, blood pressure 128/65, patient is 5 feet 2 inches tall, weighs 191 pounds. General: This is an obese middle-aged female. She is not in any acute distress. Head/eyes/ears/nose/throat: She can hear my spoken words and see near objects. The patient does have some white coating to her tongue. She tells me that this is because of the medicine she takes and she does not have any symptoms to suggest oral candidiasis such as painful tongue or odynophagia or throat pain. Neck: No meningismus. Lungs: Clear to auscultation. Cardiovascular: Heart rate is regular. Abdomen: Soft and nontender. Neurologic: Patient is alert. She can move her extremities. There is no tremor. The patient is able to ambulate, her sensation is intact to touch. Thank you for the consult. cc: Pipo Douglas MD
[2018-07-14 13:20] LABS: CALCIUM 9.2 mg/dL (8.8-10.2); CREATININE 2.7 mg/dL (0.5-0.9); POTASSIUM 5.3 mmol/L (3.5-5.1)
[2018-07-14] MEDS: DESYREL PO SCH (20:52)
[2018-07-14] MEDS: LIPITOR PO SCH (20:52)
[2018-07-15] MEDS: NITROGLYCERIN TOP SCH ×3 (04:06→15:15)
[2018-07-15 05:36] LABS: ALBUMIN 3.3 g/dL (3.5-5.0); CALCIUM 9.3 mg/dL (8.8-10.2); CREATININE 2.7 mg/dL (0.5-0.9); PHOSPHORUS 4.8 mg/dL (2.7-4.5); POTASSIUM 5.7 mmol/L (3.5-5.1)
[2018-07-15 05:55] LABS: MCV 96.8 FL (81-99); RDW 14.7 % (11.5-14.5)
[2018-07-15] MEDS: PRILOSEC PO SCH (06:01)
[2018-07-15] MEDS: HUMALOG SUBQ SCH ×2 (06:01→11:45)
[2018-07-15 06:33] LABS: HEMATOCRIT 29.9 % (37.0-47.0); HEMOGLOBIN 9.3 g/dL (12.0-16.0); MCH 30.1 PG (27-31); MCHC 31.1 g/dL (33-37); MPV 11.5 FL (7.4-10.4); RBC 3.09 XMIL (4.2-5.4); WBC 12.62 X1000 (4.8-10.8)
--- NOTE | 2018-07-15 08:07 | INFECTIOUS DISEASE PROGRESS NO ---
DATE: 07/15/2018 PRESENT ILLNESS: The patient has an extended spectrum beta lactamase producing E coli urinary tract infection with probable involvement of the kidney. MEDICATION: The patient is on ertapenem in a dose of 0.5 g IV daily. The dose has been modified because of the patient's end-stage renal disease. PHYSICAL EXAMINATION: Vital Signs: Temperature is 98.2, pulse 76, respirations 14, blood pressure 132/69. General: This is a lethargic, middle-aged female. She is in no acute distress. HEENT: No drainage noted from the nose or ears. Neck: No stiffness. Lungs: Clear to auscultation. Cardiovascular: Heart rate is regular. Abdomen: Soft and nontender. Neurologic: The patient is more sleepy this morning. The patient did respond to verbal stimuli. There is no tremor. Patient is lethargic, but arousable. She did answer questions. She did move her extremities. There is no tremor. LAB AND X-RAY: There was no radiologic study done today. The patient's CBC shows a white count of 12,620, hemoglobin 9.3, and platelet count 219,000, creatinine is 2.7. GFR is 18. ASSESSMENT AND PLAN: The patient has extended spectrum beta lactamase producing E coli urinary tract infection. My plan is to continue treatment with ertapenem in a reduced dose, specifically as 500 mg IV daily. COMORBIDITIES: Include diabetes mellitus, transient ischemic attacks, hypertension and fibromyalgia. cc: Pipo Douglas MD
[2018-07-15] MEDS: SPIRIVA INH SCH (08:08)
[2018-07-15] MEDS: SYMBICORT 160/4.5 MICROGM INHALER INH SCH (08:09)
[2018-07-15] MEDS ORDERED: HUMULIN R IV ONE (08:32)
[2018-07-15] MEDS ORDERED: KAYEXALATE PR ONE (08:32)
[2018-07-15] MEDS ORDERED: ALBUTEROL 0.5% INH CONC FOR HYPERKALEMIA INH ONE (08:32)
[2018-07-15] MEDS ORDERED: CALCIUM GLUCONATE 4.65 MEQ in NS 50 ML IV ONE (08:33)
[2018-07-15] MEDS ORDERED: D50W SYRINGE IV ONE (08:33)
[2018-07-15] MEDS: LOPRESSOR PO SCH (08:36)
[2018-07-15] MEDS: FOLIC ACID PO SCH (08:37)
[2018-07-15] MEDS: NORVASC PO SCH (08:38)
[2018-07-15] MEDS: TOPAMAX PO SCH (08:38)
[2018-07-15] MEDS: FERROUS SULFATE PO SCH (08:38)
[2018-07-15] MEDS: LASIX PO SCH (08:39)
[2018-07-15] MEDS: INVANZ 0.5 GM in NS 50 ML IV SCH (08:39)
[2018-07-15] MEDS: ASPIRIN EC PO SCH (08:39)
[2018-07-15] MEDS: IMDUR PO SCH (08:39)
[2018-07-15] MEDS ORDERED: D5 1/2 NS 1,000 ML IV SCH (08:45)
--- NOTE | 2018-07-15 09:28 | PROGRESS NOTE ---
DATE: 07/15/2018 SUBJECTIVE: No acute events overnight. She is still hyperkalemic at 5.7. She is n.p.o., and I will give her some gentle fluid hydration. I will treat the high potassium as well. We will continue treating the urinary tract infection by ESBL Escherichia coli. Infectious Disease on board. This patient will be transferred to [facility]. Once we have a bed available. OBJECTIVE: Vital Signs: Temperature 97.7, pulse 76, respiratory rate 16, blood pressure 119/63, oxygen saturation 98 on 3 L of nasal cannula. HEENT: Head normocephalic. No trauma. PERRLA. Neck supple. No JVD. No masses. Central trachea. Chest clear to auscultation. No wheezing. No rales. Abdomen is soft, nontender, nondistended. No hepatosplenomegaly. Extremities: No edema. No clubbing. No cyanosis. Neurologic: Alert and oriented x3. No focal deficits. LABORATORY: WBC 12.6, hemoglobin 9.3, hematocrit 29.9. Platelets 219,000. Sodium 134, potassium 5.7, chloride 103, bicarbonate 21. BUN 28, creatinine 2.7, glucose 130. Calcium 9.3. Phosphorus 4.8. Albumin 3.3. ASSESSMENT AND PLAN: 1. Chest pain related to recurrent angina. This patient hopefully will be transferred to [facility] today. In the meantime, Cardiology Department is following this patient closely. She is still complaining of some chest pain. 2. Chronic kidney disease, stage 4, with hyperkalemia. I will treat the potassium today again, and I will monitor a new BMP in 4 hours. 3. Type 2 diabetes, stable. Continue with the same management. Since she is n.p.o., I will add a little bit of gentle fluid through her IV. 4. Hypertension, stable. Continue with p.r.n. medication. 5. Chronic pain, aware. 6. Tobacco use. This patient has been highly advised against tobacco use. I will continue with daily cessation education. 7. Chronic, possible chronic obstructive pulmonary disease, not in exacerbation. 8. Hyperlipidemia. Continue with Lipitor. 9. Extended spectrum beta-lactamase Escherichia coli urinary tract infection. Continue with ertapenem which has been adjusted to her kidney function. CRITICAL CARE TIME: 35 minutes. cc: Phil Chung MD
[2018-07-15] MEDS: NORCO-10 PO PRN (10:30)
--- NOTE | 2018-07-15 10:43 | EKG Report ---
Test Performed on : 07/15/2018 10:37:10 AM Test Reason : chest pain Blood Pressure : / mmHG Vent. Rate : 091 BPM Atrial Rate : 091 BPM P-R Int : 156 ms QRS Dur : 100 ms QT Int : 376 ms P-R-T Axes : 064 029 140 degrees QTc Int : 462 ms Normal sinus rhythm. ST depression, consider subendocardial injury Nonspecific T wave abnormality Abnormal ECG When compared with ECG of 14-JUL-2018 09:29, Nonspecific T wave abnormality no longer evident in Inferior leads Nonspecific T wave abnormality, worse in Lateral leads Confirmed by Vik THOMPSON, Salty Nicholas ([id number]) on 07/16/2018 7:17:15 PM
[2018-07-15] MEDS: NITROGLYCERIN SL PRN (10:48)
[2018-07-15] MEDS ORDERED: LASIX IV ONE (11:11)
[2018-07-15] MEDS ORDERED: MORPHINE IV ONE (11:12)
[2018-07-15 12:55] LABS: CALCIUM 9.4 mg/dL (8.8-10.2); CREATININE 2.9 mg/dL (0.5-0.9); POTASSIUM 5.3 mmol/L (3.5-5.1)
--- NOTE | 2018-07-15 13:03 | NEPHROLOGY PROGRESS NOTE ---
DATE: 07/15/2018 TIME SEEN: 0750 hours. SUBJECTIVE: Ms. Calhoun is resting quietly in bed. Head of the bed is slightly elevated. She states that she did not have her left heart catheterization and that she is to be transferred to [facility] to have her left heart catheterization there just in case she is at risk for intervention. She denies any pain or increased work of breathing. LABORATORY DATA: Her sodium is 134, potassium 5.7, chloride 103, CO2 if 21, BUN 28, creatinine 2.7, glucose 130, anion gap 10, calcium 4.8, albumin 3.3. White count 12.62, hemoglobin 9.3, hematocrit 29.9, with a platelet count of 219,000. She has had an echocardiogram performed on this admission on 07/12/2017, with an ejection fraction noted at 60%. OBJECTIVE: Vital Signs: Her most recent vital signs, her last temperature 97.7 degrees, blood pressure 119/63, heart rate 86, respirations are 14. She is on 2 liters nasal cannula, last recorded saturation is 100%. She has had 651 input; she has had 650 mL out. General: On physical exam, this is a 52-year-old white female resting quietly in bed. She is in no acute distress, though she appears chronically ill. Skin: Warm and dry. HEENT: Normocephalic, atraumatic. Conjunctivae are pale pink. She has FARA. Mucous membranes are dry. Neck: Supple. Trachea midline. No JVD. Cardiovascular: Regular rate and rhythm. Systolic murmur is present. Lungs: Clear to auscultation bilaterally with equal excursion on O2. Abdomen: Soft, nontender, positive bowel sounds. Genitourinary: Not inspected. Adequate urine out to void. Extremities: Have no edema. No clubbing or cyanosis. Integumentary: She has stages of healing ecchymoses and excoriations to her upper and lower extremities. Neurological: She is alert and oriented x3. ASSESSMENT AND PLAN: 1. Chronic kidney disease stage 4. The patient remains at her historical creatinine baseline of 2.7. Her IV fluids have currently been stopped since she is not scheduled for a left heart catheterization at this time. 2. Electrolytes, acid-base balance and anemia. These are acceptable. 3. Chest pain. As mentioned above, the patient is scheduled for a left heart catheterization once transferred and accepted to [facility] for possible intervention, status post heart catheterization. I would to thank you for allowing us to follow with this patient. Dictated by CLEMENT Zepeda for James Sue MD Face to face encounter, data reviewed, discussed with Sugey Castorena on 07/15/17. I agree with the above assessment and plan of care. cc: CLEMENT Zepeda MD [facility]
[2018-07-15] MEDS ORDERED: LOVENOX SUBQ ONE (14:59)
[2018-07-15 16:13] VITALS: BP 125/71
--- NOTE | 2018-07-16 05:29 | DISCHARGE SUMMARY ---
ADMISSION DATE: 07/12/2018 DISCHARGE DATE: 07/15/2018 DISCHARGE DIAGNOSES: 1. Recurrent chest pain related to recurrent angina. 2. Chronic kidney disease stage 4. 3. Type 2 diabetes. 4. Hypertension. 5. Chronic pain. 6. Possible chronic obstructive pulmonary disease, not in exacerbation. 7. Hyperlipidemia. 8. Extended-spectrum B-lactamase Escherichia coli urinary tract infection. 9. Tobacco abuse. CONSULTS: Cardiology department, Dr. Shelton Ballesteros; also nephrology department, Dr. Sue; infectious disease department, Dr. Pipo Douglas. HOSPITAL COURSE: This is a 52-year-old, female with a past medical history of type 2 diabetes requiring insulin, chronic kidney disease stage 4, chronic pain, fibromyalgia, obesity, hypertension, COPD, medical noncompliance, admitted on 07/12/2018 due to chest pain. As per the patient, she was sitting at the kitchen table smoking a cigarette on the date of admission when she started having chest pain. She came to the emergency department. Evaluated by the ER doctor who found an elevated troponin and also proBNP. Since January of this past year, 2017, she has been admitted for a total of four times for chest pain. Last January 2018, she had a myocardial perfusion scan which showed a tiny spot of reversible and given her comorbidities, it was recommended that she have followup with cardiology and seek medical treatment but she never followed up with cardiology because she said that nobody set her up any appointments. The patient also has stage IV kidney dysfunction and is supposed to be following up regularly with Dr. Sue but she missed some appointments. The patient was actually discharged from this hospital on July 06 after presenting with chest pain, negative enzymes x3. No other workup was undertaken but followup with cardiology was supposed to be arranged at that time as well. The patient has been transferred to the [facility] unit and evaluated by the cardiology department who had the impression of recurrent angina with limited threshold for onset of symptoms and also atherosclerotic coronary disease, on top of tobacco use. They maximized medical management of angina. They asked for an echocardiography. Given her presentation, they thought about getting a cardiac catheterization. Since this patient has stage 4 kidney disease, nephrology department was contacted to keep an eye on this patient. Echocardiogram actually showed an ejection fraction of 60% with normal left ventricular systolic function and normal wall motion, trace pulmonary insufficiency, trace tricuspid regurgitation, and the right ventricular systolic pressure was 46. It looks like nothing to be worried about with that echocardiogram. IV hydration was started, anticipating a coronary angiography. The patient, the following day, started having chest pain again so cardiology department reevaluated this patient. They have requested to transfer this patient to [facility]. The case has been discussed with the patient and she is willing to be transferred. Vital signs have been stable. Troponins were increasing. The initial one was 0.2 and today is 0.35. Potassium level has been elevated. We have been giving her medications to decrease it. Hemoglobin has been stable, down from admission of 11 to 9.3, but no signs of bleeding. The patient has been having chest discomfort on and off. Today, 07/15/2018, this patient has been accepted at [facility] for further evaluation and possible coronary angiogram to be done today. Even though she is not having urinary symptoms, we started treating this patient because the urine showed ESBL urinary tract infection, E. coli. We started this treatment with ertapenem, renally dosed given her kidney dysfunction. At the moment of discharge, this patient was in a stable medical condition, tolerating p.o. PHYSICAL EXAMINATION: Vital Signs: Temperature 98.1 degrees, pulse 89, respiratory rate 18, blood pressure 135/66, oxygen saturation 97% on 2 L of nasal cannula. HEENT: Head normocephalic. No trauma. PERRLA. Neck: Supple. No JVD. No masses. Central trachea. Chest: Clear to auscultation. No wheezing. No rales. Abdomen: Soft, nontender, nondistended. No hepatosplenomegaly. Extremities: No edema. No clubbing. No cyanosis. Neurological Examination: The patient is alert and oriented x3. No focal deficits. LABORATORY DATA: WBC 12.6, hemoglobin 9.3, hematocrit 29.9, platelets 218,000. Sodium 133, potassium 5.3 down from 5.7, chloride 100, bicarbonate 21, BUN 30, creatinine 2.9, glucose 227, calcium 9.4, phosphorus 4.8. DISPOSITION: This patient will be transferred to [facility] to be evaluated by cardiology department for possible cardiac catheterization due to recurrent angina. Time discharging this patient was 30 minutes. cc: Phil Chung MD
[2018-07-18] MEDS ORDERED: VITAMIN D PO SCH (09:00)
== END 2018-07-15 16:48 | disposition short-term general hospital (02) | DRG 303 ==
LOC: SUPCPDRO → ED 19:56 → EDIPHOLD 07-12 00:25 → SUATTDRO 07-12 00:25 → 3S 07-13 02:29
PROVIDERS: ATTEND Internal Medicine
CPT/HCPCS: 36415; 71010; 71045; 80048; 80053; 80061; 80069; 81001; 82550; 82948; 83605; 83721; 83880; 84484; 85025; 85027; 85610; 85730; 87077; 87088; 87186; 93005; 93010; 93306; 94640; 94760; 94761; 96365; 96372; 96375; 99285; A9270; J0610; J0696; J1335; J1644; J1650; J1815; J1940; J2270; J2405; J7030; XXXXX

== ENCOUNTER 2019-01-06 17:15 | Inpatient (IN) ==
[2019-01-06] MEDS ORDERED: ASPIRIN PO ONE (17:25)
--- NOTE | 2019-01-06 17:38 | PROVIDER DOCUMENTATION ---
HPI-Chest Pain - General Chief Complaint: General Adult Stated Complaint: PT STATES STROKE SYMPTOMS Time Seen by Provider: 01/06/19 17:30 Source: patient Allergies/Adverse Reactions: Patient Allergies Allergy/AdvReac Type Severity Reaction Status Date / Time azithromycin [From Zithromax] Allergy ANAPHYLAXIS Verified 01/06/19 18:49 fenoprofen [From Nalfon] Allergy ANAPHYLAXIS Verified 01/06/19 18:49 milk Allergy ABDOMINAL Verified 01/06/19 18:49 PAIN rofecoxib [From Vioxx] Allergy Unknown Verified 01/06/19 18:49 nitrofurantoin AdvReac HEADACHE Verified 01/06/19 18:49 [From Macrobid] nitrofurantoin AdvReac HEADACHE Verified 01/06/19 18:49 macrocrystalline * [From Macrobid] oxycodone HCl * AdvReac Unknown Verified 01/06/19 18:49 [From Percocet] sumatriptan [From Imitrex] AdvReac Unknown Verified 01/06/19 18:49 sumatriptan succinate * AdvReac Unknown Verified 01/06/19 18:49 [From Imitrex] tramadol AdvReac Unknown Verified 01/06/19 18:49 Home Medications: Home Medication List Medication Instructions Recorded Confirmed Last Taken Type Insulin Aspart [Novolog] See Protocol SQ AC + HS 02/14/17 01/06/19 01/06/19 History Pregabalin [Lyrica] 100 mg PO BID 03/13/17 01/06/19 01/06/19 History Furosemide 20 mg PO BID 01/07/18 01/06/19 01/06/19 History Trazodone [Desyrel] 50 mg PO QHS 01/07/18 01/06/19 1 Day Ago History ~01/05/19 Lactulose 30 ml PO BID PRN #1 udc 02/18/18 01/06/19 1 Month Ago Rx ~12/07/18 ATORVAstatin [Lipitor] 40 mg PO HS 05/21/18 01/06/19 1 Day Ago History ~01/05/19 Pen Needle,Dual Safety,Diabetc 1 dose SQ DAILY 05/21/18 01/06/19 01/06/19 History [Autoshield Duo Pen Needle] Insulin Glargine [Lantus] 40 unit SUBQ BID 07/05/18 01/06/19 01/06/19 History Aspirin EC 81 mg PO DAILY 07/06/18 01/06/19 01/06/19 History Cyclobenzaprine [Flexeril] 10 mg PO TID PRN 07/06/18 01/06/19 1 Day Ago History ~01/05/19 Metoprolol Tartrate 100 mg PO BID 07/06/18 01/06/19 01/06/19 History Nitroglycerin Sl [Nitroglycerin] 1 tab SL DIRECTED PRN 07/06/18 01/06/19 01/06/19 History Tiotropium [place] Inhaler 1 puff INH RTDAILY 07/06/18 01/06/19 01/06/19 History [Spiriva] Budesonide/Formoterol Fumarate 2 puff INHALATION BID 01/06/19 01/06/19 01/06/19 History [Symbicort 160-4.5 Mcg Inhaler] Ticagrelor [Brilinta] 90 mg PO BID 01/06/19 01/06/19 01/06/19 History - History of Present Illness-CP Nature of Presenting Problem: 53 YOF PRESENTS WITH C/O CP THAT RADIATED DOWN LEFT ARM WHICH BEGAN AFTER WALKING TO AND FROM CAR. SHE DESCRIBES THE CP HEAVINESS, SHE REPORTS SHE SAT DOWN TO REST IT DID NOT RESOLVE SO SHE TOOK NTG X 2 WHICH RESOLVED THE CP. SHE REPORTS CP WAS ASSOCIATED WITH SOME SOB, SHE HAS COPD AND SMOKES PER HER REPORT. SHE ALSO C/O NECK PAIN AND TENDERNESS UNRELATED TO THE CP. SHE DENIES WEAKNESS IN ARMS LEGS OR SLURRED SPEECH, NAUSEA, VOMITING, DIARRHEA, FEVER, AND CHILLS. Location: reports: substernal Chest Pain Radiation: reports: arms (L ARM) Quality of Pain: reports: pressure Severity in ED: mild Onset/Duration: 1-3 hours ago Timing: gone now (RESOLVED WITH NTG AT HOME X 2) Context/Activities at Onset: reports: moderate activity (WALKING FROM CAR TO HOUSE AND BACK) Associated Symptoms: reports: shortness of breath Nitro Today/Relief: 0.4 mg x 2, provided at home Aspirin Treatment Today: 81 mg x 1 Prior Chest Pain/Cardiac Workup: reports: cardiac cath (HAS STENTSS) Similar Symptoms Previously?: No Recently Seen Here or By Another Healthcare Provider: No Review of Systems - Adult - REVIEW OF SYSTEMS - ADULT Constitutional: reports: no symptoms reported. denies: see HPI, chills, fever, fatique, night sweats, weight gain, weight loss, other Eyes: reports: no symptoms reported. denies: see HPI, discharge, dry eyes, decreased vision, blurred vision, double vision, eye pain, redness, other Ears, Nose, Mouth & Throat: reports: no symptoms reported. denies: see HPI, ear discharge, ear pain, hearing loss, tinnitus, epistaxis, sinus problem, nose pain, loose teeth, mouth/dental pain, mouth swelling, hoarseness, throat pain, throat swelling, other Cardiovascular: reports: chest pain, edema. denies: no symptoms reported, see HPI, heart murmur, irregular heart rate, orthopnea, palpitations, poor circulation, PND, syncope, other Respiratory: reports: cough (AT BASELINE PER PT NO SPUTUM), shortness of breath Gastrointestinal: reports: no symptoms reported. denies: see HPI, abdominal pain, hematemesis, constipation, diarrhea, difficulty swallowing, frequent heartburn, nausea, poor appetite, rectal bleeding, vomiting, other Genitourinary: reports: no symptoms reported. denies: see HPI, dysuria, discha rge, frequency, flank pain, frequent UTI's, hematuria, hesitency, incontinence, urinary retention, urgency, other Musculoskeletal: reports: neck pain (L SIDE, TENDERNES NOT ON VERTEBREA) Integumentary: reports: no symptoms reported. denies: see HPI, hives, hair loss, itching, mole changes, nail changes, rash, skin sores/ulcer, skin thickening, other Neurological: reports: no symptoms reported. denies: see HPI, ataxia, dizziness/vertigo, headache/migraines, loss of balance, numbness, paresthesia, seizure, slurred speech, syncope, tremors, other Psychiatric: reports: no symptoms reported. denies: see HPI, anxiety, anti- depressant use, alcohol/drug dependence, depression, emotional problems, insomnia, panic attacks, suicidal thoughts, other Endocrine: reports: no symptoms reported. denies: see HPI, change in skin pigment, excessive sweating, goiter, cold intolerance, heat intolerance, i ncreased hunger, increased thirst, polyuria, other Hematologic/Lymphatic: reports: no symptoms reported. denies: see HPI, blood clots, easy bruising, low blood count, lymphedema, prolonged bleeding, swollen lymph nodes, transfusions, other Allergic/Immunologic: reports: no symptoms reported. denies: see HPI, allergic reactions, allergic rhinitis, asthma, eczema, food allergy, frequent infections, hay fever, hives, positive PPD, urticaria, other Past History - Adult - PAST MEDICAL HISTORY-ADULT Review of Records: reports: Nursing Assessment Review, Social history reviewed & non-contributory. Major Childhood Illnesses: reports: denies history Cardiovascular: reports: CHF, HTN, hyperlipidemia Respiratory: reports: denies history, COPD Gastrointestinal: reports: denies history Obstetrical/Gynecological: reports: denies history Genitourinary: reports: kidney disease (stage 4 kidney failure R kidney; L nephrectomy) Musculoskeletal: reports: chronic pain Neurological: reports: CVA, headaches/migraines, TIA, other (sciatica) Psychiatric: reports: anxiety, depression Endocrine/Immune: reports: Diabetes Other Conditions: reports: denies history - PRIOR SURGERIES/PROCEDURES Surgical/Procedure History: reports: BTL, orthopedic (extremity) (carpal tunnel) , breast (cyst removal), back/neck (back x2), other (D&C; L nephrectomy) - IMMUNIZATION STATUS Childhood Immunizations: See Nurse Assessment Flu Vaccine: See Nurse Assessment - FAMILY HISTORY Family History: aortic disease, CVA/TIA, HTN - SOCIAL HISTORY Smoking: cigarettes, greater than 1 pack/day Substance Use: denies Alcohol Use Frequency: never Physical Exam-General - PHYSICAL EXAM-ADULT Initial Vital Signs Reviewed: Yes - CONSTITUTIONAL General Appearance: appears well, alert, no apparent distress - EYES Eyes: PERRL/EOMI - HEAD, EARS, NOSE, MOUTH & THROAT HENMT: normocephalic/atraumatic, moist mucous membranes, normal ENT inspection - NECK Neck: full range of motion, supple. negative: non-tender - RESPIRATORY Respiratory: chest non-tender, lungs clear, normal breath sounds, no respiratory distress - CARDIOVASCULAR Cardiovascular: normal peripheral pulses, regular rate, rhythm - GASTROINTESTINAL (ABDOMEN) Abdominal Exam: normal bowel sounds, non tender, soft - LYMPHATIC Lymphatic: no adenopathy - MUSCULOSKELETAL Back Exam: normal inspection Extremity: normal range of motion, non-tender, normal gait, pedal edema Peripheral Pulses: dorsalis-pedis (R): 2+, dorsalis-pedis (L): 2+ - SKIN Integumentary: normal color, normal turgor, warm/dry - NEUROLOGIC Neurologic: grossly normal - PSYCHIATRIC Psych/Mental Status: normal mood/affect, oriented x 3 - HEART Score HEART Score: History: Highly Suspicious HEART Score: ECG: Non-Specific Repolarization Disturbance/LBBB/PM HEART Score: Age: 45-65 Years HEART Score: Risk Factors for Atherosclerotic Disease: > or = 3 Risk Factors or History of Atherosclerotic Disease HEART Score: Troponin: < or = Normal Limit Total HEART Score:: 6 Progress - PLAN OF CARE/RESULTS Progress/Plan/Lab Results: Vital Signs - 8 hr 01/06/19 17:18 Temperature 97.9 F Pulse Rate 101 H Respiratory Rate 18 Blood Pressure 158/89 O2 Sat by Pulse Oximetry 97 Laboratory Results - last 24 hr 01/06/19 01/06/19 01/06/19 17:35 17:35 17:35 WBC 13.84 H RBC 3.24 L Hgb 9.8 L Hct 30.2 L MCV 93.2 MCH 30.2 MCHC 32.5 L RDW Std Deviation 14.4 Plt Count 240 MPV 10.2 Immature Gran % (Auto) 0.4 Neut % (Auto) 81.5 H Lymph % (Auto) 9.8 L [place] % (Auto) 3.8 Eos % (Auto) 4.3 Baso % (Auto) 0.2 Immature Gran # (Auto) 0.05 H Neut # (Auto) 11.29 H Lymph # (Auto) 1.36 [place] # (Auto) 0.52 Eos # (Auto) 0.59 Baso # (Auto) 0.03 PT 13.2 INR 0.93 PTT (Actin FS) 27.5 Sodium 130 L Potassium 4.9 Chloride 98 Carbon Dioxide 19 L Anion Gap 13 BUN 35 H Creatinine 3.3 H Estimated GFR/1.73 m2 15 BUN/Creatinine Ratio 11 Glucose 315 H Calculated Osmolality 281 Calcium 8.6 L Creatine Kinase 55 Troponin T Kly-E-Aaulsyebbag Pept 01/06/19 01/06/19 17:35 17:35 WBC RBC Hgb Hct MCV MCH MCHC RDW Std Deviation Plt Count MPV Immature Gran % (Auto) Neut % (Auto) Lymph % (Auto) [place] % (Auto) Eos % (Auto) Baso % (Auto) Immature Gran # (Auto) Neut # (Auto) Lymph # (Auto) [place] # (Auto) Eos # (Auto) Baso # (Auto) PT INR PTT (Actin FS) Sodium Potassium Chloride Carbon Dioxide Anion Gap BUN Creatinine Estimated GFR/1.73 m2 BUN/Creatinine Ratio Glucose Calculated Osmolality Calcium Creatine Kinase Troponin T < 0.010 Fwp-[id number]-Aajhbrcclwr Pept 1970 H Orders Category Date Time Status CT HEAD W/O CONTRAST [CT] Stat Exams 01/06/19 18:38 Completed cxr [CHEST-2 VIEWS] [RAD] Stat Exams 01/06/19 17:25 Completed BASIC METABOLIC PANEL [CHEM] Stat Lab 01/06/19 17:35 Completed CBC WITH ELECTRONIC DIFF [HEME] Stat Lab 01/06/19 17:35 Completed CK PROFILE [SP CHEM] Stat Lab 01/06/19 17:35 Completed PRO B-NATRIURETIC PEPTIDE Stat Lab 01/06/19 17:35 Completed PROTIME WITH INR [COAG] Stat Lab 01/06/19 17:35 Completed PTT [COAG] Stat Lab 01/06/19 17:35 Completed TROPONIN T Stat Lab 01/06/19 17:35 Completed TROPONIN T Stat Lab 01/06/19 19:47 Ordered Acetaminophen [Tylenol] Med 01/06/19 18:39 Discontinued 1,000 mg PO NOW ONE Aspirin Med 01/06/19 17:25 Discontinued 325 mg PO NOW ONE EKG [EKG] Stat Ther 01/06/19 17:25 Ordered HOSPITALIST PAGED AT 1940 ADN 2011 FOR ADMISSION FOR CP. Result Diagrams: 01/06/19 17:35 01/06/19 17:35 - EKG 1 Time of EKG reading by physician:: 17:30 EKG Read and Signed by:: Yuriy Brown EKG Interpretation (*Must complete 3 of following elements*): Abnormal Rate: 94 Rhythm: SR [place]: normal QRS: normal SC Interval: normal ST Wave: non-specific ST changes Prior EKG Comparison: changes noted - XRAY 1 XRAY Study: Chest Impression: See EMR Report ( CHEST-2 VIEWS - 01/06/2019 INDICATION: CP COMPARISON: 11/13/2018 FINDINGS: There is some trace linear atelectasis in the lingula. No focal infiltrates, pneumothorax, or pleural effusion. Heart size and pulmonary vascularity is normal. IMPRESSION: No acute disease. Electronically signed by Charli Duke 01/06/2019 6:42 PM) - CT/MRI 1 CT Study: Head Impression: See EMR Report (CT HEAD W/O CONTRAST - 01/06/2019 INDICATION: HEADAC HE, WORSE THAN PREVIOUS COMPARISON: 07/19/2018 FINDINGS: Stable mild periventricular white matter chronic microvascular disease. The ventricles and sulci are normal in size and contour. No intracranial mass or hemorrhage. The skull is intact. The sinuses mastoids and middle ears are clear. IMPRESSION: No acute disease or change from prior. This exam was performed using automated exposure control, adjustment of mA or kV according to patient size, and/or use of iterative reconstruction technique Electronically signed by Charli Duke 01/06/2019 7:34 PM) - CONSULTS/PCP/HOSPITALIST Notification #1 *Consult/PCP/Hospitalist*: DR MINAYA Time Discussed: 20:15 Consult Disposition: Admit Departure - Departure Date of Disposition Decision: 01/06/19 Time of Disposition Decision: 20:15 DIAGNOSIS: Chest pain Disposition: ADMITTED INPATIENT 09 Certified Medical Emergency: Emergent Condition: Stable Referrals and Follow-Ups: Charli Galo Jr, MD [Primary Care Provider] - - Critical Care Note This patient required my direct & personal management of CC.: No Attestation - Physician/ TERRY Attestation Patient care was provided by Advanced Practice Provider:: Yes Advanced Practice Provider:: Aaliyah Thompson Advanced Practice Provider documentation review:: The Mid-level provider documentation, treatment plan and medical decision making was reviewed by the physician who agrees with all treatment and medical decision making by the [facility]. The physician spent face to face time with patient:: No Advanced Practice Provider documentation review:: Supervising physician onsite and consulted in the evaluation and care of this patient. The physician did not have a face to face encounter with the patient.
[2019-01-06 18:07] LABS: BASO# 0.03 X1000 (0.0-0.2); BASO% 0.2 % (0.0-0.8); EOS# 0.59 X1000 (0.0-0.7); EOS% 4.3 % (0.0-10.0); HEMATOCRIT 30.2 % (37.0-47.0); HEMOGLOBIN 9.8 g/dL (12.0-16.0); IMM GRAN# 0.05 X1000 (0.0-0.04); IMM GRAN% 0.4 % (0.0-0.5); LYMPH# 1.36 X1000 (1.2-3.4); LYMPH% 9.8 % (20.5-51.1); MCH 30.2 PG (27-31); MCHC 32.5 g/dL (33-37); MCV 93.2 FL (81-99); MONO# 0.52 X1000 (0.11-0.59); MONO% 3.8 % (1.7-9.3); MPV 10.2 FL (7.4-10.4); NEUT# 11.29 X1000 (1.4-6.5); NEUT% 81.5 % (42.2-75.2); PLT 240 X1000 (130-400); RBC 3.24 XMIL (4.2-5.4); RDW 14.4 % (11.5-14.5); WBC 13.84 X1000 (4.8-10.8)
[2019-01-06 18:11] LABS: INR 0.93; PROTIME 13.2 Seconds (11.0-16.0)
[2019-01-06 18:12] LABS: PTT 27.5 Seconds (22.3-41.8)
[2019-01-06 18:28] LABS: CALCIUM 8.6 mg/dL (8.8-10.2); CREATININE 3.3 mg/dL (0.5-0.9); POTASSIUM 4.9 mmol/L (3.5-5.1)
[2019-01-06] MEDS ORDERED: TYLENOL PO ONE (18:39)
--- NOTE | 2019-01-06 18:44 | Diag Imaging Result Doc PS360 ---
CHEST-2 VIEWS - 01/06/2019 INDICATION: CP COMPARISON: 11/13/2018 FINDINGS: There is some trace linear atelectasis in the lingula. No focal infiltrates, pneumothorax, or pleural effusion. Heart size and pulmonary vascularity is normal. IMPRESSION: No acute disease. Electronically signed by Charli Duke 01/06/2019 6:42 PM
--- NOTE | 2019-01-06 19:37 | Diag Imaging Result Doc PS360 ---
CT HEAD W/O CONTRAST - 01/06/2019 INDICATION: HEADACHE, WORSE THAN PREVIOUS COMPARISON: 07/19/2018 FINDINGS: Stable mild periventricular white matter chronic microvascular disease. The ventricles and sulci are normal in size and contour. No intracranial mass or hemorrhage. The skull is intact. The sinuses mastoids and middle ears are clear. IMPRESSION: No acute disease or change from prior. This exam was performed using automated exposure control, adjustment of mA or kV according to patient size, and/or use of iterative reconstruction technique Electronically signed by Charli Duke 01/06/2019 7:34 PM
[2019-01-07] MEDS ORDERED: TYLENOL PO PRN (00:55)
--- NOTE | 2019-01-07 07:05 | EKG Report ---
Test Performed on : 01/07/2019 06:50:45 AM Test Reason : chest pain Blood Pressure : / mmHG Vent. Rate : 075 BPM Atrial Rate : 075 BPM P-R Int : 156 ms QRS Dur : 090 ms QT Int : 406 ms P-R-T Axes : 047 017 254 degrees QTc Int : 453 ms Sinus rhythm. with occasional premature ventricular complexes. T wave abnormality, consider inferior ischemia Abnormal ECG When compared with ECG of 06-JAN-2019 17:29, (Unconfirmed) premature ventricular complexes. are now present Unconfirmed Result
--- NOTE | 2019-01-07 07:08 | EKG Report ---
Test Performed on : 01/06/2019 5:29:25 PM Test Reason : CP Blood Pressure : / mmHG Vent. Rate : 094 BPM Atrial Rate : 094 BPM P-R Int : 140 ms QRS Dur : 090 ms QT Int : 370 ms P-R-T Axes : 053 000 249 degrees QTc Int : 462 ms Normal sinus rhythm. Nonspecific ST and T wave abnormality Prolonged QT Abnormal ECG When compared with ECG of 13-NOV-2018 21:16, T wave inversion now evident in Inferior leads Unconfirmed Result
[2019-01-07 07:22] LABS: BASO# 0.06 X1000 (0.0-0.2); BASO% 0.5 % (0.0-0.8); EOS# 0.69 X1000 (0.0-0.7); EOS% 5.8 % (0.0-10.0); HEMOGLOBIN 10.7 g/dL (12.0-16.0); IMM GRAN# 0.08 X1000 (0.0-0.04); IMM GRAN% 0.7 % (0.0-0.5); LYMPH# 1.72 X1000 (1.2-3.4); LYMPH% 14.4 % (20.5-51.1); MCH 30.7 PG (27-31); MCHC 32.4 g/dL (33-37); MCV 94.6 FL (81-99); NEUT# 8.79 X1000 (1.4-6.5); NEUT% 73.6 % (42.2-75.2); PLT 228 X1000 (130-400); RBC 3.49 XMIL (4.2-5.4); RDW 14.6 % (11.5-14.5); WBC 11.94 X1000 (4.8-10.8)
[2019-01-07 07:38] LABS: ALBUMIN 3.4 g/dL (3.5-5.0); CALCIUM 9.4 mg/dL (8.8-10.2); CREATININE 3.3 mg/dL (0.5-0.9); POTASSIUM 4.8 mmol/L (3.5-5.1)
[2019-01-07] MEDS: LASIX PO SCH ×2 (08:28→21:41)
[2019-01-07] MEDS: BRILINTA PO SCH ×2 (08:28→21:41)
[2019-01-07] MEDS: ASPIRIN EC PO SCH (08:28)
[2019-01-07] MEDS: SPIRIVA INH SCH (08:32)
[2019-01-07] MEDS: LYRICA PO SCH ×2 (08:38→21:40)
[2019-01-07 10:02] LABS: HEMOGLOBIN A1C 6.8 % (4.8-6.0)
[2019-01-07] MEDS: SYMBICORT 160/4.5 MICROGM INHALER INH SCH ×2 (10:36→19:36)
[2019-01-07] MEDS ORDERED: PHENERGAN IV PRN (10:55)
[2019-01-07] MEDS ORDERED: SODIUM CHLORIDE 0.9% INJ PRN (10:55)
--- NOTE | 2019-01-07 11:37 | PROGRESS NOTE ---
DATE: 01/07/2019 SUBJECTIVE: This morning Ms. Calhoun refers to be doing well. Denies any chest pain, but she was complaining of some headaches. According to her, she normally troubles with migraine type of headaches. OBJECTIVE: Vital signs: Blood pressure is 151/65, pulse of 75, respiration is 20, temperature is 98.7 degrees. General exam: Ms. Calhoun is a 53-year-old female. She is in bed, no distress. HEENT: Mucosa is pink and moist. Anicteric. Acyanotic. Neck: Supple. Chest: Good air entry bilateral. There was no crepitations, no rhonchi. Cardiovascular: Regular rate and rhythm. Abdomen: Soft. Extremities: 1+ pedal edema. WRIST CLOSER: Patient is awake, alert and oriented. LABORATORY DATA: WBC is 11.94, hemoglobin is 10.7, platelet count of 228. Chemistry is also reviewed. Creatinine is 3.3, which is the patient's fair baseline. A1c is 6.8. CURRENT MEDICATIONS: Have all been reviewed. ASSESSMENT: 1. Chest pain on presentation in patient with history of coronary artery disease status post stent placement last July. So far, troponins have all been negative times 3. Electrocardiogram does not show any acute ST-segment abnormality or T-wave abnormality. There are a few premature ventricular complexes noted on the electrocardiogram this morning. The patient is pending Cardiology evaluation to determine if she will benefit from any further investigations. Of note, Ms. Calhoun had an echocardiogram in July of this year with a normal ejection fraction. 2. Headaches, questionable for migraine. A computed tomography scan of the brain was unremarkable. The patient is on Lyrica. Will add Fioricet. She has an appointment to see Dr. Vang in about a week's time. 3. History of solitary kidney with chronic kidney disease stage IV noted. 4. Non-gap metabolic acidosis secondary to renal failure. We will start the patient on oral bicarbonate. 5. Normocytic anemia, most likely secondary to anemia related with chronic kidney disease. We will do iron studies to rule out any underlying iron deficiency that needs to be replaced. cc: Eugenio Field MD
[2019-01-07] MEDS: HUMULIN R SUBQ SCH ×3 (12:56→21:41)
[2019-01-07] MEDS: FIORICET PO PRN ×2 (13:03→16:44)
--- NOTE | 2019-01-07 16:16 | HISTORY AND PHYSICAL ---
PRIMARY CARE PROVIDER: Dr. Charli Galo. CHIEF COMPLAINT: Chest pain. HISTORY OF PRESENT ILLNESS: Ms. Calhoun is a 53-year-old, female with a past medical history most notable for coronary artery disease, status post recent stent placement, status post cardiac stenting for which I believe was fairly recently, within the last year. Unfortunately, the patient did not know the exact time this had been performed. She also has a history of chronic kidney disease, fibromyalgia, and COPD. The patient reports that this evening, she had walked to her car and back, and began to have chest pain that is in the center of her chest and just to the left. She also did have radiation to her left arm, left neck. She reported a left- sided headache as well. The patient reports that the pain was pressure and tight, with light pressure and tightness in nature. She also reported other associated symptoms of shortness of breath and feeling dizzy and lightheaded. She states this started about 3 p.m. and that once it came on, it was constant. The patient states that the pain continued until after she arrived to the ER and states that it has resolved but she does remember when it did [*] it did go away. At this time, she is denying any chest pain. The patient was resting in the bed, lying back in a semi-Gaines position but was in no distress at all. She denied any abdominal pain, nausea, vomiting, or diarrhea. She denies any dysuria. She denies any new onset of pain, numbness, tingling, or swelling in extremities. Upon evaluation in the ER, the patient's EKG showed normal sinus rhythm with a nonspecific ST and T-wave abnormality, and a prolonged QT, at a rate of 94. When compared to the most recent EKG, there do not appear to be any acute changes noted. The patient did have some mild leukocytosis. She also did have some anemia noted as well with a hemoglobin of 9.8 and a hematocrit of 30.2. Creatinine is elevated at 3.3. This is an increase from her most recent labs in November of 2018, though is within the high side of her previous creatinine range. The patient does have a history of having a left nephrectomy. Cardiac enzymes thus far have been negative. Chest x-ray and CT of the head without contrast showed no acute abnormalities. The patient will be admitted for further evaluation of her chest pain. REVIEW OF SYSTEMS: A 14 point review of systems was conducted with the patient. All were negative except for pertinent positives mentioned above in the HPI. PAST MEDICAL HISTORY: 1. Coronary artery disease, status post coronary stenting, what I believe is in early July 2018. 2. Chronic kidney disease stage 4. 3. Fibromyalgia. 4. COPD. 5. Hypertension. 6. Hyperlipidemia. 7. Diabetes mellitus type 2. PAST SURGICAL HISTORY: 1. Left nephrectomy. 2. Back surgery. 3. Right breast lumpectomy. 4. Hernia repair. 5. Cardiac stenting. SOCIAL HISTORY: The patient is a former smoker. She denies any current tobacco, alcohol, or illicit drug use. FAMILY HISTORY: Positive for coronary disease in her father. ALLERGIES: Patient has allergies to azithromycin, Nalfon, milk, Vioxx, Macrobid, Percocet, Imitrex, and tramadol. HOME MEDICATIONS: 1. Aspirin enteric-coated 81 mg p.o. daily. 2. Lipitor 40 mg p.o. at bedtime. 3. Symbicort 160/4.5 mcg inhaler 2 puffs inhaled b.i.d. 4. Flexeril 10 mg p.o. t.i.d. p.r.n. 5. Furosemide 20 mg p.o. b.i.d. 6. NovoLog subcutaneous a.c. and at bedtime per sliding scale. 7. Lantus 40 units subcutaneously b.i.d. 8. Lactulose 30 mL p.o. b.i.d. p.r.n. 9. Lyrica 100 mg p.o. b.i.d. 10. Brilinta 90 mg p.o. b.i.d. 11. Spiriva 1 puff inhaled daily. 12. Desyrel 50 mg p.o. at bedtime. DIAGNOSTIC DATA: White blood cell count is 13,840, hemoglobin 9.8, hematocrit 30.2, platelet count is 240,000. PT 13.2, INR 0.93, PTT is 27.5. Sodium 130, potassium 4.9, chloride 98, serum bicarb was 19, BUN 35, creatinine 3.3, with a GFR 15, glucose 315, calcium 8.6. CK [*], troponin is less than 0.01. Repeat troponin was negative as well. EKG showed normal sinus rhythm with a nonspecific ST and T-wave abnormality, and prolonged QT with a rate of 94, and a QTc of 462. Chest x-ray showed no acute abnormalities. This was per radiology. CT of the head showed no acute intracranial abnormality. This was per radiology as well. PHYSICAL EXAMINATION: VITAL SIGNS: Temperature 98 degrees, heart rate 83, respirations 18, blood pressure is 138/74, oxygen saturation is 99% on room air. GENERAL: Ms. Calhoun is a pleasant, 53-year-old, female. She was resting on the ER stretcher. She was in no acute distress. She was awake, alert. She was resting with her eyes closed upon my entering the room, though was easily arousable. Once awakened, she was awake, alert, and oriented to person, place, time, and situation. HEENT: Head is atraumatic, normocephalic. Pupils are equal, round, reactive to light, were 3 mm bilaterally and brisk. Oral mucosa is moist. Oropharynx is clear. NECK: Supple. Trachea midline. CARDIOVASCULAR: Patient has S1-S2 present. No murmurs, gallops, rubs appreciated. Regular rate and rhythm. PULMONARY: Patient has symmetrical chest expansion bilaterally. Lung sounds are clear to auscultation in bilateral full fuentes. ABDOMEN: Soft, nontender, nondistended. Bowel sounds are present in all 4 quadrants, were normoactive. EXTREMITIES: No cyanosis, clubbing, or edema noted. Pulse, motor, and sensory were intact in all extremities. Radial pulses and pedal pulses were 3+ bilaterally. INTEGUMENTARY: The patient's skin is pink, warm, and dry. NEUROLOGICAL: Patient is alert and oriented to person, place, time, and situation. She is able to move all extremities. There were no focal neurological deficits noted. ASSESSMENT AND PLAN: 1. Chest pain. For further evaluation of this, we will continue with a series of cardiac enzymes. We will do a repeat electrocardiogram in the morning. The patient did receive the full dose aspirin in the emergency room upon arrival. We will continue with already prescribed 81 mg aspirin and Brilinta. The patient did have an echocardiogram in July 2018 which showed an ejection fraction of 65%. We will leave repeating this up to cardiology once they have evaluated her. At this time, the patient's chest pain has subsided and has not returned. All of her cardiac enzymes thus far are negative. When comparing her electrocardiogram to the most recent, she does not appear to have any acute changes noted. She will be placed on the medical floor with telemetry. She will have frequent vital signs. We will continue to follow closely. 2. History of coronary artery disease, status post stent placement. We will continue treatment as above for #1. 3. Chronic kidney disease, status post left nephrectomy. We will continue to monitor this closely. The patient's creatinine is slightly elevated from her most recent reading. In our records though, her most recent creatinine range, this reading is on the higher side of her most recent results. We will avoid nephrotoxic medications and renally dose medications as necessary. We will do strict intake and output. 4. Chronic obstructive pulmonary disease. We will continue the patient's daily prescribed medications for this. She does use supplemental oxygen as needed. We will continue this as well. 5. Hypertension. Looking at the patient's medication list, I could not see on any medications that she takes for hypertension, though on her external medication history, there was metoprolol. We will have the nurse confirm this once done so we can continue this medication as well. 6. Hyperlipidemia. We will continue her atorvastatin. 7. Venous thromboembolism prophylaxis will be provided with sequential compression devices. 8. The patient has been placed on the medical floor with telemetry. She will have vital signs every 4 hours. We will do strict intake and output. Pattern fingerstick blood sugars. We will repeat a CBC and renal profile in the morning. Further orders and recommendations pending hospital course, diagnostic studies, and physician evaluation. 9. Diabetes mellitus. We have placed the patient with sliding scale insulin. We will do pattern fingerstick blood sugars. Dictated by CLEMENT Roca for Alex Hadley MD cc: Alex Hadley MD
[2019-01-07] MEDS ORDERED: LIPITOR PO SCH (21:00)
[2019-01-07] MEDS ORDERED: DESYREL PO SCH (21:00)
[2019-01-07] MEDS: SODIUM BICARBONATE PO SCH (21:41)
[2019-01-08] MEDS: HUMULIN R SUBQ SCH (06:22)
[2019-01-08 07:12] LABS: CALCIUM 8.3 mg/dL (8.8-10.2); PHOSPHORUS 4.6 mg/dL (2.7-4.5)
[2019-01-08 07:26] LABS: FERRITIN 56 ng/mL (13-150)
[2019-01-08 08:30] VITALS: BP 129/63
[2019-01-08] MEDS: SYMBICORT 160/4.5 MICROGM INHALER INH SCH (08:34)
[2019-01-08] MEDS: SPIRIVA INH SCH (08:34)
[2019-01-08] MEDS: SODIUM BICARBONATE PO SCH (08:39)
[2019-01-08] MEDS: LYRICA PO SCH (08:39)
[2019-01-08] MEDS: LASIX PO SCH (08:40)
[2019-01-08] MEDS: ASPIRIN EC PO SCH (08:40)
[2019-01-08] MEDS: BRILINTA PO SCH (08:40)
--- NOTE | 2019-01-08 15:16 | DISCHARGE SUMMARY ---
ADMISSION DATE: 01/06/2019 DISCHARGE DATE: 01/08/2019 DISPOSITION: Home. FOLLOW-UP: Will be: 1. Dr. Charli Galo. 2. Dr. Dillard. CONSULTATION DURING THIS ADMISSION: Cardiology was consulted. INVASIVE PROCEDURE DONE DURING THIS ADMISSION: None. IMAGING STUDIES OF SIGNIFICANCE: A chest x-ray showed no acute disease. A CT scan of the head showed no acute disease. EKG done twice did not show any acute abnormalities. ADMISSION DIAGNOSES: 1. Chest pain. 2. History of coronary artery disease. 3. Chronic kidney disease. 4. Hypertension. DIAGNOSES AT THE TIME OF DISCHARGE: 1. Atypical chest pain with normal troponins and unremarkable EKG. This is deemed to be noncardiac. However, patient has significant coronary artery disease and he has been advised to follow up with his stitchdowns toe former on outpatient basis. 2. History of coronary artery disease status post stents noted. 3. History of migraine headaches. 4. Solitary kidney with CKD stage 4. 5. Non-gap metabolic acidosis secondary to renal failure. Patient has been started on bicarb. 6. Normocytic anemia secondary to chronic kidney disease with underlying iron deficiency. The patient has been started on iron replacement therapy. 7. Secondary hyperparathyroidism due to renal failure. 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 PRESENTING COMPLAINT: Chest pain. HISTORY OF PRESENTING COMPLAINT: Ms. Calhoun is a 53-year-old female with a history of coronary artery disease, just got stent early July of this year. Also, CKD with a solitary kidney. She came to the emergency department because of chest pain. The patient was evaluated with initial troponins were negative and EKG did not show any acute changes. Because of her history, she was admitted for chest pain rule out. HOSPITAL COURSE: Ms. Calhoun was admitted to the medical floor under telemonitoring. She did not really have any more chest pain. Her troponins were trended 4 times that came back negative. A repeat EKG was also unchanged. Her chest pain resolved. We think it is probably related to GI courses since patient has remarkable GERD. She has a regular follow up with Dr. Anirudh Wylie so will recommend she maintains her appointment. She also has appointment with Dr. Vang for the migraine headaches. This morning, Ms. Calhoun is clinically stable and is completely asymptomatic. OBJECTIVE: Her vitals: Blood pressure is 129/63, pulse 84, respirations 16, temperature 97.5 degrees. Ms. Calhoun is going to be discharged. We think she is stable. She will follow up with the subspecialties that have been involved in her care. All the discharge instructions have been discussed with her and she voiced understanding. TIME SPENT FOR DISCHARGE: 35 minutes. cc: MD Charli Alberts MD Peter Johnson, MD Dr. Norwood
== END 2019-01-08 10:00 | disposition home or self-care (01) | DRG 313 ==
LOC: ED 17:15 → SUATTDRO 22:30 → 4N 22:30
PROVIDERS: ATTEND Internal Medicine
CPT/HCPCS: 70450; 71020; 71046; 80048; 80069; 82310; 82550; 82607; 82728; 82746; 82948; 83036; 83540; 83550; 83735; 83880; 83970; 84100; 84484; 85025; 85610; 85730; 93005; 93306; 94640; 94761; A9270; XXXXX

== ENCOUNTER 2019-02-07 19:29 | Inpatient (IN) ==
--- NOTE | 2019-02-07 20:05 | PROVIDER DOCUMENTATION ---
HPI-General Adult - General Chief Complaint: Chest Pain Stated Complaint: CHEST PAIN(AGAIN) Time Seen by Provider: 02/07/19 19:50 Source: patient Allergies/Adverse Reactions: Patient Allergies Allergy/AdvReac Type Severity Reaction Status Date / Time azithromycin [From Zithromax] Allergy ANAPHYLAXIS Verified 01/06/19 18:49 fenoprofen [From Nalfon] Allergy ANAPHYLAXIS Verified 01/06/19 18:49 milk Allergy ABDOMINAL Verified 01/06/19 18:49 PAIN rofecoxib [From Vioxx] Allergy Unknown Verified 01/06/19 18:49 nitrofurantoin AdvReac HEADACHE Verified 01/06/19 18:49 [From Macrobid] nitrofurantoin AdvReac HEADACHE Verified 01/06/19 18:49 macrocrystalline * [From Macrobid] oxycodone HCl * AdvReac Unknown Verified 01/06/19 18:49 [From Percocet] sumatriptan [From Imitrex] AdvReac Unknown Verified 01/06/19 18:49 sumatriptan succinate * AdvReac Unknown Verified 01/06/19 18:49 [From Imitrex] tramadol AdvReac Unknown Verified 01/06/19 18:49 Home Medications: Home Medication List Medication Instructions Recorded Confirmed Last Taken Type Insulin Aspart [Novolog] See Protocol SQ AC + HS 02/14/17 01/06/19 01/06/19 History Pregabalin [Lyrica] 100 mg PO BID 03/13/17 01/06/19 01/06/19 History Furosemide 20 mg PO BID 01/07/18 01/06/19 01/06/19 History Trazodone [Desyrel] 50 mg PO QHS 01/07/18 01/06/19 1 Day Ago History ~01/05/19 Lactulose 30 ml PO BID PRN #1 udc 02/18/18 01/06/19 1 Month Ago Rx ~12/07/18 ATORVAstatin [Lipitor] 40 mg PO HS 05/21/18 01/06/19 1 Day Ago History ~01/05/19 Pen Needle,Dual Safety,Diabetc 1 dose SQ DAILY 05/21/18 01/06/19 01/06/19 Histor y [Autoshield Duo Pen Needle] Insulin Glargine [Lantus] 40 unit SUBQ BID 07/05/18 01/06/19 01/06/19 History Aspirin EC 81 mg PO DAILY 07/06/18 01/06/19 01/06/19 History Cyclobenzaprine [Flexeril] 10 mg PO TID PRN 07/06/18 01/06/19 1 Day Ago History ~01/05/19 Metoprolol Tartrate 100 mg PO BID 07/06/18 01/06/19 01/06/19 History Nitroglycerin Sl [Nitroglycerin] 1 tab SL DIRECTED PRN 07/06/18 01/06/19 01/06/19 History Tiotropium [place] Inhaler 1 puff INH RTDAILY 07/06/18 01/06/19 01/06/19 History [Spiriva] Budesonide/Formoterol Fumarate 2 puff INHALATION BID 01/06/19 01/06/19 01/06/19 History [Symbicort 160-4.5 Mcg Inhaler] Ticagrelor [Brilinta] 90 mg PO BID 01/06/19 01/06/19 01/06/19 History Butalbital/APAP/Caffeine [Fioricet] 1 ea PO Q4H PRN PRN #30 tab 01/08/19 Unknown Rx Ferrous Gluconate 324 mg PO BID #120 tab 01/08/19 Unknown Rx Omeprazole 20 mg PO DAILY #120 tab 01/08/19 Unknown Rx Sodium Bicarbonate 650 mg PO BID #120 tab 01/08/19 Unknown Rx - History of Present Illness -Gen Adult Nature of Presenting Problems: Pt. is 53 yof that presents with c/o intermittent CP. Pt. reports she was just discharged on Friday from after spending a week there for CP. Pt. reports she had a Heart cath and that no stints were placed. She reports substernal pressure that radiates to her left shoulder. She reports SOB and denies any N/V. Pt. reports the started back up today. She reports she quit smoking three weeks ago. She denies any other symptoms. Location of Pain/Injury: reports: chest. denies: none, head, face, mouth, neck, upper extremity, hand(s), abdomen, back, pelvis, genitalia, lower extremity, feet, upper body, lower body, generalized, other Pain Radiation: reports: shoulder(s) (Left). denies: no radiation, arm(s), back, buttocks, chest, epigastric, feet, groin, jaw, flank (L), legs (lower), LLQ, LUQ, neck, periumbilical, flank (R), RLQ, RUQ, scapula, scrotal, sternal notch, suprapubic, legs (upper), urethral, vaginal, other Quality of Pain: reports: pressure, tightness. denies: aching, indigestion, throbbing Severity: reports: mild. denies: moderate, severe Onset/Duration: reports: abrupt, this morning Timing: reports: still present, intermittent. denies: improving, gone now, constant, getting worse Context/Activities at Onset: reports: none. denies: light activity, moderate activity, vigorous activity, recent emotional stress, recent physical stress, recent trauma history, possible bad food, cold exposure, eating, out of country travel, rest, sleep, sexual activity, other Modifying Factors: improves with: nothing Associated Symptoms: reports: chest pain, shortness of breath. denies: denies symptoms, anxiety, arm pain, back/neck pain, constipation, cough, diaphoresis, diarrhea, dizziness, EENT symptoms, fatigue, fever/chills, genitourinary problems, headaches, heartburn, joint pain, loss of appetite, malaise, muscle aches, sinus congestion/drainage, nausea, rash, seizure, sensory/motor loss, pain with inspiration, swelling/mass in abdomen, syncope, vomiting, weakness, trouble walking, other Similar Symptoms Previously?: Yes Recently seen or treated by another doctor?: Yes Review of Systems - Adult - REVIEW OF SYSTEMS - ADULT Constitutional: reports: no symptoms reported Eyes: reports: no symptoms reported Ears, Nose, Mouth & Throat: reports: no symptoms reported Cardiovascular: reports: see HPI, chest pain. denies: orthopnea, palpitations, poor circulation, syncope Respiratory: reports: see HPI, shortness of breath. denies: chronic cough, hemoptysis, wheezing Gastrointestinal: reports: no symptoms reported Genitourinary: reports: no symptoms reported Musculoskeletal: reports: no symptoms reported Integumentary: reports: no symptoms reported Neurological: reports: no symptoms reported Psychiatric: reports: no symptoms reported Past History - Adult - PAST MEDICAL HISTORY-ADULT Review of Records: reports: Old Records Reviewed, Nursing Assessment Review, Medications Reviewed, Social history reviewed & non-contributory. Major Childhood Illnesses: reports: denies history Cardiovascular: reports: CHF, HTN, hyperlipidemia Respiratory: reports: denies history, COPD Gastrointestinal: reports: denies history Obstetrical/Gynecological: reports: denies history Genitourinary: reports: kidney disease (stage 4 kidney failure R kidney; L nephrectomy) Musculoskeletal: reports: chronic pain Neurological: reports: CVA, headaches/migraines, TIA, other (sciatica) Psychiatric: reports: anxiety, depression Endocrine/Immune: reports: Diabetes Other Conditions: reports: denies history - PRIOR SURGERIES/PROCEDURES Surgical/Procedure History: reports: BTL, orthopedic (extremity) (carpal tunnel) , breast (cyst removal), back/neck (back x2), other (D&C; L nephrectomy) - IMMUNIZATION STATUS Childhood Immunizations: See Nurse Assessment Flu Vaccine: See Nurse Assessment - FAMILY HISTORY Family History: aortic disease, CVA/TIA, HTN - SOCIAL HISTORY Smoking: quit less than 1 year (Three weeks ago) Physical Exam-General - PHYSICAL EXAM-ADULT Initial Vital Signs Reviewed: Yes - CONSTITUTIONAL General Appearance: alert, mild distress, obese. negative: thin, anxious, slow to respond, obtunded, combative - EYES Eyes: PERRL/EOMI, pink conjunctivae - HEAD, EARS, NOSE, MOUTH & THROAT HENMT: normocephalic/atraumatic, moist mucous membranes - NECK Neck: non-tender, full range of motion, supple, normal inspection - RESPIRATORY Respiratory: lungs clear, normal breath sounds - CARDIOVASCULAR Cardiovascular: normal peripheral pulses, regular rate, rhythm, no edema - GASTROINTESTINAL (ABDOMEN) Abdominal Exam: normal bowel sounds, non tender, soft - LYMPHATIC Lymphatic: no adenopathy. negative: axilla node tender, cervical node tenderness - MUSCULOSKELETAL Back Exam: normal inspection, no CVA tenderness, no vertebral tenderness Extremity: normal range of motion, normal gait, pedal edema Peripheral Pulses: radial (R): 2+, radial (L): 2+ - SKIN Integumentary: normal color, normal turgor, warm/dry - NEUROLOGIC Neurologic: grossly normal, no motor/sensory deficits - PSYCHIATRIC Psych/Mental Status: normal mood/affect, normal thought content, normal thought process, oriented x 3 Progress - PLAN OF CARE/RESULTS Progress/Plan/Lab Results: Vital Signs - 8 hr 02/07/19 19:36 Temperature 97.5 F L Pulse Rate 77 Respiratory Rate 16 Blood Pressure 135/73 O2 Sat by Pulse Oximetry 100 Orders Category Date Time Status FSBS [Finger Stick Blood Sugar (ED)] DIRECTED Care 02/07/19 19:57 Active Saline Loc NOW Care 02/07/19 19:57 Active CHEST-PORTABLE [RAD] Stat Exams 02/07/19 19:58 Ordered CBC WITH ELECTRONIC DIFF [HEME] Stat Lab 02/07/19 19:57 Uncollected CK PROFILE [SP CHEM] Stat Lab 02/07/19 19:57 Uncollected COMPREHENSIVE METABOLIC PANEL [CHEM] Stat Lab 02/07/19 19:57 Uncollected PRO B-NATRIURETIC PEPTIDE Stat Lab 02/07/19 19:57 Ordered TROPONIN T Stat Lab 02/07/19 19:57 Uncollected URINALYSIS W/POSS RFLX CULT [URINALYSIS] Stat Lab 02/07/19 19:57 Uncollected EKG [EKG] Stat Ther 02/07/19 19:40 Ordered Laboratory Tests 02/07/19 02/07/19 02/07/19 20:30 20:35 20:35 WBC 12.56 H RBC 2.76 L Hgb 8.4 L Hct 25.6 L MCV 92.8 MCH 30.4 MCHC 32.8 L RDW Std Deviation 13.7 Plt Count 231 MPV 10.5 H Immature Gran % (Auto) 0.3 Neut % (Auto) 75.6 H Lymph % (Auto) 15.0 L [place] % (Auto) 6.2 Eos % (Auto) 2.7 Baso % (Auto) 0.2 Immature Gran # (Auto) 0.04 Neut # (Auto) 9.48 H Lymph # (Auto) 1.89 [place] # (Auto) 0.78 H Eos # (Auto) 0.34 Baso # (Auto) 0.03 Sodium Potassium Chloride Carbon Dioxide Anion Gap BUN Creatinine Estimated GFR/1.73 m2 BUN/Creatinine Ratio Glucose POC Glucose 291 H Calculated Osmolality Calcium Total Bilirubin AST ALT Alkaline Phosphatase Creatine Kinase Troponin T Tje-I-Diichpjjeus Pept 62951 H Total Protein Albumin Globulin Albumin/Globulin Ratio Urine Source Urine Color Urine Turbidity Urine pH Ur Specific [place] Urine Protein Ur Glucose (Stick) Ur Ketones (Stick) Urine Blood Urine Nitrite Urine Bilirubin Urobilinogen Dipstick Urine Leukocytes Urine WBC (Auto) Urine RBC (Auto) U Epithel Cells (Auto) Urine Bacteria (Auto) Acetone Level 02/07/19 02/07/19 02/07/19 20:35 20:35 20:35 WBC RBC Hgb Hct MCV MCH MCHC RDW Std Deviation Plt Count MPV Immature Gran % (Auto) Neut % (Auto) Lymph % (Auto) [place] % (Auto) Eos % (Auto) Baso % (Auto) Immature Gran # (Auto) Neut # (Auto) Lymph # (Auto) [place] # (Auto) Eos # (Auto) Baso # (Auto) Sodium 135 L Potassium 4.5 Chloride 99 Carbon Dioxide 23 L Anion Gap 13 BUN 27 H Creatinine 3.8 H Estimated GFR/1.73 m2 12 BUN/Creatinine Ratio 7 Glucose 303 H POC Glucose Calculated Osmolality 287 Calcium 7.4 L Total Bilirubin < 0.15 L AST 13 ALT 9 L Alkaline Phosphatase 146 H Creatine Kinase 58 Troponin T 0.084 Zyg-R-Cinczgdqmxa Pept Total Protein 5.6 L Albumin 3.2 L Globulin 2.4 Albumin/Globulin Ratio 1.3 Urine Source Urine Color Urine Turbidity Urine pH Ur Specific [place] Urine Protein Ur Glucose (Stick) Ur Ketones (Stick) Urine Blood Urine Nitrite Urine Bilirubin Urobilinogen Dipstick Urine Leukocytes Urine WBC (Auto) Urine RBC (Auto) U Epithel Cells (Auto) Urine Bacteria (Auto) Acetone Level NEGATIVE 02/07/19 20:51 WBC RBC Hgb Hct MCV MCH MCHC RDW Std Deviation Plt Count MPV Immature Gran % (Auto) Neut % (Auto) Lymph % (Auto) [place] % (Auto) Eos % (Auto) Baso % (Auto) Immature Gran # (Auto) Neut # (Auto) Lymph # (Auto) [place] # (Auto) Eos # (Auto) Baso # (Auto) Sodium Potassium Chloride Carbon Dioxide Anion Gap BUN Creatinine Estimated GFR/1.73 m2 BUN/Creatinine Ratio Glucose POC Glucose Calculated Osmolality Calcium Total Bilirubin AST ALT Alkaline Phosphatase Creatine Kinase Troponin T Uvt-E-Ptoxcuojudo Pept Total Protein Albumin Globulin Albumin/Globulin Ratio Urine Source CLEAN CATCH Urine Color YELLOW Urine Turbidity HAZY Urine pH 6.5 Ur Specific [place] 1.012 Urine Protein 300 A Ur Glucose (Stick) 100 A Ur Ketones (Stick) NEGATIVE Urine Blood NEGATIVE Urine Nitrite NEGATIVE Urine Bilirubin NEGATIVE Urobilinogen Dipstick NORMAL Urine Leukocytes MODERATE A Urine WBC (Auto) 20-40 A Urine RBC (Auto) <10 U Epithel Cells (Auto) >10 A Urine Bacteria (Auto) 1+ Acetone Level Heart score = 6 Discussed results and plan of care with patient. Patient agrees with plan and verbalizes understanding. Result Diagrams: 02/07/19 20:35 02/07/19 20:35 - EKG 1 Time of EKG reading by physician:: 19:52 EKG Read and Signed by:: Reji Lombardi EKG Interpretation (*Must complete 3 of following elements*): Abnormal Rate: 78 Rhythm: Sinus ST Wave: non-specific ST changes - XRAY 1 XRAY Study: Chest ([facility] - [address] [facility], [address], [place] [address] [facility] - [address] [place] [address] Department of Imaging Patient: RAMON ARCOS Date: 02/07/19#: [id number] : 1965ADM Status: [facility]#: [id number] Age/Sex: 53/FRoom/Bed: Loc: ED Ordering Physician: Kayleigh Lake Family Physician: Charli Galo Jr, MD Reason for Procedure: CP Signed EXAM: CHEST-PORTABLE HISTORY: CP TECHNIQUE: Portable chest single view COMPARISON: 01/06/2019 FINDINGS: The lungs are well expanded. The heart is mildly prominent. The vessels are not distended. There are no infiltrates. No effusion identified. IMPRESSION: Mildly prominent heart Electronically signed by Romario Edwards 02/07/2019 8:24 PM 02/07/192023 Interpreting Physician: Romario Edwards MD Dictated Date/Time: 02/07/192022 cc: Kayleigh Lake; Charli Galo Jr, MD) XRAY Interpretation: See note - CONSULTS/PCP/HOSPITALIST Notification #1 *Consult/PCP/Hospitalist*: Dr. Wylie Time Discussed: 23:39 Reason/Comments: Consult Consult Disposition: Admit (Admit and he will follow up) #2 Consult: Dr. Hadley Time Discussed: 23:41 Reason/Comments: Admission Consult Disposition: Will see in ED, Admit Departure - Departure Date of Disposition Decision: 02/07/19 Time of Disposition Decision: 23:44 DIAGNOSIS: Chronic anemia, Hyperglycemia Kidney failure Qualifiers: Renal failure chronicity: chronic Chronic kidney disease stage: unspecified stage Qualified Code(s): N18.9 - Chronic kidney disease, unspecified CHF (congestive heart failure) Qualifiers: Heart failure type: unspecified Heart failure chronicity: unspecified Qualified Code(s): I50.9 - Heart failure, unspecified Disposition: ADMITTED INPATIENT 09 Certified Medical Emergency: Emergent Condition: Stable Referrals and Follow-Ups: Charli aGlo Jr, MD [Primary Care Provider] - - Critical Care Note This patient required my direct & personal management of CC.: No Attestation - Physician/ TERRY Attestation Patient care was provided by Advanced Practice Provider:: Yes Advanced Practice Provider:: Kayleigh Lake Advanced Practice Provider documentation review:: The Mid-level provider documentation, treatment plan and medical decision making was reviewed by the physician who agrees with all treatment and medical decision making by the P. The physician spent face to face time with patient:: No Advanced Practice Provider documentation review:: Supervising physician onsite and consulted in the evaluation and care of this patient. The physician did not have a face to face encounter with the patient.
--- NOTE | 2019-02-07 20:27 | Diag Imaging Result Doc PS360 ---
EXAM: CHEST-PORTABLE HISTORY: CP TECHNIQUE: Portable chest single view COMPARISON: 01/06/2019 FINDINGS: The lungs are well expanded. The heart is mildly prominent. The vessels are not distended. There are no infiltrates. No effusion identified. IMPRESSION: Mildly prominent heart Electronically signed by Romario Edwards 02/07/2019 8:24 PM
[2019-02-07 20:54] LABS: URINE SOURCE CLEAN CATCH
[2019-02-07 20:56] LABS: BASO# 0.03 X1000 (0.0-0.2); BASO% 0.2 % (0.0-0.8); EOS# 0.34 X1000 (0.0-0.7); EOS% 2.7 % (0.0-10.0); HEMATOCRIT 25.6 % (37.0-47.0); HEMOGLOBIN 8.4 g/dL (12.0-16.0); IMM GRAN# 0.04 X1000 (0.0-0.04); IMM GRAN% 0.3 % (0.0-0.5); LYMPH# 1.89 X1000 (1.2-3.4); MCH 30.4 PG (27-31); MCHC 32.8 g/dL (33-37); MCV 92.8 FL (81-99); MONO# 0.78 X1000 (0.11-0.59); MONO% 6.2 % (1.7-9.3); MPV 10.5 FL (7.4-10.4); NEUT# 9.48 X1000 (1.4-6.5); NEUT% 75.6 % (42.2-75.2); PLT 231 X1000 (130-400); RBC 2.76 XMIL (4.2-5.4); RDW 13.7 % (11.5-14.5); WBC 12.56 X1000 (4.8-10.8)
[2019-02-07 20:59] LABS: BILIRUBIN URINE NEGATIVE (NEGATIVE); BLOOD URINE NEGATIVE (NEGATIVE); COLOR YELLOW; GLUCOSE URINE 100 mg/dL (NEGATIVE); KETONE URINE NEGATIVE (NEGATIVE); LEUKOCYTES URINE MODERATE (NEGATIVE); NITRITE URINE NEGATIVE (NEGATIVE); PH URINE 6.5; PROTEIN URINE 300 mg/dL (NEGATIVE); SP GRAVITY URINE 1.012; TURBIDITY URINE HAZY (CLEAR); UROBILINOGEN URINE NORMAL (NORMAL)
[2019-02-07 21:00] LABS: UR EPITHELIAL CELLS >10 /HPF (<10); URINE BACTERIA 1+ /HPF; URINE RBC <10 /HPF (<10); URINE WBC 20-40 /HPF (<10)
[2019-02-07 21:01] LABS: AGAP 13; ALB/GLOB RATIO 1.3; ALBUMIN 3.2 g/dL (3.5-5.0); ALKALINE PHOSPHATASE 146 U/L (32-104); BUN 27 mg/dL (8-22); CALCIUM 7.4 mg/dL (8.8-10.2); CHLORIDE 99 mmol/L (98-107); CK PROFILE 58 U/L (24-173); COSMO 287; CREATININE 3.8 mg/dL (0.5-0.9); ESTIMATED GFR 12; GLUCOSE 303 mg/dL (70-104); GOT 13 U/L (10-30); GPT 9 U/L (10-36); POTASSIUM 4.5 mmol/L (3.5-5.1); SODIUM 135 mmol/L (136-145); TCO2 23 mmol/L (25-35); TOTAL BILIRUBIN < 0.15 mg/dL (0.20-1.00); TOTAL PROTEIN 5.6 g/dL (6.3-8.3)
[2019-02-07] MEDS ORDERED: LASIX IV ONE (22:43)
[2019-02-08] MEDS ORDERED: LACTULOSE PO PRN (00:43)
[2019-02-08] MEDS ORDERED: ZOFRAN IV PRN (00:43)
[2019-02-08] MEDS ORDERED: FIORICET PO PRN (00:43)
[2019-02-08] MEDS ORDERED: TYLENOL PO PRN (00:43)
[2019-02-08] MEDS ORDERED: FLEXERIL PO PRN (00:43)
[2019-02-08] MEDS ORDERED: NITROGLYCERIN SL PRN (00:43)
--- NOTE | 2019-02-08 01:19 | EKG Report ---
Test Performed on : 02/07/2019 7:44:44 PM Test Reason : cp Blood Pressure : / mmHG Vent. Rate : 078 BPM Atrial Rate : 078 BPM P-R Int : 166 ms QRS Dur : 094 ms QT Int : 410 ms P-R-T Axes : 047 005 236 degrees QTc Int : 467 ms Normal sinus rhythm. ST & T wave abnormality, consider inferolateral ischemia Prolonged QT Abnormal ECG When compared with ECG of 07-JAN-2019 06:50, premature ventricular complexes. are no longer present T wave inversion now evident in Anterior leads Unconfirmed Result
--- NOTE | 2019-02-08 01:23 | EKG Report ---
Test Performed on : 02/07/2019 10:48:30 PM Test Reason : repeat Blood Pressure : / mmHG Vent. Rate : 070 BPM Atrial Rate : 070 BPM P-R Int : 156 ms QRS Dur : 090 ms QT Int : 384 ms P-R-T Axes : 047 009 234 degrees QTc Int : 414 ms Normal sinus rhythm. ST & T wave abnormality, consider inferolateral ischemia Abnormal ECG When compared with ECG of 07-FEB-2019 19:44, (Unconfirmed) QT has shortened Unconfirmed Result
[2019-02-08] MEDS: DESYREL PO SCH ×2 (01:24→22:02)
[2019-02-08] MEDS: HEPARIN SUBQ SCH ×4 (01:24→16:51)
[2019-02-08] MEDS ORDERED: INSULIN LISPRO SUBQ SCH (03:15)
--- NOTE | 2019-02-08 04:10 | HISTORY AND PHYSICAL ---
CHIEF COMPLAINT: Chest pain. HISTORY OF PRESENT ILLNESS: Ms. Calhoun is a 53-year-old female who was last admitted to our service for chest pain on 01/06/2019. From what I understand, she underwent a heart cath around a week ago at [facility]. She was in the hospital for around a week. Tonight she started having intermittent chest pain. During her last stay when she had her heart catheterization there were no stents placed reportedly. She reports that the pain was a substernal pressure that radiates to her left shoulder. She had some dyspnea with the episodes. No nausea and vomiting. Apparently, it started yesterday. Denied any other symptoms. She will be admitted for further evaluation. PAST MEDICAL HISTORY: Coronary artery disease status post stenting I think in July 2018, CKD 4, fibromyalgia, COPD, hypertension, hyperlipidemia, diabetes mellitus type 2. PREVIOUS SURGICAL HISTORY: Cardiac stenting, left nephrectomy, back surgery, right breast lumpectomy, hernia repair. SOCIAL HISTORY: Reportedly stopped smoking around a month ago. Denies any current tobacco use. Was a former smoker. No alcohol or illicit drugs. FAMILY HISTORY: Positive for coronary artery disease on paternal side. ALLERGIES: Azithromycin, milk, Vioxx, Macrobid, Percocet, Imitrex, tramadol and Nalfon. HOME MEDICATIONS: Amlodipine 10 mg 1 p.o. daily, vitamin D3 of 2000 units p.o. daily, Monurol 3 g packet 1 p.o. daily, Humalog sliding scale, Veltassa 1 dose daily 8.4 g, ranolazine extended release 500 mg p.o. daily, omeprazole 20 mg p.o. daily, aspirin 81 mg p.o. daily, atorvastatin 80 mg p.o. at bedtime, Symbicort 160/4.5 two puff inhalations b.i.d., furosemide 20 mg p.o. b.i.d., Lantus 40 units subcutaneous b.i.d., metoprolol 100 mg p.o. b.i.d., nitroglycerin 0.4 sublingual p.r.n. chest pain, Lyrica 100 mg p.o. b.i.d., sodium bicarbonate 650 mg p.o. b.i.d., Brilinta 90 mg p.o. b.i.d., Spiriva 1 puff inhalation daily, trazodone 50 mg p.o. at bedtime. REVIEW OF SYSTEMS: Fourteen-point review of systems conducted with the patient. Pertinent positives listed above in the HPI. All other systems reviewed and found to be negative. PHYSICAL EXAMINATION: VITAL SIGNS: Temperature 97.2, pulse 73, respirations 17, blood pressure 139/72, oxygen saturation 100% on room air. GENERAL: Pleasant 53-year-old female lying in the ER stretcher, alert and oriented times 3, answers all questions appropriately. HEENT: Head is atraumatic, normocephalic. Pupils equal, round, react to light. Extraocular eye movement is intact. Sclerae are anicteric. Conjunctiva is pale. Oral mucosa is moist. NECK: Supple. No JVD. No thyromegaly. Trachea is midline. No cervical lymphadenopathy. CARDIAC: S1, S2 appreciated. No murmurs, gallops, rubs. LUNGS: Clear to auscultation. No rhonchi, wheezes, rales. Symmetric rise and fall with respirations. ABDOMEN: Soft, nondistended, nontender. Bowel sounds present all 4 quadrants, normoactive. No pulsatile mass. No organomegaly. EXTREMITIES: No clubbing, cyanosis. Trace bilateral lower extremity edema. Two-plus pedal pulses bilaterally. GENITOURINARY: No bladder distention. Patient voids. Otherwise deferred. NEUROLOGICAL: Alert and oriented times 3. Cranial nerves 2 through 12 grossly intact. DIAGNOSTIC DATA: Chest x-ray: Mild cardiomegaly. LABORATORY DATA: WBC 12.56. Hemoglobin 8.4. Hematocrit 25.6. Platelet count 231. Sodium 135. Potassium 4.5. Chloride 99. Carbon dioxide 23. BUN 27. Creatinine 3.8. Glucose 303. CK and troponins negative times 2 sets. ASSESSMENT AND PLAN: 1. Chest pain, rule out acute myocardial infarction. We will consult Dr. Anirudh Wylie, who is rehabilitation teacher for Cardiology. Trend cardiac enzymes. Continue aspirin and Brilinta as well as her other home medications. Nitroglycerin as needed. 2. Coronary artery disease, status post stenting and recent heart cath without intervention. Aware. Please see above. 3. Chronic kidney disease stage 4, status post left nephrectomy. Avoid nephrotoxic drugs. Monitor labs. 4. Chronic obstructive pulmonary disease. Continue home medications. Oxygen supplementation as necessary. 5. Hypertension. Continue to monitor. Continue home medications. 6. Hyperlipidemia. Continue atorvastatin. Check lipid profile. 7. Diabetes mellitus type 2. Sliding scale insulin with fingerstick blood sugars. Further recommendations per patient clinical course. Dictated by CLEMENT Hurley for Alex Hadley MD I have performed a face to face diagnostic evaluation. Labs/ xrays- reviewed. Exam- chest- clear, CV- regular. A/P- Chest Pain- Admit, cardiac work up, cardiology consult. Dr. Hadley cc: CLEMENT Hurley MD [facility]
[2019-02-08] MEDS: PRILOSEC PO SCH (06:05)
[2019-02-08] MEDS: HUMALOG SUBQ SCH ×4 (06:07→22:03)
[2019-02-08] MEDS: SYMBICORT 160/4.5 MICROGM INHALER INH SCH ×2 (07:50→21:30)
--- NOTE | 2019-02-08 07:50 | EKG Report ---
Test Performed on : 02/08/2019 07:43:59 AM Test Reason : cp Blood Pressure : / mmHG Vent. Rate : 069 BPM Atrial Rate : 069 BPM P-R Int : 150 ms QRS Dur : 092 ms QT Int : 418 ms P-R-T Axes : 038 009 239 degrees QTc Int : 447 ms Normal sinus rhythm. ST & T wave abnormality, consider inferolateral ischemia Abnormal ECG When compared with ECG of 07-FEB-2019 22:48, (Unconfirmed) No significant change was found Confirmed by Lesley Mckay MD ([id number]) on 02/08/2019 4:11:38 PM
[2019-02-08] MEDS: SPIRIVA INH SCH (07:53)
[2019-02-08 08:27] LABS: CALCIUM 8.2 mg/dL (8.8-10.2); CREATININE 4.1 mg/dL (0.5-0.9); POTASSIUM 4.6 mmol/L (3.5-5.1)
[2019-02-08 08:42] LABS: FERRITIN 62 ng/mL (13-150)
[2019-02-08] MEDS ORDERED: NORVASC PO SCH (09:00)
[2019-02-08] MEDS ORDERED: RANEXA PO SCH (09:00)
[2019-02-08] MEDS ORDERED: LOPRESSOR PO SCH (09:00)
[2019-02-08] MEDS: LANTUS INSULIN SUBQ SCH ×2 (09:57→22:03)
[2019-02-08] MEDS: MONUROL PO SCH (09:58)
[2019-02-08] MEDS: LASIX PO SCH ×2 (09:58→22:03)
[2019-02-08] MEDS: VITAMIN D PO SCH (09:58)
[2019-02-08] MEDS: LYRICA PO SCH ×2 (09:59→22:01)
[2019-02-08] MEDS: BRILINTA PO SCH ×2 (09:59→22:03)
[2019-02-08] MEDS: FERROUS SULFATE PO SCH ×2 (09:59→22:01)
[2019-02-08] MEDS: ASPIRIN EC PO SCH (10:00)
[2019-02-08] MEDS: VELTASSA PO SCH (10:13)
[2019-02-08] MEDS: SODIUM BICARBONATE PO SCH ×2 (10:18→22:02)
--- NOTE | 2019-02-08 10:57 | CARDIOLOGY CONSULTATION ---
DATE: 02/08/2019 REQUESTING PHYSICIAN: Hospitalist Service. REASON FOR CONSULTATION: Chest pain, unstable angina. Chief complaint: chest pain. HISTORY: Mrs. Calhoun is an unfortunate, 53-year-old, female, who presented to the hospital last night at about 7:40 p.m. with complaints of recurrent chest pain. The patient says that since her recent discharge from [facility], which was 02/05/2019, she has continued to experience chest discomfort substernal whenever she performs relatively minor physical activity like her house chores. Because of this recurrent chest pain, she presented. They did a chest x-ray that shows mildly prominent heart, and echocardiogram that shows sinus rhythm with a nonspecific repolarization abnormality, ST-T in apical inferior leads, V4, V5, V6, also 1, 2, aVL, and AVF. This abnormality is still persistent on today's EKG at 7:43 a.m. Her troponin levels have been checked a few times. They started at 0.084 at 8:35 p.m., then 0.083 at 10:35 p.m., and then 0.094 at 1 a.m. today. She says that she is not having chest pain as long as she is lying down. PAST MEDICAL HISTORY: The patient's recent past history is positive for an acute myocardial infarction in 07/2018 that led to a heart catheterization performed by, I believe, Dr. Garnica, and this resulted in a stent to the circumflex. On that catheterization, it was obvious that one of the marginal branches had a proximal 80% stenosis, but that was a very small vessel, and it had a right angle takeoff from the circumflex, which is a dominant vessel in her case. Then, on 01/13/2019, she was readmitted to [facility] with chest pains, and they did a followup heart catheterization that showed a 50% stenosis to the circumflex coronary artery, just at the proximal portion of the stent, with ongoing stenosis of the marginal branch, again coming off of the circumflex. The patient was just recently readmitted to [facility] after multiple visits to [facility]. She said that she went to [facility] on 01/28/2019 one time, then on 01/29/2019 twice, on 01/30/2019 twice, and then again on 01/31/2019. The 1st few times, she was given GI cocktail with some relief of the chest discomfort. However, on 02/01/20, there was no such relief. She was told that "you have an acute OH," and she was sent to [place]. She was kept in [place]. They did a stress test on 02/01/2019 using a Lexiscan protocol. The reporting physician is Dr. Christiansen, and he indicated that there was a medium defect during the stress of [id number] intensity, fixed perfusion abnormality located in the basal inferior segment, a partially reversible perfusion abnormality located in the mid inferior and apical inferior segments, findings consistent with infarction with cassidy-infarct ischemia. During the stress, there is a reversible perfusion abnormality of [id number] intensity located in the apical anterior segment, again findings consistent with ischemia. There was severe hypokinesis in the basal inferior wall. Ejection fraction of 45%. They opted to treat her medically because of significant renal dysfunction. The patient's past history is also positive for diabetes mellitus for several years. She has developed significant renal insufficiency. In 2017, she lost one kidney to an infection, and her remaining kidney is significantly dysfunctional. On admission at this time, her proBNP level was 19,683. Her creatinine was 3.8, and today it is 4.1 mg percent. That places her on stage IV of chronic kidney disease. The GFR calculated by computer is 11. Actually, it would be more like a stage 5 of chronic kidney disease. The patient has a history of chronic back pain. She has neuropathy of lower extremities. She has hypertension. PAST SURGICAL HISTORY: She has had back surgery two times, in 2007 and then in 2009. She has had tubal ligation, hernia repair, fibroids removed from the breasts, dilatation and curettage.Nephrectomy 2017. SOCIAL HISTORY: She is single, . She has a boyfriend who takes care of her. She has two grown up children, ages 22 and 26, I believe, that live in [place]. Her father lives in [place], has Alzheimer's disease, and she has one sister who also lives in [place] and takes care of the father. HOME MEDICATIONS: At this time included amlodipine 10 mg daily, aspirin 81 daily, atorvastatin 80 daily, Symbicort 2 puffs twice a day, vitamin D3 one capsule daily, Fosfomycin 1 dose 3 grams daily, furosemide 20 twice a day, Lantus insulin 40 units once a day. She also uses a sliding scale Humalog, metoprolol tartrate 100 twice a day, omeprazole 20 daily, Veltassa 1 tablet daily, Lyrica 100 twice a day, Ranolazine 500 daily, sodium bicarbonate 650 twice a day, Brilinta 90 twice a day, trazodone 50 at bedtime. ALLERGIES: Azithromycin, fenoprofen, Vioxx, nitrofurantoin, oxycodone, sumatriptan. She does suffer from migraine headaches. REVIEW OF SYSTEMS: Other than the recurrent chest pain and her chronic back pain, nothing really additional to what I have already reported. PHYSICAL EXAMINATION: Vital Signs: Blood pressure 119/46, temperature 91 degrees, pulse 72, respirations 18. General: The patient is awake, alert, oriented, in no distress. HEENT: Unremarkable. Chest: Sounds clear to auscultation and percussion. Heart: Sounds regular and rhythmic. I do not hear a gallop or murmur. Abdomen: Nontender, soft. No masses or hepatomegaly. Extremities: Good pulses. No peripheral edema. Neurologic: Unremarkable. IMPRESSION: 1. Patient who presents with angina pectoris, functional class 3/unstable angina. 2. History of severe coronary heart disease, previous myocardial infarction with a stent to the circumflex coronary artery, with stenosis noted on recent followup heart catheterization, 50% proximal stented area, plus severe stenosis of one of the obtuse marginal branches of the same vessel. 3. Advanced chronic kidney disease stage 4, bordering with stage 5. 4. History of hypertension. 5. History of chronic back pain. 6. Status post nephrectomy. 7. Diabetes mellitus type 2. 8. Chronic obstructive pulmonary disease. 9. Abnormal Myocardial Perfusion Stress test 02/01/19. RECOMMENDATIONS: At this time, we will try to maximize the medical therapy. I am going to give her amlodipine 5 mg twice a day, ranolazine 1000 twice a day, decrease metoprolol to 50 twice a day to minimize hypotension, and see how she does. If she continues to fare poorly with this adjustment to her medications, perhaps we need to reconsider a followup heart catheterization, although given her advanced kidney insufficiency, she will be at high risk for total kidney failure and referral to hemodialysis. The patient is well aware of that. She has already discussed this with the [place] team, and they had already told her that if push comes to shove, they may have to try to save her life by intervening on the heart rather than trying to spare the kidney from further deterioration. Will follow her. cc: Joshua Garcias MD MTDD
--- NOTE | 2019-02-08 13:32 | PROGRESS NOTE ---
DATE: 02/08/2019 Ms. Calhoun was admitted yesterday with chest pain. She is a patient of Dr. Charli Galo. A 53- year-old last admitted to our service on 01/06/2019. She underwent heart catheterization around a week ago in [facility]. She started having more intermittent chest pain, which she felt like was angina. She has had a heart catheterization but no stents placed. The pain was substernal, radiating to her left shoulder. She was making chicken and dumplings, and she had to stop but she notice whenever she does exertion, she is having more pain in her chest. It radiates to the left arm. PAST MEDICAL HISTORY: 1. Coronary artery disease, status post stenting, I think in July 2018. 2. Chronic kidney disease stage 4. 3. Fibromyalgia. 4. COPD. 5. Hypertension. 6. Hyperlipidemia. 7. Diabetes mellitus type 2. PREVIOUS SURGICAL HISTORY: Cardiac stenting, left nephrectomy, back surgery, right breast lumpectomy, and hernia repair. ASSESSMENT AND PLAN: 1. Admitted with chest pain, rule out acute myocardial infarction or unstable angina. Checked cardiac enzymes and her troponin was 0.085, her CK was 49. Cardiology was consulted. She presented with angina pectoralis, functional class 3 unstable angina. She has a history of severe coronary artery disease, previous myocardial infarction with a stent to the circumflex coronary artery, with stenosis noted on recent followup heart catheterization, 50% proximal stented area plus severe stenosis of one of the obtuse marginal branches of the same vessel. I think medication adjustment has been made. 2. Advanced kidney disease stage 4, chronic kidney disease. 3. For history of hypertension. 4. Chronic back pain. 5. Status post nephrectomy. 6. Diabetes mellitus type 2. 7. Chronic obstructive pulmonary disease. 8. I gave her amlodipine 5 mg twice a day, ranolazine 1000 mg twice a day, and decreased metoprolol to 50 mg twice a day to minimize the hypotension. If she continues to feel poorly, we may have to do another followup heart catheterization. 9. Diabetes mellitus. We will pattern sugars. 10. Chronic kidney disease. Aware. cc: Jaya Giles MD
[2019-02-08] MEDS: NITROGLYCERIN SL PRN ×3 (19:50→22:06)
[2019-02-08] MEDS ORDERED: MORPHINE IV ONE (20:31)
[2019-02-08] MEDS: LOPRESSOR PO SCH (22:02)
[2019-02-08] MEDS: NORVASC PO SCH (22:02)
[2019-02-08] MEDS: LIPITOR PO SCH (22:02)
[2019-02-08] MEDS: RANEXA PO SCH (22:04)
[2019-02-09] MEDS: HEPARIN SUBQ SCH ×4 (01:51→16:44)
[2019-02-09] MEDS: PRILOSEC PO SCH (06:18)
[2019-02-09] MEDS: HUMALOG SUBQ SCH ×4 (06:18→20:39)
--- NOTE | 2019-02-09 07:44 | EKG Report ---
Test Performed on : 02/09/2019 07:39:03 AM Test Reason : angina unstable Blood Pressure : / mmHG Vent. Rate : 074 BPM Atrial Rate : 074 BPM P-R Int : 160 ms QRS Dur : 090 ms QT Int : 388 ms P-R-T Axes : 053 014 236 degrees QTc Int : 430 ms Normal sinus rhythm. ST & T wave abnormality, consider inferolateral ischemia Abnormal ECG When compared with ECG of 08-FEB-2019 07:43, No significant change was found Confirmed by Lesley Mckay MD ([id number]) on 02/14/2019 9:27:54 PM
[2019-02-09 07:55] LABS: BASO# 0.04 X1000 (0.0-0.2); BASO% 0.4 % (0.0-0.8); EOS# 0.42 X1000 (0.0-0.7); HEMATOCRIT 24.7 % (37.0-47.0); HEMOGLOBIN 7.9 g/dL (12.0-16.0); IMM GRAN# 0.04 X1000 (0.0-0.04); IMM GRAN% 0.4 % (0.0-0.5); LYMPH# 1.76 X1000 (1.2-3.4); LYMPH% 16.9 % (20.5-51.1); MCH 30.3 PG (27-31); MCV 94.6 FL (81-99); MONO# 0.67 X1000 (0.11-0.59); MONO% 6.4 % (1.7-9.3); MPV 10.9 FL (7.4-10.4); NEUT# 7.48 X1000 (1.4-6.5); NEUT% 71.9 % (42.2-75.2); PLT 209 X1000 (130-400); RBC 2.61 XMIL (4.2-5.4); RDW 13.8 % (11.5-14.5); WBC 10.41 X1000 (4.8-10.8)
[2019-02-09] MEDS: SYMBICORT 160/4.5 MICROGM INHALER INH SCH ×2 (08:30→21:15)
[2019-02-09] MEDS: SPIRIVA INH SCH (08:30)
[2019-02-09 08:33] LABS: ALBUMIN 3.1 g/dL (3.5-5.0); CALCIUM 8.5 mg/dL (8.8-10.2); CREATININE 3.3 mg/dL (0.5-0.9); PHOSPHORUS 5.4 mg/dL (2.7-4.5); POTASSIUM 4.5 mmol/L (3.5-5.1)
--- NOTE | 2019-02-09 08:51 | CARDIOLOGY PROGRESS NOTE ---
DATE: 02/09/2019 CHIEF COMPLAINT: Chest pain. SUBJECTIVE: Mrs. Calhoun is feeling a little better this morning. Last night, she had an episode of chest pain that required 2 nitroglycerin and 3 mg of morphine. Her troponin level this morning remains at 0.085 so it has not changed. A 12-lead EKG obtained this morning also shows the same pattern with a nonspecific ST abnormality in multiple leads. I had reviewed the stress test that was done in [place] last week and it was abnormal. OBJECTIVE: Vital signs: Blood pressure 103/56, temperature 97.4, pulse 73, respirations 18. General: She is awake, alert, oriented, in no distress. HEENT: Unremarkable. Chest: Sounds to clear to auscultation and percussion. Heart: Sounds are regular and rhythmic without gallop or murmur. Abdomen: Nontender. Extremities: Showed no edema. Neurologic exam: Follows commands, moves all 4 extremities. IMPRESSION: 1. Patient who presented with chest pain/unstable angina. 2. Severe coronary heart disease, previous stent to circumflex with a recent heart catheterization 01/13 that shows 50% proximal stenosis of the circumflex and also a tight lesion of 1 of the marginal branches of the same vessel. 3. Chronic kidney disease stage 4 bordering into 5. 4. Status post nephrectomy. 5. Diabetes mellitus type 2. 6. Abnormal myocardial perfusion stress test 02/01/19. inferior scar+ periinfarct ischemia. anterior apical mixed defect. RECOMMENDATIONS: At this time, I would suggest to continue aggressive medical management for the next day or two. If she continues to have chest pains, we will have to make a referral to [place] for the specific purpose of performing intervention. Her stress test is already abnormal so we do not need to repeat that. Will continue observe clinical course. Thank you for asking us to participate in her evaluation. cc: Joshua Garcias MD [facility]
[2019-02-09] MEDS: RANEXA PO SCH ×2 (08:54→20:25)
[2019-02-09] MEDS: LYRICA PO SCH ×2 (08:54→20:27)
[2019-02-09] MEDS: ASPIRIN EC PO SCH (08:54)
[2019-02-09] MEDS: FERROUS SULFATE PO SCH ×2 (08:54→20:25)
[2019-02-09] MEDS: BRILINTA PO SCH ×2 (08:54→20:27)
[2019-02-09] MEDS: VITAMIN D PO SCH (08:55)
[2019-02-09] MEDS: LOPRESSOR PO SCH ×2 (08:55→20:25)
[2019-02-09] MEDS: VELTASSA PO SCH (08:55)
[2019-02-09] MEDS: SODIUM BICARBONATE PO SCH ×2 (08:55→20:25)
[2019-02-09] MEDS: LANTUS INSULIN SUBQ SCH ×2 (08:56→20:27)
[2019-02-09] MEDS: MONUROL PO SCH (10:32)
--- NOTE | 2019-02-09 12:47 | PROGRESS NOTE ---
DATE: 02/09/2019 SUBJECTIVE: The patient states that she is real emotional and anxious at this time. She has been told that she may need bypass surgery. She complains of chest pain with minimal exertion and at rest. OBJECTIVE: Vital Signs: Temperature 97.8 degrees, blood pressure 112/69, heart rate 65, respirations 18, O2 saturation is 100% on 2 L nasal cannula. General: This is a chronically ill- appearing elderly female, lying in bed in no acute distress. Heart: S1, S2 normal. Regular rate and rhythm. Lungs: Clear to auscultation bilaterally. No wheezing. No rales. No rhonchi. Abdomen: Positive bowel sounds. Soft, nontender, nondistended. Extremities: No edema. No cyanosis. No calf tenderness. Neurologic: The patient is alert and oriented x4. She does appear to be anxious. LABORATORY DATA: White blood cell count 10, hemoglobin 7.9, hematocrit 24, platelets 209,000. Sodium 140, potassium 4.5, chloride 103, CO2 of 25, BUN 29, creatinine 3.3, glucose 97, phosphorus 5.4. ASSESSMENT AND PLAN: 1. Unstable angina. The patient's cardiac enzymes remain elevated, and she does have an abnormal EKG. Continue on the current cardiac medications. Further management as per the nursing care attendant. 2. Chronic kidney disease, stage 4. Slightly improved today. The patient has a 24-hour urine in progress. We will also obtain a renal ultrasound. We will avoid nephrotoxic agents. 3. Diabetes mellitus, type 2. Continue on Lantus and sliding scale insulin. 4. Chronic obstructive pulmonary disease. Stable. Continue on Symbicort. 5. Insomnia. Continue on trazodone. 6. Morbid obesity. Aware. 7. Iron deficiency anemia. We will start the patient on iron replacement. cc: Irma Horner MD
--- NOTE | 2019-02-09 12:54 | Diag Imaging Result Doc PS360 ---
EXAM: US RENAL 2 (RETROPER) COMPLETE 02/09/2019 HISTORY: marko on ckd TECHNIQUE: Renal ultrasound COMMENT: There is an apparent 7 mm stone in the upper pole of the right collecting system. There is no evidence of hydronephrosis or mass. The left kidney is surgically absent. The bladder is unremarkable in appearance. The right kidney measures 11 x 4.1 x 5.1 cm. IMPRESSION: Right nephrolithiasis. Electronically signed by Fausto Chávez 02/09/2019 12:51 PM
[2019-02-09] MEDS: NITROGLYCERIN SL PRN ×2 (15:12→20:28)
[2019-02-09] MEDS: KLONOPIN PO PRN ×2 (15:12→21:23)
[2019-02-09 15:36] LABS: UR CREATININE 45.5 mg/dL (11-20); UR PROTEIN 143.2 mg/dL
[2019-02-09 15:39] LABS: CREATININE 3.3 mg/dL (0.7-1.2)
[2019-02-09] MEDS: NORVASC PO SCH ×2 (16:44→20:27)
[2019-02-09] MEDS ORDERED: MORPHINE IV PRN (18:21)
[2019-02-09 20:00] LABS: UR CREAT RANDOM 59.6 mg/dL (11-20); UR PROT RANDOM 164.3 mg/dL
[2019-02-09] MEDS: LIPITOR PO SCH (20:25)
[2019-02-09] MEDS: DESYREL PO SCH (20:26)
[2019-02-09] MEDS: ICAR-C PO SCH (20:27)
[2019-02-10] MEDS: HEPARIN SUBQ SCH ×2 (00:17→09:02)
[2019-02-10] MEDS: HUMALOG SUBQ SCH ×2 (06:37→11:40)
[2019-02-10] MEDS: KLONOPIN PO PRN (06:37)
[2019-02-10] MEDS: PRILOSEC PO SCH (06:37)
--- NOTE | 2019-02-10 07:50 | EKG Report ---
Test Performed on : 02/10/2019 06:18:29 AM Test Reason : angina unstable Blood Pressure : / mmHG Vent. Rate : 077 BPM Atrial Rate : 077 BPM P-R Int : 154 ms QRS Dur : 100 ms QT Int : 392 ms P-R-T Axes : 052 039 250 degrees QTc Int : 443 ms Normal sinus rhythm. Marked ST abnormality, possible inferior subendocardial injury Abnormal ECG When compared with ECG of 09-FEB-2019 07:39, (Unconfirmed) No significant change was found Confirmed by Lesley Mckay MD ([id number]) on 02/14/2019 9:29:14 PM
[2019-02-10] MEDS: SPIRIVA INH SCH (08:00)
[2019-02-10] MEDS: SYMBICORT 160/4.5 MICROGM INHALER INH SCH (08:00)
--- NOTE | 2019-02-10 08:24 | CARDIOLOGY PROGRESS NOTE ---
DATE: 02/10/2019 CHIEF COMPLAINT: Chest pain. SUBJECTIVE: Ms. Calhoun continues to experience chest discomfort intermittently. We have her really on truly maximal medical therapy. She is getting metoprolol, ranolazine, amlodipine and in addition, she is on aspirin and Brilinta. She is getting heparin every 8 hours. Her pain at times is relieved by nitro and at times requires morphine. OBJECTIVE: VITAL SIGNS: Blood pressure is 97/49, temperature 98.7 degrees, pulse 72, respirations 17. GENERAL: She is awake, sitting upright, somewhat pale. She has been hurting. HEENT: Unremarkable. CHEST: Clear to auscultation and percussion. HEART: Sounds regular and rhythmic. No gallop or murmur. ABDOMEN: Nontender. EXTREMITIES: Show no edema. NEUROLOGICAL: Follows commands. Moves 4 extremities. EKG today shows sinus rhythm with a diffuse ST-T abnormality that appears to be somewhat similar to the admission EKG February 07. Her troponins have been 0.084, 0.083, 0.094, 0.085, 0.085. Her urine collection was completed and has yielded a glomerular infiltration rate of creatinine clearance of 16 mL per minute so pretty much she is pre dialysis. Her protein in 24 hours is 2.4 grams. Her LDL cholesterol is 49, HDL is 34, triglycerides 25. IMPRESSION: 1. Patient who has really angina pectoris functional class 3 to 4, basically intractable at this time. 2. Severe coronary heart disease, previous stent to circumflex with stenosis of marginal branches. 3. Advanced chronic kidney disease, stage 4 bordering into 5. 4. Diabetes mellitus type 2. 5. History of hypertension. RECOMMENDATIONS: At this time, I think we have exhausted medical management here. I will request reassessment of her coronary circulation by the interventional team in [place]. Hopefully we will get her transferred over there specifically for f/u LHC and hopefully PCI to CFX. Thank you for asking us to participate in her evaluation. cc: Joshua Garcias MD [facility]
[2019-02-10] MEDS: VITAMIN D PO SCH (09:00)
[2019-02-10] MEDS: LYRICA PO SCH (09:00)
[2019-02-10] MEDS: LOPRESSOR PO SCH ×2 (09:01→11:39)
[2019-02-10] MEDS: FERROUS SULFATE PO SCH (09:01)
[2019-02-10] MEDS: NORVASC PO SCH (09:01)
[2019-02-10] MEDS: RANEXA PO SCH (09:01)
[2019-02-10] MEDS: ASPIRIN EC PO SCH (09:01)
[2019-02-10] MEDS: SODIUM BICARBONATE PO SCH (09:01)
[2019-02-10] MEDS: ICAR-C PO SCH (09:01)
[2019-02-10] MEDS: LANTUS INSULIN SUBQ SCH (09:02)
[2019-02-10 09:06] LABS: BASO# 0.03 X1000 (0.0-0.2); BASO% 0.3 % (0.0-0.8); EOS% 3.5 % (0.0-10.0); HEMATOCRIT 24.3 % (37.0-47.0); HEMOGLOBIN 7.6 g/dL (12.0-16.0); IMM GRAN# 0.05 X1000 (0.0-0.04); IMM GRAN% 0.4 % (0.0-0.5); LYMPH# 1.72 X1000 (1.2-3.4); LYMPH% 15.2 % (20.5-51.1); MCH 30.5 PG (27-31); MCHC 31.3 g/dL (33-37); MCV 97.6 FL (81-99); MONO% 6.2 % (1.7-9.3); MPV 11.2 FL (7.4-10.4); NEUT# 8.43 X1000 (1.4-6.5); NEUT% 74.4 % (42.2-75.2); PLT 173 X1000 (130-400); RBC 2.49 XMIL (4.2-5.4); RDW 13.8 % (11.5-14.5); WBC 11.33 X1000 (4.8-10.8)
[2019-02-10 09:26] LABS: ALBUMIN 2.7 g/dL (3.5-5.0); CREATININE 4.4 mg/dL (0.5-0.9); PHOSPHORUS 4.8 mg/dL (2.7-4.5); POTASSIUM 5.2 mmol/L (3.5-5.1)
[2019-02-10 09:35] VITALS: BP 88/41
[2019-02-10] MEDS: BRILINTA PO SCH (11:39)
[2019-02-10] MEDS: MONUROL PO SCH (11:40)
[2019-02-10] MEDS: VELTASSA PO SCH (11:40)
--- NOTE | 2019-02-14 10:29 | DISCHARGE SUMMARY ---
ADMISSION DATE: 02/08/2019 DISCHARGE DATE: 02/10/2019 FINAL DISCHARGE DIAGNOSES: 1. Unstable angina. 2. Chronic kidney disease stage 4. 3. Diabetes mellitus type 2. 4. Morbid obesity. 5. Chronic obstructive pulmonary disease. 6. Insomnia. 7. Iron-deficiency anemia. CONSULTATIONS: Cardiology consultation with Dr. Garcias. HOSPITAL COURSE: Ms. Calhoun is a 53-year-old female with a history of coronary artery disease, hypertension, and diabetes, who presented to the ER with chest pain. Upon assessment, the patient was noted to have EKG changes and elevated troponin. Cardiology was consulted, and medical management was started. The patient's enzymes were monitored closely, as well as her symptoms. The patient was noted to have worsening of her renal function with a GFR of 15. Since the patient's symptoms were not improving, Dr. Garcias made arrangements to have the patient transferred to [facility] for possible bypass surgery. The patient was transferred to [facility] on 02/10/2019. cc: MD Dr. Iraj Gutierrez
== END 2019-02-10 11:40 | disposition short-term general hospital (02) | DRG 303 ==
LOC: 1N 19:29 → ED 19:29 → OBSVTOIN 02-08 00:21 → SUATTDRO 02-08 00:21
PROVIDERS: ATTEND Internal Medicine

== ENCOUNTER 2019-07-19 13:30 | Observation (INO) ==
--- NOTE | 2019-07-19 13:49 | EKG Report ---
Test Performed on : 07/19/2019 1:35:14 PM Test Reason : Chest Pain Blood Pressure : / mmHG Vent. Rate : 095 BPM Atrial Rate : 095 BPM P-R Int : 126 ms QRS Dur : 088 ms QT Int : 370 ms P-R-T Axes : 052 008 264 degrees QTc Int : 464 ms Sinus rhythm. with premature atrial complexes. T wave abnormality, consider inferolateral ischemia Prolonged QT Abnormal ECG When compared with ECG of 01-JUN-2019 20:28, (Unconfirmed) premature atrial complexes. are now present T wave inversion now evident in Anterolateral leads Unconfirmed Result
--- NOTE | 2019-07-19 14:01 | PROVIDER DOCUMENTATION ---
HPI-General Adult - General Chief Complaint: Chest Pain Stated Complaint: CHEST PAIN Time Seen by Provider: 07/19/19 13:45 Source: patient Allergies/Adverse Reactions: Patient Allergies Allergy/AdvReac Type Severity Reaction Status Date / Time azithromycin [From Zithromax] Allergy SHORTNESS Verified 06/21/19 08:17 OF BREATH fenoprofen [From Nalfon] Allergy ANAPHYLAXIS Verified 06/21/19 08:17 rofecoxib [From Vioxx] Allergy feet Verified 06/21/19 08:17 swelling nitrofurantoin AdvReac HEADACHE Verified 06/21/19 08:17 [From Macrobid] nitrofurantoin AdvReac HEADACHE Verified 06/21/19 08:17 macrocrystalline * [From Macrobid] oxycodone HCl * AdvReac Unknown Verified 06/21/19 08:17 [From Percocet] sumatriptan [From Imitrex] AdvReac elevated bp Verified 06/21/19 08:17 sumatriptan succinate * AdvReac Unknown Verified 06/21/19 08:17 [From Imitrex] tramadol AdvReac NAUSEA Verified 06/21/19 08:17 Home Medications: Home Medication List Medication Instructions Recorded Confirmed Last Taken Type ATORVAstatin [Lipitor] 40 mg PO HS 05/21/18 07/19/19 06/23/19 History Insulin Glargine [Lantus] 45 unit SUBQ DAILY 07/05/18 07/19/19 2 Weeks Ago History ~06/10/19 Aspirin EC 81 mg PO DAILY 07/06/18 07/19/19 06/24/19 07:30 History Ticagrelor [Brilinta] 90 mg PO BID 01/06/19 07/19/19 06/24/19 07:30 History Isosorbide Mononitrate E.r. [Imdur] 60 mg PO DAILY 04/01/19 07/19/19 06/24/19 07:30 History Furosemide 20 mg PO BID 06/21/19 07/19/19 06/23/19 History Metoprolol [Lopressor] 100 mg PO BID 06/21/19 07/19/19 06/24/19 07:30 History Trazodone [Desyrel] 50 mg PO QHS 12/16/19 01/13/20 3 Days Ago History ~06/21/19 Insulin Aspart [Novolog Flexpen] 1 dose SUBQ PRN PRN 06/24/19 07/19/19 1 Week Ago History ~06/17/19 Levofloxacin [Levaquin] 500 mg PO DAILY #6 tab 07/16/19 07/19/19 Unknown Rx Ondansetron Odt [Zofran 4 mg Odt] 4 mg PO Q6H PRN PRN #20 tab 07/16/19 07/19/19 Unknown Rx - History of Present Illness -Gen Adult Nature of Presenting Problems: 53yo female presents with CC of chest pain. The patient reports that she noted chest pain today during dialysis. The patient reports she noted sharp pain that radiated to her arm. She noted pains in the extremities and also reported some shortness of breath. The patient reports that this pain was similar to previous AK. The pt reports that current pain is minimal. The patient reports that she was cold and clammy. The patient denies previous reactions like to this during dialysis. Location of Pain/Injury: reports: chest Pain Radiation: reports: arm(s) Quality of Pain: reports: sharp, other (multiple types) Onset/Duration: reports: other (today) Timing: reports: still present, improving Context/Activities at Onset: reports: other (during dialysis) Associated Symptoms: reports: chest pain, nausea, shortness of breath. denies: diarrhea, fever/chills, vomiting Review of Systems - Adult - REVIEW OF SYSTEMS - ADULT Constitutional: reports: no symptoms reported. denies: fever Eyes: reports: no symptoms reported. denies: eye pain Ears, Nose, Mouth & Throat: reports: no symptoms reported. denies: throat pain Cardiovascular: reports: chest pain Respiratory: reports: shortness of breath Gastrointestinal: denies: abdominal pain, nausea, vomiting Genitourinary: reports: no symptoms reported Musculoskeletal: reports: other (extremity pains) Integumentary: reports: no symptoms reported Neurological: reports: no symptoms reported Psychiatric: reports: no symptoms reported Endocrine: reports: no symptoms reported Hematologic/Lymphatic: reports: no symptoms reported Allergic/Immunologic: reports: no symptoms reported Past History - Adult - PAST MEDICAL HISTORY-ADULT Review of Records: reports: Old Records Reviewed Major Childhood Illnesses: reports: denies history Cardiovascular: reports: CHF, HTN, hyperlipidemia Respiratory: reports: denies history, COPD Gastrointestinal: reports: denies history Obstetrical/Gynecological: reports: denies history Genitourinary: reports: kidney disease (stage 4 kidney failure R kidney; L ne phrectomy) Musculoskeletal: reports: chronic pain Neurological: reports: CVA, headaches/migraines, TIA, other (sciatica) Psychiatric: reports: anxiety, depression Endocrine/Immune: reports: Diabetes Other Conditions: reports: denies history - PRIOR SURGERIES/PROCEDURES Surgical/Procedure History: reports: BTL, orthopedic (extremity) (carpal tunnel) , breast (cyst removal), back/neck (back x2), other (D&C; L nephrectomy) - IMMUNIZATION STATUS Childhood Immunizations: See Nurse Assessment Flu Vaccine: See Nurse Assessment - FAMILY HISTORY Family History: aortic disease, CVA/TIA, HTN - SOCIAL HISTORY Smoking: cigarettes Substance Use: none/never Alcohol Use Frequency: never Physical Exam-General - PHYSICAL EXAM-ADULT Initial Vital Signs Reviewed: Yes - CONSTITUTIONAL General Appearance: alert, no apparent distress, obese - EYES Eyes: negative: conjuctival exudate, photophobia, scleral icterus - HEAD, EARS, NOSE, MOUTH & THROAT HENMT: normocephalic/atraumatic, moist mucous membranes. negative: pharynx normal, hearing deficit, pharyngeal erythema - RESPIRATORY Respiratory: no respiratory distress, decreased breath sounds, rales (bilaterally in the LE) - CARDIOVASCULAR Cardiovascular: regular rate, rhythm. negative: no edema (2+ LE edema) - GASTROINTESTINAL (ABDOMEN) Abdominal Exam: non tender, soft, distended. negative: guarding, rigid - SKIN Integumentary: normal color, warm/dry - NEUROLOGIC Neurologic: grossly normal - PSYCHIATRIC Psych/Mental Status: normal mood/affect, normal thought content, normal thought process Progress - PLAN OF CARE/RESULTS Progress/Plan/Lab Results: Orders Category Date Time Status Cardiac Monitoring DIRECTED Care 07/19/19 13:45 Active Oxygen Therapy- ED Nursing DIRECTED Care 07/19/19 13:45 Active Saline Loc NOW Care 07/19/19 13:45 Active CHEST-2 VIEWS [RAD] Stat Exams 07/19/19 13:45 Ordered CBC WITH ELECTRONIC DIFF [HEME] Stat Lab 07/19/19 13:45 Uncollected CK PROFILE [SP CHEM] Stat Lab 07/19/19 13:45 Uncollected COMPREHENSIVE METABOLIC PANEL [CHEM] Stat Lab 07/19/19 13:45 Uncollected PRO B-NATRIURETIC PEPTIDE Stat Lab 07/19/19 13:45 Uncollected PROTIME WITH INR [COAG] Stat Lab 07/19/19 13:45 Uncollected PTT [COAG] Stat Lab 07/19/19 13:45 Uncollected TROPONIN T HIGH SENSITIVITY Stat Lab 07/19/19 13:45 Uncollected CP/SOB/Palp >45 yrs of Age Stat Oth 07/19/19 13:45 Ordered EKG [EKG] Stat Ther 07/19/19 13:45 Draft Result Diagrams: 07/19/19 14:45 07/19/19 14:45 - REASSESSMENT Reassessment #1 Status: other (Discussed with the hospitalist team who has accepted the patiet for chest pain rule out.) - EKG 1 Time of EKG reading by physician:: 13:35 EKG Read and Signed by:: Chase Gatica (Entered Co-read [facility]) EKG Interpretation (*Must complete 3 of following elements*): Abnormal Rate: 95 Rhythm: sinus [place]: normal QRS: normal PA Interval: normal ST Wave: non-specific ST changes Prior EKG Comparison: changes noted (new T-wave inversions in the lateral leads) Comments: no injury current noted. Departure - Departure Date of Disposition Decision: 07/19/19 Time of Disposition Decision: 17:31 DIAGNOSIS: Chest pain Qualifiers: Chest pain type: unspecified Qualified Code(s): R07.9 - Chest pain, unspecified Disposition: ADMITTED INPATIENT 09 Certified Medical Emergency: Emergent Condition: Fair Referrals and Follow-Ups: Charli Galo Jr, MD [Primary Care Provider] - - Critical Care Note This patient required my direct & personal management of CC.: No Attestation - Physician/ TERRY Attestation Patient care was provided by Advanced Practice Provider:: No The physician spent face to face time with patient:: Yes Advanced Practice Provider documentation review:: Supervising physician onsite and consulted in the evaluation and care of this patient. The physician did have a face to face encounter with the patient.
--- NOTE | 2019-07-19 14:04 | Diag Imaging Result Doc PS360 ---
EXAM: CHEST-2 VIEWS 07/19/2019 HISTORY: Chest pain TECHNIQUE: AP sitting upright at 1402 COMMENT: There is a left internal jugular double-lumen catheter with its tip in the superior vena cava. The heart size is slightly enlarged. The lungs are clear and unchanged since 07/16/2019. IMPRESSION: Stable chest. Electronically signed by Fausto Chávez 07/19/2019 2:02 PM
[2019-07-19 15:30] LABS: BASO# 0.05 X1000 (0.0-0.2); BASO% 0.3 % (0.0-0.8); EOS# 0.28 X1000 (0.0-0.7); EOS% 1.8 % (0.0-10.0); HEMATOCRIT 35.4 % (37.0-47.0); IMM GRAN# 0.23 X1000 (0.0-0.04); IMM GRAN% 1.5 % (0.0-0.5); LYMPH# 1.39 X1000 (1.2-3.4); LYMPH% 8.8 % (20.5-51.1); MCH 32.8 PG (27-31); MCHC 31.1 g/dL (33-37); MCV 105.7 FL (81-99); MONO# 0.66 X1000 (0.11-0.59); MONO% 4.2 % (1.7-9.3); MPV 10.2 FL (7.4-10.4); NEUT% 83.4 % (42.2-75.2); PLT 268 X1000 (130-400); RBC 3.35 XMIL (4.2-5.4); WBC 15.81 X1000 (4.8-10.8)
[2019-07-19] MEDS ORDERED: TYLENOL PO ONE (15:34)
[2019-07-19 15:52] LABS: INR 0.86; PROTIME 11.8 Seconds (11.0-16.0)
[2019-07-19 15:53] LABS: PTT 30.8 Seconds (22.3-41.8)
[2019-07-19 15:58] LABS: ALB/GLOB RATIO 1.3; ALBUMIN 3.2 g/dL (3.5-5.0); CALCIUM 8.2 mg/dL (8.8-10.2); CREATININE 3.1 mg/dL (0.5-0.9); POTASSIUM 3.8 mmol/L (3.5-5.1); TOTAL BILIRUBIN 0.25 mg/dL (0.20-1.00); TOTAL PROTEIN 5.7 g/dL (6.3-8.3)
--- NOTE | 2019-07-19 18:06 | HISTORY AND PHYSICAL ---
PRIMARY CARE PHYSICIAN: Dr. Charli Galo. CHIEF COMPLAINT: Chest pain during dialysis described as sharp, radiating to her right arm with shortness of breath and was unable to complete dialysis today. HISTORY OF PRESENTING ILLNESS: This is a 53-year-old female who presents to [facility] with complaints of chest pain that began during her dialysis today, described the pain as sharp that radiated to her right arm with some associated shortness of breath and felt cold and clammy. States she was unable to complete her dialysis today. On arrival she sitting on the side of the bed eating a [employer] pizza. Denies any current chest pain, states she is feeling better. She states the pain that she felt during dialysis was similar to her previous NM and she has had 2 MIs in the past. Her workup showed a BUN of 29 with a creatinine of 3.1, troponin T high sensitivity was 49, proBNP of 7090, white blood cell count was 15.81. EKG showed sinus rhythm with a PAC at 95. Chest x- ray showed a stable chest so she is being admitted for further evaluation and treatment. PAST MEDICAL HISTORY: CHF, hypertension, hyperlipidemia, depression, NM x2, end-stage renal disease with dialysis, CVA, migraines and diabetes type 2. PAST SURGICAL HISTORY: Of a left nephrectomy, bilateral tubal ligation, carpal tunnel and a back surgery x2. FAMILY HISTORY: Of aortic disease, CVA and hypertension. SOCIAL HISTORY: She currently lives with family. States she quit smoking cigarettes 2 months ago. Denies any alcohol or illicit drug use. ALLERGIES: Azithromycin, fenoprofen, Vioxx, nitrofurantoin, oxycodone, sumatriptan and tramadol. HOME MEDICATIONS: We will need to obtain a current list, reconcile review and restart as appropriate place an order for nursing to update and confirm home medications. LABORATORY DATA: Showed a white blood cell count of 15.81, hemoglobin of 11, hematocrit 35.4, platelets 268,000, PT,11.8. Sodium 138, potassium 3.8, chloride 100, CO2 24, BUN of 29, creatinine 3.1, glucose 121, creatine kinase of 81, troponin T high sensitivity 49, proBNP of 7090. EKG was sinus rhythm with PACs at 95. Chest x-ray showed a stable chest. REVIEW OF SYSTEMS: She denied any fever, chills, blurred vision, dizziness. She did have chest pain, shortness of breath, diaphoresis. Denied any abdominal pain, constipation, diarrhea, burning or hurting with urination. PHYSICAL EXAMINATION: On arrival she had a temperature of 98 degrees, pulse 90, respirations 17, blood pressure 115/70, saturating 98% on 3 L via nasal cannula. GENERAL: This is a 53-year-old female who is sitting on the side of the bed eating pizza talking with family. HEENT: Normocephalic, atraumatic. Normal ENT inspection. Oropharynx and nares are clear. Pupils are equal, round, and reactive to light, accommodation. Extraocular movements are intact. NECK: Normal inspection, normal range of motion. LUNGS: Clear to auscultation bilaterally with equal lung expansion and chest wall movement. HEART: Regular rate and rhythm. No murmurs, rubs, or gallops. ABDOMEN: Soft, nontender, nondistended. Bowel sounds are present x4 quadrants. MUSCULOSKELETAL: She has 5/5 strength x4 extremities. NEUROLOGICAL: The cranial nerves 2-12 appear grossly intact. ASSESSMENT: 1. Chest pain. 2. Elevated troponin. 3. End-stage renal disease with dialysis. 4. Leukocytosis most likely reactive. 5. Diabetes type 2 . OUR PLAN: She will be admitted to the medical unit, placed on telemetry, O2 per protocol. We will consult Cardiology and Nephrology, place on a diabetic diet, pattern blood sugars with sliding scale insulin. Will do another set of cardiac enzymes now. Recheck CBC, BMP in the a.m. Apply SCDs for DVT prophylaxis and further orders after seen by attending and by art sales consultant. Dictated by CLEMENT Cantu for Irma Horner MD cc: MD Irma Gibbs MD [facility]
[2019-07-19] MEDS ORDERED: ZOFRAN IV PRN (19:22)
[2019-07-19] MEDS ORDERED: TYLENOL PO PRN (19:22)
[2019-07-19] MEDS ORDERED: HUMALOG SUBQ SCH (21:00)
[2019-07-19 23:19] LABS: CALCIUM 8.9 mg/dL (8.8-10.2); CREATININE 3.4 mg/dL (0.5-0.9); POTASSIUM 5.4 mmol/L (3.5-5.1)
[2019-07-20] MEDS ORDERED: ZOFRAN ODT PO PRN (06:18)
[2019-07-20] MEDS ORDERED: HUMULIN R SUBQ SCH (07:00)
--- NOTE | 2019-07-20 07:19 | EKG Report ---
Test Performed on : 07/20/2019 06:50:28 AM Test Reason : chest pain Blood Pressure : / mmHG Vent. Rate : 091 BPM Atrial Rate : 091 BPM P-R Int : 138 ms QRS Dur : 084 ms QT Int : 380 ms P-R-T Axes : 054 012 -74 degrees QTc Int : 467 ms Sinus rhythm. with premature supraventricular complexes. T wave abnormality, consider inferior ischemia Prolonged QT Abnormal ECG When compared with ECG of 19-JUL-2019 13:35, (Unconfirmed) T wave inversion no longer evident in Anterior leads Confirmed by James THOMPSON, Lee Garrett ([id number]) on 07/20/2019 6:15:19 PM
[2019-07-20 07:28] LABS: HEMATOCRIT 34.4 % (37.0-47.0); HEMOGLOBIN 10.5 g/dL (12.0-16.0); MCH 32.8 PG (27-31); MCHC 30.5 g/dL (33-37); MCV 107.5 FL (81-99); RBC 3.2 XMIL (4.2-5.4); RDW 16.8 % (11.5-14.5); WBC 13.55 X1000 (4.8-10.8)
[2019-07-20 08:03] LABS: CALCIUM 8.6 mg/dL (8.8-10.2); CREATININE 3.7 mg/dL (0.5-0.9); PHOSPHORUS 6.7 mg/dL (2.7-4.5); POTASSIUM 4.3 mmol/L (3.5-5.1)
[2019-07-20] MEDS ORDERED: LOPRESSOR PO SCH (09:00)
[2019-07-20] MEDS ORDERED: ASPIRIN EC PO SCH (09:00)
[2019-07-20] MEDS ORDERED: ASPIRIN PO SCH (09:00)
[2019-07-20] MEDS ORDERED: LANTUS INSULIN SUBQ SCH (09:00)
[2019-07-20] MEDS ORDERED: BRILINTA PO SCH (09:00)
[2019-07-20] MEDS ORDERED: IMDUR PO SCH (09:00)
[2019-07-20] MEDS ORDERED: DUONEB (A & A) INH SCH (10:00)
[2019-07-20 10:55] VITALS: BP 160/77
--- NOTE | 2019-07-20 16:51 | CARDIOLOGY CONSULTATION ---
DATE: 07/20/2019 CHIEF COMPLAINT: Chest pain during dialysis. HISTORY OF PRESENT ILLNESS: Ms. Calhoun is a 53-year-old white female with a history of coronary disease, end-stage renal disease, who was receiving dialysis yesterday and reports that she was getting some extra fluid pulled off. She began having a stabbing pain in her mid chest with no radiation and that was also associated with significant cramping occurring somewhat diffusely. She had some diaphoresis associated with it. It lasted for around 10 to 15 minutes and resolved with cessation of dialysis. She reports compliance with all of her medications. She says that the pain was different than what she had with her previous MIs, which was more of a pressure sensation. PAST MEDICAL HISTORY: 1. Significant for coronary disease with PCI in February 2019. 2. Hypertension. 3. Hyperlipidemia. 4. End-stage renal disease. 5. CVA. 6. Diabetes. SOCIAL HISTORY: She quit smoking around 2 months ago. No alcohol or illicit drugs. FAMILY HISTORY: Of CVA and hypertension. REVIEW OF SYSTEMS: A 10-system review of systems is negative except for those things mentioned in HPI. PHYSICAL EXAMINATION: Vital Signs: She is afebrile, heart rate is 79, most recent blood pressure is 160/77. General: She is in no acute distress. HEENT: Oropharynx is moist. Poor dentition. Eye examination is pink conjunctivae. White sclerae. Neck: Examination shows no obvious thyromegaly or thyroid tenderness. Cardiovascular: She sounds to be in a regular rate and rhythm. She has no obvious murmurs. She has no S3. She has no lower extremity edema. Chest: Exam sounds relatively clear. She has no increased work of breathing. Abdomen: Soft, nontender, nondistended. She has no obvious organomegaly. Skin: Warm and dry throughout without any rashes. Neurological: Moving all extremities well. She has no lateralizing deficits. PERTINENT DATA: She had a chest x-ray that demonstrated a catheter tip in the superior vena cava, mild cardiomegaly, otherwise unremarkable. Her EKG on the at 1335 hours shows sinus rhythm, PACs, mild nonspecific ST-T changes. Subsequent EKG occurring on the at 0650 hours shows sinus rhythm. Again, nonspecific ST-T changes somewhat diffusely. PAC identified. Lab data shows a white count of 13.5, hematocrit 34 platelet count is 248,000. Sodium is 141, potassium 4.3, BUN 43 creatinine 3.7. Her troponin, high sensitivity troponins have ranged anywhere from 44 to 49 during the course of the hospitalization. Her proBNP was 7090. ASSESSMENT: Ms. Calhoun is a 53-year-old female with coronary disease who presented with somewhat atypical discomfort. She has a history of percutaneous coronary intervention. PLAN: She has EKGs that do not seem to be clearly ischemic. She has relatively flat troponins which are below the cutoff. She had symptoms that were also associated with marked cramping and she reports were different than her previous MO. Presently, I would plan on increasing her isosorbide mononitrate to 120 mg daily. I will have her follow up with me in the office next week on the at 0930 hours, and we will re-evaluate the patient at that time. I think it would be reasonable to discharge her home at this point. cc: Anirudh Wylie MD
--- NOTE | 2019-07-20 19:13 | PROVIDER PROGRESS NOTE ---
Progress Note Chief complaint: I started having chest pain during my dialysis yesterday. HPI: Ms. Calhoun is a 53-year-old white female well known to our service for hemodialysis treatment on MWF in the [place] [facility]. She has a past medical history of congestive heart failure, hypertension, hyperlipidemia, and myocardial infarctions x 2. She was 1.5 hours into dialysis yesterday when she had sudden sharp and pressure like chest pain with shortness of breath and diaphoresis. She rated her pain a 7/[address] into the time of arrival to ED which was around 40 minutes. She did not receive nitro or ASA in route. She has been taking Furosemide 200mg twice a day to help with her fluid status and the dialysis clinic was attempting to pull 4Liter off. She voices them telling her she had 6.8L on. Her EKG showed sinus rhythm with a PAC at 95. She was noted to be eating pizza at the side of the bed while in the emergency room. Her admitting potassium was 5.4 and her pro BNP was 7090. Past medical history: congestive heart failure, hypertension, hyperlipidemia, depression, myocardial infarction X2, and stage renal disease requiring dialysis on Friday, Friday, and Friday, CVA, migraines, diabetes mellitus type two, and COPD with home oxygen use. Past surgical: left nephrectomy, bilateral tubal ligation, carpal tunnel, and b ack surgery X 2. Family history: mother passed from a stroke, father passed from Alzheimers disease but suffered several strokes and myocardial infarctions. Social history: Lives alone, recently quit smoking, denies alcohol and illicit drugs. Allergies: Azithromycin, fenoprofen, vioxx, nitrofurantoin, oxycodone HCl, Imitrex, tramadol. Home medications: aspirin enteric coated, Lipitor, for a semi, nova log, Lantis, Isosorbide mononitrate, metoprolol, Zofran, Brilinta, trazadone. Review of systems: all pertinent positives listed in the above HPI Physical exam: temperature 97.9, pulse 79, respirations 20, blood pressure 121/86, 02 sat 96% on 2 L nasal cannula. General: obese white female lying in bed in no acute distress HEENT: normocephalic, atraumatic, pupils equal and reactive. Mucous membranes are moist. Skin: warm and dry. Neck: Supple, JVD appreciated with no hepatojugular reflux Cardiovascular: S1S2, regular rate and rhythm. No murmur or gallop noted. Respiratory: lungs clear to auscultation anteriorly Abdomen: soft,nondistended, nontender. Bowel sounds active. : non inspected Extremities: No clubbing, cyanosis, or edema. Neurological: alert and oriented to person, place, and time Assessment and Plan: Chronic kidney disease stage 5D. Patient received almost half of her normal routine dialysis treatment yesterday. She will receive her routine treatment tomorrow. Chest pain. Likely cramping from high UF rate. Unlikely cardiac. Cardiology consulted. rg Blood pressure. In target. Hyperkalemia. Treated in the emergency department will do further management with hemodialysis tomorrow. Acid base base balance. Stable. Medication review. No changes.
[2019-07-20] MEDS ORDERED: LIPITOR PO SCH (21:00)
[2019-07-20] MEDS ORDERED: DESYREL PO SCH (21:00)
[2019-07-21] MEDS ORDERED: IMDUR PO SCH (09:00)
== END 2019-07-20 15:37 | disposition home or self-care (01) ==
LOC: SUPCPDRO → ED 13:30 → SUATTDRO 17:17 → EDIPHOLD 17:17 → INTOOBSV 17:17 → EDIPHOLD 07-20 09:33
PROVIDERS: ATTEND Internal Medicine

== ENCOUNTER 2019-09-16 18:03 | Observation (INO) ==
[2019-09-16] MEDS ORDERED: ZOFRAN IV ONE (19:49)
[2019-09-16] MEDS ORDERED: NS 500 ML IV ONE (19:54)
[2019-09-16 20:22] LABS: BASO# 0.04 X1000 (0.0-0.2); BASO% 0.2 % (0.0-0.8); EOS# 0.33 X1000 (0.0-0.7); EOS% 2.1 % (0.0-10.0); HEMATOCRIT 39.2 % (37.0-47.0); HEMOGLOBIN 12.8 g/dL (12.0-16.0); IMM GRAN# 0.14 X1000 (0.0-0.04); IMM GRAN% 0.9 % (0.0-0.5); LYMPH# 1.54 X1000 (1.2-3.4); LYMPH% 9.6 % (20.5-51.1); MCH 32.8 PG (27-31); MCHC 32.7 g/dL (33-37); MCV 100.5 FL (81-99); MONO# 0.93 X1000 (0.11-0.59); MONO% 5.8 % (1.7-9.3); MPV 10.4 FL (7.4-10.4); NEUT% 81.4 % (42.2-75.2); PLT 290 X1000 (130-400); RDW 17.7 % (11.5-14.5); WBC 16.08 X1000 (4.8-10.8)
[2019-09-16 20:33] LABS: ALB/GLOB RATIO 0.8; ALBUMIN 2.8 g/dL (3.5-5.0); CALCIUM 8.3 mg/dL (8.8-10.2); CREATININE 4.9 mg/dL (0.5-0.9); POTASSIUM 5.4 mmol/L (3.5-5.1); TOTAL BILIRUBIN 0.15 mg/dL (0.20-1.00); TOTAL PROTEIN 6.2 g/dL (6.3-8.3)
[2019-09-16 21:29] LABS: URINE SOURCE CLEAN CATCH
[2019-09-16 21:40] LABS: BILIRUBIN URINE NEGATIVE (NEGATIVE); BLOOD URINE SMALL (NEGATIVE); COLOR YELLOW; GLUCOSE URINE 500 mg/dL (NEGATIVE); KETONE URINE NEGATIVE (NEGATIVE); LEUKOCYTES URINE LARGE (NEGATIVE); NITRITE URINE NEGATIVE (NEGATIVE); PROTEIN URINE 300 mg/dL (NEGATIVE); TURBIDITY URINE HAZY (CLEAR); UR EPITHELIAL CELLS <10 /HPF (<10); URINE BACTERIA 1+ /HPF; URINE RBC <10 /HPF (<10); URINE WBC TNTC /HPF (<10); UROBILINOGEN URINE NORMAL (NORMAL)
[2019-09-16] MEDS ORDERED: ROCEPHIN 1 GM in NS 50 ML IV ONE (21:53)
--- NOTE | 2019-09-16 21:59 | PROVIDER DOCUMENTATION ---
This chart was entered by Omaira Vazquez Scribe, acting as scribe for Chase Gatica MD. HPI-Abdominal Pain/GI Problem - General Chief Complaint: N/V/D Stated Complaint: N,V,D Time Seen by Provider: 09/16/19 19:34 Source: patient Allergies/Adverse Reactions: Patient Allergies Allergy/AdvReac Type Severity Reaction Status Date / Time azithromycin [From Zithromax] Allergy SHORTNESS Verified 09/16/19 19:28 OF BREATH fenoprofen [From Nalfon] Allergy ANAPHYLAXIS Verified 09/16/19 19:28 rofecoxib [From Vioxx] Allergy feet Verified 09/16/19 19:28 swelling nitrofurantoin AdvReac HEADACHE Verified 09/16/19 19:28 [From Macrobid] nitrofurantoin AdvReac HEADACHE Verified 09/16/19 19:28 macrocrystalline * [From Macrobid] oxycodone HCl * AdvReac Unknown Verified 09/16/19 19:28 [From Percocet] sumatriptan [From Imitrex] AdvReac elevated bp Verified 09/16/19 19:28 sumatriptan succinate * AdvReac Unknown Verified 09/16/19 19:28 [From Imitrex] tramadol AdvReac NAUSEA Verified 09/16/19 19:28 Home Medications: Home Medication List Medication Instructions Recorded Confirmed Last Taken Type ATORVAstatin [Lipitor] 40 mg PO HS 05/21/18 09/16/19 09/15/19 History Aspirin EC 81 mg PO DAILY 07/06/18 09/16/19 09/16/19 History Ticagrelor [Brilinta] 90 mg PO BID 01/06/19 09/16/19 09/16/19 History Metoprolol [Lopressor] 100 mg PO BID 06/21/19 09/16/19 09/16/19 History Trazodone [Desyrel] 50 mg PO QHS PRN 06/21/19 09/16/19 08/17/19 History Insulin Aspart [Novolog Flexpen] 1 dose SUBQ PRN PRN 06/24/19 09/16/19 09/16/19 History Insulin Glargine [Lantus Insulin] 35 unit SUBQ DAILY unit 07/20/19 09/16/19 09/15/19 Rx Isosorbide Mononitrate E.r. [Imdur] 120 mg PO DAILY #60 tab 07/20/19 09/16/19 09/16/19 Rx Nitroglycerin [Nitrostat] 0.4 mg SUBLINGUAL Q2-4H PRN PRN 07/20/19 09/16/19 Unknown Rx #30 tab.subl - History of Present Illness-ABD Nature of Presenting Problems: pt is a 53 yr old female presenting with nausea/vomiting/diarrhea onset last night, pt admits weakness today. pt is a dialysis pt, last tx yesterday. pt denies fever/chills, no known sick contacts Abdominal Pain Onset Location: reports: generalized abdomen Pain Radiation: reports: no radiation Quality of Pain: reports: dull Severity in ED: reports: mild Onset/Duration: reports: last night Timing: reports: still present Activities at Onset: reports: light activity Exposure to sick contacts?: No Modifying Factors: improves with: nothing Associated Symptoms: reports: diarrhea, fatigue, loss of appetite, nausea, vomiting, weakness. denies: EENT symptoms, fever/chills, shortness of breath Last BM: this evening Dark Stools Present?: reports: none noticed # of Diarrhea Episodes: 8 Rectal Pain: reports: none # of Vomiting Episodes: 2 Emesis Description: reports: clear Bruising or Bleeding Gums?: No Similar Symptoms Previously?: No Recently seen or treated by another doctor?: No Review of Systems - Adult - REVIEW OF SYSTEMS - ADULT Constitutional: denies: chills, fever Eyes: reports: no symptoms reported Ears, Nose, Mouth & Throat: denies: ear pain, sinus problem, throat pain Cardiovascular: denies: chest pain, palpitations, syncope Respiratory: reports: cough. denies: dyspnea on exertion, shortness of breath Gastrointestinal: reports: abdominal pain, diarrhea, nausea, vomiting Genitourinary: denies: dysuria, frequency, flank pain Musculoskeletal: denies: back pain, neck pain Integumentary: reports: no symptoms reported Neurological: denies: dizziness/vertigo, headache/migraines Psychiatric: reports: no symptoms reported Endocrine: reports: no symptoms reported Hematologic/Lymphatic: reports: no symptoms reported Allergic/Immunologic: reports: no symptoms reported All Other Systems: Reviewed and Negative Past History - Adult - PAST MEDICAL HISTORY-ADULT Review of Records: reports: Old Records Reviewed, Nursing Assessment Review, Medications Reviewed, Social history reviewed & non-contributory. Major Childhood Illnesses: reports: denies history Cardiovascular: reports: CHF, HTN, hyperlipidemia Respiratory: reports: denies history, COPD Gastrointestinal: reports: denies history Obstetrical/Gynecological: reports: denies history Genitourinary: reports: kidney disease (stage 4 kidney failure R kidney; L nephrectomy) Musculoskeletal: reports: chronic pain Neurological: reports: CVA, headaches/migraines, TIA, other (sciatica) Psychiatric: reports: anxiety, depression Endocrine/Immune: reports: Diabetes Other Conditions: reports: denies history - PRIOR SURGERIES/PROCEDURES Surgical/Procedure History: reports: BTL, orthopedic (extremity) (carpal tunnel) , breast (cyst removal), back/neck (back x2), other (D&C; L nephrectomy) - IMMUNIZATION STATUS Childhood Immunizations: See Nurse Assessment Flu Vaccine: See Nurse Assessment - FAMILY HISTORY Family History: reviewed, not pertinent, aortic disease, CVA/TIA, HTN - SOCIAL HISTORY Smoking: cigarettes, less than 1 pack/day Provider spent 3-5 mins advising pt. on dangers of tobacco.: Discussed manners to quit use, and f/u contacts for add'l counseling. Substance Use: denies Living Situation: alone Physical Exam-General - PHYSICAL EXAM-ADULT Initial Vital Signs Reviewed: Yes - CONSTITUTIONAL General Appearance: alert, no apparent distress, obese - EYES Eyes: PERRL/EOMI - HEAD, EARS, NOSE, MOUTH & THROAT HENMT: normocephalic/atraumatic, moist mucous membranes, normal ENT inspection - NECK Neck: non-tender, full range of motion, supple, normal inspection - RESPIRATORY Respiratory: chest non-tender, lungs clear, normal breath sounds, no respiratory distress, no accessory muscle use - CARDIOVASCULAR Cardiovascular: normal peripheral pulses, regular rate, rhythm - GASTROINTESTINAL (ABDOMEN) Abdominal Exam: non tender, soft, tenderness (epigastric tenderness) - LYMPHATIC Lymphatic: no adenopathy - MUSCULOSKELETAL Back Exam: normal inspection, no CVA tenderness, no vertebral tenderness Extremity: normal range of motion, non-tender, normal inspection - SKIN Integumentary: normal color, normal turgor, warm/dry - NEUROLOGIC Neurologic: grossly normal, no motor/sensory deficits - PSYCHIATRIC Psych/Mental Status: normal mood/affect Progress - PLAN OF CARE/RESULTS Progress/Plan/Lab Results: Vital Signs - 8 hr 09/16/19 18:23 Temperature 98.2 F Pulse Rate 84 Respiratory Rate 16 Blood Pressure 142/84 O2 Sat by Pulse Oximetry 97 Orders Category Date Time Status AMYLASE [CHEM] Stat Lab 09/16/19 19:49 Uncollected CBC WITH ELECTRONIC DIFF [HEME] Stat Lab 09/16/19 19:49 Uncollected COMPREHENSIVE METABOLIC PANEL [CHEM] Stat Lab 09/16/19 19:49 Uncollected LIPASE [CHEM] Stat Lab 09/16/19 19:49 Uncollected URINALYSIS W/POSS RFLX CULT [URINALYSIS] Stat Lab 09/16/19 19:49 Uncollected Result Diagrams: 09/16/19 19:54 09/16/19 19:54 - CONSULTS/PCP/HOSPITALIST Notification #1 *Consult/PCP/Hospitalist*: Dr Hadley Time Discussed: 21:58 Consult Disposition: Will see in ED, Admit Departure - Departure Date of Disposition Decision: 09/16/19 Time of Disposition Decision: 21:58 DIAGNOSIS: UTI (urinary tract infection), Leukocytosis, Abdominal pain, Nausea & vomiting Disposition: ADMITTED INPATIENT 09 Certified Medical Emergency: Emergent Condition: Fair Referrals and Follow-Ups: Charli Galo Jr, MD [Primary Care Provider] - - Critical Care Note This patient required my direct & personal management of CC.: No Attestation - Physician/ TERRY Attestation Patient care was provided by Advanced Practice Provider:: No The physician spent face to face time with patient:: Yes Advanced Practice Provider documentation review:: Supervising physician onsite and consulted in the evaluation and care of this patient. The physician did have a face to face encounter with the patient. This chart was documented by the indicated scribe, (Omaira Vazquez Scribe) and accurately reflects the services I performed and decisions made by me, Chase Gatica MD, as attested by the provider's signature.
--- NOTE | 2019-09-16 22:18 | Diag Imaging Result Doc PS360 ---
ABDOMEN FLAT/UPRIGHT - 09/16/2019 INDICATION: N/V/D COMPARISON: 02/12/2018 FINDINGS: There is a nonobstructive bowel gas pattern. No free air or abdominal calcifications. IMPRESSION: No acute disease. Electronically signed by Charli Duke 09/16/2019 10:16 PM
--- NOTE | 2019-09-16 22:18 | Diag Imaging Result Doc PS360 ---
CHEST-1 VIEW - 09/16/2019 INDICATION: leukocytosis COMPARISON: 07/19/2019 FINDINGS: The lungs are normally expanded and clear. Heart size and mediastinal contours are normal. No pneumothorax or pleural effusion. Stable left dialysis catheter in good position. IMPRESSION: Negative exam. Electronically signed by Charli Duke 09/16/2019 10:15 PM
[2019-09-16] MEDS ORDERED: TYLENOL PO PRN (22:57)
[2019-09-16] MEDS ORDERED: DESYREL PO PRN (22:57)
[2019-09-16] MEDS ORDERED: ZOFRAN IV PRN (22:57)
[2019-09-16] MEDS: ROCEPHIN 1 GM in NS 50 ML IV SCH (23:49)
--- NOTE | 2019-09-17 00:15 | HISTORY AND PHYSICAL ---
PRIMARY CARE PROVIDER: Dr. Galo. CHIEF COMPLAINT: Nausea, vomiting, diarrhea, and weakness times several days. HISTORY OF PRESENTING ILLNESS: A 53-year-old female with a history of coronary artery disease, end-stage renal disease on renal dialysis Friday and Friday, COPD, hypertension, diabetes mellitus type 2, who presented to emergency department with several days history of having nausea, vomiting and diarrhea. She states that she was feeling weak and subsequently she had come to the emergency department. In the ED, she was evaluated, she was found to have elevated WBCs and a UTI. Due to these findings, it was thought that we will place her for observation for further evaluation and management. At the time of my examination, patient denied any headache, fever, chills, chest pain, shortness of breath or any weight changes, but complained of nausea, vomiting, diarrhea and not feeling well. PAST MEDICAL HISTORY: Includes coronary artery disease, end-stage renal disease, COPD, hypertension, hyperlipidemia, diabetes mellitus type 2. PAST SURGICAL HISTORY: Coronary stent, left nephrectomy, back surgery, right breast lumpectomy, hernia repair. ALLERGIES: Azithromycin, fenoprofen, Vioxx, Percocet, Imitrex, tramadol. CURRENT MEDICATIONS: Include aspirin 81 mg p.o. daily, atorvastatin 40 mg p.o. at bedtime, NovoLog FlexPen per protocol, Lantus 35 units subcutaneous daily, Imdur 120 mg p.o. daily, metoprolol 100 mg p.o. b.i.d., Brilinta 90 mg p.o. b.i.d., trazodone 50 p.o. at bedtime. SOCIAL HISTORY: She is a former smoker. She denies any history of alcohol or illicit drug use. FAMILY HISTORY: Positive for coronary disease in father. REVIEW OF SYSTEMS: Fourteen point review of systems listed as in HPI. Other systems negative. PHYSICAL EXAMINATION: GENERAL: Cooperative, friendly female. She is resting more comfortably now. VITAL SIGNS: Temperature 98.2 degrees, pulse 84, respirations 16, blood pressure 142/84. HEENT: Atraumatic, normocephalic. Extraocular movements intact. PERRLA. NECK: Supple. CHEST: Clear to auscultation. CARDIOVASCULAR: Regular rate and rhythm. ABDOMEN: Soft, positive bowel sounds. EXTREMITIES: No edema. NEUROLOGIC: She is awake, alert, oriented x3. GENITOURINARY: No bladder distention. SKIN: Warm. LABORATORIES AND STUDIES: WBC 16.08, hemoglobin 12.8, hematocrit 39.2, platelets 290,000. Sodium 131, potassium 5.4, chloride 98, CO2 is 18, BUN is 34 creatinine 4.9. Glucose 315. Chest x-ray is negative. ASSESSMENT: This is a 53-year-old female with a history of coronary disease, end-stage renal disease, chronic obstructive pulmonary disease, hypertension and diabetes mellitus type 2, presented to emergency department with several days history of persistent nausea, vomiting, diarrhea. She states that she was having generalized weakness and subsequently she had come to the emergency department. In the ED, she was evaluated, due to her presenting symptoms it was thought that we will place her for observation for further evaluation and management ASSESSMENT: 1. Nausea, vomiting diarrhea. 2. Leukocytosis, possibly reactive. 3. Urinary tract infection. 4. End-stage renal disease. PLAN: 1. We will admit patient to medical floor with telemetry. 2. We will continue supportive treatment with antiemetics. 3. Patient was given IV fluids in the ED. 4. Continue monitor her laboratories. 5. We will check urine cultures. Start patient on empiric antibiotics. 6. We will schedule patient for dialysis in the morning. 7. Put patient on DVT prophylaxis. SCDs. 8. We will continue to follow, reassess, make further recommendation based on patient's clinical course. cc: Alex Hadley MD
[2019-09-17 05:41] LABS: BASO# 0.07 X1000 (0.0-0.2); BASO% 0.5 % (0.0-0.8); EOS# 0.43 X1000 (0.0-0.7); EOS% 2.9 % (0.0-10.0); HEMATOCRIT 37.7 % (37.0-47.0); HEMOGLOBIN 12.1 g/dL (12.0-16.0); IMM GRAN# 0.11 X1000 (0.0-0.04); IMM GRAN% 0.7 % (0.0-0.5); LYMPH# 2.33 X1000 (1.2-3.4); LYMPH% 15.5 % (20.5-51.1); MCH 33.1 PG (27-31); MCHC 32.1 g/dL (33-37); MONO# 0.85 X1000 (0.11-0.59); MONO% 5.6 % (1.7-9.3); MPV 10.1 FL (7.4-10.4); NEUT# 11.28 X1000 (1.4-6.5); NEUT% 74.8 % (42.2-75.2); PLT 240 X1000 (130-400); RBC 3.66 XMIL (4.2-5.4); RDW 17.9 % (11.5-14.5); WBC 15.07 X1000 (4.8-10.8)
[2019-09-17 05:56] LABS: CALCIUM 8.4 mg/dL (8.8-10.2); CREATININE 5.1 mg/dL (0.5-0.9); POTASSIUM 5.5 mmol/L (3.5-5.1)
[2019-09-17] MEDS ORDERED: TIGHT: 0.2 ML/HR FOR DIALYSIS MISC PRN (06:31)
[2019-09-17] MEDS ORDERED: HEPARIN IV PRN (06:31)
[2019-09-17] MEDS ORDERED: NS 2,000 ML MISC PRN (06:31)
[2019-09-17] MEDS ORDERED: IMDUR PO SCH (09:00)
[2019-09-17] MEDS ORDERED: ASPIRIN EC PO SCH (09:00)
--- NOTE | 2019-09-17 10:25 | NEPHROLOGY CONSULTATION ---
DATE: 09/17/2019 SUBJECTIVE: Patient sitting up on the side of the bed. REASON FOR VISIT: Urinary tract infection, fluid overload. REASON FOR CONSULTATION: Assist with management, hemodialysis. CONSULTING PHYSICIAN: Dr. Hadley. HISTORY OF PRESENT ILLNESS: A 53-year-old female on end-stage renal disease dialysis Friday, Friday, Friday. The patient states that she did not go to treatment on Friday and that she "only goes on Friday on Friday." The patient came into the emergency room last night with nausea, vomiting, diarrhea, weakness. In the ER, she was found to have a UTI. She was admitted for further evaluation and treatment. Today is her routine dialysis day and we were asked to assist with her management. PAST MEDICAL HISTORY: End-stage renal disease, COPD, hypertension, hyperlipidemia, diabetes, coronary artery disease. SURGICAL HISTORY: Left nephrectomy, back surgery, right breast lumpectomy, hernia repair, coronary stenting. ALLERGIES: Please see chart for complete listing, but they do include azithromycin, fenoprofen, Vioxx, Percocet, Imitrex, tramadol. HOME MEDICATIONS: Aspirin, atorvastatin, NovoLog, Lantus, Imdur, metoprolol, Brilinta, trazodone. FAMILY HISTORY: Coronary artery disease. SOCIAL HISTORY: She is a former smoker. No ETOH or illicit drug. REVIEW OF SYSTEMS: Nausea, vomiting, diarrhea, weakness. PHYSICAL EXAMINATION: Vital Signs: Temperature 98 degrees, pulse 92, respiratory rate 18, blood pressure 150/72. Intake none, output 990 mL. General: This is a middle-aged female sitting up on the side of the bed. She is awake and alert, no acute distress. HEENT: Normocephalic, atraumatic. Her conjunctivae are pink. Oral mucosa moist. Neck: Supple with trace JVD. Cardiovascular: Regular rate and rhythm. Pulmonary: Clear bilaterally. Abdomen: Soft with positive bowel sounds. : Not inspected. Minimal void. Extremities: 1+ lower extremity edema. Integumentary: Skin is warm and dry. Neurologic: Nonfocal. LABORATORY DATA: WBC of 15.0, hemoglobin 12.1. Sodium 131, potassium 5.5, CO2 14, creatinine 5.1. ASSESSMENT AND PLAN: 1. Chronic kidney disease VD. Today is her routine dialysis day. We will dialyze on a 2K bath UF to her dry weight 3.5 hour treatment. 2. Urinary tract infection. She is currently on ceftriaxone. No changes are needed to that dosing. 3. Electrolytes, acid-base balance. These are acceptable. Plan for routine dialysis. 4. Fluid volume. She does appear to be slightly volume expanded. She is in no acute distress. Dictated by CLEMENT Henley for James Sue MD cc: James Sue MD
--- NOTE | 2019-09-17 10:36 | EKG Report ---
Test Performed on : 09/17/2019 10:06:10 AM Test Reason : chest pain Blood Pressure : / mmHG Vent. Rate : 099 BPM Atrial Rate : 099 BPM P-R Int : 130 ms QRS Dur : 082 ms QT Int : 390 ms P-R-T Axes : 056 002 259 degrees QTc Int : 500 ms Normal sinus rhythm. Marked ST abnormality, possible inferolateral subendocardial injury Prolonged QT Abnormal ECG When compared with ECG of 11-AUG-2019 01:08, (Unconfirmed) premature supraventricular complexes. are no longer present T wave inversion now evident in Inferior leads ST abnormalities are more pronounced in the inferior leads. Confirmed by Italo Mcgrath MD ([id number]) on 09/19/2019 12:37:21 PM
[2019-09-17] MEDS ORDERED: NITROGLYCERIN SL PRN (10:45)
[2019-09-17] MEDS: BRILINTA PO SCH ×2 (10:46→20:49)
[2019-09-17] MEDS: LOPRESSOR PO SCH ×2 (10:46→20:49)
[2019-09-17] MEDS ORDERED: LANTUS INSULIN SUBQ SCH (11:30)
--- NOTE | 2019-09-17 12:58 | EKG Report ---
Test Performed on : 09/17/2019 12:36:44 PM Test Reason : chest pain Blood Pressure : / mmHG Vent. Rate : 080 BPM Atrial Rate : 080 BPM P-R Int : 136 ms QRS Dur : 080 ms QT Int : 406 ms P-R-T Axes : 044 014 243 degrees QTc Int : 468 ms Sinus rhythm. with premature supraventricular complexes. ST & T wave abnormality, consider inferolateral ischemia Prolonged QT Abnormal ECG When compared with ECG of 17-SEP-2019 10:06, (Unconfirmed) premature supraventricular complexes. are now present Confirmed by Italo Mcgrath MD ([id number]) on 09/19/2019 12:38:25 PM
--- NOTE | 2019-09-17 14:16 | PROGRESS NOTE ---
DATE: 09/17/2019 INTERVAL HISTORY: Patient admitted with nausea, vomiting, which have resolved. However, she was at dialysis today and began having chest pain. Patient has had similar symptoms in the past and cardiac workup has been unremarkable. We went ahead and got an EKG. Initial EKG had some suggestion of possibly [address] depression in V3, 4, 5 and less than a mm in 2, 3 in aVF, but on repeat EKG, that depression could no longer be identified. Initial troponin was 43, which is similar to what she has had in the past. Repeat troponin pending. Low suspicion for acute coronary syndrome at this point but will trend troponin and monitor. No dyspnea, diaphoresis. Chest pain does not radiate. There is no relation to activity. REVIEW OF SYSTEMS: Twelve point review of systems negative except as per interval history. LABORATORY DATA: WBC 15.0, hemoglobin 12.1, hematocrit 37.7, platelets 240,000. Sodium 131, potassium 5.5, BUN 41, creatinine 5.1, glucose 215 to 248. Troponin 43. VITAL SIGNS: Temperature 98.3 degrees, pulse 78, respirations 16, blood pressure 121/64, O2 saturation 99% on room air. IMAGING: Chest x-ray unremarkable. Abdominal x-ray also unremarkable. PHYSICAL EXAMINATION: General: No acute distress. Vital signs: As above. HEENT: Normocephalic, atraumatic. Moist mucous membranes. No cervical adenopathy. Cardiovascular: Regular rate and rhythm. No murmurs noted. Pulmonary: Clear to auscultation bilaterally. No wheezing, rales, or rhonchi. Abdomen: Soft, nontender, nondistended. Bowel sounds positive. Extremities: Peripheral pulses intact. No clubbing or cyanosis. Neurologic: Cranial nerves grossly intact. No focal deficits identified. Psychiatric: Normal mood and affect. Cooperative. ASSESSMENT AND PLAN: 1. Nausea, vomiting, and diarrhea, now resolved. Likely viral gastroenteritis. 2. Chest pain. The patient with similar episodes in the past with an unremarkable cardiac workup. Initial EKG with possible very slight ST depression, but repeat EKG similar to what she has had in the past with no ST changes. Initial troponin essentially unchanged from her previous troponins. We will continue trending troponin and monitor. 3. End-stage renal disease. Got partial dialysis today but it was cut short because of chest pain. Nephrology following. 4. Diabetes mellitus. Some moderately elevated sugars so we will restart some Lantus at a lower dose than her home 35 units in case she begins vomiting again. Start sliding scale and monitor. 5. Hyponatremia and hyperkalemia. The patient got dialysis this morning. We will see what her repeat labs look like in the morning. 6. Coronary artery disease. Last stent in February of last year. Continue aspirin and statin. 7. Hyperlipidemia. Continue statin. 8. Hypertension. Continue home Toprol, isosorbide and monitor.
[2019-09-17] MEDS: HUMALOG SUBQ SCH ×2 (18:19→20:52)
[2019-09-17] MEDS ORDERED: LIPITOR PO SCH (21:00)
[2019-09-17] MEDS: ROCEPHIN 1 GM in NS 50 ML IV SCH (23:33)
[2019-09-18 01:53] VITALS: BP 156/42
== END 2019-09-18 01:00 | disposition left against medical advice (07) ==
LOC: ED 18:03 → 1N 22:39 → INTOOBSV 22:39 → SUATTDRO 22:39
PROVIDERS: ATTEND Internal Medicine

== ENCOUNTER 2019-10-04 16:35 | Inpatient (IN) ==
--- NOTE | 2019-10-04 17:39 | Diag Imaging Result Doc PS360 ---
EXAM: CHEST-1 VIEW HISTORY: chest pain TECHNIQUE: Single view COMPARISON: 09/16/2019 FINDINGS: The lungs are well expanded. The heart is not enlarged. The vessels are not distended. There are no infiltrates. No effusion identified. No change in the left catheter. No pneumothorax. IMPRESSION: Negative exam. Electronically signed by Romario Edwards 10/04/2019 5:36 PM
--- NOTE | 2019-10-04 17:57 | PROVIDER DOCUMENTATION ---
This chart was entered by Katelyn Tidwell Scribe, acting as scribe for Chase Gatica MD. HPI-Abdominal Pain/GI Problem - General Source: patient - History of Present Illness-ABD Nature of Presenting Problems: [id number] presents to ED by EMS cc nausea, vomiting, diarrhea, generalized abdominal pain and near syncope for 5 days. She was seen in ED 09/16/2019, admi tted but left AMA on 09/18/2019. She denies F/C/Cough. Pt has hx of COPD, HTN, FL, TIA and DM. She is a dialysis pt. She is nontoxic and in no apparent distress upon exam. Abdominal Pain Onset Location: reports: LLQ, generalized abdomen Quality of Pain: reports: aching Severity in ED: reports: mild Onset/Duration: reports: 5 days ago Timing: reports: still present Activities at Onset: reports: light activity Modifying Factors: improves with: nothing Associated Symptoms: reports: diarrhea, nausea, vomiting Last BM: this morning Dark Stools Present?: reports: none noticed Rectal Bleeding: reports: none # of Diarrhea Episodes: 10 Rectal Pain: reports: none # of Vomiting Episodes: 2 Emesis Description: reports: clear Bruising or Bleeding Gums?: No Similar Symptoms Previously?: Yes Recently seen or treated by another doctor?: Yes (seen in ED 09/16/2019) <Chase Gatica - Last Filed: 10/04/19 19:17> <Saima Oliveira - Last Filed: 10/04/19 22:35> - General Stated Complaint: N/V Time Seen by Provider: 10/04/19 16:55 Allergies/Adverse Reactions: Patient Allergies Allergy/AdvReac Type Severity Reaction Status Date / Time azithromycin [From Zithromax] Allergy SHORTNESS Verified 09/16/19 19:28 OF BREATH fenoprofen [From Nalfon] Allergy ANAPHYLAXIS Verified 09/16/19 19:28 rofecoxib [From Vioxx] Allergy feet Verified 09/16/19 19:28 swelling nitrofurantoin AdvReac HEADACHE Verified 09/16/19 19:28 [From Macrobid] nitrofurantoin AdvReac HEADACHE Verified 09/16/19 19:28 macrocrystalline * [From Macrobid] oxycodone HCl * AdvReac Unknown Verified 09/16/19 19:28 [From Percocet] sumatriptan [From Imitrex] AdvReac elevated bp Verified 09/16/19 19:28 sumatriptan succinate * AdvReac Unknown Verified 09/16/19 19:28 [From Imitrex] tramadol AdvReac NAUSEA Verified 09/16/19 19:28 Home Medications: Home Medication List Medication Instructions Recorded Confirmed Last Taken Type ATORVAstatin [Lipitor] 40 mg PO HS 05/21/18 10/04/19 09/15/19 History Aspirin EC 81 mg PO DAILY 07/06/18 10/04/19 09/16/19 History Ticagrelor [Brilinta] 90 mg PO BID 01/06/19 10/04/19 09/16/19 History Metoprolol [Lopressor] 100 mg PO BID 06/21/19 10/04/19 09/16/19 History Trazodone [Desyrel] 50 mg PO QHS PRN 06/21/19 10/04/19 08/17/19 History Insulin Aspart [Novolog Flexpen] 1 dose SUBQ PRN PRN 06/24/19 10/04/19 09/16/19 History Insulin Glargine [Lantus Insulin] 35 unit SUBQ DAILY unit 07/20/19 10/04/19 09/15/19 Rx Isosorbide Mononitrate E.r. [Imdur] 120 mg PO DAILY #60 tab 07/20/19 10/04/19 09/16/19 Rx Nitroglycerin [Nitrostat] 0.4 mg SUBLINGUAL Q2-4H PRN PRN 07/20/19 10/04/19 Unknown Rx #30 tab.subl Review of Systems - Adult - REVIEW OF SYSTEMS - ADULT Constitutional: reports: see HPI. denies: chills, fever, fatique Eyes: reports: no symptoms reported Ears, Nose, Mouth & Throat: reports: no symptoms reported Cardiovascular: reports: no symptoms reported Respiratory: reports: no symptoms reported Gastrointestinal: reports: see HPI, abdominal pain, diarrhea, nausea, vomiting Genitourinary: reports: no symptoms reported Musculoskeletal: reports: no symptoms reported Integumentary: reports: no symptoms reported Neurological: reports: see HPI, dizziness/vertigo, syncope Psychiatric: reports: no symptoms reported Endocrine: reports: no symptoms reported Hematologic/Lymphatic: reports: no symptoms reported Allergic/Immunologic: reports: no symptoms reported All Other Systems: Reviewed and Negative <Chase Gatica - Last Filed: 10/04/19 19:17> Past History - Adult - PAST MEDICAL HISTORY-ADULT Review of Records: reports: Old Records Reviewed, Nursing Assessment Review, Medications Reviewed, Social history reviewed & non-contributory. Major Childhood Illnesses: reports: denies history Cardiovascular: reports: CHF, HTN, hyperlipidemia Respiratory: reports: denies history, COPD Gastrointestinal: reports: denies history Obstetrical/Gynecological: reports: denies history Genitourinary: reports: kidney disease (stage 4 kidney failure R kidney; L nephrectomy) Musculoskeletal: reports: chronic pain Neurological: reports: CVA, headaches/migraines, TIA, other (sciatica) Psychiatric: reports: anxiety, depression Endocrine/Immune: reports: Diabetes Other Conditions: reports: denies history - PRIOR SURGERIES/PROCEDURES Surgical/Procedure History: reports: BTL, orthopedic (extremity) (carpal tunnel) , breast (cyst removal), back/neck (back x2), other (D&C; L nephrectomy) - IMMUNIZATION STATUS Childhood Immunizations: See Nurse Assessment Flu Vaccine: See Nurse Assessment - FAMILY HISTORY Family History: reviewed, not pertinent, aortic disease, CVA/TIA, HTN - SOCIAL HISTORY Smoking: cigarettes, greater than 1 pack/day Provider spent 3-5 mins advising pt. on dangers of tobacco.: Discussed manners t o quit use, and f/u contacts for add'l counseling. <Chase Gatica - Last Filed: 10/04/19 19:17> Physical Exam-General - PHYSICAL EXAM-ADULT Initial Vital Signs Reviewed: Yes - CONSTITUTIONAL General Appearance: appears well, alert, no apparent distress. negative: anxious, combative - EYES Eyes: PERRL/EOMI, pink conjunctivae. negative: photophobia - HEAD, EARS, NOSE, MOUTH & THROAT HENMT: normocephalic/atraumatic, moist mucous membranes. negative: angioedema - NECK Neck: non-tender, full range of motion, supple, normal inspection. negative: lymphadenopathy - RESPIRATORY Respiratory: chest non-tender, lungs clear, normal breath sounds. negative: rhonchi, wheezing - CARDIOVASCULAR Cardiovascular: normal peripheral pulses, regular rate, rhythm, no edema, no murmur. negative: bradycardia, tachycardia - GASTROINTESTINAL (ABDOMEN) Abdominal Exam: normal bowel sounds, soft, tenderness (LLQ). negative: guarding, rebound - LYMPHATIC Lymphatic: no adenopathy. negative: enlargement - MUSCULOSKELETAL Back Exam: normal inspection, no CVA tenderness, no vertebral tenderness Extremity: normal range of motion, non-tender, normal gait, normal inspection, n o pedal edema, no calf tenderness, normal capillary refill. negative: deformity, erythema, swelling - SKIN Integumentary: normal color, normal turgor, warm/dry. negative: diaphoresis, jaundice, rash - NEUROLOGIC Neurologic: services clerk II-XII nml as tested, grossly normal - PSYCHIATRIC Psych/Mental Status: normal mood/affect, oriented x 3. negative: anxious, disheveled <Chase Gatica - Last Filed: 10/04/19 19:17> Progress - PLAN OF CARE/RESULTS Progress/Plan/Lab Results: Vital Signs - 8 hr 10/04/19 16:50 Temperature 97.8 F Pulse Rate 84 Respiratory Rate 18 Blood Pressure 131/74 O2 Sat by Pulse Oximetry 99 Result Diagrams: 10/04/19 18:28 10/04/19 18:28 - EKG 1 Time of EKG reading by physician:: 17:35 EKG Read and Signed by:: Chase Gatica EKG Interpretation (*Must complete 3 of following elements*): Abnormal (prolonged QT) Rate: 85 Rhythm: NSR [place]: normal ND Interval: normal ST Wave: normal - CHANGE OF SHIFT REPORT (ED Provider) 1 Report Given and Care Transferred to:: Dr Oliveira Time of Transfer: 19:15 Items Pending: Labs <Chase Gatica - Last Filed: 10/04/19 19:17> - PLAN OF CARE/RESULTS Progress/Plan/Lab Results: Vital Signs - 8 hr 10/04/19 16:50 10/04/19 20:05 10/04/19 22:00 Temperature 97.8 F Pulse Rate 84 85 88 Respiratory Rate 18 18 18 Blood Pressure 131/74 158/86 168/88 O2 Sat by Pulse Oximetry 99 96 96 Laboratory Results - last 24 hr 10/04/19 10/04/19 10/04/19 18:11 18:28 18:28 WBC 20.53 H RBC 3.67 L Hgb 12.0 Hct 38.4 MCV 104.6 H MCH 32.7 H MCHC 31.3 L RDW Std Deviation 18.0 H Plt Count 319 MPV 10.1 Immature Gran % (Auto) 4.1 H Neut % (Auto) 83.2 H Lymph % (Auto) 8.1 L Bowman % (Auto) 3.2 Eos % (Auto) 1.0 Baso % (Auto) 0.4 Immature Gran # (Auto) 0.84 H Neut # (Auto) 17.08 H Lymph # (Auto) 1.67 Bowman # (Auto) 0.66 H Eos # (Auto) 0.20 Baso # (Auto) 0.08 Sodium 135 L Potassium 5.7 H Chloride 104 Carbon Dioxide 13 L Anion Gap 18 BUN 36 H Creatinine 6.0 H Estimated GFR/1.73 m2 7 BUN/Creatinine Ratio 6 Glucose 147 H Calculated Osmolality 281 Calcium 8.5 L Total Bilirubin 0.15 L AST 20 ALT 9 L Alkaline Phosphatase 163 H Troponin T High Sens Total Protein 6.2 L Albumin 2.8 L Globulin 3.4 Albumin/Globulin Ratio 0.8 Plasma Lactate Urine Source CLEAN CATCH Urine Color ORANGE Urine Turbidity TURBID Urine pH 6.5 Ur Specific [place] 1.011 Urine Protein 600 A Ur Glucose (Stick) 70 A Ur Ketones (Stick) NEGATIVE Urine Blood SMALL A Urine Nitrite NEGATIVE Urine Bilirubin NEGATIVE Urobilinogen Dipstick NORMAL Urine Leukocytes LARGE A Urine WBC (Auto) TNTC A Urine RBC (Auto) <10 U Epithel Cells (Auto) <10 Urine Bacteria (Auto) 4+ 10/04/19 10/04/19 10/04/19 18:28 20:39 20:39 WBC RBC Hgb Hct MCV MCH MCHC RDW Std Deviation Plt Count MPV Immature Gran % (Auto) Neut % (Auto) Lymph % (Auto) Bowman % (Auto) Eos % (Auto) Baso % (Auto) Immature Gran # (Auto) Neut # (Auto) Lymph # (Auto) Bowman # (Auto) Eos # (Auto) Baso # (Auto) Sodium Potassium Chloride Carbon Dioxide Anion Gap BUN Creatinine Estimated GFR/1.73 m2 BUN/Creatinine Ratio Glucose Calculated Osmolality Calcium Total Bilirubin AST ALT Alkaline Phosphatase Troponin T High Sens 50 H 46 H Total Protein Albumin Globulin Albumin/Globulin Ratio Plasma Lactate 1.7 Urine Source Urine Color Urine Turbidity Urine pH Ur Specific [place] Urine Protein Ur Glucose (Stick) Ur Ketones (Stick) Urine Blood Urine Nitrite Urine Bilirubin Urobilinogen Dipstick Urine Leukocytes Urine WBC (Auto) Urine RBC (Auto) U Epithel Cells (Auto) Urine Bacteria (Auto) Orders Category Date Time Status NPO Diet 10/04/19 19:[address] ABD/PELVIS W/IV CONT ONLY [CT] Stat Exams 10/04/19 19:23 Completed cxr [CHEST-1 VIEW] [RAD] Stat Exams 10/04/19 16:56 Completed BLOOD CULTURE [BLDCUL] Stat Lab 10/04/19 20:39 Results CBC WITH ELECTRONIC DIFF [HEME] Stat Lab 10/04/19 18:28 Completed COMPREHENSIVE METABOLIC PANEL [CHEM] Stat Lab 10/04/19 18:28 Completed LACTATE, PLASMA [CHEM] Stat Lab 10/04/19 20:39 Completed TROPONIN T HIGH SENSITIVITY Stat Lab 10/04/19 18:28 Completed TROPONIN T HIGH SENSITIVITY Stat Lab 10/04/19 20:39 Completed URINALYSIS W/POSS RFLX CULT [URINALYSIS] Stat Lab 10/04/19 18:11 Completed URINE CULTURE [RM] Routine Lab 10/04/19 18:11 Received 0.9% Sodium Chloride Inj [Ns] 1,000 ml Med 10/04/19 19:36 Discontinued IV 999 mls/hr Piperacillin/Tazobactam [Zosyn] 4.5 gm Med 10/04/19 19:24 Discontinued 0.9% Sodium Chloride Inj [Ns] 100 ml IV NOW Vancomycin 1 gm/Ns Med 10/04/19 19:24 Discontinued 1 gm in 250 ml IV NOW EKG [EKG] Stat Ther 10/04/19 16:56 Draft Patient signed out to me pending labs. Patient with WBC to 20.[address] showing nothing acute, however she does have a UTI. Zosyn was accidentally dosed at 4.5 whichis above renal failure recommedations, however patient does need dialysis as I ebelieve she skipped a day. Spoke to hosp regarding patient and he accepted patient for admission. Further orders to be placed by their team. Result Diagrams: 10/04/19 18:28 10/04/19 18:28 - CONSULTS/PCP/HOSPITALIST Notification #1 *Consult/PCP/Hospitalist*: Dr Copeland Time Discussed: 22:31 Consult Disposition: Admit <Saima Oliveira - Last Filed: 10/04/19 22:35> Departure - Departure Date of Disposition Decision: 10/04/19 Certified Medical Emergency: Emergent - Critical Care Note This patient required my direct & personal management of CC.: No <Chase Gatica - Last Filed: 10/04/19 19:17> - Departure Time of Disposition Decision: 22:35 <Saima Oliveira - Last Filed: 10/04/19 22:35> - Departure DIAGNOSIS: Sepsis secondary to UTI, ESRD (end stage renal disease) on dialysis, Nausea & vomiting Disposition: ADMITTED INPATIENT 09 Condition: Stable Additional Instructions: ED Follow Up Instructions: You have been treated by a care provider in the Emergency Department. These instructions are being provided to you so you can have an understanding of how to care for yourself upon discharge. Upon discharge from the Emergency Department, you are responsible for making arrangements for follow-up care by a physician of your choice. Take all prescribed medications as directed. Return to the Emergency Department immediately for any new or worsening symptoms. You may call the Physician Referral phone number at [phone] to obtain a list of Physicians who are taking new patients. Referrals and Follow-Ups: None,PCP [Primary Care Provider] - Discharge Education: Steps to Quit Smoking, [id number] Attestation - Physician/ TERRY Attestation Patient care was provided by Advanced Practice Provider:: No The physician spent face to face time with patient:: Yes Advanced Practice Provider documentation review:: Supervising physician onsite and consulted in the evaluation and care of this patient. The physician did have a face to face encounter with the patient. <Chase Gatica - Last Filed: 10/04/19 19:17> This chart was documented by the indicated scribe, (Katelyn Tidwell Scribe) and accurately reflects the services I performed and decisions made by me, Chase Gatica MD, as attested by the provider's signature.
[2019-10-04 18:20] LABS: URINE SOURCE CLEAN CATCH
--- NOTE | 2019-10-04 18:33 | EKG Report ---
Test Performed on : 10/04/2019 5:32:04 PM Test Reason : syncope Blood Pressure : / mmHG Vent. Rate : 085 BPM Atrial Rate : 085 BPM P-R Int : 154 ms QRS Dur : 096 ms QT Int : 410 ms P-R-T Axes : 039 -07 059 degrees QTc Int : 487 ms Normal sinus rhythm. Prolonged QT Abnormal ECG When compared with ECG of 17-SEP-2019 12:36, premature supraventricular complexes. are no longer present T wave inversion no longer evident in Inferior leads T wave inversion no longer evident in Lateral leads Unconfirmed Result
[2019-10-04 19:05] LABS: BASO# 0.08 X1000 (0.0-0.2); BASO% 0.4 % (0.0-0.8); HEMATOCRIT 38.4 % (37.0-47.0); IMM GRAN# 0.84 X1000 (0.0-0.04); IMM GRAN% 4.1 % (0.0-0.5); LYMPH# 1.67 X1000 (1.2-3.4); LYMPH% 8.1 % (20.5-51.1); MCH 32.7 PG (27-31); MCHC 31.3 g/dL (33-37); MCV 104.6 FL (81-99); MONO# 0.66 X1000 (0.11-0.59); MONO% 3.2 % (1.7-9.3); MPV 10.1 FL (7.4-10.4); NEUT# 17.08 X1000 (1.4-6.5); NEUT% 83.2 % (42.2-75.2); PLT 319 X1000 (130-400); RBC 3.67 XMIL (4.2-5.4); WBC 20.53 X1000 (4.8-10.8)
[2019-10-04 19:07] LABS: BILIRUBIN URINE NEGATIVE (NEGATIVE); BLOOD URINE SMALL (NEGATIVE); COLOR ORANGE; GLUCOSE URINE 70 mg/dL (NEGATIVE); KETONE URINE NEGATIVE (NEGATIVE); LEUKOCYTES URINE LARGE (NEGATIVE); NITRITE URINE NEGATIVE (NEGATIVE); PH URINE 6.5; PROTEIN URINE 600 mg/dL (NEGATIVE); SP GRAVITY URINE 1.011; TURBIDITY URINE TURBID (CLEAR); UROBILINOGEN URINE NORMAL (NORMAL)
[2019-10-04 19:09] LABS: UR EPITHELIAL CELLS <10 /HPF (<10); URINE BACTERIA 4+ /HPF; URINE RBC <10 /HPF (<10); URINE WBC TNTC /HPF (<10)
[2019-10-04 19:19] LABS: ALB/GLOB RATIO 0.8; ALBUMIN 2.8 g/dL (3.5-5.0); CALCIUM 8.5 mg/dL (8.8-10.2); POTASSIUM 5.7 mmol/L (3.5-5.1); TOTAL BILIRUBIN 0.15 mg/dL (0.20-1.00); TOTAL PROTEIN 6.2 g/dL (6.3-8.3)
[2019-10-04] MEDS ORDERED: ZOSYN 4.5 GM in NS 100 ML IV ONE (19:24)
[2019-10-04] MEDS ORDERED: VANCOMYCIN 1 GM/NS 1 GM/250 ML IVPB IV ONE (19:24)
[2019-10-04] MEDS ORDERED: NS 1,000 ML IV ONE (19:36)
--- NOTE | 2019-10-04 21:42 | Diag Imaging Result Doc PS360 ---
EXAM: CT ABD/PELVIS W/IV CONT ONLY HISTORY: leukocytosis, nausea and vomiting TECHNIQUE: CT abdomen and pelvis with intravenous contrast, but without contrast. COMPARISON: 03/01/2018 FINDINGS: There is fatty infiltration of the liver. The liver measures over 21 cm in length. No calcified gallstones. Normal spleen, pancreas, and adrenal glands. The left kidney has been removed. There is a 6 x 8 x 8 mm right upper pole renal stone. No ureteral stone. No right renal mass. No aortic aneurysm. No bowel obstruction. Thickening to the anterior pelvic musculature with multiple hernias. The widest opening in the midline measures almost 8 cm. There are bowel loops within the hernias. No wall thickening or bowel dilatation. The urinary bladder is not distended. The uterus is small. There has been prior fusion of the lower two lumbar vertebra IMPRESSION: 1.Left nephrectomy 2.Nonobstructing right renal stone 3.Hepatomegaly with fatty infiltration 4.Anterior pelvic hernias containing bowel, but no wall thickening or obstruction This exam was performed using automated exposure control, adjustment of mA or kV according to patient size, and/or use of iterative reconstruction technique. Electronically signed by Romario Edwards 10/04/2019 9:39 PM
[2019-10-05] MEDS ORDERED: ZOFRAN IV PRN (00:57)
[2019-10-05] MEDS: TYLENOL PO PRN ×2 (04:15→15:36)
[2019-10-05] MEDS: DUONEB (A & A) INH SCH ×6 (05:18→23:15)
--- NOTE | 2019-10-05 05:41 | HISTORY AND PHYSICAL ---
CHIEF COMPLAINT: Nausea, vomiting and diarrhea for about 1 week. HISTORY OF PRESENT ILLNESS: Ms. Emi Calhoun is a 53-year-old female, who has a history of end- stage renal disease on hemodialysis, hypertension, hyperlipidemia, CHF, COPD, history of CVA, and diabetes mellitus. She presents to the hospital because of nausea and vomiting as well as diarrhea which she has had for about 1 week. With regards to the diarrhea, she moves her bowels up to 6 times a day. She denies any blood in her stool. The patient also describes having abdominal pains, and also gives a history of loss of consciousness prior to admission. The patient is unable to state how long this lasted. She was seen and evaluated in the ER. The patient was noted to have a white count of about 20.53 and potassium level 5.7. UA shows large amount of leukocytes with numerous WBCs. The patient has been admitted to the floor for further management. PAST MEDICAL HISTORY: 1. End-stage renal disease on hemodialysis. 2. Coronary artery disease. 3. History of CVA. 4. COPD. 5. Gastroparesis. 6. Hypertension. 7. Diabetes mellitus. 8. Anxiety and depression. 9. Hyperlipidemia. 10. History of migraine headaches. SOCIAL HISTORY: She denies any history of cigarette smoking. No alcohol or drug use. ALLERGIES: She is allergic to azithromycin, nitrofurantoin, rofecoxib, oxycodone, somatropin, and Tramadol. FAMILY HISTORY: Positive for diabetes mellitus. PAST SURGICAL HISTORY: She has had tubal ligation, carpal tunnel surgery in both wrists, and breast surgery for fibrocystic breast disease. She has also had back surgery and left nephrectomy. MEDICATIONS: 1. Atorvastatin 40 mg p.o. once a day. 2. Aspirin 81 mg p.o. daily. 3. Brilinta 90 mg p.o. twice a day. 4. Metoprolol 40 mg p.o. twice a day. 5. Trazodone 50 mg p.o. at bedtime. 6. Insulin NovoLog as directed. 7. Insulin glargine 35 units subcutaneous daily. 8. Isosorbide mononitrate 120 mg p.o. daily. 9. Nitroglycerin 0.4 mg sublingual as directed. 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 Eyes: Uses glasses. ENT: Sinus problems. Cardiovascular: Chest pain. Respiratory: No cough. : No dysuria. Musculoskeletal: She has joint pain. Dermatology: No skin lesions. Hematology: No bleeding problems. Endocrinology: She has diabetes but no thyroid disease. Allergies/Immunology: No symptoms suggestive of allergic rhinitis. Psychiatric: She does have anxiety with depression. PHYSICAL EXAMINATION: VITAL SIGNS: Temperature 98 degrees, pulse 96, respirations 20, blood pressure 138/57, and oxygen saturation is 100%. HEENT: Atraumatic and normocephalic. She is anicteric. No significant oral lesions noted. NECK: No lymphadenopathy or thyromegaly. CARDIOVASCULAR: S1, S2. RESPIRATORY: There is evidence of good air entry bilaterally. ABDOMEN: Obese. Nontender. No masses felt. EXTREMITIES: No evidence of significant edema. CENTRAL NERVOUS SYSTEM: No obvious focal deficits noted. LABORATORY DATA: WBC 20.53, hematocrit 38.4 with a platelet count of 319,000. Sodium is 135, potassium 5.0, chloride 104, bicarbonate 13, BUN is 36, and creatinine 6. Troponin is 46. UA shows large amount of leukocytes with numerous WBCs. CT scan of abdomen and pelvis shows left nephrectomy nonobstructing right renal stone. Hepatomegaly with fatty infiltration. Anterior pelvic hernias containing bowel, but no wall thickening or obstruction. X-ray of chest negative. EKG shows normal sinus rhythm with prolonged QT. ASSESSMENT AND PLAN: 1. Acute gastroenteritis. Maintain patient on clear liquids, antiemetics, and send out stool for C. Diff, WBC, O P, and culture. 2. History of gastroparesis. Prokinetic agent if needed/ tolerable. 3. Urinary tract infection. Obtain urine culture as well as blood cultures. Maintain patient on empiric antibiotics. 4. End-stage renal disease with hyperkalemia. Hemodialysis by recommendation of Nephrology team. 5. COPD. Nebulized bronchodilators as needed. 6. Hypertension. Optimize blood pressure control. 7. Diabetes mellitus. Monitor blood sugar levels. Maintain patient on sliding scale insulin. Check hemoglobin A1c level. 8. Coronary artery disease With elevated troponin. Elevated troponin most likely secondary to renal dysfunction. The patient is asymptomatic at this time. 9. History of CVA. Aware. Anti-platelet agent with statin . Recommend PT. 10. Deep vein thrombosis prophylaxis. Sequential compression devices. 11. Gastrointestinal prophylaxis. Proton pump inhibitor. cc: Martín Copeland MD [facility]
[2019-10-05] MEDS: HUMULIN R SUBQ SCH ×4 (06:19→21:02)
[2019-10-05] MEDS: ROCEPHIN 1 GM in NS 50 ML IV SCH (06:30)
[2019-10-05] MEDS: PROTONIX [NONFORMULARY] PO SCH (06:30)
[2019-10-05 08:37] LABS: BASO# 0.06 X1000 (0.0-0.2); BASO% 0.3 % (0.0-0.8); EOS# 0.21 X1000 (0.0-0.7); EOS% 1.2 % (0.0-10.0); HEMATOCRIT 35.7 % (37.0-47.0); HEMOGLOBIN 11.3 g/dL (12.0-16.0); IMM GRAN# 0.39 X1000 (0.0-0.04); IMM GRAN% 2.3 % (0.0-0.5); LYMPH# 1.56 X1000 (1.2-3.4); MCH 33.4 PG (27-31); MCHC 31.7 g/dL (33-37); MCV 105.6 FL (81-99); MONO# 0.66 X1000 (0.11-0.59); MONO% 3.8 % (1.7-9.3); NEUT# 14.45 X1000 (1.4-6.5); NEUT% 83.4 % (42.2-75.2); PLT 311 X1000 (130-400); RBC 3.38 XMIL (4.2-5.4); RDW 18.3 % (11.5-14.5); WBC 17.33 X1000 (4.8-10.8)
[2019-10-05] MEDS ORDERED: NITROGLYCERIN SL PRN (08:37)
[2019-10-05] MEDS: BRILINTA PO SCH ×2 (08:51→21:20)
[2019-10-05] MEDS: ASPIRIN EC PO SCH (08:51)
[2019-10-05] MEDS: IMDUR PO SCH (08:52)
[2019-10-05] MEDS: LOPRESSOR PO SCH ×2 (08:52→21:20)
--- NOTE | 2019-10-05 08:58 | EKG Report ---
Test Performed on : 10/05/2019 08:46:33 AM Test Reason : chest pain Blood Pressure : / mmHG Vent. Rate : 104 BPM Atrial Rate : 104 BPM P-R Int : 142 ms QRS Dur : 098 ms QT Int : 382 ms P-R-T Axes : 054 017 253 degrees QTc Int : [address] & T wave abnormality, consider inferior ischemia Nonspecific T wave abnormality Lateral leads Abnormal ECG When compared with ECG of 04-OCT-2019 17:32, (Unconfirmed) ST now depressed in Inferior leads T wave inversion now evident in Inferior leads Nonspecific T wave abnormality, worse in Lateral leads Confirmed by Italo Mcgrath MD ([id number]) on 10/05/2019 3:03:40 PM
[2019-10-05 09:05] LABS: BANDS 2 % (0-1); LYMPHS 12 % (21-51); NRBC 3 % (0-0); SEGS 86 % (42-75)
[2019-10-05 09:11] LABS: ALBUMIN 2.5 g/dL (3.5-5.0); CALCIUM 8.3 mg/dL (8.8-10.2); PHOSPHORUS 5.3 mg/dL (2.7-4.5); POTASSIUM 5.1 mmol/L (3.5-5.1)
[2019-10-05] MEDS ORDERED: HEPARIN IV PRN (09:18)
[2019-10-05] MEDS ORDERED: NS 2,000 ML MISC PRN (09:18)
[2019-10-05] MEDS ORDERED: TIGHT: 0.2 ML/HR FOR DIALYSIS MISC PRN (09:18)
--- NOTE | 2019-10-05 17:30 | NEPHROLOGY CONSULTATION ---
DATE: 10/05/2019 REASON FOR CONSULTATION: ESRD. HISTORY OF PRESENT ILLNESS: Ms. Calhoun is a 53-year-old, white female who is well known to us. She states that she came to the emergency room because she has been falling. She has had nausea and vomiting and diarrhea for several days, and states that she has also "blacked out". She has experienced several episodes where she had a prodrome of weakness and if she did not sit down quickly, she would lose consciousness and find herself on the floor. She has not suffered any injuries. No palpitations, chest tightness, etc. She missed dialysis yesterday because of these symptoms and had herself transported here to the hospital. PAST MEDICAL HISTORY: Includes coronary artery disease, status post bypass grafting, gastroparesis, COPD, diabetes, hypertension, hyperlipidemia, etc. HOME MEDICATIONS: Include atorvastatin, aspirin, ticagrelor, metoprolol, trazodone, insulin, isosorbide, furosemide, Ranexa, pantoprazole. ALLERGIES: Azithromycin, fenoprofen, rofecoxib, nitrofurantoin. SOCIAL HISTORY: Denies alcohol or tobacco. FAMILY HISTORY: Noncontributory. REVIEW OF SYSTEMS: Noncontributory. PHYSICAL EXAMINATION: Vital Signs: Blood pressure 115/71, heart rate 87, respirations 17, afebrile. General: No acute distress. Skin: Warm and dry. Conjunctivae are pink and dry. Oropharynx is dry. Neck: Neck veins are not distended. Heart: PMI is nondisplaced. Regular rate and rhythm without murmurs, rubs, or gallops. Lungs: Have equal excursion, equal breath sounds. No crackles. Abdomen: Obese, soft, with a large ventral hernia that is reducible freely. Extremities: No edema, clubbing, or cyanosis. IMPRESSION: 1. Nausea, vomiting, and diarrhea. Managed by the primary team. 2. Chronic kidney disease 5D. We will dialyze her today using her routine outpatient prescription, 2K bath, 1 L ultrafiltration. 3. Acid-base. Significant non-gap acidosis, likely related to diarrhea and renal disease. This will be addressed today. 4. Anemia, in target. 5. Hypertension, well-controlled. cc: MD Martín Milan MD
[2019-10-05] MEDS: LIPITOR PO SCH (21:20)
[2019-10-05] MEDS: DESYREL PO PRN (21:20)
[2019-10-06] MEDS: DUONEB (A & A) INH SCH ×6 (03:45→23:15)
[2019-10-06 05:37] LABS: BASO# 0.07 X1000 (0.0-0.2); BASO% 0.5 % (0.0-0.8); EOS# 0.21 X1000 (0.0-0.7); EOS% 1.5 % (0.0-10.0); HEMOGLOBIN 9.5 g/dL (12.0-16.0); IMM GRAN# 0.23 X1000 (0.0-0.04); IMM GRAN% 1.6 % (0.0-0.5); LYMPH% 9.3 % (20.5-51.1); MCH 32.8 PG (27-31); MCHC 31.7 g/dL (33-37); MCV 103.4 FL (81-99); MONO# 0.87 X1000 (0.11-0.59); MONO% 6.2 % (1.7-9.3); MPV 9.9 FL (7.4-10.4); NEUT# 11.27 X1000 (1.4-6.5); NEUT% 80.9 % (42.2-75.2); PLT 287 X1000 (130-400); RDW 17.6 % (11.5-14.5); WBC 13.95 X1000 (4.8-10.8)
[2019-10-06] MEDS ORDERED: IMODIUM PO PRN ×2 (06:00→13:37)
[2019-10-06 06:13] LABS: ALBUMIN 2.1 g/dL (3.5-5.0); CALCIUM 7.9 mg/dL (8.8-10.2); PHOSPHORUS 5.4 mg/dL (2.7-4.5); POTASSIUM 4.1 mmol/L (3.5-5.1)
[2019-10-06] MEDS: HUMULIN R SUBQ SCH ×4 (06:30→21:43)
[2019-10-06] MEDS: ROCEPHIN 1 GM in NS 50 ML IV SCH (06:32)
[2019-10-06] MEDS: PROTONIX [NONFORMULARY] PO SCH (06:32)
[2019-10-06] MEDS ORDERED: TIGHT: 0.2 ML/HR FOR DIALYSIS MISC PRN (07:57)
[2019-10-06] MEDS ORDERED: HEPARIN IV PRN (07:57)
[2019-10-06] MEDS ORDERED: NS 2,000 ML MISC PRN (07:57)
[2019-10-06] MEDS ORDERED: QUESTRAN LIGHT PO SCH (09:00)
--- NOTE | 2019-10-06 11:33 | NEPHROLOGY PROGRESS NOTE ---
DATE: 10/06/2019 SUBJECTIVE: She states she slept poorly because she was up frequently having diarrhea. She had to use a bedside commode because she got dizzy when she was vertical. No vomiting. OBJECTIVE: Vital Signs: Blood pressure 133/60, heart rate 86, respirations 18, afebrile. General: No acute distress. Skin: Warm and dry. Neck: Neck veins are not distended. Heart: Regular. No gallops. Lungs: Equal. No crackles or wheezes. Abdomen: Soft, nontender. Bowel sounds were present. Extremities: No edema, clubbing, or cyanosis. IMPRESSION: Diarrhea and dizziness. Likely volume contracted. We will make her net positive fluid balance with dialysis today, 1 to 2 L. Otherwise, she will have her routine dialysis using a 37 bicarbonate and a 2 K bath. Her hemoglobin has fallen from 12.0 on admission to 9.5 this morning. We will check iron stores, B12, folate, stool Hemoccult. cc: MD Martín Milan MD
--- NOTE | 2019-10-06 13:08 | PROGRESS NOTE ---
DATE: 10/06/2019 SUBJECTIVE: The patient states that she had a rough night. She reports that she had multiple episodes of loose stool. Her most recent being this morning. She denies having any nausea. She states that she felt lightheaded after her multiple bouts of loose stool. OBJECTIVE: Vital Signs: Temperature 98.1 degrees, blood pressure 133/60, heart rate 86, respirations 18, O2 saturation 98% on room air. General: This is an overweight female sitting up in bed in no acute distress. Heart: S1, S2 normal. Regular rate and rhythm. Lungs: Clear to auscultation bilaterally. Abdomen: Positive bowel sounds. Soft, nontender, nondistended. Extremities: No edema, no cyanosis. Neurologic: The patient is alert and oriented x3. LABS: White blood cell count 13, hemoglobin 9.5, hematocrit 30 platelets 287,000 sodium 133, potassium 4.1, chloride 102, CO2 16, BUN 26, creatinine 5, glucose 105. ASSESSMENT AND PLAN: 1. Acute diarrhea. The stool studies are negative. The patient has been started on lactobacillus and Lomotil. We will also consult with gastroenterology for further recommendations. 2. Syncope. This is likely secondary to dehydration as a result of the patient's persistent diarrhea. The patient is receiving IV fluids today during dialysis. We will monitor her response. 3. Urinary tract infection. The urine culture is growing gram-negative rods. Continue on Rocephin. 4. Hypertension. Continue on the current antihypertensive regimen. 5. Insulin-dependent diabetes mellitus type 2. Stable. Continue on sliding scale insulin. 6. Coronary artery disease with h/o LA. Continue on the current medications 7. Chronic kidney disease stage 5D. Management as per the lehr tender. 8. Metabolic acidosis. Aware. Continue to monitor closely. 9. History of cerebrovascular accident. Continue on Lipitor and aspirin. 10. Anemia. The H/H is trending downward. Work up is in progress. DISPOSITION: Continue with physical therapy. cc: MD Martín Gutierrez MD [facility]
[2019-10-06] MEDS ORDERED: LOMOTIL PO PRN (14:06)
[2019-10-06] MEDS: ASPIRIN EC PO SCH (14:41)
[2019-10-06] MEDS: IMDUR PO SCH (14:41)
[2019-10-06] MEDS: LOPRESSOR PO SCH ×2 (14:41→21:45)
[2019-10-06] MEDS: BRILINTA PO SCH ×2 (14:41→21:44)
[2019-10-06] MEDS: CULTURELLE PO SCH ×2 (14:41→21:44)
[2019-10-06] MEDS: LIPITOR PO SCH (21:44)
[2019-10-06] MEDS: QUESTRAN LIGHT PO SCH (21:44)
[2019-10-06] MEDS: DESYREL PO PRN (21:47)
[2019-10-07] MEDS: DUONEB (A & A) INH SCH ×6 (03:15→23:50)
[2019-10-07] MEDS: TYLENOL PO PRN (05:27)
[2019-10-07] MEDS: ROCEPHIN 1 GM in NS 50 ML IV SCH (05:29)
[2019-10-07 05:34] LABS: BASO# 0.04 X1000 (0.0-0.2); BASO% 0.4 % (0.0-0.8); EOS# 0.16 X1000 (0.0-0.7); EOS% 1.5 % (0.0-10.0); HEMOGLOBIN 8.9 g/dL (12.0-16.0); IMM GRAN# 0.17 X1000 (0.0-0.04); IMM GRAN% 1.6 % (0.0-0.5); LYMPH# 1.17 X1000 (1.2-3.4); LYMPH% 11.1 % (20.5-51.1); MCH 33.1 PG (27-31); MCHC 31.8 g/dL (33-37); MCV 104.1 FL (81-99); MONO# 0.85 X1000 (0.11-0.59); MONO% 8.1 % (1.7-9.3); MPV 9.7 FL (7.4-10.4); NEUT# 8.12 X1000 (1.4-6.5); NEUT% 77.3 % (42.2-75.2); PLT 258 X1000 (130-400); RBC 2.69 XMIL (4.2-5.4); RDW 17.5 % (11.5-14.5); WBC 10.51 X1000 (4.8-10.8)
[2019-10-07 06:02] LABS: FERRITIN 480 ng/mL (13-150)
[2019-10-07 06:06] LABS: ALBUMIN 2.2 g/dL (3.5-5.0); CALCIUM 7.2 mg/dL (8.8-10.2); CREATININE 3.1 mg/dL (0.5-0.9); PHOSPHORUS 4.3 mg/dL (2.7-4.5); POTASSIUM 4.3 mmol/L (3.5-5.1)
[2019-10-07] MEDS: PROTONIX [NONFORMULARY] PO SCH (06:40)
[2019-10-07] MEDS: HUMULIN R SUBQ SCH ×4 (06:42→21:00)
[2019-10-07] MEDS ORDERED: INVANZ 0.5 GM in NS 50 ML IV SCH (07:00)
[2019-10-07] MEDS: CULTURELLE PO SCH ×2 (10:22→21:00)
[2019-10-07] MEDS: IMDUR PO SCH (10:22)
[2019-10-07] MEDS: LOPRESSOR PO SCH ×2 (10:23→21:00)
[2019-10-07] MEDS: QUESTRAN LIGHT PO SCH ×2 (10:23→11:36)
[2019-10-07] MEDS: ASPIRIN EC PO SCH (10:23)
[2019-10-07] MEDS: BRILINTA PO SCH ×2 (10:23→20:59)
--- NOTE | 2019-10-07 10:46 | GASTROENTEROLOGY CONSULTATION ---
DATE: 10/07/2019 REASON FOR CONSULTATION: Diarrhea. HISTORY OF PRESENT ILLNESS: Ms. Calhoun is a 53-year-old female with a history of end-stage renal disease. She is on dialysis. The patient has a history of hypertension, hyperlipidemia, congestive heart failure, COPD, CVA and diabetes. She also had 4 mini strokes in the past. The patient mentioned that Friday she was having diarrhea, nausea, vomiting, and she passed out and fell on the floor. The patient denied any fever or chills. She denied noticing any blood in her stools or in her emesis. She is saying this has been going on for a week, where she was not able to keep any food or any liquids. The patient is still complaining of being nauseated. Currently she has denied any abdominal pain or denied any vomiting. The patient did have 4 liquid bowel movements yesterday. Today, she has not had any. She lives alone and did not have anybody sick around her. An abdomen and pelvis CT on admission showed that she had left nephrectomy, nonobstructing right renal stone, hepatomegaly with fatty infiltration and anterior pelvic hernias containing bowel, but no wall thickening or obstruction. Patient had an EGD and colonoscopy on 01/12 2018, findings were retained food in the stomach, mild erythema in the gastric antrum, evidence of stool throughout the colon, descending colon polyp and large umbilical hernia. Biopsy revealed gastritis and negative H-Pylori. The patient's hemoglobin and hematocrit today is 8.9 and 28.0. Her ferritin levels are elevated; it is 480. Vitamin B 12 level is elevated at 1382. Folate levels are low at 8.4. The patient's occult blood was negative. Her stool for WBCs was negative, ova and parasites were negative. Clostridium difficile toxin antigen was negative. The patient does have E coli in her urine culture. Stool cultures and blood cultures did not show any growth. Trichrome stain is pending. PAST MEDICAL HISTORY: End-stage renal disease on dialysis, coronary artery disease, history of stroke, COPD, hypertension, hyperlipidemia, diabetes, anxiety and depression, gastroparesis, migraine headaches. ALLERGIES: The patient is allergic to azithromycin, Fenoprofen, rofecoxib, nitrofurantoin, oxycodone, sumatriptan and tramadol. SOCIAL HISTORY: The patient is single. She lives alone. She was a past alcoholic, past smoker and used to consume marijuana when she was young. PAST SURGICAL HISTORY: Two back surgeries, breast surgery, 2 carpal tunnel surgeries, abdominal exploratory surgery, hernia surgery, left kidney removed, tubal ligations, and a D & C. FAMILY HISTORY: Significant for heart disease. HOME MEDICATIONS: 1. Atorvastatin 40 mg p.o. bedtime. 2. Aspirin 81 mg p.o. daily. 3. Brilinta 90 mg p.o. twice a day. 4. Metoprolol 50 mg p.o. twice a day. 5. Trazodone 50 mg p.o. at bedtime. 6. NovoLog FlexPen 1 dose subcutaneous p.r.n. 7. Lantus insulin 35 units subcutaneous daily. 8. Imdur 120 mg p.o. daily. 9. Nitroglycerin 0.4 mg sublingual every 2 to 4 hours PRN 10. Lasix 20 mg p.o. daily. 11. Ranolazine 500 mg p.o. twice a day. 12. Protonix 40 mg p.o. daily. REVIEW OF SYSTEMS: As per HPI. Otherwise, 12 point review of system is negative. PHYSICAL EXAMINATION: Vital Signs: Temperature 97.7 degrees, pulse is 70, respirations 20, blood pressure 132/61, oxygen saturation 100% on room air. The patient's weight is 199 pounds. BMI is 36.4 kg/m2. General: She is alert, oriented x3, and in no acute distress. Answering questions appropriately. HEENT: Pale conjunctivae. No icterus. PERRL. Neck: Supple. Lungs: Clear to auscultation. Cardiovascular: Regular rate and rhythm. Abdomen: Obese, nontender. Active bowel sounds heard in all 4 quadrants. Extremities: No clubbing no cyanosis. Generalized edema in the lower extremities. Pedal pulses 2+ present bilaterally. Neurologic: She is alert, oriented x3. Nonfocal. Cranial nerves 2-12 grossly intact. LABS: WBCs are 10.51, RBCs 2.69, hemoglobin is 8.9, hematocrit is 28.0, platelet count is 258. Sodium is 139, potassium is 4.3, chloride 106, carbon dioxide 19, anion gap 14. BUN 11, creatinine is 3.1, glucose 127, calcium is 7.2, phosphorus 4.3. Iron 54, TIBC is 115, ferritin is 480, albumin 2.2, vitamin B 12 is 138, folate is 8.4. IMAGING: Abdominal and pelvis CT on 10/03 showed left nephrectomy, nonobstructing right renal stone, hepatomegaly with fatty infiltration and anterior pelvic hernias containing bowel with no wall thickening or obstruction. Chest x-ray on 10/03 showed negative exam. IMPRESSION AND PLAN: Diarrhea H/o constipation GERD UTI Syncope Diabetes ESRD Anemia of chronic disease Fatty liver Abdominal hernia PLAN: Ms. Calhoun is a 53-year-old female with a history of stroke. GI has been consulted for her diarrhea. The patient did have approximately 6 bowel movements yesterday, but has denied any today. Her Clostridium difficile toxin and antigens are negative. Her stool cultures are negative. Occult blood and stool for WBCs also were negative. The patient's hemoglobin and hematocrit today is 8.9 and 28.2. It has been trending downwards. The patient's diarrhea is currently under control, we will continue to monitor her. Patient has the h/o constipation, we ordered a KUB of the abdomen to r/o impaction and overflow diarrhea. Patient is on Colace and Miralax BID and is on culturelle. We will continue to monitor the patient and follow the plan of care per PCP. This plan was discussed with Dr. Robles. Thank you for your consult. Please call us for any further questions or concerns. Dictated by CLEMENT Garcia for David Robles MD cc: MD Martín Osorio MD I have seen and examined the patient myself and I agree with the above plan of care. Please call us with any further questions or concerns. [facility]
[2019-10-07 11:03] LABS: HEPATITIS PROFILE ACUTE SEE COMMENTS
--- NOTE | 2019-10-07 12:34 | NEPHROLOGY PROGRESS NOTE ---
DATE: 10/07/2019 SUBJECTIVE: She states she had an episode of chest discomfort during her treatment yesterday. She was unhappy with the fact that her treatment was continued. Overall she is well now. OBJECTIVE: Vital Signs: Blood pressure 133/57, heart rate 73, respirations 20, afebrile. General: No acute distress. Skin: Warm and dry. Neck: Neck veins are not distended. Oropharynx is dry. Heart: Regular. No gallops. Lungs: Equal. No crackles. Abdomen: Obese, soft, nontender. Bowel sounds present. Extremities: One plus edema. No clubbing or cyanosis. IMPRESSION: 1. Chronic kidney disease 5D. She will have her next routine hemodialysis treatment tomorrow. Electrolytes acid base are acceptable. Volume status acceptable. 2. Anemia. Hemoglobin has trended down slowly from 12 to 8.9. No changes at this time. 3. Chest pain. Resolved. Observe. 4. ESBL positive E coli urinary tract infection. The patient states she has no symptoms related to this, and she has been aware of the E coli in the urine for an extended period of time. Chart review finds that in fact she has had ESBL positive E coli in the urine since at least 2018. Given that she is asymptomatic I would opt for not treating this finding. cc: MD Martín Milan MD
--- NOTE | 2019-10-07 12:40 | Diag Imaging Result Doc PS360 ---
EXAM: KUB ABDOMEN HISTORY: R/o impaction TECHNIQUE: Single view COMPARISON: 09/16/2019 FINDINGS: No bowel obstruction. There is a [id number] amount of stool throughout the colon. No organomegaly. There are scattered surgical clips and there has been surgery to the lower lumbar spine. Right abdominal calcification may be a renal stone. IMPRESSION: Moderate constipation Electronically signed by Romario Edwards 10/07/2019 12:38 PM
[2019-10-07] MEDS: MIRALAX PO SCH ×2 (18:26→20:59)
[2019-10-07] MEDS: COLACE PO SCH ×2 (18:26→20:58)
--- NOTE | 2019-10-07 18:44 | PROGRESS NOTE ---
DATE: 10/07/2019 SUBJECTIVE: The patient states that she feels much better today. She reports that she is no longer having diarrhea. OBJECTIVE: Vital Signs: Temperature 98.1 degrees, blood pressure 150/69, heart rate 71, respirations 20, O2 saturation 95% on room air. General: This is a chronically ill-appearing, elderly female sitting at the edge of the bed in no acute distress. Heart: S1, S2 normal. Regular rate and rhythm. Lungs: Clear to auscultation bilaterally. No wheezing. No rales. No rhonchi. Abdomen: Positive bowel sounds. Soft, nontender, nondistended. Extremities: Trace pedal edema. Neurologic: The patient is alert and oriented x3. LABS: White blood cell count 10, hemoglobin 8.9, hematocrit 28, platelets 258,000. Sodium 139, potassium 4.3, chloride 106, CO2 19, BUN 11, creatinine 3.1, glucose 127, folate 8.4. ASSESSMENT AND PLAN: 1. Diarrhea. Resolved. The patient's x-ray today shows moderate constipation. The Lomotil has been discontinued and the patient is now on MiraLAX. We will continue to monitor her response closely. 2. Asymptomatic bacteruria secondary to ESBL Escherichia coli. The patient denies any urinary symptoms so we will discontinue the antibiotic therapy. 3. Syncope. This is likely secondary to volume depletion as a result of the patient's diarrhea. No further episodes noted while hospitalized. 4. Insulin-dependent diabetes mellitus. Continue on the current insulin regimen. 5. Chronic kidney disease stage 5 D. 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 6. Folate deficiency. We will start the patient on folic acid. 7. Coronary artery disease with a history of myocardial infarction. Continue on the current cardiac medications. 8. History of cerebrovascular accident. Continue on Lipitor and aspirin. 9. Anemia. Continue to monitor closely. 10. Disposition. The patient can likely be discharged home tomorrow after dialysis. cc: MD Martín Gutierrez MD [facility]
[2019-10-07] MEDS: LIPITOR PO SCH (21:00)
[2019-10-07] MEDS: DESYREL PO PRN (21:06)
[2019-10-08] MEDS: TYLENOL PO PRN (01:07)
[2019-10-08] MEDS: DUONEB (A & A) INH SCH ×3 (03:58→11:20)
[2019-10-08 06:00] LABS: BASO# 0.04 X1000 (0.0-0.2); BASO% 0.4 % (0.0-0.8); EOS# 0.24 X1000 (0.0-0.7); EOS% 2.2 % (0.0-10.0); HEMATOCRIT 30.8 % (37.0-47.0); HEMOGLOBIN 9.6 g/dL (12.0-16.0); IMM GRAN# 0.12 X1000 (0.0-0.04); IMM GRAN% 1.1 % (0.0-0.5); LYMPH# 1.19 X1000 (1.2-3.4); LYMPH% 10.9 % (20.5-51.1); MCH 32.4 PG (27-31); MCHC 31.2 g/dL (33-37); MCV 104.1 FL (81-99); MONO# 0.83 X1000 (0.11-0.59); MONO% 7.6 % (1.7-9.3); MPV 10.1 FL (7.4-10.4); NEUT# 8.51 X1000 (1.4-6.5); NEUT% 77.8 % (42.2-75.2); PLT 252 X1000 (130-400); RBC 2.96 XMIL (4.2-5.4); WBC 10.93 X1000 (4.8-10.8)
[2019-10-08] MEDS: HUMULIN R SUBQ SCH ×2 (06:06→12:09)
[2019-10-08] MEDS: PROTONIX [NONFORMULARY] PO SCH (06:07)
[2019-10-08 06:22] LABS: ALBUMIN 2.3 g/dL (3.5-5.0); CALCIUM 8.2 mg/dL (8.8-10.2); CREATININE 4.4 mg/dL (0.5-0.9); PHOSPHORUS 5.2 mg/dL (2.7-4.5); POTASSIUM 4.2 mmol/L (3.5-5.1)
--- NOTE | 2019-10-08 07:54 | Diag Imaging Result Doc PS360 ---
EXAM: ABDOMEN FLAT/UPRIGHT HISTORY: constipation TECHNIQUE: Two views COMPARISON: 10/07/2019 FINDINGS: Decrease in the amount of stool within the colon. No bowel obstruction. No organomegaly. Right abdominal calcification may be a renal stone. There are surgical clips in the abdomen and pelvis and there has been prior surgery to the lower lumbar spine. IMPRESSION: Interval improvement Electronically signed by Romario Edwards 10/08/2019 7:52 AM
[2019-10-08] MEDS ORDERED: HEPARIN IV PRN (08:11)
[2019-10-08] MEDS ORDERED: NS 2,000 ML MISC PRN (08:11)
[2019-10-08] MEDS ORDERED: FOLIC ACID PO SCH (09:00)
[2019-10-08 10:55] VITALS: BP 136/62
[2019-10-08] MEDS: CULTURELLE PO SCH (11:10)
[2019-10-08] MEDS: LOPRESSOR PO SCH (11:11)
[2019-10-08] MEDS: COLACE PO SCH (11:11)
[2019-10-08] MEDS: ASPIRIN EC PO SCH (11:11)
[2019-10-08] MEDS: IMDUR PO SCH (11:11)
[2019-10-08] MEDS: BRILINTA PO SCH (11:11)
[2019-10-08] MEDS: MIRALAX PO SCH (11:11)
--- NOTE | 2019-10-08 11:50 | GASTROENTEROLOGY PROGRESS NOTE ---
DATE: 10/08/2019 SUBJECTIVE: Ms. Calhoun is a 53-year-old female. She was in the dialysis unit receiving her dialysis. The patient has denied any nausea, vomiting, or abdominal pain. The patient did have a couple of bowel movements. OBJECTIVE: Vital Signs: Temperature 98 degrees, pulse 75, respirations 16, blood pressure 135/59, oxygen saturation 98% on room air. The patient's weight is 199 pounds, BMI is 36.4 kg/m2. General: She is alert, oriented x3, and in no acute distress. HEENT: Pale conjunctivae. No icterus. PERRL. Neck: Supple. Lungs: Clear to auscultation. Cardiovascular: Regular rate and rhythm. Abdomen: Obese, nontender. Active bowel sounds heard in all 4 quadrants. Extremities: No clubbing, no cyanosis. Generalized edema in the lower extremities. Pedal pulses 2+ present bilaterally. Neurologic: She is alert and oriented x3. LABORATORY DATA: WBCs are 10.93, RBCs 2.96, hemoglobin is 9.6, hematocrit is 30.8, platelet count is 252,000. Sodium 136, potassium 4.2, chloride 104, carbon dioxide 17, anion gap 15, BUN 14, creatinine is 4.4, glucose is 106, calcium 8.2, phosphorus 5.2, albumin is 2.3. IMAGING: Abdominal x-ray has shown interval improvement. IMPRESSION AND PLAN: 1. Diarrhea. 2. H/o constipation. 3. Urinary tract infection. 4. GERD 5. Diabetes. 6. End-stage renal disease. 7. Anemia of chronic disease. 8. Fatty liver. 9. Abdominal hernia. PLAN: Ms Calhoun is a 53-year-old female with a history of end-stage renal disease. GI has been following her for diarrhea. Currently, the patient's diarrhea is under control. She did have 2 bowel movements today. Her Clostridium difficile toxin and antigens are negative: Stool cultures are negative. Occult blood and stool for WBCs were also negative. The patient's hemoglobin and hematocrit today is 9.6 and 30.8, which has been trended upwards. She is hemodynamically stable. We will continue patient with PPIs daily and Culturelle twice a day. We will continue to monitor the patient and follow the plan of care per PCP. This plan was discussed with Dr. Fang. Please call us for any further questions or concerns. Dictated by CLEMENT Garcia for Ariel Fang MD cc: Martín Copeland MD [facility]
--- NOTE | 2019-10-13 15:02 | DISCHARGE SUMMARY ---
ADMISSION DATE: 10/05/2019 DISCHARGE DATE: 10/08/2019 FINAL DISCHARGE DIAGNOSES: 1. Diarrhea. 2. Asymptomatic bacteriuria secondary to extended spectrum beta-lactamases Escherichia coli. 3. Syncope secondary to fluid depletion. 4. Insulin-dependent diabetes mellitus. 5. Obesity. 6. Chronic kidney disease stage 5D on hemodialysis. 7. Folate deficiency. 8. Coronary artery disease with a history of myocardial infarction. 9. History of cerebrovascular accident. 10. Anemia. CONSULTATIONS: 1. GI consultation with Dr. Robles. 2. Nephrology consultation with Dr. Sue. HOSPITAL COURSE: Ms. Calhoun is a 53-year-old female with a history of multiple medical problems including chronic kidney disease stage 5D on hemodialysis and insulin-dependent diabetes mellitus, who presented to the ER with a chief complaint of abdominal pain, nausea, vomiting, and diarrhea. On admission, a CT of the abdomen and pelvis was done that revealed hepatomegaly with fatty infiltration and multiple abdominal hernias. The patient was admitted to the hospitalist service. The patient was noted to be dehydrated from her persistent vomiting and diarrhea, and was treated with a L of IV fluids. GI was also consulted due to the patient's persistent diarrhea. It was thought that the patient might have had a mild viral gastroenteritis. A urine specimen was obtained, which came back positive for ESBL E. Coli. After reviewing the patient's prior culture results, she has persistently been colonized by ESBL E. Coli. She denied having any symptoms of dysuria, frequency or urgency. The patient was given 1 dose of ertapenem, but the decision was made not to treat the patient since she was asymptomatic. It was recommended by GI that the patient be started on laxative therapy. An x-ray was done that revealed moderate constipation. The patient underwent her routine dialysis while hospitalized. She continued to improve clinically and was no longer having diarrhea on the day of discharge. DISCHARGE MEDICATIONS: 1. Lactobacillus 1 tab oral daily. 2. Folic Acid 1 mg oral daily. 3. MiraLAX 17 g oral twice a day. 4. Lipitor 40 mg oral at bedtime. 5. Aspirin 81 mg oral daily. 6. Brilinta 90 mg oral twice a day. 7. Lopressor 50 mg oral twice a day. 8. Trazodone 50 mg oral at bedtime p.r.n. for sleep. 9. NovoLog sliding scale. 10. Lantus 35 units subcutaneous daily. 11. Imdur 120 mg oral daily. 12. Nitrostat 0.4 mg sublingual q.4 hours p.r.n. for chest pain. 13. Lasix 20 mg oral twice a day. 14. Ranexa 500 mg oral twice a day. 15. Protonix 40 mg p.o. daily. DISCHARGE DIET: 1800 ADA diet. ACTIVITY: As tolerated. FOLLOWUP INSTRUCTIONS: The patient will need to follow up for her routine dialysis sessions as scheduled. cc: MD Martín Gutierrez MD
== END 2019-10-08 14:06 | disposition home or self-care (01) | DRG 640 ==
LOC: ED 16:35 → SUATTDRO 10-05 02:50 → 1N 10-05 02:50
PROVIDERS: ADMIT Internal Medicine; ATTEND Internal Medicine

== ENCOUNTER 2019-10-27 13:17 | Inpatient (IN) ==
[2019-10-27 15:37] LABS: BASO# 0.07 X1000 (0.0-0.2); BASO% 0.5 % (0.0-0.8); EOS# 0.36 X1000 (0.0-0.7); EOS% 2.5 % (0.0-10.0); HEMOGLOBIN 12.2 g/dL (12.0-16.0); IMM GRAN# 0.16 X1000 (0.0-0.04); IMM GRAN% 1.1 % (0.0-0.5); LYMPH# 1.81 X1000 (1.2-3.4); LYMPH% 12.4 % (20.5-51.1); MCH 32.6 PG (27-31); MCHC 32.1 g/dL (33-37); MCV 101.6 FL (81-99); MONO# 0.87 X1000 (0.11-0.59); MONO% 5.9 % (1.7-9.3); MPV 10.8 FL (7.4-10.4); NEUT# 11.36 X1000 (1.4-6.5); NEUT% 77.6 % (42.2-75.2); PLT 256 X1000 (130-400); RBC 3.74 XMIL (4.2-5.4); RDW 14.6 % (11.5-14.5); WBC 14.63 X1000 (4.8-10.8)
--- NOTE | 2019-10-27 15:43 | Diag Imaging Result Doc PS360 ---
EXAM: FLAT/UPRIGHT ABD/1 VIEW CHEST - 10/27/2019 HISTORY: LUQ pain TECHNIQUE: Portable supine and upright abdomen one view chest COMPARISON: 10/08/2019 supine and upright abdomen, 10/03/2020 view chest FINDINGS: There are apparent artifacts from grid lines. The bowel gas pattern appears nonspecific and nonobstructive. There is no free air identified. There are surgical clips and small surgical tami similar to prior. There is an apparent stone in the right kidney similar to prior. Upright chest shows within normal limits heart size. The lungs appear clear. There is no pleural effusion or pneumothorax identified. Central venous catheter remains in place. IMPRESSION: Nonspecific bowel gas pattern. No evidence of acute cardiopulmonary disease. Electronically signed by [email or web address] 10/27/2019 3:41 PM
[2019-10-27 15:45] LABS: URINE SOURCE CLEAN CATCH
[2019-10-27] MEDS ORDERED: PHENERGAN IM ONE (16:02)
[2019-10-27] MEDS ORDERED: DEMEROL IM ONE (16:02)
[2019-10-27 16:06] LABS: BILIRUBIN URINE NEGATIVE (NEGATIVE); BLOOD URINE NEGATIVE (NEGATIVE); COLOR YELLOW; GLUCOSE URINE 150 mg/dL (NEGATIVE); KETONE URINE NEGATIVE (NEGATIVE); LEUKOCYTES URINE TRACE (NEGATIVE); NITRITE URINE NEGATIVE (NEGATIVE); PROTEIN URINE 600 mg/dL (NEGATIVE); SP GRAVITY URINE 1.016; TURBIDITY URINE CLEAR (CLEAR); UROBILINOGEN URINE NORMAL (NORMAL)
[2019-10-27] MEDS ORDERED: ROCEPHIN IM ONE (16:12)
[2019-10-27] MEDS ORDERED: XYLOCAINE-MPF 1% INJ ONE (16:12)
[2019-10-27 16:13] LABS: ALB/GLOB RATIO 1.4; ALBUMIN 3.4 g/dL (3.5-5.0); CALCIUM 8.7 mg/dL (8.8-10.2); POTASSIUM 8.1 mmol/L (3.5-5.1); TOTAL BILIRUBIN 0.21 mg/dL (0.20-1.00); TOTAL PROTEIN 5.9 g/dL (6.3-8.3)
[2019-10-27] MEDS ORDERED: D50W SYRINGE IV ONE (16:14)
[2019-10-27] MEDS ORDERED: HUMULIN R IV ONE (16:14)
[2019-10-27] MEDS ORDERED: CALCIUM CHLORIDE SYRINGE IV ONE (16:15)
[2019-10-27] MEDS ORDERED: SODIUM BICARBONATE 8.4% IV PUSH ONE (16:16)
[2019-10-27 16:17] LABS: UR EPITHELIAL CELLS <10 /HPF (<10); URINE BACTERIA NEGATIVE /HPF; URINE RBC <10 /HPF (<10); URINE WBC TNTC /HPF (<10)
[2019-10-27 16:22] LABS: URINE CASTS NONE SEEN; URINE CRYSTALS NONE SEEN; URINE SMALL ROUND CELLS NONE SEEN; URINE YEAST NONE SEEN
--- NOTE | 2019-10-27 16:51 | EKG Report ---
Test Performed on : 10/27/2019 4:29:11 PM Test Reason : pain Blood Pressure : / mmHG Vent. Rate : 081 BPM Atrial Rate : 081 BPM P-R Int : 150 ms QRS Dur : 102 ms QT Int : 414 ms P-R-T Axes : 051 -34 062 degrees QTc Int : 480 ms Sinus rhythm. with marked sinus arrhythmia. Left axis deviation Prolonged QT Abnormal ECG When compared with ECG of 05-OCT-2019 08:46, T wave inversion no longer evident in Inferior leads Nonspecific T wave abnormality, improved in Lateral leads Unconfirmed Result
--- NOTE | 2019-10-27 17:05 | PROVIDER DOCUMENTATION ---
This chart was entered by Katelyn Tidwell Scribe, acting as scribe for Rhea Nix PA. HPI-Abdominal Pain/GI Problem <Kadeem Castaneda - Last Filed: 10/27/19 16:44> - General Source: patient - History of Present Illness-ABD Nature of Presenting Problems: [id number] presents to ED with c/o abdominal pain in the LUQ beginning yesterday. She has nausea and diarrhea x1 today but denies vomiting. She states that eating makes it worse. She was seen in the ED on 10/04/2019 weeks for the same sx and admitted for one wk. Was encouraged to f/u with [facility] for abdominal pain but due to COVID-19 scare she has not made appt. She also states she has a chronic UTI since 2007 and abx do not help. Abdominal Pain Onset Location: reports: LUQ Pain Radiation: reports: no radiation Quality of Pain: reports: aching Severity in ED: reports: mild Onset/Duration: reports: 24 hours ago Timing: reports: still present, constant Activities at Onset: reports: light activity Modifying Factors: worse with: eating Associated Symptoms: reports: diarrhea, nausea, other (LE pain) Bruising or Bleeding Gums?: No Similar Symptoms Previously?: Yes (Seen in ED 3 weeks ago for same sx) <Rhea Nix - Last Filed: 10/27/19 17:04> - General Chief Complaint: Abdominal Pain Stated Complaint: ABDPOMINAL PAIN Time Seen by Provider: 10/27/19 13:38 Allergies/Adverse Reactions: Patient Allergies Allergy/AdvReac Type Severity Reaction Status Date / Time azithromycin [From Zithromax] Allergy SHORTNESS Verified 09/16/19 19:28 OF BREATH fenoprofen [From Nalfon] Allergy ANAPHYLAXIS Verified 09/16/19 19:28 rofecoxib [From Vioxx] Allergy feet Verified 09/16/19 19:28 swelling nitrofurantoin AdvReac HEADACHE Verified 09/16/19 19:28 [From Macrobid] nitrofurantoin AdvReac HEADACHE Verified 09/16/19 19:28 macrocrystalline * [From Macrobid] oxycodone HCl * AdvReac Unknown Verified 09/16/19 19:28 [From Percocet] sumatriptan [From Imitrex] AdvReac elevated bp Verified 09/16/19 19:28 sumatriptan succinate * AdvReac Unknown Verified 09/16/19 19:28 [From Imitrex] tramadol AdvReac NAUSEA Verified 09/16/19 19:28 Home Medications: Home Medication List Medication Instructions Recorded Confirmed Last Taken Type ATORVAstatin [Lipitor] 40 mg PO HS 05/21/18 10/27/19 09/15/19 History Aspirin EC 81 mg PO DAILY 07/06/18 10/27/19 09/16/19 History Ticagrelor [Brilinta] 90 mg PO BID 01/06/19 10/27/19 09/16/19 History Metoprolol [Lopressor] 50 mg PO BID 06/21/19 10/27/19 10/04/19 08:00 History Trazodone [Desyrel] 50 mg PO QHS PRN 06/21/19 10/27/19 08/17/19 History Insulin Aspart [Novolog Flexpen] 1 dose SUBQ PRN PRN 06/24/19 10/27/19 09/16/19 History Insulin Glargine [Lantus Insulin] 35 unit SUBQ DAILY unit 07/20/19 10/27/19 10/04/19 08:00 Rx Isosorbide Mononitrate E.r. [Imdur] 120 mg PO DAILY #60 tab 07/20/19 10/27/19 09/16/19 Rx Nitroglycerin [Nitrostat] 0.4 mg SUBLINGUAL Q2-4H PRN PRN 07/20/19 10/27/19 Unknown Rx #30 tab.subl Furosemide 20 mg PO BID 10/05/19 10/27/19 10/04/19 08:00 History Pantoprazole [Protonix 40 mg PO DAILY@0700 10/05/19 10/27/19 10/04/19 07:00 History [Nonformulary]] Ranolazine [Ranolazine ER] 500 mg PO BID 10/05/19 10/27/19 10/04/19 08:00 History Folic Acid 1 mg PO DAILY #30 tab 10/08/19 10/27/19 Unknown Rx Lactobacillus Rhamnosus GG 1 ea PO DAILY #30 cap 10/08/19 10/27/19 Unknown Rx [Culturelle] Polyethylene Glycol 3350 [Miralax] 17 gm PO BID #60 powder, packet 10/08/19 10/27/19 Unknown Rx Review of Systems - Adult - REVIEW OF SYSTEMS - ADULT Constitutional: reports: see HPI. denies: chills, fever Eyes: reports: no symptoms reported Ears, Nose, Mouth & Throat: reports: no symptoms reported Cardiovascular: reports: see HPI. denies: chest pain, palpitations Respiratory: denies: cough, shortness of breath Gastrointestinal: reports: abdominal pain (LUQ), diarrhea, nausea. denies: vomiting Genitourinary: reports: see HPI, frequent UTI's (UTI since 2007) Musculoskeletal: reports: no symptoms reported Integumentary: reports: no symptoms reported Neurological: reports: no symptoms reported Psychiatric: reports: no symptoms reported Endocrine: reports: no symptoms reported Hematologic/Lymphatic: reports: no symptoms reported Allergic/Immunologic: reports: no symptoms reported All Other Systems: Reviewed and Negative <Rhea Nix - Last Filed: 10/27/19 17:04> Past History - Adult - PAST MEDICAL HISTORY-ADULT Review of Records: reports: Nursing Assessment Review, Medications Reviewed, Social history reviewed & non-contributory. Major Childhood Illnesses: reports: denies history Cardiovascular: reports: CHF, HTN, hyperlipidemia Respiratory: reports: denies history, COPD Gastrointestinal: reports: denies history Obstetrical/Gynecological: reports: denies history Genitourinary: reports: kidney disease (stage 4 kidney failure R kidney; L nephrectomy) Musculoskeletal: reports: chronic pain Neurological: reports: CVA, headaches/migraines, TIA, other (sciatica) Psychiatric: reports: anxiety, depression Endocrine/Immune: reports: Diabetes Other Conditions: reports: denies history - PRIOR SURGERIES/PROCEDURES Surgical/Procedure History: reports: BTL, orthopedic (extremity) (carpal tunnel) , breast (cyst removal), back/neck (back x2), other (D&C; L nephrectomy) - IMMUNIZATION STATUS Childhood Immunizations: See Nurse Assessment Flu Vaccine: See Nurse Assessment - FAMILY HISTORY Family History: reviewed, not pertinent, aortic disease, CVA/TIA, HTN <Rhea Nix - Last Filed: 10/27/19 17:04> Physical Exam-General - PHYSICAL EXAM-ADULT Initial Vital Signs Reviewed: Yes - CONSTITUTIONAL General Appearance: appears well, alert, no apparent distress, obese - EYES Eyes: PERRL/EOMI, pink conjunctivae - HEAD, EARS, NOSE, MOUTH & THROAT HENMT: normocephalic/atraumatic, moist mucous membranes - NECK Neck: non-tender, full range of motion, supple. negative: lymphadenopathy - RESPIRATORY Respiratory: chest non-tender, lungs clear, normal breath sounds. negative: crackles, rales, rhonchi, stridor, wheezing - CARDIOVASCULAR Cardiovascular: regular rate, rhythm, no edema, other (hemodialysis catheter in left chest wall) - GASTROINTESTINAL (ABDOMEN) Abdominal Exam: normal bowel sounds, soft, tenderness (LUQ), hernia (umbilical) - MUSCULOSKELETAL Back Exam: normal inspection, no CVA tenderness, no vertebral tenderness Extremity: normal gait, normal inspection - SKIN Integumentary: normal color, normal turgor, warm/dry, other (well healed surgical scars on LUE from failed fistula). negative: rash - NEUROLOGIC Neurologic: grossly normal, no motor/sensory deficits - PSYCHIATRIC Psych/Mental Status: normal thought content, normal thought process <Rhea Nix - Last Filed: 10/27/19 17:04> Progress - PLAN OF CARE/RESULTS Progress/Plan/Lab Results: Vital Signs - 8 hr 10/27/19 13:36 Temperature 97.5 F L Pulse Rate 77 Respiratory Rate 18 Blood Pressure 143/78 O2 Sat by Pulse Oximetry 99 Laboratory Results - last 24 hr 10/27/19 10/27/19 10/27/19 15:13 15:13 15:13 WBC 14.63 H RBC 3.74 L Hgb 12.2 Hct 38.0 MCV 101.6 H MCH 32.6 H MCHC 32.1 L RDW Std Deviation 14.6 H Plt Count 256 MPV 10.8 H Immature Gran % (Auto) 1.1 H Neut % (Auto) 77.6 H Lymph % (Auto) 12.4 L [place] % (Auto) 5.9 Eos % (Auto) 2.5 Baso % (Auto) 0.5 Immature Gran # (Auto) 0.16 H Neut # (Auto) 11.36 H Lymph # (Auto) 1.81 [place] # (Auto) 0.87 H Eos # (Auto) 0.36 Baso # (Auto) 0.07 Sodium 129 L Potassium 8.1 H* Chloride 94 L Carbon Dioxide 20 L Anion Gap 15 BUN 29 H Creatinine 4.0 H Estimated GFR/1.73 m2 12 BUN/Creatinine Ratio 7 Glucose 159 H Calculated Osmolality 268 Calcium 8.7 L Total Bilirubin 0.21 AST 21 ALT 18 Alkaline Phosphatase 138 H Creatine Kinase 117 Total Protein 5.9 L Albumin 3.4 L Globulin 2.5 Albumin/Globulin Ratio 1.4 Urine Source Urine Color Urine Turbidity Urine pH Ur Specific [place] Urine Protein Ur Glucose (Stick) Ur Ketones (Stick) Urine Blood Urine Nitrite Urine Bilirubin Urobilinogen Dipstick Urine Leukocytes Urine WBC (Auto) Urine RBC (Auto) U Epithel Cells (Auto) Urine Bacteria (Auto) Urine Crystals Small Round Cells Urine Casts Urine Yeast-like Cells 10/27/19 15:38 WBC RBC Hgb Hct MCV MCH MCHC RDW Std Deviation Plt Count MPV Immature Gran % (Auto) Neut % (Auto) Lymph % (Auto) [place] % (Auto) Eos % (Auto) Baso % (Auto) Immature Gran # (Auto) Neut # (Auto) Lymph # (Auto) [place] # (Auto) Eos # (Auto) Baso # (Auto) Sodium Potassium Chloride Carbon Dioxide Anion Gap BUN Creatinine Estimated GFR/1.73 m2 BUN/Creatinine Ratio Glucose Calculated Osmolality Calcium Total Bilirubin AST ALT Alkaline Phosphatase Creatine Kinase Total Protein Albumin Globulin Albumin/Globulin Ratio Urine Source CLEAN CATCH Urine Color YELLOW Urine Turbidity CLEAR Urine pH 8.0 Ur Specific [place] 1.016 Urine Protein 600 A Ur Glucose (Stick) 150 A Ur Ketones (Stick) NEGATIVE Urine Blood NEGATIVE Urine Nitrite NEGATIVE Urine Bilirubin NEGATIVE Urobilinogen Dipstick NORMAL Urine Leukocytes TRACE A Urine WBC (Auto) TNTC A Urine RBC (Auto) <10 U Epithel Cells (Auto) <10 Urine Bacteria (Auto) NEGATIVE Urine Crystals NONE SEEN Small Round Cells NONE SEEN Urine Casts NONE SEEN Urine Yeast-like Cells NONE SEEN Orders Category Date Time Status Cardiac Monitoring DIRECTED Care 10/27/19 16:13 Active Misc. NRSG Communication Order DIRECTED Care 10/27/19 16:24 Active Nursing- MD Consult Request ROUTINE Care 10/27/19 16:23 Active Saline Loc NOW Care 10/27/19 14:08 Active Physician/Provider Consults Routine Cons 10/27/19 16:22 Ordered FLAT/UPRIGHT ABD/1 VIEW CHEST [RAD] Stat Exams 10/27/19 14:09 Completed CBC WITH ELECTRONIC DIFF [HEME] Stat Lab 10/27/19 15:13 Completed CK PROFILE [SP CHEM] Stat Lab 10/27/19 15:13 Completed COMPREHENSIVE METABOLIC PANEL [CHEM] Stat Lab 10/27/19 15:13 Completed URINALYSIS W/POSS RFLX CULT [URINALYSIS] Stat Lab 10/27/19 15:38 Completed URINE CULTURE [RM] Routine Lab 10/27/19 15:38 Received URINE MANUAL MICROSCOPIC [URINALYSIS] Stat Lab 10/27/19 15:38 Completed Calcium Chloride Syringe Med 10/27/19 16:15 Discontinued 1 gm IV NOW ONE CefTRIAXONE [Rocephin] Med 10/27/19 16:12 Discontinued 1 gm IM NOW ONE Dextrose 50% Syringe [D50w Syringe] Med 10/27/19 16:14 Discontinued 50 ml IV NOW ONE Insulin Human Regular [Humulin R] Med 10/27/19 16:14 Discontinued 7 unit IV NOW ONE Lidocaine 1% Pf [Xylocaine-Mpf 1%] Med 10/27/19 16:12 Discontinued 5 ml INJ NOW ONE Meperidine [Demerol] Med 10/27/19 16:02 Discontinued 25 mg IM NOW ONE Promethazine [Phenergan] Med 10/27/19 16:02 Discontinued 25 mg IM NOW ONE Sodium Bicarbonate 8.4% Med 10/27/19 16:16 Discontinued 50 meq IV PUSH NOW ONE EKG [EKG] Stat Ther 10/27/19 16:14 Ordered Result Diagrams: 10/27/19 15:13 10/27/19 15:13 <Kadeem Castaneda - Last Filed: 10/27/19 16:44> - PLAN OF CARE/RESULTS Progress/Plan/Lab Results: Vital Signs - 8 hr 10/27/19 13:36 Temperature 97.5 F L Pulse Rate 77 Respiratory Rate 18 Blood Pressure 143/78 O2 Sat by Pulse Oximetry 99 Orders Category Date Time Status Saline Loc NOW Care 10/27/19 14:08 Active FLAT/UPRIGHT ABD/1 VIEW CHEST [RAD] Stat Exams 10/27/19 14:09 Taken CBC WITH ELECTRONIC DIFF [HEME] Stat Lab 10/27/19 14:09 Ordered COMPREHENSIVE METABOLIC PANEL [CHEM] Stat Lab 10/27/19 14:09 Uncollected URINALYSIS W/POSS RFLX CULT [URINALYSIS] Stat Lab 10/27/19 14:09 Uncollected Result Diagrams: 10/27/19 15:13 10/27/19 15:13 - REASSESSMENT Reassessment #1 Time Reassessed: 16:03 (requests pain medication, ordered demerol and phenergan) Status: worsening - EKG 1 Time of EKG reading by physician:: 16:29 EKG Read and Signed by:: Kadeem Castaneda EKG Interpretation (*Must complete 3 of following elements*): Abnormal (prolonged QT) Rate: 81 Rhythm: Sinus rhythm with marked sinus arrhythmia Howe: left QRS: normal MI Interval: normal - XRAY 1 XRAY Study: Abdomen Impression: See EMR Report (IMPRESSION: Nonspecific bowel gas pattern. No evidence of acute cardiopulmonary disease. Electronically signed by Derrell Jordan 10/27/2019 3:41 PM) - CONSULTS/PCP/HOSPITALIST Notification #1 *Consult/PCP/Hospitalist*: Dr. Sue Time Discussed: 16:25 Consult Disposition: other (will get pt into dialysis [facility]) #2 Consult: Yeni RAY [phone] Time Discussed: 16:37 Consult Disposition: Admit <Rhea Nix - Last Filed: 10/27/19 17:04> Departure <Kadeem Castaneda - Last Filed: 10/27/19 16:44> - Departure Date of Disposition Decision: 10/27/19 Time of Disposition Decision: 16:26 Certified Medical Emergency: Emergent - Critical Care Note This patient required my direct & personal management of CC.: Yes Total Time (mins): 35 Critical Care Statement: This patient required my direct personal management to treat or rule out processes, the absence of which, could potentiallly result in sudden, clinically significant life or limb threatening deterioration. <Rhea Nix - Last Filed: 10/27/19 17:04> - Departure DIAGNOSIS: ESRD (end stage renal disease) on dialysis, Hyperkalemia Kidney failure Qualifiers: Renal failure chronicity: chronic Chronic kidney disease stage: on chronic dialysis Qualified Code(s): N18.6 - End stage renal disease; Z99.2 - Dependence on renal dialysis UTI (urinary tract infection) Qualifiers: Urinary tract infection type: acute cystitis Hematuria presence: without hematuria Qualified Code(s): N30.00 - Acute cystitis without hematuria Leukocytosis Qualifiers: Leukocytosis type: unspecified Qualified Code(s): D72.829 - Elevated white blood cell count, unspecified Disposition: ADMITTED INPATIENT 09 Condition: Serious Referrals and Follow-Ups: None,PCP [Primary Care Provider] - Attestation - Physician/ TERRY Attestation Patient care was provided by Advanced Practice Provider:: Yes Advanced Practice Provider:: Rhea Nix Advanced Practice Provider documentation review:: The Mid-level provider documentation, treatment plan and medical decision making was reviewed by the physician who agrees with all treatment and medical decision making by the MLP. The physician spent face to face time with patient:: Yes (Dr. Castaneda at bedside to discuss abnormal labs and need emergent hemodialysis and admission) Advanced Practice Provider documentation review:: Supervising physician onsite and consulted in the evaluation and care of this patient. The physician did have a face to face encounter with the patient. <Rhea Nix - Last Filed: 10/27/19 17:04> This chart was documented by the indicated scribe, (Kateyln Tidwell Scribe) and accurately reflects the services I performed and decisions made by me, Rhea Nix PA, as attested by the provider's signature.
[2019-10-27] MEDS ORDERED: NS 2,000 ML MISC PRN (17:08)
[2019-10-27] MEDS ORDERED: HEPARIN IV PRN (17:08)
[2019-10-27] MEDS ORDERED: NS 1,000 ML IV PRN (17:08)
[2019-10-27] MEDS ORDERED: TYLENOL PO PRN (17:09)
[2019-10-27 17:41] LABS: AMYLASE 34 U/L (20-200); LIPASE 46 U/L (13-60)
--- NOTE | 2019-10-27 18:54 | HISTORY AND PHYSICAL ---
PRIMARY CARE PROVIDER: Dr. Galo and CLEMENT Gastelum. CHIEF COMPLAINT: Abdominal pain with diarrhea and nausea. HISTORY OF PRESENT ILLNESS: Ms. Emi Butts is a 53-year-old female with a medical history of end-stage renal disease who receives hemodialysis, and is here with complaints of abdominal pain, diarrhea and nausea that started last night. She was here about a month ago with the same complaints, but those symptoms resolved, and now it is just watery diarrhea. Unfortunately, she has a significantly elevated potassium level on her laboratory data that is 8.1 so she is going for emergent renal dialysis. With the abdominal pain, the abdominal x-ray does not show anything significant. We will get an abdominal ultrasound in the morning, and we will treat her symptomatically. We probably will monitor in the ICU overnight. If dialysis improves the potassium significantly, she could probably be transferred tomorrow. PAST MEDICAL HISTORY: 1. End-stage renal disease on hemodialysis. 2. CAD. 3. History of CVA. 4. COPD. No home oxygen. 5. Gastroparesis. 6. Hypertension. 7. Diabetes mellitus type 2. 8. Anxiety and depression. 9. Hyperlipidemia. 10. History of migraine headaches. 11. Syncope in September of 2019. PAST SURGICAL HISTORY: 1. Bilateral tubal ligation. 2. Carpal tunnel surgery of both wrists. 3. Right breast surgery for fibrocystic breast disease. 4. Two back surgeries. 5. Left nephrectomy due to severe infection. SOCIAL HISTORY: Half pack per day smoker, but she quit 6 months ago. She started smoking at the age of 11. She denies alcohol or illicit drug use. She lives at home with her cat. FAMILY HISTORY: Mother had 2 strokes. Father had a stroke and heart attack. ALLERGIES: Azithromycin, Nalfon, Vioxx, Macrobid, Percocet, Imitrex, and Tramadol. HOME MEDICATIONS: 1. Aspirin enteric-coated 81 mg p.o. daily. 2. Lipitor 40 mg p.o. nightly. 3. Folic Acid 1 mg p.o. daily. 4. Lasix 20 mg p.o. twice daily. 5. Insulin p.r.n. 6. Lantus insulin 35 units subcutaneous daily. 7. Imdur 120 mg p.o. daily. 8. Culturelle 1 tablet p.o. daily. 9. Lopressor 50 mg p.o. twice daily. 10. Nitroglycerin sublingual every 2 to 4 hours p.r.n. 11. Protonix 40 mg p.o. daily. 12. MiraLAX 17 g p.o. twice daily. 13. Ranolazine 500 mg p.o. twice daily. 14. Brilinta 90 mg p.o. twice daily. 15. Desyrel trazodone 50 mg p.o. nightly p.r.n. REVIEW OF SYSTEMS: Fourteen point review of systems are complete. All were negative except for those mentioned above in HPI. She denies fever or shortness of breath. PHYSICAL EXAMINATION: VITAL SIGNS: Temperature 97.5 degrees, heart rate 77, respiratory rate 18, blood pressure 143/78, O2 saturation 99% on room air, 5 feet 4 inches tall and 190 pounds. BMI is 32.6. GENERAL: Ms. Emi Calhoun is a 53-year-old female. She is grimacing in pain, but she is not necessarily in acute distress. HEENT: Atraumatic and normocephalic. Pupils equal, round, and reactive to light. Extraocular movements intact. Mucous membranes are moist. NECK: Trachea midline. CARDIOVASCULAR: S1, S2. Regular rate and rhythm. No rubs, gallops, or murmurs. No lower extremity edema. +2 dorsalis and radial pulses. Negative for JVD or carotid bruits. PULMONARY: Clear to auscultation with bilateral breath sounds. No accessory muscle use or work of breathing noted. GASTROINTESTINAL: Soft, tender in all 4 quadrants, worse in the mid epigastric region with palpation. Positive bowel sounds x4. EXTREMITIES: Moves all extremities equally. Decreased range of motion. NEUROLOGIC: A and O x3. Follows commands. Sensory is intact. SKIN: Warm, dry, and intact. LABORATORY DATA: White blood cells 14,000, hemoglobin 12, hematocrit 38, and platelet count 256,000. Sodium 129, potassium 8.1, BUN 29, creatinine 4.0, glucose 159, calcium 8.7, bilirubin 0.21, AST 21, ALT 18, CK 117, and albumin 3.4. Urinalysis 600 protein, 150 glucose, trace leukocytes, too numerous to count white blood cells, but negative for bacteria. IMAGING: Abdominal x-ray along with one view of the chest. Nonspecific bowel gas pattern. No evidence of acute cardiopulmonary disease. EKG normal sinus rhythm, rate 81, and QTc is 480. Mildly peaked T-waves on the EKG. ASSESSMENT AND PLAN: 1. Abdominal pain with diarrhea and nausea asymptomatically treated it. Abdominal x-ray is negative. Her last abdominal pelvic CT past month when she had the same symptoms, had left nephrectomy, nonobstructive renal stone, fatty liver, and anterior pelvic hernias containing bowel, but no wall thickening or obstruction. May consider getting another abdominal CT. Currently, she is in dialysis. 2. Significant hyperkalemia without any EKG changes. Her potassium is 8.1 so she went for emergent dialysis. We will monitor her in the ICU overnight. 3. End-stage renal disease, receives dialysis and Dr. Sue is on board. 4. COPD. No complaints. 5. Diabetes mellitus type 2. We will do pattern blood glucoses and sliding scale insulin. 6. Leukocytosis. She has got white blood cells in the urine, but there is no bacteria. She is asymptomatic with that. Chest x-ray is clear. There has not been an order for blood cultures. We will order that. We will order a lactate. Otherwise, she is afebrile unless it is GI source. We will do stool studies. Dictated by CLEMENT Garcia for Hiro Cotton MD cc: CLEMENT Garcia MD I agree with most components of history, physical, assessment and plan. A separate addendum has been dictated. [facility]
--- NOTE | 2019-10-27 20:08 | HISTORY AND PHYSICAL ---
ADDENDUM: Addendum to history and physical dictated by the nurse practitioner. I agree with most components of history, physical, assessment, and plan. In brief, Ms. Calhoun is a 53-year-old lady with past medical history of chronic kidney disease on Friday and Friday hemodialysis, congestive heart failure, COPD, CVA, coronary artery disease requiring stent in July and February of 2019, insulin-dependent diabetes mellitus, gastroparesis, who comes in with chief complaints of nausea, abdominal pain and diarrhea since about 24 hours duration. In the emergency room she was found to have potassium of 8.1. She was given intravenous fluids, intravenous Demerol, intravenous ceftriaxone, insulin, sodium bicarbonate, calcium chloride, and was emergently taken for dialysis and hospitalist team was consulted for further management. At the time of my evaluation, the patient states she always has chest pain and shortness of breath, which is normal for her. She states that she has not eaten any food rich in potassium including avocado, banana, coconut water, or potato recently. She went for routine dialysis Friday and she had tolerated it well. CURRENT VITALS: Temperature 97.5 degrees, pulse 77, respiratory 18, blood pressure 143/78. She is saturating 99% on room air. PHYSICAL EXAMINATION: GENERAL: She is not in acute distress. MOUTH: Oral cavity is moist. LUNGS: Air entry bilaterally equal. No wheeze, rhonchi, or crackles. CARDIOVASCULAR: S1, S2 normal. No murmur, rub, or gallop. ABDOMEN: Soft. She has generalized abdominal tenderness without any guarding, rigidity, or rebound. She has abdominal hernia. Active bowel sounds. No lower extremity edema. She has a left-sided chest dialysis catheter hooked up with the dialysis machine. She is alert and oriented x3. LABS: WBC 14,000, hemoglobin 12.2, platelets 256,000. Her sodium is 129, potassium 8.1, chloride 94. Her amylase and lipase were normal. They did not collect her lactate. Urinalysis had leukocytosis, though she did not have burning or pain. Urine cultures were collected. ASSESSMENT AND PLAN: 1. Hyperkalemia in a patient with chronic kidney disease. The patient denies being noncompliant with diet. Unfortunately, repeat potassium was not collected and she was given intravenous calcium chloride and other medication and currently receiving dialysis. EKG did not have any hyperkalemia-related changes except mild prolongation of QT interval. I will follow up with potassium after dialysis. I counseled her about not taking potassium rich food. She understood it. 2. Abdominal pain, nausea and diarrhea, likely a combination of acute gastroenteritis, which could be viral. Diabetic neuropathy involving gastrointestinal system could also be consider considered. I will follow up with Clostridium difficile analysis. Her abdominal x-ray was unremarkable. I will keep her on clear liquid diet and opioids as necessary for pain. 3. History of coronary artery disease status post stent in July and February 2019. Continue home aspirin, Brilinta, statin, isosorbide, ranolazine, metoprolol and isosorbide. 4. History of insulin-dependent diabetes mellitus. Continue home short-acting and long-acting insulin. DISPOSITION: I will monitor patient inside the hospital. Plan of care discussed with her. Her questions have been satisfactorily answered. 35 minutes spent. cc: Hiro Cotton MD MTDD
[2019-10-27] MEDS: PROTONIX IV SCH (20:21)
[2019-10-27] MEDS: LIPITOR PO SCH (21:00)
[2019-10-27] MEDS: LASIX PO SCH (21:00)
[2019-10-27] MEDS: CARAFATE LIQUID PO SCH (21:01)
[2019-10-27] MEDS: DESYREL PO PRN (21:05)
[2019-10-27] MEDS: HUMULIN R SUBQ SCH (21:18)
[2019-10-27] MEDS: BRILINTA PO SCH (21:24)
[2019-10-27] MEDS: RANEXA PO SCH (21:24)
[2019-10-27] MEDS: LOPRESSOR PO SCH (21:24)
[2019-10-28] MEDS: CARAFATE LIQUID PO SCH ×4 (03:41→21:01)
[2019-10-28 05:49] LABS: BASO# 0.07 X1000 (0.0-0.2); BASO% 0.6 % (0.0-0.8); EOS% 2.7 % (0.0-10.0); HEMATOCRIT 35.3 % (37.0-47.0); HEMOGLOBIN 11.3 g/dL (12.0-16.0); IMM GRAN# 0.17 X1000 (0.0-0.04); IMM GRAN% 1.5 % (0.0-0.5); LYMPH# 1.63 X1000 (1.2-3.4); LYMPH% 14.6 % (20.5-51.1); MCH 32.9 PG (27-31); MCV 102.9 FL (81-99); MONO# 0.79 X1000 (0.11-0.59); MONO% 7.1 % (1.7-9.3); MPV 10.8 FL (7.4-10.4); NEUT# 8.21 X1000 (1.4-6.5); NEUT% 73.5 % (42.2-75.2); PLT 242 X1000 (130-400); RBC 3.43 XMIL (4.2-5.4); RDW 14.9 % (11.5-14.5); WBC 11.17 X1000 (4.8-10.8)
[2019-10-28 06:08] LABS: ALB/GLOB RATIO 0.9; ALBUMIN 2.7 g/dL (3.5-5.0); CALCIUM 8.6 mg/dL (8.8-10.2); CREATININE 3.5 mg/dL (0.5-0.9); MAGNESIUM 1.8 mg/dL (1.5-2.7); POTASSIUM 5.8 mmol/L (3.5-5.1); TOTAL BILIRUBIN 0.31 mg/dL (0.20-1.00); TOTAL PROTEIN 5.6 g/dL (6.3-8.3)
[2019-10-28] MEDS: HUMULIN R SUBQ SCH ×4 (06:24→20:54)
[2019-10-28] MEDS ORDERED: NS 2,000 ML MISC PRN (07:54)
[2019-10-28] MEDS ORDERED: NS 1,000 ML IV PRN (07:54)
[2019-10-28] MEDS: TYLENOL PO PRN (09:48)
--- NOTE | 2019-10-28 10:02 | NEPHROLOGY CONSULTATION ---
DATE: 10/28/2019 REASON FOR CONSULTATION: Severe hyperkalemia and renal failure. HISTORY OF PRESENT ILLNESS: Ms. Calhoun is a 53-year-old, white female who receives chronic renal replacement therapy at our [facility]. She attended her treatment on Friday without complication. She came to the emergency room because of left lower abdominal pain associated with diarrhea. She denies melena or bright red blood per rectum. Some nausea but no vomiting. Her initial evaluation included chemistries which disclosed potassium of 8.1. EKG performed at that time did not disclose significant ST-T wave changes. She was admitted to the ICU and treated with emergent dialysis using a 2 potassium bath for 2.5 hours. She tolerated this well and really did not have symptoms related to her potassium. No generalized weakness, no palpitations, etc. PAST MEDICAL HISTORY: As above. She has a history of diabetes, hypertension, coronary artery disease, COPD, cerebrovascular disease. HOME MEDICATIONS: Include atorvastatin, aspirin, ticagrelor, metoprolol, trazodone, insulin, isosorbide, nitroglycerin, furosemide, ranolazine, pantoprazole, lactobacillus, folate, MiraLAX. ALLERGIES: Azithromycin, fenoprofen, rofecoxib, nitrofurantoin. SOCIAL HISTORY: She continues to smoke and has been a lifelong smoker. FAMILY HISTORY: Noncontributory. REVIEW OF SYSTEMS: I reviewed high potassium foods and she denied any change in her diet with relation to these items. Review of systems otherwise noncontributory. PHYSICAL EXAMINATION: Vital Signs: Blood pressure 117/74, heart rate 95, respirations 21, afebrile. General: No acute distress. Skin: Warm and dry. Conjunctivae are pink. Neck veins are not distended. Oropharynx is dry. Trachea is midline. Heart: PMI nondisplaced. Regular rate and rhythm without murmurs, rubs, gallops. Lungs: Have equal excursion, equal breath sounds. No crackles or wheezes. Abdomen: Soft. Nontender. No organomegaly or masses. No guarding or rebound. Bowel sounds are present. Extremities: No edema, clubbing, or cyanosis. IMPRESSION: Hyperkalemia. Repeat potassium this morning is 5.8 following dialysis yesterday. She is currently on dialysis again this morning using a 2 potassium bath for a total of 3.5 hours and we will target her outpatient dry weight. We will check stool for occult blood, though her hemoglobin is 11.3. Further recommendations to follow. cc: James Sue MD
--- NOTE | 2019-10-28 10:28 | PROGRESS NOTE ---
DATE: 10/28/2019 INTERVAL HISTORY: She underwent dialysis yesterday. Post dialysis, her potassium had gone down to 5.9. She had some sips off water and some chips yesterday. In the morning time, she is feeling better. She is back in the dialysis room right now. SUBJECTIVE: She denies any chest pain, shortness of breath, palpitation. She denies any more nausea or vomiting. Her abdominal discomfort is better. PHYSICAL EXAMINATION: General: Obese, not in any acute distress. HEENT: Oral cavity is moist. Lungs: Air entry bilaterally equal. No wheeze, rhonchi, or crackles. Cardiovascular: S1, S2 normal. Regular. No murmur, rub, or gallop. Abdomen: Soft, pretty much nontender without any guarding, rigidity, or rebound. She has active bowel sounds. She has umbilical hernia. Extremities: No lower extremity edema. She has left chest left-sided chest dialysis catheter hookup hooked up with dialysis machine. Neurologic: She is alert and oriented x3. LABORATORY: Has WBC 11,000, hemoglobin 11.3, platelets 242,000. Sodium 136, potassium 5.8, chloride 96, creatinine 3.5. MICROBIOLOGY: Blood cultures and urine culture are in Lab. IMAGING: No new imaging. ASSESSMENT AND PLAN: 1. Hyperkalemia in a patient with chronic kidney disease of unclear etiology. She was counseled about low-potassium diet. Continue dialysis. Follow up daily potassium. 2. Nausea, diarrhea, abdominal pain. Differential includes acute viral gastroenteritis, gastroparesis and diabetic neuropathy involving gastrointestinal system, currently stable. She has not had any bowel movements. Clostridium difficile analysis is pending. I will advance her diet to mechanical soft with low potassium. Continue opioids as necessary for pain. 3. History of coronary artery disease, status post stent in July in February 2019. Continue aspirin, Brilinta, statin, isosorbide, ranolazine, metoprolol. 4. History of insulin-dependent diabetes mellitus. Continue her home insulin glargine with sliding scale insulin. DISPOSITION: I will consider transferring patient to floor and if she feels well plan is to discharge her later today. She is in agreement with the plan. cc: MD FATEMEH Taylor
[2019-10-28] MEDS: PROTONIX IV SCH ×2 (11:11→21:02)
[2019-10-28] MEDS: DILAUDID IV PRN ×2 (11:12→21:04)
[2019-10-28] MEDS: SODIUM CHLORIDE 0.9% INJ SCH (11:12)
[2019-10-28] MEDS: LANTUS INSULIN SUBQ SCH (11:12)
[2019-10-28] MEDS: LOPRESSOR PO SCH ×2 (11:13→21:02)
[2019-10-28] MEDS: CULTURELLE PO SCH (11:13)
[2019-10-28] MEDS: IMDUR PO SCH (11:13)
[2019-10-28] MEDS: ASPIRIN EC PO SCH (11:13)
[2019-10-28] MEDS: BRILINTA PO SCH ×2 (11:13→21:03)
[2019-10-28] MEDS: FOLIC ACID PO SCH (11:13)
[2019-10-28] MEDS: LASIX PO SCH ×2 (11:13→21:02)
[2019-10-28] MEDS: RANEXA PO SCH ×2 (11:13→21:02)
[2019-10-28] MEDS: SODIUM CHLORIDE 0.9% INJ PRN ×2 (13:03→21:33)
[2019-10-28] MEDS: PHENERGAN IV PRN ×2 (13:03→21:33)
[2019-10-28] MEDS: DESYREL PO PRN (21:02)
[2019-10-28] MEDS: LIPITOR PO SCH (21:02)
[2019-10-29] MEDS: CARAFATE LIQUID PO SCH ×3 (05:48→16:59)
[2019-10-29] MEDS: SODIUM CHLORIDE 0.9% INJ SCH (05:56)
[2019-10-29] MEDS: PHENERGAN IV PRN (05:57)
[2019-10-29] MEDS: SODIUM CHLORIDE 0.9% INJ PRN (05:57)
[2019-10-29] MEDS: PROTONIX IV SCH (06:15)
[2019-10-29] MEDS: HUMULIN R SUBQ SCH ×3 (06:16→17:00)
[2019-10-29 06:43] LABS: BASO# 0.03 X1000 (0.0-0.2); BASO% 0.2 % (0.0-0.8); EOS# 0.13 X1000 (0.0-0.7); HEMATOCRIT 34.8 % (37.0-47.0); HEMOGLOBIN 10.9 g/dL (12.0-16.0); IMM GRAN% 0.8 % (0.0-0.5); LYMPH# 1.19 X1000 (1.2-3.4); LYMPH% 9.3 % (20.5-51.1); MCH 32.4 PG (27-31); MCHC 31.3 g/dL (33-37); MCV 103.6 FL (81-99); MONO# 0.67 X1000 (0.11-0.59); MONO% 5.2 % (1.7-9.3); MPV 10.6 FL (7.4-10.4); NEUT# 10.69 X1000 (1.4-6.5); NEUT% 83.5 % (42.2-75.2); PLT 266 X1000 (130-400); RBC 3.36 XMIL (4.2-5.4); RDW 14.9 % (11.5-14.5); WBC 12.81 X1000 (4.8-10.8)
[2019-10-29 07:06] LABS: ALB/GLOB RATIO 0.9; ALBUMIN 2.7 g/dL (3.5-5.0); CALCIUM 8.5 mg/dL (8.8-10.2); CREATININE 3.7 mg/dL (0.5-0.9); MAGNESIUM 1.8 mg/dL (1.5-2.7); POTASSIUM 5.9 mmol/L (3.5-5.1); TOTAL BILIRUBIN 0.25 mg/dL (0.20-1.00); TOTAL PROTEIN 5.6 g/dL (6.3-8.3)
[2019-10-29] MEDS ORDERED: NORCO-7.5 PO PRN (09:35)
[2019-10-29] MEDS ORDERED: ZOFRAN PO PRN (09:35)
[2019-10-29] MEDS: IMDUR PO SCH (10:00)
[2019-10-29] MEDS: FOLIC ACID PO SCH (10:01)
[2019-10-29] MEDS: RANEXA PO SCH (10:01)
[2019-10-29] MEDS: BRILINTA PO SCH (10:02)
[2019-10-29] MEDS: CULTURELLE PO SCH (10:02)
[2019-10-29] MEDS: ASPIRIN EC PO SCH (10:02)
[2019-10-29] MEDS: LOPRESSOR PO SCH (10:03)
[2019-10-29] MEDS: LANTUS INSULIN SUBQ SCH (10:05)
[2019-10-29] MEDS ORDERED: NS 1,000 ML IV PRN (13:34)
[2019-10-29] MEDS ORDERED: NS 2,000 ML MISC PRN (13:34)
[2019-10-29] MEDS ORDERED: HEPARIN IV PRN (13:34)
--- NOTE | 2019-10-29 14:51 | NEPHROLOGY PROGRESS NOTE ---
DATE: 10/29/2019 SUBJECTIVE: She is feeling well. She has no abdominal pain. Hoping for discharge. OBJECTIVE: Vital Signs: Blood pressure 97/37, heart rate 84, respiration 18, afebrile. General: No acute distress. Lying on her left side. Skin: Warm and dry. Neck: Neck veins are not distended. Heart: Regular. Lungs: Equal. No crackles. Abdomen: Benign. Extremities: No edema. IMPRESSION AND PLAN: Hyperkalemia. Potassium is 5.9 today. She will have her routine hemodialysis today using a 2 potassium bath for 3.5 hours at her outpatient target weight. Okay for discharge thereafter from my perspective. cc: James Sue MD
[2019-10-29 16:40] VITALS: BP 77/50
[2019-10-29] MEDS: TYLENOL PO PRN (17:13)
[2019-10-29] MEDS: LASIX PO SCH (18:51)
[2019-10-29] MEDS ORDERED: PRILOSEC PO SCH (21:00)
--- NOTE | 2019-10-29 22:33 | DISCHARGE SUMMARY ---
ADMISSION DATE: 10/27/2019 DISCHARGE DATE: 10/29/2019 DISCHARGE DISPOSITION: Home. DISCHARGE CONDITION: Hemodynamically stable. Ms. Calhoun denies chest pain, shortness of breath and palpitations. She denies any more nausea, vomiting, or abdominal cramps. She is tolerating a diet well without any diarrhea. She does not have any burning or pain or increased frequency of urination. DISCHARGE DIAGNOSES: 1. Hyperkalemia with potassium of 8.1 on presentation. 2. Nausea, abdominal pain and diarrhea, presumably due to viral gastroenteritis versus diabetic neuropathy affecting the gastrointestinal system. 3. History of gastroparesis. 4. Asymptomatic bacteriuria with extended-spectrum beta lactamase Escherichia coli. OTHER DIAGNOSES: 1. Chronic kidney disease stage 5 on intermittent on intermittent hemodialysis through tunneled dialysis catheter. 2. Insulin-dependent diabetes mellitus. 3. Obesity. 4. History of coronary artery disease status post stents in July 2018 and February 2019. 5. Essential hypertension. 6. History of cerebrovascular accident. 7. History of chronic obstructive pulmonary disease. DISCHARGE MEDICATIONS: 1. Trazodone 50 mg at nighttime. 2. Aspirin 81 mg daily. 3. Carvedilol 90 mg b.i.d. 4. Furosemide 20 mg b.i.d. 5. Atorvastatin 40 mg at nighttime. 6. Metoprolol 50 mg b.i.d. 7. Insulin aspart 1 dose subcutaneously as needed. 8. Pantoprazole 40 mg daily. 9. Ranolazine 500 mg b.i.d. 10. Lactobacillus 1 tablet daily. 11. Folic acid 1 mg daily. 12. Isosorbide mononitrate 120 mg daily. 13. Insulin glargine 35 units subcutaneously daily. 14. MiraLAX 17 grams b.i.d. 15. Nitroglycerin 0.4 mg tablet sublingual every 4 hours as needed for chest pain. VITALS AT TIME OF DISCHARGE: Temperature 98, pulse 104, respiratory rate 18, blood pressure 88/52, saturating 100% on room air. PHYSICAL EXAMINATION: General: Not in any acute distress. HEENT: Oral cavity was moist. Lungs: Air entry bilaterally equal. No wheeze, rhonchi, or crackles. Cardiovascular: S1, S2 normal. No murmur, rub, or gallop. Abdomen: Obese, soft, nontender. Active bowel sounds. No lower extremity edema. She has an umbilical hernia. Chest: She has a left- sided chest dialysis catheter hooked up with the dialysis machine at the time of my evaluation. Neurologic: She is alert and oriented x3. LABS AT THE TIME OF DISCHARGE: WBC 12.8, hemoglobin 10.9, platelet 266. Sodium 133, potassium 5.9, chloride 96, BUN 17, creatinine 3.7, blood sugar 131. Microbiology during this admission: Stool culture, stool occult blood test, C difficile antigen and antibody were negative. Blood culture did not have any growth. Urine culture has ESBL E coli; however she was asymptomatic, so it was not treated. IMAGING DURING HOSPITAL ADMISSION: Abdominal x-ray on presentation did not have any specific abnormality. Had nonspecific bowel gas. Electrocardiogram on presentation had sinus rhythm with marked sinus arrhythmia, left axis deviation, prolonged QT interval with QTc of 480. CONSULTATION DURING HOSPITAL ADMISSION: Nephrology, Dr. Sue. HOSPITAL COURSE SUMMARY: Ms. Calhoun is 53-year-old lady with a medical history of chronic kidney disease stage 5 on intermittent hemodialysis. She came to the ER with chief complaints of nausea, diarrhea, and abdominal cramps, about 24 hours in duration. She was in fact admitted with similar complaints about 4 weeks ago. In the emergency room, she was found to have a temperature of 97.5, pulse of 118, respiratory rate of 18, blood pressure of 143/78, and oxygen saturation of 99%. Her initial lab had detected WBCs of 14,000, sodium of 129, potassium of 8.1, chloride of 94, BUN of 29, creatinine 4. Her hyperkalemia did not have associated EKG changes, and she did not have any chest pain or shortness of breath. She was emergently sent for dialysis, and the hospitalist team was consulted for admission. After dialysis, the patient's potassium went down to 5.9. It was unclear what could what had contributed to her hyperkalemia. She was counseled and again educated about dietary discretion, which she admitted to be compliant with. Her nausea, diarrhea, and abdominal cramps were thought to be related to viral gastroenteritis versus gastroparesis. It was treated symptomatically. At the time of discharge, the patient has been able to tolerate a mechanical soft diet without recurrence of nausea or diarrhea, so it was decided to discharge her home with outpatient followup. 25 minutes were spent discharging the patient. She was allowed to ask questions. All of her questions were satisfactorily answered. cc: Hiro Cotton MD MTDD
== END 2019-10-29 18:16 | disposition home or self-care (01) | DRG 640 ==
LOC: ED 13:17 → ICU 17:56 → 4N 10-29 01:57
PROVIDERS: ATTEND Internal Medicine